=== PATIENT | male | born 1970 | race Caucasian/White ===

== ENCOUNTER 2017-02-21 11:55 | Observation (INO) | payer BC ==
[2017-02-21 13:28] LABS: INR 1.1 (<1.1); Prothrombin Time 10.6 sec (9.0-12.0)
[2017-02-21 13:31] LABS: ALT 48 U/L (21-72); AST 28 U/L (17-59); Alkaline Phosphatase 44 U/L (38-126); Anion Gap 8 mmol/L; Blood Urea Nitrogen 15 mg/dL (9-20); Calcium 9.2 mg/dL (8.4-10.2); Carbon Dioxide 27 mmol/L (22-30); Chloride 107 mmol/L (98-107); Glucose 87 mg/dL (74-99); Magnesium 2.1 mg/dL (1.6-2.3); Non-African American GFR(MDRD) >60 (>60 ml/min/1.73 sqM); Potassium 4.3 mmol/L (3.5-5.1); Sodium 142 mmol/L (137-145); Total Bilirubin 0.5 mg/dL (0.2-1.3); Total Protein 6.4 g/dL (6.3-8.2)
[2017-02-21 13:33] LABS: Basophils % (A) 1 %; CH 29.1; Eosinophils # (A) 0.2 k/uL (0-0.7); Eosinophils % (A) 3 %; HCT 45.3 % (39.0-53.0); HDW 3.02; HGB 15.6 gm/dL (13.0-17.5); Luc # (Auto) 0.16; Luc % (Auto) 2; Lymphocytes # (A) 1.6 k/uL (1.0-4.8); Lymphocytes % (A) 25 %; MCH 28.7 pg (25.0-35.0); MCHC 34.4 g/dL (31.0-37.0); MCV 83.5 fL (80.0-100.0); Mean Platelet Volume 6.9; Monocytes # (A) 0.4 k/uL (0-1.0); Monocytes % (A) 6 %; Neutrophils % (A) 63 %; RBC 5.42 m/uL (4.30-5.90); RDW 13.3 % (11.5-15.5); WBC 6.4 k/uL (3.8-10.6); WBC (Perox) 6.15
[2017-02-21 13:34] LABS: Creatine Kinase 78 U/L (55-170)
[2017-02-21 13:46] LABS: Creatine Kinase MB 0.7 ng/mL (0.0-2.4); Troponin I <0.012 ng/mL (0.000-0.034)
--- NOTE | 2017-02-21 14:08 | CT ---
EXAMINATION TYPE: CT brain wo con DATE OF EXAM: 02/21/2017 2:00 PM COMPARISON: NONE INDICATION: Dizziness, TINAJERO and blurred vision Lt eye DLP: 1090.4 mGycm, Automated exposure control for dose reduction was used. CONTRAST: None CT of the brain is performed utilizing 3 mm thick sections through the posterior fossa and 3 mm thick sections through the remaining calvarium. Study is performed within 24 hours of arrival to the hosp ital. No abnormal hyperdensity is present to suggest an acute intracranial hemorrhage. No mass lesion is evident. No acute infarcts are evident. Ventricles and sulci are appropriate for the patient age. Paranasal sinuses and mastoid air cells within the [id number] are clear. IMPRESSIONS: 1. Normal CT Brain
--- NOTE | 2017-02-21 14:23 | ED ---
Chest Pain HPI - General Chief Complaint: Chest Pain Stated Complaint: CHEST PAIN Time Seen by Provider: 02/21/17 12:06 Source: patient, family, RN/MD, RN notes reviewed Mode of arrival: wheelchair Limitations: no limitations - History of Present Illness Initial Comments: This is a 46-year-old male with a benign history who was seen at [facility] yesterday after not feeling well he is found have elevated blood pressure he went and also the headache no other workup apparently was done he was seen by his doctor today and sent here for evaluation due to left- sided chest pain also an intermittent left-sided frontal headache. He denies any fevers chills nausea vomiting or sweats. His blood pressure was 162/110 he did is some visual field defects also with blurry vision none today and nonspecific left-sided pain he's had intermittent episodes of sweats. Past 2 months he does use CPAP is unclear whether this is working properly he is been fatigued recently no overt weight loss awaking however. There is a family history diabetes and hypertension he has no personal history he does not drink alcohol except once in a while does not smoke or use street drugs. He denies any focal deficits at this time MD Complaint: chest pain, other - Related Data Home Medications Medication Instructions Recorded Confirmed Citalopram Hydrobromide [CeleXA] 10 mg PO HS 05/30/15 02/21/17 Omeprazole [PriLOSEC] 20 mg PO AC-BRKFST 05/30/15 02/21/17 Cholecalciferol [Vitamin D3] 1,000 unit PO DAILY 02/21/17 02/21/17 Cyanocobalamin (Vitamin B-12) 1,000 mcg PO DAILY 02/21/17 02/21/17 [Vitamin B-12] Multivitamins, Thera [Multivitamin 1 tab PO DAILY 02/21/17 02/21/17 (formulary)] Testosterone Cypionate 200 mg IM [id number] 02/21/17 02/21/17 [Depo-Testosterone] Vitamin E (Dl,Tocopheryl Acet) 400 unit PO DAILY 02/21/17 02/21/17 [Vitamin E] Allergies Allergy/AdvReac Type Severity Reaction Status Date / Time narcotics AdvReac Unknown Uncoded 02/21/17 13:53 Review of Systems ROS Statement: Those systems with pertinent positive or pertinent negative responses have been documented in the HPI. ROS Other: All systems not noted in ROS Statement are negative. EKG Findings - EKG Results: EKG: interpreted by RILEY, sinus rhythm (Sinus rhythm a rate of 76. Interval 148 QRS duration 86 daily since QTC of 374/420 st-t wave changes this appears be a normal ekg) Past Medical History Additional Past Medical History / Comment(s): kidney stones, History of Any Multi-Drug Resistant Organisms: None Reported Past Surgical History: Appendectomy, Back Surgery Additional Past Surgical History / Comment(s): hand surgery Past Psychological History: No Psychological Hx Reported Smoking Status: Never smoker Past Alcohol Use History: None Reported Past Drug Use History: None Reported, Prescription Drug Abuse General Exam - General Exam Comments Initial Comments: This is a well-developed well-nourished awake alert oriented times 3 male Limitations: no limitations General appearance: alert, in no apparent distress Head exam: Present: atraumatic, normocephalic, normal inspection Eye exam: Present: normal appearance, PERRL, EOMI. Absent: scleral icterus, conjunctival injection, periorbital swelling ENT exam: Present: normal exam, mucous membranes moist Neck exam: Present: normal inspection. Absent: tenderness, meningismus, lymphadenopathy Respiratory exam: Present: normal lung sounds bilaterally. Absent: respiratory distress, wheezes, rales, rhonchi, stridor Cardiovascular Exam: Present: regular rate, normal rhythm, normal heart sounds. Absent: systolic murmur, diastolic murmur, rubs, gallop, clicks GI/Abdominal exam: Present: soft, normal bowel sounds. Absent: distended, tenderness, guarding, rebound, rigid Extremities exam: Present: normal inspection, full ROM, normal capillary refill. Absent: tenderness, pedal edema, joint swelling, calf tenderness Back exam: Present: normal inspection Neurological exam: Present: alert, oriented X3, CN II-XII intact Psychiatric exam: Present: normal affect, normal mood Skin exam: Present: warm, dry, intact, normal color. Absent: rash Course Vital Signs 02/21/17 02/21/17 02/21/17 11:57 12:10 12:40 Temperature 98.4 F Pulse Rate 78 73 73 Respiratory 20 18 18 Rate Blood Pressure 136/80 140/87 142/80 O2 Sat by Pulse 99 95 95 Oximetry 02/21/17 13:10 Temperature Pulse Rate 68 Respiratory 18 Rate Blood Pressure 133/71 O2 Sat by Pulse 95 Oximetry Chest Pain MDM - MDM I did review the imaging and reports no acute findings. Patient will be admitted for evaluation by cardiology at did discuss case with Dr. Cabezas. Disposition Clinical Impression: Chest pain Disposition: ADMITTED IP TO THIS HOSP Condition: Stable
[2017-02-21] MEDS ORDERED: NITROGLYCERIN SL TABS 0.4 MG TAB SUBLINGUAL PRN (14:56)
[2017-02-21] MEDS ORDERED: SODIUM CHLORIDE 0.9% 1,000 ML IV SCH (15:00)
--- NOTE | 2017-02-21 15:25 | XR ---
EXAMINATION TYPE: XR chest 2V DATE OF EXAM: 02/21/2017 2:47 PM COMPARISON: None HISTORY: 46-year-old male with chest pain TECHNIQUE: PA and lateral views FINDINGS: The cardiomediastinal silhouette, aorta, and pulmonary vasculature are within normal limits. Strandy atelectasis in the mid and lower lungs. There is some peribronchial cuffing suggested. No consolidati on or pleural effusion. IMPRESSION: Chronic appearing changes, possible chronic bronchitis/asthma. Clinically correlate.
[2017-02-21 18:07] LABS: Creatine Kinase 82 U/L (55-170)
[2017-02-21 18:20] LABS: Creatine Kinase MB 0.7 ng/mL (0.0-2.4); Troponin I <0.012 ng/mL (0.000-0.034)
[2017-02-21] MEDS ORDERED: CITALOPRAM HYDROBROMIDE 10 MG TAB PO SCH (21:00)
[2017-02-22 01:59] LABS: Creatine Kinase 81 U/L (55-170)
[2017-02-22 02:12] LABS: Creatine Kinase MB 0.6 ng/mL (0.0-2.4); Troponin I <0.012 ng/mL (0.000-0.034)
[2017-02-22 07:18] LABS: Cholesterol 185 mg/dL (<200); HDL Cholesterol 42 mg/dL (40-60); Triglycerides 206 mg/dL (<150)
[2017-02-22] MEDS ORDERED: PANTOPRAZOLE 40 MG TABLET PO SCH (07:30)
[2017-02-22 07:52] VITALS: RESP 18
[2017-02-22] MEDS ORDERED: ASPIRIN 325 MG TAB PO SCH (09:00)
[2017-02-22] MEDS ORDERED: ACETAMINOPHEN TAB 500 MG TAB PO PRN (09:43)
[2017-02-22] MEDS ORDERED: LOSARTAN 50 MG TAB PO SCH (10:00)
--- NOTE | 2017-02-22 10:50 | CONS ---
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 He has mild depression and gastroesophageal reflux disease and usually takes Celexa and omeprazole. About 2 days ago while he was at work he developed some headache and blurred feeling in his left eye and also a throbbing pain in the eye on the left side and he went to the medical ( ). Blood pressure was 160/110, he was sent to [facility] and by the time he got there. The pressure was normal. He was sent home without any specific additional medications. He went to see Dr. Cabezas, his primary care physician yesterday, complained of the same headache, but not as much throbbing. Blood pressure apparently was elevated, but not as high as it was when he went to [facility]. However, he also complained of left lateral squeezing discomfort in the chest very atypical in quality. He was sent here to the hospital. Blood pressure was normal. Troponins are normal. EKG is unremarkable. Blood pressure seems to be under fairly decent control and he is resting comfortably without symptoms. He is quite anxious. He used to smoke until 2008 and he quit about 6 years ago. He denies any chest pain or shortness of breath at the time of my evaluation. He had a fasting lipid profile. LDL cholesterol is 102. His thyroids suggest both a low free T4 and TSH, probably this needs to be rechecked at a later time. He does have testosterone deficiency takes injections every 2 weeks. PAST MEDICAL HISTORY: 1. Mild depression. 2. Gastroesophageal reflux disease. 3. Low testosterone on supplemental injections. CORONARY RISK FACTORS: Smoking, which she quit in 2008, obesity, labile hypertension. He does not have any family history of premature coronary artery disease. On examination, blood pressure is 160/72, pulse rate is 80 per minute, regular. HEENT: Unremarkable. Fundus was not examined by me. Neck is supple. No JVD. I do not hear a carotid bruit. There is no thyromegaly. Heart exam reveals S1 and S2 heard normally without rub, murmur or gallop. Lungs are clear. Abdomen is soft, nontender. Lower extremities reveal normal pulses. No edema. Central nervous system is normal. EKG revealed sinus mechanism within normal limits. IMPRESSION: 1. Hypertensive cardiovascular disease, which is a new diagnosis for this patient. 2. Atypical chest pain. 3. Obesity. 4. Past history of smoking. RECOMMENDATIONS: I am recommending that we add losartan 50 mg daily, advised low salt diet, advised low calorie, low carb diet as well. We will perform an echocardiogram and a regular stress test and if these tests are normal, he can be discharged and follow up with his primary care physician. I discussed my thoughts in detail with the patient as well as Dr. Cabezas. Thank you very much for the consult.
--- NOTE | 2017-02-22 11:29 | EST ---
DATE OF SERVICE: 02/22/2017 AGE: 46Y SEX: M HT: 70 WT: 249 lbs. Protocol Matry: X Other: Stage: III Dur. of Exercise: 9 minutes *Heart Rate Blood Pressure *Rest: 87 Rest: 141/98 * *Max. Achieved: 153 Maximum BP: 190/90 85% PMHR: 148 100% PMHR: 174 *METS: 10.5 INDICATIONS: Chest pain, hypertension. MEDICATIONS: Patient was exercised for a total period of 9 minutes. Peak heart rate of 153 was achieved. Maximum blood pressure of 190/90 mmHg was noted. Resting EKG shows normal sinus rhythm with normal NH interval and QRS duration and normal ST-T waves. No ST segment depression suggestive of ischemia is noted. The patient did not complain of any chest pain during the test. FINAL IMPRESSION: 1. This exercise test is not suggestive of ischemia ( ) EKG. 2. Patient did not complain of any anginal pain during the test. 3. Occasional PVCs were noted. 4. Patient's exercise tolerance is normal.
--- NOTE | 2017-02-22 11:54 | ECHOF ---
Referral Reason:HTN, Chest pain MEASUREMENTS -------- HEIGHT: 152.4 cm WEIGHT: 112.9 kg BP: IVSd: 1.5 cm (0.6 - 1.1) LVIDd: 4.8 cm (3.9 - 5.3) LVPWd: 1.4 cm (0.6 - 1.1) IVSs: 1.8 cm LVIDs: 4.1 cm LVPWs: 1.2 cm LA Diam: 4.3 cm (2.7 - 3.8) LAESV Index (A-L): 25.17 ml/m Ao Diam: 3.4 cm (2.0 - 3.7) AV Cusp: 1.8 cm (1.5 - 2.6) LA Diam: 4.7 cm (2.7 - 3.8) MV EXCURSION: 22.213 mm (> 18.000) MV EF SLOPE: 117 mm/s (70 - 150) EPSS: 0.3 cm MV E Erwin: 0.53 m/s MV DecT: 278 ms MV A Erwin: 0.52 m/s MV E/A Ratio: 1.02 RAP: 5.00 mmHg RVSP: 24.21 mmHg FINDINGS -------- Sinus rhythm. This was a technically adequate study. There is moderate concentric left ventricular hypertrophy. Overall left ventricular systolic function is low-normal with, an EF between 50 - 55 %. The right ventricle is normal in size. Normal LA size by volume 22+/-6 ml/m2. The right atrial size is normal. There is mild aortic valve sclerosis. There is no evidence of aortic regurgitation. The mitral valve leaflets are mildly thickened. Mild mitral regurgitation is present. Mild tricuspid regurgitation present. There is no evidence of pulmonary hypertension. The right ventricular systolic pressure, as measured by Doppler, is 24.21mmHg. There is no pulmonic regurgitation present. The aortic root size is normal. There is no pericardial effusion. CONCLUSIONS -------- 1. There is moderate concentric left ventricular hypertrophy. 2. Overall left ventricular systolic function is low-normal with, an EF between 50 - 55 %. 3. Normal LA size by volume 22+/-6 ml/m2. 4. There is mild aortic valve sclerosis. 5. The mitral valve leaflets are mildly thickened. 6. Mild mitral regurgitation is present. 7. Mild tricuspid regurgitation present. 8. There is no evidence of pulmonary hypertension. HEELER: Mayra Burks RDCS
[2017-02-22] MEDS ORDERED: CHOLECALCIFEROL 1,000 UNIT TAB PO SCH (12:00)
[2017-02-22] MEDS ORDERED: MULTIVITAMINS, THERA 1 EACH TAB PO SCH (12:00)
[2017-02-22 12:08] VITALS: BP 136/79; PULSE 91; TEMP 97.8
--- NOTE | 2017-02-22 12:18 | P.HPIM ---
History of Present Illness 6-year-old male presented to the emergency room not feeling well still stated that he had a headache and some dizziness also some left-sided chest pain patient was found to be hypertensive. Patient had a computed tomography scan that was negative and chest x-ray that was negative. Patient was admitted to have cardiology consultation regarding chest pain Review of Systems Constitutional: Reports fatigue Cardiovascular: Reports chest pain Neurological: Reports headaches Past Medical History Past Medical History: GERD/Reflux, Sleep Apnea/CPAP/BIPAP Additional Past Medical History / Comment(s): kidney stones, DEVIATED SEPTUM( HAS SX), USES CPAP MACHINE, HIATAL HERNIA History of Any Multi-Drug Resistant Organisms: None Reported Past Surgical History: Appendectomy, Back Surgery, Tonsillectomy Additional Past Surgical History / Comment(s): 1998 RT HAND INDEX/MIDDLE FINGER TENDON REPAIR, 1992 BACK SX L4-L5, SEPTOPLASY 2011, RT KNEE ARTHROSCOPY, LT MIDDLE EAR SX AGE 10 "HAS 50% HEARING LOSS" Past Anesthesia/Blood Transfusion Reactions: No Reported Reaction Past Psychological History: No Psychological Hx Reported Additional Psychological History / Comment(s): PT IS INDEPENDANT, LIVES WITH IN SINGLE LEVEL HOME W/BASEMENT. 3 STEPS TO GET INTO HOME, BASEMENT HAS 12 STEPS. ONLY MED EQUIPMENT IS CPAP MACHINE. NO OUTSIDE SERVICES.. HAS 1 DOG, 2 CATS. NO SERVICE IN BACKGROUND. 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 DENIES HX OF DEPRESSION -HAS TAKEN CELEXA SINCE 2013 PAST DRUG ADDICTION TO VICODIN. Smoking Status: Former smoker Past Alcohol Use History: Rare Additional Past Alcohol Use History / Comment(s): STARTED SMOKING 1992, 1 PPD, QUIT 2007 Past Drug Use History: Prescription Drug Abuse Additional Drug Use History / Comment(s): 2013 "HAD ADDICTION TO VICODIN" - Past Family History Mother Family Medical History: Hypertension Father Family Medical History: Diabetes Mellitus, Hypertension Additional Family Medical History / Comment(s): KINDENY REMOVED(BENIGN TUMOR) Medications and Allergies Home Medications Medication Instructions Recorded Confirmed Type Citalopram Hydrobromide [CeleXA] 10 mg PO HS 05/30/15 02/21/17 History Omeprazole [PriLOSEC] 20 mg PO AC-BRKFST 05/30/15 02/21/17 History Cholecalciferol [Vitamin D3] 1,000 unit PO DAILY 02/21/17 02/21/17 History Cyanocobalamin (Vitamin B-12) 1,000 mcg PO DAILY 02/21/17 02/21/17 History [Vitamin B-12] Multivitamins, Thera [Multivitamin 1 tab PO DAILY 02/21/17 02/21/17 History (formulary)] Testosterone Cypionate 200 mg IM [id number] 02/21/17 02/21/17 History [Depo-Testosterone] Vitamin E (Dl,Tocopheryl Acet) 400 unit PO DAILY 02/21/17 02/21/17 History [Vitamin E] Allergies Allergy/AdvReac Type Severity Reaction Status Date / Time narcotics AdvReac Unknown Uncoded 02/21/17 13:53 Physical Exam Vitals: Vital Signs Temp Pulse Pulse Resp BP BP BP 02/22/17 12:00 97.8 F 91 18 136/79 02/22/17 07:51 97.6 F 75 18 160/72 02/22/17 04:00 84 16 02/22/17 03:55 97.6 F 80 16 131/88 02/21/17 23:54 98.0 F 72 16 138/64 02/21/17 23:08 73 16 02/21/17 20:00 97.6 F 75 16 158/74 02/21/17 17:30 97.9 F 82 16 155/93 02/21/17 17:12 98.3 F 72 18 142/86 02/21/17 16:20 73 18 144/89 02/21/17 15:27 70 18 141/87 Pulse Ox 02/22/17 12:00 96 02/22/17 07:51 94 L 02/22/17 04:00 02/22/17 03:55 93 L 02/21/17 23:54 94 L 02/21/17 23:08 02/21/17 20:00 96 02/21/17 17:30 94 L 02/21/17 17:12 95 02/21/17 16:20 95 02/21/17 15:27 93 L Intake and Output 02/21/17 02/22/17 02/22/17 22:59 06:59 14:59 Other: Voiding Method Toilet Toilet # Voids 2 Weight 113.3 kg - Constitutional General appearance: obese - EENT Eyes: PERRLA Ears: bilateral: normal - Respiratory Respiratory: bilateral: CTA - Cardiovascular Rhythm: regular - Gastrointestinal General gastrointestinal: soft - Integumentary Integumentary: normal - Neurologic Neurologic: CNII-XII intact - Musculoskeletal Musculoskeletal: gait normal - Psychiatric Psychiatric: A&O x's 3, appropriate affect, intact judgment & insight Results CBC & Chem 7: 02/21/17 12:36 02/21/17 12:36 Labs: Abnormal Lab Results - Last 24 Hours (Table) 02/22/17 02/22/17 Range/Units 06:52 06:52 Triglycerides 206 H (<150) mg/dL LDL Cholesterol, Calc 102 H (0-99) mg/dL Prolactin 25.0 H (3.7-17.9) ng/mL Chest x-ray: report reviewed CT Scan - head: report reviewed Thrombosis Risk Factor Assmnt - Choose All That Apply Any of the Below Risk Factors Present?: Yes Each Factor Represents 1 point: Age 41-60 years, Obesity (BMI >25) Other Risk Factors: No Other congenital or acquired thrombophilia - If yes, enter type in comment: No Thrombosis Risk Factor Assessment Total Risk Factor Score: 2 Thrombosis Risk Factor Assessment Level: Low Risk Assessment and Plan Plan: Assessment Chest pain Hypertension Hypothyroidism GERD Sleep apnea Low testosterone Headache Plan Patient had CT of the brain that was negative Patient will be worked up for hypothyroidism Probable endocrinology workup outpatient Cardiology consultation regarding chest pain
--- NOTE | 2017-02-22 12:23 | P.DS ---
Providers Date of admission: 02/21/17 14:56 Expected date of discharge: 02/22/17 Attending physician: Luis Armando Cabezas Primary care physician: Luis Armando Cabezas Hospital Course: 46-year-old male was admitted through the emergency room with complaints of dizziness headache and left-sided chest pain. Patient was found to be hypo- thyroid will be worked up outpatient. Was found to be hypertensive area patient had negative stress test. Patient will follow-up with family physician and behavioral sciences instructor Assessment Chest pain atypical troponin was negative 3 stress test negative EKG normal sinus rhythm Hypothyroidism GERD Hypertension Sleep apnea Headache Low testosterone Plan Outpatient workup for possible pituitary abnormality Follow-up with family physician and behavioral sciences instructor Losartan 50 started Patient Condition at Discharge: Stable Plan - Discharge Summary New Discharge Prescriptions: Losartan [Cozaar] 50 mg PO DAILY #90 tab Discharge Medication List Citalopram Hydrobromide [CeleXA] 10 mg PO HS 05/30/15 [History] Omeprazole [PriLOSEC] 20 mg PO AC-BRKFST 05/30/15 [History] Cyanocobalamin (Vitamin B-12) [Vitamin B-12] 1,000 mcg PO DAILY 02/21/17 [ History] Multivitamins, Thera [Multivitamin (formulary)] 1 tab PO DAILY 02/21/17 [History ] Testosterone Cypionate [Depo-Testosterone] 200 mg IM [id number] 02/21/17 [History] Vitamin E (Dl,Tocopheryl Acet) [Vitamin E] 400 unit PO DAILY 02/21/17 [History] Cholecalciferol [Vitamin D3] 1,000 unit PO DAILY@1200 tab 02/22/17 [Rx] Losartan [Cozaar] 50 mg PO DAILY #90 tab 02/22/17 [Rx] Follow up Appointment(s)/Referral(s): Luis Armando Cabezas MD [Primary Care Provider] - 1-2 days
[2017-02-23] MEDS ORDERED: ASPIRIN 81 MG CHEW PO SCH (09:00)
[2017-02-23] MEDS ORDERED: LOSARTAN 50 MG TAB PO SCH (09:00)
[2017-02-23 11:58] LABS: Testosterone, Total, LC/MS/MS 964 H
== END 2017-02-22 13:18 | disposition home or self-care (01) ==
LOC: EC 11:55 → 3OBS 14:56
PROVIDERS: ADMIT Family Medicine; ATTEND Family Medicine
DX: R07.89 Other chest pain (principal); K21.9 Gastro-esophageal reflux disease without esophagitis; E03.9 Hypothyroidism, unspecified; I11.9 Hypertensive heart disease without heart failure; G47.30 Sleep apnea, unspecified; E29.1 Testicular hypofunction; E66.9 Obesity, unspecified; F32.9 Major depressive disorder, single episode, unspecified; Z68.35 Body mass index [BMI] 35.0-35.9, adult; Z79.899 Other long term (current) drug therapy; Z88.5 Allergy status to narcotic agent; Z87.442 Personal history of urinary calculi; Z87.891 Personal history of nicotine dependence; Z99.89 Dependence on other enabling machines and devices; Z82.49 Family history of ischemic heart disease and other diseases of the circulatory system; Z83.3 Family history of diabetes mellitus; H91.92 Unspecified hearing loss, left ear
CPT/HCPCS: 99285; 36415; 93005; 93017; 93306; 85379; 84439; 80061; 80053; 84443; 82550 ×2; 82553 ×2; 83735; 84484 ×2; 85025; 85610; 85730; 84146; 84270; 82040; 84403; 71020; 70450; G0378 ×2

== ENCOUNTER → 2017-02-26 | Outpatient (CLI) | payer BC ==
--- NOTE | 2017-02-26 22:27 | MR ---
EXAMINATION TYPE: MR angio head wo con DATE OF EXAM: 02/26/2017 4:57 PM COMPARISON: NONE HISTORY: Headaches, Visual disturbances, dizzy TECHNIQUE: Utilizing 3-D [id number] intracranial MRA of the [place] was performed. FINDINGS: The vertebrobasilar and carotid systems are patent. There is no sizable aneurysm or vascular malform ation. IMPRESSION: 1. No evidence of vascular malformation or sizable aneurysm.
--- NOTE | 2017-02-26 22:27 | MR ---
MRI of the brain with and without contrast HISTORY: Headaches. TECHNIQUE: T1-weighted sagittal, T2, FLAIR, and diffusion axial, postcontrast T1 axial and coronal vi ews of the brain are submitted. CONTRAST: 20 mL MultiHance COMPARISON: CT brain 02/21/2017 FINDINGS: There is no evidence of acute ischemia. The ventricles, basal cisterns, and sulci overlying the co nvexities are consistent with the patient's age. There is no mass effect or enhancing mass. Craniocervical junction maintained. Sella turcica has a normal appearance. No evidence of cerebellopo ntine angle mass. Changes of chronic sinusitis and mastoiditis noted. Prominent cisterna magna noted. WHITE MATTER: No sizable area of abnormal signal seen within the white matter IMPRESSION: 1. No acute intracranial process. 2. Changes of chronic sinusitis and mastoiditis.
== END | disposition home or self-care (01) ==
LOC: RADMRIMAIN 15:41
PROVIDERS: ATTEND Family Medicine
DX: H53.9 Unspecified visual disturbance (principal); R51 Headache
CPT/HCPCS: 70544; 70553; A9577

== ENCOUNTER → 2017-02-28 | Outpatient (CLI) | payer BC | END | disposition home or self-care (01) | LOC: LABWHC1 14:17 | PROVIDERS: ATTEND Internal Medicine Endocrinology, Diabetes & Metabolism | DX: R53.83 Other fatigue (principal) | CPT/HCPCS: 36415; 82024; 82533 ==

== ENCOUNTER → 2017-03-13 | Outpatient (CLI) | payer BC ==
--- NOTE | 2017-03-13 18:50 | CT ---
EXAMINATION TYPE: CT sinus wo con DATE OF EXAM: 03/13/2017 6:45 PM COMPARISON: NONE HISTORY: Pre sinus surgery. Facial congestion CT DLP: 628.[address] of the paranasal sinuses was performed in the axial and coronal planes. Bone and soft tissue settings are submitted. The paranasal sinuses demonstrate normal aeration and development. The paranasal sinuses are free of mucosal thickening or air fluid level. The osteal meatal units are patent bilaterally. The nasal septum is mildly deviated from right to left. Incidental right-sided tristen bullosa. No bony destructive changes are seen within the field of view. IMPRESSION: No evidence for chronic or acute sinusitis. Small amount of fluid within the left-sided mastoid air c ells. Mild nasal septal deviation right to left.
== END | disposition home or self-care (01) ==
LOC: RADCTMAIN 18:28
PROVIDERS: ATTEND Otolaryngology
DX: J34.2 Deviated nasal septum (principal)
CPT/HCPCS: 70486

== ENCOUNTER → 2017-04-14 | Outpatient (CLI) | payer BC ==
[2017-04-14 11:04] LABS: Prolactin 13.4 ng/mL (3.7-17.9)
== END | disposition home or self-care (01) ==
LOC: LABMAIN 08:42
PROVIDERS: ATTEND Internal Medicine Endocrinology, Diabetes & Metabolism
DX: R53.83 Other fatigue (principal)
CPT/HCPCS: 36415; 82024; 82533; 82607; 84146; 84439; 84443; 84481

== ENCOUNTER → 2017-05-08 | Outpatient (CLI) | payer BC ==
--- NOTE | 2017-05-09 13:06 | NM ---
EXAMINATION TYPE: NM thyroid image w uptake DATE OF EXAM: 05/09/2017 COMPARISON: NONE HISTORY: Fatigue, abnormal thyroid function tests TECHNIQUE: After the intravenous administration of 10.93 mCi Tc 99m Sodium Pertechnetate, thyroid pati ging is performed 10 minutes post injection. Thyroid iodine uptake is calculated after the oral admin istration of 18.86 uCi I-131 capsule. FINDINGS: There is increased trapping of activity throughout the gland. The 4 hour iodine uptake is calculated at 7.9% (normal range 8-14%). The 24-hour iodine uptake is calculated at 22% (normal range 15-35%). IMPRESSION: Findings suggest thyroiditis. Follow-up as indicated..
== END | disposition home or self-care (01) ==
LOC: RADNMMAIN 11:16
PROVIDERS: ATTEND Internal Medicine Endocrinology, Diabetes & Metabolism
DX: R53.83 Other fatigue (principal); R94.6 Abnormal results of thyroid function studies
CPT/HCPCS: 78014; A9528; A9512

== ENCOUNTER → 2017-07-21 | Outpatient (CLI) | payer BC | END | disposition home or self-care (01) | LOC: LABWHC1 07:51 | PROVIDERS: ATTEND Internal Medicine Endocrinology, Diabetes & Metabolism | DX: E06.9 Thyroiditis, unspecified (principal) | CPT/HCPCS: 36415; 84439; 84443; 84480 ==

== ENCOUNTER → 2017-12-20 | Outpatient (CLI) | payer BC ==
--- NOTE | 2017-12-20 16:44 | PN ---
PROGRESS NOTE DATE OF SERVICE: 12/20/2017 This patient is a 47-year-old gentleman who has been followed in the sleep center for obstructive sleep apnea-hypopnea syndrome. Patient continues to use his CPAP equipment every night for the whole night. No snoring with the CPAP. No problems related to the nasal pillow mask. [place] Sleepiness Scale today is 9. I checked the patient's CPAP unit. Usage is 100% for more than 4 hours. No leak from the mask. Apnea-hypopnea index for the last month in the range of 1.5, for the last week 0.8, totally normal range. MEDICATIONS: Omeprazole, citalopram and medication for blood pressure; patient does not remember the name. PHYSICAL EXAMINATION: Patient in no distress. VITAL SIGNS: BP 120/76, HR 76, RR 14, height 5 feet 9-1/2 inches and weight 240.8, the same weight as about 1 year ago. BMI 34.9. Temperature 97.7, oxygen saturation at room air 97%. HEENT: PERRLA, EOMI. Evaluation of oropharynx showed tongue protrudes midline; extremely low position of soft palate. NECK: Supple. No JVD. Thyroid is not palpable. LUNGS: Clear to percussion and to auscultation. Good air exchange. No wheezing or rhonchi. HEART: S1, S2 regular. No murmurs, gallops or rubs. ABDOMEN: Obese. EXTREMITIES : No clubbing or cyanosis. EYELET MACHINE OPERATOR: Awake, alert, and oriented X3. Cranial nerves 2 to 7 intact. There is no fasciculation or atrophy. noted. No focal deficits observed. IMPRESSION: 1. Obstructive sleep apnea-hypopnea syndrome. Patient demonstrated 100% compliance with treatment, benefitting from treatment. Respiration under full control with CPAP at 10 cm of water. 2. Acid reflux. 3. Obesity; weight is the same. 4. History of back problem. 5. Depression. 6. Anxiety. PLAN: 1. Continue to use CPAP equipment every night for the whole night. 2. Prescription for all necessary CPAP supplies, including mask, tube, filters. 3. No driving if feeling any sleepiness. Thank you very much for allowing me to participate in the management of your patient. Sincerely, Dipak Marie MD, PhD, FAASM Diplomat of [employer] [facility] [place] MORGAN / NIDHI: [id number] /
== END | disposition home or self-care (01) ==
LOC: SLEEP 14:38
PROVIDERS: ATTEND Internal Medicine
DX: G47.33 Obstructive sleep apnea (adult) (pediatric) (principal); K21.9 Gastro-esophageal reflux disease without esophagitis; M54.9 Dorsalgia, unspecified; F32.9 Major depressive disorder, single episode, unspecified; F41.9 Anxiety disorder, unspecified; E66.9 Obesity, unspecified; Z68.34 Body mass index [BMI] 34.0-34.9, adult; Z79.899 Other long term (current) drug therapy; Z99.89 Dependence on other enabling machines and devices

== ENCOUNTER → 2018-08-29 | Outpatient (CLI) | payer BC ==
--- NOTE | 2018-08-29 15:08 | SFUN ---
SLEEP CENTER FOLLOW UP NOTE DATE OF SERVICE: 08/29/2018 A 48-year-old gentleman who has been followed in the Sleep Center for treatment of obstructive sleep apnea-hypopnea syndrome. Previous visit was done in December of 2017. At that time, he demonstrated 100% compliance with treatment and benefitting from treatment on treatment with CPAP. He continued to use CPAP every night, but 2 days ago his CPAP unit is stopped working and I checked his CPAP unit today, it does not start. [place] Sleepiness Scale today 16. MEDICATIONS: Omeprazole, Celexa. PHYSICAL EXAM: Patient in no distress. BP 127/86, HR 90, RR 16, height 5, 10, weight 256.8, body mass index 36.8, temperature 99.0, oxygen saturation at room air 96%. OROPHARYNX: Extremely low position of soft palate. ABDOMEN: Obese. Neck Supple, no JVD. Thyroid is not palpable. LUNGS Clear to percussion and to auscultation. Good air exchange. No wheezing or rhonchi. HEART S1, S2 regular. No murmurs, gallops, or rubs. EXTREMITIES No clubbing or cyanosis. ASSET PROTECTION DETECTIVE Awake, alert, and oriented X3. Cranial nerves 2 to 7 intact. There is no fasciculation or atrophy. noted. No focal deficits observed. IMPRESSION: 1. Severe obstructive sleep apnea-hypopnea syndrome; apnea-hypopnea index 49.2. Presently, patient's CPAP unit is broken for today's, previously he demonstrated great compliance with treatment and full benefitting from treatment. 2. Obesity. 3. History of acid reflux. 4. History of back problems. 5. History of depression. PLAN: 1. Prescription for CPAP unit. Will try to get for patient a new CPAP machine as soon as possible. 2. Prescription for all necessary CPAP supplies including mask, tube, filters. 3. Patient will continue to use CPAP equipment every night for the whole night. 4. Losing weight. 5. No driving if feeling any sleepiness. Thank you very much for allowing me to participate in the management of your patient. Sincerely, Dipak Marie MD, PhD, FAASM Diplomat of [employer] [place] [employer] [place] [employer] Film Library Clerk of [facility] [place] MMODL / IJN: [id number] /
== END ==
LOC: SLEEP 13:13
PROVIDERS: ATTEND Internal Medicine
DX: G47.33 Obstructive sleep apnea (adult) (pediatric) (principal); E66.9 Obesity, unspecified; Z87.19 Personal history of other diseases of the digestive system; F32.9 Major depressive disorder, single episode, unspecified; Z87.39 Personal history of other diseases of the musculoskeletal system and connective tissue; Z99.89 Dependence on other enabling machines and devices; Z79.899 Other long term (current) drug therapy

== ENCOUNTER → 2018-08-29 | Outpatient (CLI) | payer BC ==
--- NOTE | 2018-08-29 10:09 | XR ---
EXAMINATION TYPE: XR chest 2V DATE OF EXAM: 08/29/2018 COMPARISON: Prior chest x-ray 02/21/2017 HISTORY: Hemoptysis TECHNIQUE: Frontal and lateral views of the chest are obtained. FINDINGS: Patient is rotated. There is no focal air space opacity, pleural effusion, or pneumothorax seen. The cardiac silhouette size is within normal limits. The osseous structures are intact. IMPRESSION: No acute cardiopulmonary process.
--- NOTE | 2018-08-29 12:42 | CT ---
EXAMINATION TYPE: CT chest w con DATE OF EXAM: 08/29/2018 COMPARISON: None HISTORY: Coughing up blood CT DLP: 568.1 mGycm. Automated Exposure Control for Dose Reduction was Utilized. TECHNIQUE: CT scan of the thorax is performed following with IV Contrast, patient injected with 100 mL of Isovue 300. FINDINGS: LUNGS: Peribronchial cuffing and left basilar airspace disease is seen of the posterior basilar segme nt of the left lower lobe. The lungs are grossly clear, there is no concerning parenchymal mass or no dule identified. There is no pleural effusion or pneumothorax seen. The tracheobronchial tree is p atent. MEDIASTINUM: There are no greater than 1 cm hilar or mediastinal lymph nodes. No pericardial effusi on is seen. OTHER: Very small hiatal hernia is present. Mild multilevel degenerative changes of spine are noted. Low-attenuation of the pancreatic parenchyma is compatible with hepatic steatosis. Radiopaque density within the gastric folds of the fundus is likely from ingested substance. Small hypoattenuated hepat ic pancreatic lesions are seen. MRCP could be performed for further evaluation. IMPRESSION: 1. Left basilar peribronchial cuffing and groundglass small area of airspace disease. This could repr esent early pneumonitis/bronchitis or atelectasis. No pulmonary mass is seen. 2. Subcentimeter low-density pancreatic lesion are favored to be benign but could be further evaluate d with MRCP.
== END | disposition home or self-care (01) ==
LOC: RADCTMAIN 09:48
PROVIDERS: ATTEND Midwife
DX: R91.8 Other nonspecific abnormal finding of lung field (principal); J98.4 Other disorders of lung; R04.2 Hemoptysis
CPT/HCPCS: 71046; 71260; Q9967

== ENCOUNTER → 2018-08-30 | Outpatient (CLI) | payer BC ==
--- NOTE | 2018-08-30 10:29 | MR ---
EXAMINATION TYPE: MR MRCP DATE OF EXAM: 08/30/2018 COMPARISON: CT chest August 29, 2018 HISTORY: Abnormal ct scan Standard multiplanar, multisequence MRI departmental protocol Multiplanar, multisequence images of the abdomen were acquired. Thin and thick slice MRCP images are created on MRI scanner. FINDINGS: LIVER/GB/PANCREAS/BILIARY SYSTEM: Liver is normal in size. There is 7 mm simple appearing thin-walled cyst in the right hepatic lobe coronal image 19. No suspicious intrahepatic or extrahepatic biliary dilatation is present. Gallbladder is felt within normal limits. Pancreas is within normal limits in size. Pancreatic duct is visualized but not suspiciously dilated in the body. Pancreatic duct because of poor distention is less well seen in the head to confirm norm al anatomy. Area of subcentimeter low density on CT near the head body junction shows no worrisome le karina or cyst on current study, I favor interdigitating intra-abdominal fat causing CT abnormality. No suspicious solid or cystic lesion is present in pancreas. OTHER: Lung bases are clear. The spleen and both adrenal glands are normal in size. There is subcenti meter cyst upper pole level left kidney axial image 24 series 501. No hydronephrosis is evident in ei ther kidney. There is no suspicious small or large bowel dilatation. There is no concerning abdominal fluid collec tion. Osseous structures are intact. No suspicious abdominal adenopathy is seen. IMPRESSION: No suspicious pancreatic mass or cystic lesion. No suspicious ductal dilatation.
== END | disposition home or self-care (01) ==
LOC: RADMRIMAIN 07:42
PROVIDERS: ATTEND Midwife
DX: R93.89 Abnormal findings on diagnostic imaging of other specified body structures (principal)
CPT/HCPCS: 74181

== ENCOUNTER → 2018-12-19 | Outpatient (CLI) | payer BC ==
--- NOTE | 2018-12-19 17:29 | PN ---
PROGRESS NOTE DATE OF SERVICE: 12/19/2018 This patient is a 48-year-old gentleman who has been followed in Sleep Center for treatment of obstructive sleep apnea-hypopnea syndrome. Recently he received a new CPAP unit. He is able to use his CPAP equipment every night for the whole night without any significant problems related to mask fitting, pressure or humidification. [place] Sleepiness Scale today is 11. I checked his CPAP unit. CPAP pressure is 10 cm of water. Usage is every night, and 28/30 nights for more than 4 hours. Average usage is 7.6 hours. Leak is 13 L/minute, which is acceptable. Apnea-hypopnea index is 2.7, which is totally normal. Patient is using a Child LT nasal pillow mask. MEDICATIONS: 1. Omeprazole. 2. Celexa. PHYSICAL EXAMINATION: GENERAL: A pleasant patient in no distress. VITAL SIGNS: BP 126/100, HR 94, RR 17, weight 256.4, temperature 98.2. HEENT: PERRLA, EOMI. Evaluation of oropharynx showed tongue protrudes midline. Extremely low position of soft palate. Mallampati IV. NECK: Supple. No JVD. Thyroid is not palpable. LUNGS: Clear to percussion and to auscultation. Good air exchange. No wheezing or rhonchi. HEART: S1, S2 regular. No murmurs, gallops or rubs. ABDOMEN: Obese. EXTREMITIES: No clubbing or cyanosis. HEALTHCARE MARKETER: Awake, alert, and oriented X3. Cranial nerves 2 to 7 intact. There is no fasciculation or atrophy. noted. No focal deficits observed. IMPRESSION: 1. Severe obstructive sleep apnea-hypopnea syndrome; apnea-hypopnea index 49.2. The patient demonstrated 100% compliance with treatment. His respiration normalized on treatment with CPAP at the pressure 10 cm of water. He is benefitting from treatment. 2. Obesity. 3. History of acid reflux. 4. History of back problems. 5. History of depression. PLAN: 1. Patient will continue to use CPAP equipment every night for the whole night. 2. We will maintain all necessary CPAP prescriptions for the mask, tube, filters. 3. Losing weight. 4. Sleep hygiene with regular time in bed for at least 8 hours. 5. No driving if feeling any sleepiness. 6. Follow-up visit in one year, or earlier if patient has any problems. Thank you very much for allowing me to participate in the management of your patient. Sincerely, Dipak Marie MD, PhD, FAASM Diplomat of [place] [employer] [employer] Broke Handler of [facility] [place] MORGAN / NIDHI: [id number] /
== END ==
LOC: SLEEP 16:15
PROVIDERS: ATTEND Internal Medicine
DX: G47.33 Obstructive sleep apnea (adult) (pediatric) (principal); E66.9 Obesity, unspecified; Z87.19 Personal history of other diseases of the digestive system; Z87.39 Personal history of other diseases of the musculoskeletal system and connective tissue; Z86.59 Personal history of other mental and behavioral disorders; Z99.89 Dependence on other enabling machines and devices; Z79.899 Other long term (current) drug therapy

== ENCOUNTER 2019-01-16 18:37 | Observation (INO) | payer BC ==
[2019-01-16] MEDS ORDERED: SODIUM CHLORIDE 0.9% 500 ML 500 ML IV ONE (19:59)
[2019-01-16] MEDS ORDERED: ONDANSETRON 4 MG/2 ML VIAL IVP STA (19:59)
--- NOTE | 2019-01-16 20:00 | ED ---
General Adult HPI - General Chief complaint: Chest Pain Stated complaint: Shaky, dizzy Time Seen by Provider: 01/16/19 19:46 Source: patient, RN notes reviewed, old records reviewed Mode of arrival: ambulatory Limitations: no limitations - History of Present Illness Initial comments: 48-year-old male presents for evaluation of lightheadedness, nausea, chest pain. Patient's symptoms began at approximately 4 PM, this was 4 hours prior to arrival. Patient states he felt lightheaded, had some nausea and then developed some intermittent left-sided chest pain. This pain was 6 out of 10 at its worst. He states he felt cool and clammy. Denies dyspnea. Denies vomiting. Denies abdominal pain. Patient's symptoms have improved at the time my evaluation. He has no history of CAD, no history diabetes, nonsmoker. - Related Data Home Medications Medication Instructions Recorded Confirmed Omeprazole [PriLOSEC] 20 mg PO AC-BRKFST 05/30/15 01/16/19 amLODIPine [Norvasc] 5 mg PO DAILY 10/25/17 01/16/19 Allergies Allergy/AdvReac Type Severity Reaction Status Date / Time narcotics AdvReac Unknown Uncoded 01/16/19 19:31 Review of Systems ROS Statement: Those systems with pertinent positive or pertinent negative responses have been documented in the HPI. ROS Other: All systems not noted in ROS Statement are negative. Past Medical History Past Medical History: GERD/Reflux, Sleep Apnea/CPAP/BIPAP Additional Past Medical History / Comment(s): kidney stones, DEVIATED SEPTUM( HAS SX), USES CPAP MACHINE, HIATAL HERNIA History of Any Multi-Drug Resistant Organisms: None Reported Past Surgical History: Appendectomy, Back Surgery, Tonsillectomy Additional Past Surgical History / Comment(s): 1998 RT HAND INDEX/MIDDLE FINGER TENDON REPAIR, 1992 BACK SX L4-L5, SEPTOPLASY 2011, RT KNEE ARTHROSCOPY, LT MIDDLE EAR SX AGE 10 "HAS 50% HEARING LOSS" Past Anesthesia/Blood Transfusion Reactions: No Reported Reaction Past Psychological History: No Psychological Hx Reported Smoking Status: Current every day smoker Past Alcohol Use History: Rare Past Drug Use History: Prescription Drug Abuse - Past Family History Mother Family Medical History: Hypertension Father Family Medical History: Diabetes Mellitus, Hypertension Additional Family Medical History / Comment(s): KINDENY REMOVED(BENIGN TUMOR) General Exam Limitations: no limitations General appearance: alert, in no apparent distress Head exam: Present: atraumatic, normocephalic Eye exam: Present: normal appearance, PERRL ENT exam: Present: normal exam Neck exam: Present: normal inspection. Absent: tenderness, meningismus Respiratory exam: Present: normal lung sounds bilaterally. Absent: respiratory distress, wheezes Cardiovascular Exam: Present: regular rate, normal rhythm GI/Abdominal exam: Present: soft. Absent: distended, tenderness Extremities exam: Present: normal inspection, normal capillary refill. Absent: pedal edema Back exam: Present: normal inspection Neurological exam: Present: alert, oriented X3, CN II-XII intact. Absent: motor sensory deficit Psychiatric exam: Present: normal affect, normal mood Skin exam: Present: warm, dry, intact. Absent: cyanosis, diaphoretic Course Vital Signs 01/16/19 01/16/19 01/16/19 19:27 20:40 20:50 Temperature 98.5 F Pulse Rate 86 108 H 80 Respiratory 18 16 17 Rate Blood Pressure 158/98 142/85 142/85 O2 Sat by Pulse 99 98 94 L Oximetry 01/16/19 01/16/19 21:00 21:10 Temperature Pulse Rate 77 Respiratory Rate Blood Pressure 142/85 142/88 O2 Sat by Pulse Oximetry - Reevaluation(s) Reevaluation #1: 01/16/19 21:27 Patient reevaluated, he symptomatically, no pain EKG Findings - EKG Comments: EKG Findings:: EKG: Normal sinus rhythm, Q wave and T wave inversion in lead 3, no ST segment elevation or depression, rate of 79, ME interval 1:30, QRS duration 90, QTC 440, similar compared to previous EKG in February 2017 Medical Decision Making - Medical Decision Making 48-year-old male presenting with an episode of nausea, chest pain, and lightheadedness. Patient's symptoms began several hours prior to arrival. Chest x-ray reviewed, no acute cardiopulmonary disease, normal CBC, normal CMP, d-dimer is negative, troponin is negative. Patient will be kept in observation for serial cardiac enzymes, telemetry, and cardiology consultation. Case is discussed with admitting physician. - Lab Data Result diagrams: 01/16/19 19:54 01/16/19 19:54 Lab Results 01/16/19 01/16/1919 Range/Units 19:54 19:54 19:54 WBC 7.3 (3.8-10.6) k/uL RBC 5.64 (4.30-5.90) m/uL Hgb 16.5 (13.0-17.5) gm/dL Hct 48.0 (39.0-53.0) % MCV 85.1 (80.0-100.0) fL MCH 29.3 (25.0-35.0) pg MCHC 34.4 (31.0-37.0) g/dL RDW 14.1 (11.5-15.5) % Plt Count 195 (150-450) k/uL Neutrophils % 73 % Lymphocytes % 17 % Monocytes % 6 % Eosinophils % 2 % Basophils % 0 % Neutrophils # 5.3 (1.3-7.7) k/uL Lymphocytes # 1.2 (1.0-4.8) k/uL Monocytes # 0.5 (0-1.0) k/uL Eosinophils # 0.1 (0-0.7) k/uL Basophils # 0.0 (0-0.2) k/uL PT 9.5 (9.0-12.0) sec INR 0.9 (<1.2) APTT 23.4 (22.0-30.0) sec D-Dimer 0.33 (<0.60) mg/L FEU Sodium 145 (137-145) mmol/L Potassium 4.2 (3.5-5.1) mmol/L Chloride 108 H (98-107) mmol/L Carbon Dioxide 30 (22-30) mmol/L Anion Gap 7 mmol/L BUN 10 (9-20) mg/dL Creatinine 0.85 (0.66-1.25) mg/dL Est GFR (CKD-EPI)AfAm >90 (>60 ml/min/1.73 sqM) Est GFR (CKD-EPI)NonAf >90 (>60 ml/min/1.73 sqM) Glucose 118 H (74-99) mg/dL Calcium 9.5 (8.4-10.2) mg/dL Magnesium 2.1 (1.6-2.3) mg/dL Total Bilirubin 0.6 (0.2-1.3) mg/dL AST 32 (17-59) U/L ALT 62 (21-72) U/L Alkaline Phosphatase 70 (38-126) U/L Troponin I (0.000-0.034) ng/mL Total Protein 7.1 (6.3-8.2) g/dL Albumin 4.5 (3.5-5.0) g/dL Lipase 118 (23-300) U/L 01/16/19 Range/Units 19:54 WBC (3.8-10.6) k/uL RBC (4.30-5.90) m/uL Hgb (13.0-17.5) gm/dL Hct (39.0-53.0) % MCV (80.0-100.0) fL MCH (25.0-35.0) pg MCHC (31.0-37.0) g/dL RDW (11.5-15.5) % Plt Count (150-450) k/uL Neutrophils % % Lymphocytes % % Monocytes % % Eosinophils % % Basophils % % Neutrophils # (1.3-7.7) k/uL Lymphocytes # (1.0-4.8) k/uL Monocytes # (0-1.0) k/uL Eosinophils # (0-0.7) k/uL Basophils # (0-0.2) k/uL PT (9.0-12.0) sec INR (<1.2) APTT (22.0-30.0) sec D-Dimer (<0.60) mg/L FEU Sodium (137-145) mmol/L Potassium (3.5-5.1) mmol/L Chloride (98-107) mmol/L Carbon Dioxide (22-30) mmol/L Anion Gap mmol/L BUN (9-20) mg/dL Creatinine (0.66-1.25) mg/dL Est GFR (CKD-EPI)AfAm (>60 ml/min/1.73 sqM) Est GFR (CKD-EPI)NonAf (>60 ml/min/1.73 sqM) Glucose (74-99) mg/dL Calcium (8.4-10.2) mg/dL Magnesium (1.6-2.3) mg/dL Total Bilirubin (0.2-1.3) mg/dL AST (17-59) U/L ALT (21-72) U/L Alkaline Phosphatase (38-126) U/L Troponin I <0.012 (0.000-0.034) ng/mL Total Protein (6.3-8.2) g/dL Albumin (3.5-5.0) g/dL Lipase (23-300) U/L Disposition Clinical Impression: Chest pain Disposition: ADMITTED IP TO THIS [facility] Condition: Stable Is patient prescribed a controlled substance at d/c from ED?: No Referrals: Luis Armando Cabezas MD [Primary Care Provider] - 1-2 days Decision to Admit Reason: Admit from EC Decision Date: 01/16/19 Decision Time: 21:29
--- NOTE | 2019-01-16 20:10 | XR ---
EXAMINATION TYPE: XR chest 2V DATE OF EXAM: 01/16/2019 COMPARISON: 08/29/2018 HISTORY: Chest pain TECHNIQUE: Frontal and lateral views of the chest are obtained. FINDINGS: Heart and mediastinum are normal. Lungs are clear. Diaphragm is normal. There are chest le ads. Bony thorax appears normal. IMPRESSION: Normal chest. No change.
[2019-01-16 20:18] LABS: Basophils % (A) 0 %; Eosinophils # (A) 0.1 k/uL (0-0.7); Eosinophils % (A) 2 %; HGB 16.5 gm/dL (13.0-17.5); Lymphocytes # (A) 1.2 k/uL (1.0-4.8); Lymphocytes % (A) 17 %; MCH 29.3 pg (25.0-35.0); MCHC 34.4 g/dL (31.0-37.0); MCV 85.1 fL (80.0-100.0); Mean Platelet Volume 7.1; Monocytes # (A) 0.5 k/uL (0-1.0); Monocytes % (A) 6 %; Neutrophils # (A) 5.3 k/uL (1.3-7.7); Neutrophils % (A) 73 %; Platelet Count 195 k/uL (150-450); RBC 5.64 m/uL (4.30-5.90); RDW 14.1 % (11.5-15.5); WBC 7.3 k/uL (3.8-10.6)
[2019-01-16 20:26] LABS: ALT 62 U/L (21-72); AST 32 U/L (17-59); Albumin 4.5 g/dL (3.5-5.0); Alkaline Phosphatase 70 U/L (38-126); Anion Gap 7 mmol/L; Blood Urea Nitrogen 10 mg/dL (9-20); Calcium 9.5 mg/dL (8.4-10.2); Carbon Dioxide 30 mmol/L (22-30); Chloride 108 mmol/L (98-107); Glucose 118 mg/dL (74-99); Lipase 118 U/L (23-300); Magnesium 2.1 mg/dL (1.6-2.3); Potassium 4.2 mmol/L (3.5-5.1); Sodium 145 mmol/L (137-145); Total Bilirubin 0.6 mg/dL (0.2-1.3); Total Protein 7.1 g/dL (6.3-8.2)
[2019-01-16 20:32] LABS: D-Dimer 0.33 mg/L FEU (<0.60); INR 0.9 (<1.2); Partial Thromboplastin Time 23.4 sec (22.0-30.0); Prothrombin Time 9.5 sec (9.0-12.0)
[2019-01-16] MEDS ORDERED: ASPIRIN 325 MG TAB PO STA (20:59)
[2019-01-16] MEDS ORDERED: ONDANSETRON 4 MG/2 ML VIAL IVP PRN (21:25)
[2019-01-16] MEDS ORDERED: MORPHINE SULFATE 4 MG/ML SYRINGE IV PRN (21:25)
[2019-01-16] MEDS ORDERED: NALOXONE 0.4 MG/ML 1 ML VIAL IV PRN (21:25)
[2019-01-16] MEDS ORDERED: ACETAMINOPHEN TAB 325 MG TAB PO PRN (21:25)
[2019-01-16] MEDS ORDERED: NITROGLYCERIN SL TABS 0.4 MG TAB SUBLINGUAL PRN (21:26)
[2019-01-16 22:36] VITALS: BMI 37.0
[2019-01-17] MEDS ORDERED: PANTOPRAZOLE 40 MG TABLET PO SCH (07:30)
[2019-01-17] MEDS ORDERED: amLODIPine 5 MG TAB PO SCH (09:00)
[2019-01-17] MEDS ORDERED: ASPIRIN 325 MG TAB PO SCH (09:00)
--- NOTE | 2019-01-17 09:51 | P.CRDCN ---
History of Present Illness Consult date: 01/17/19 Requesting physician: Nikhil Thomas Consult reason: chest pain Chief complaint: Chest pain History of present illness: Is is a 48-year-old gentleman with history of hypertension, sleep apnea, nicotine dependence, obesity, who presented to the hospital with symptoms of nausea with associated cold sweats and clammy feeling. Initially the patient presented to the hospital with symptoms of lightheadedness and clamminess, while in the emergency room he states he developed some chest pressure in the left side of his chest. EKG on arrival here showed a normal sinus rhythm with inferior Q waves, no acute changes noted. Chest x-ray did not reveal any acute changes. Blood pressure on arrival here 158/98, heart rate in the 80s, 99% on room air. White blood cell count 7.3, hemoglobin 16.5, platelet count 195. D-dimer 0.33. Sodium 145, potassium 4.2, BUN 10 and creatinine 0.8. Magnesium is 2.1. Troponins are negative 3. At the time of my examination this morning he is currently symptom-free. Past Medical History Past Medical History: GERD/Reflux, Hypertension, Sleep Apnea/CPAP/BIPAP Additional Past Medical History / Comment(s): kidney stones, DEVIATED SEPTUM( HAS SX), USES CPAP MACHINE, HIATAL HERNIA History of Any Multi-Drug Resistant Organisms: None Reported Past Surgical History: Appendectomy, Back Surgery, Tonsillectomy Additional Past Surgical History / Comment(s): 1998 RT HAND INDEX/MIDDLE FINGER TENDON REPAIR, 1992 BACK SX L4-L5, SEPTOPLASY 2011, RT KNEE ARTHROSCOPY, LT MIDDLE EAR SX AGE 10 "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 Past Anesthesia/Blood Transfusion Reactions: No Reported Reaction Past Psychological History: No Psychological Hx Reported Additional Psychological History / Comment(s): PT IS INDEPENDANT, LIVES WITH FRIEND. GOING THROUGH [employer], PAST ADDICTION TO VICODIN. Smoking Status: Current every day smoker Past Alcohol Use History: Occasional Additional Past Alcohol Use History / Comment(s): 1 PPD Past Drug Use History: Prescription Drug Abuse Additional Drug Use History / Comment(s): 2013 "HAD ADDICTION TO VICODIN" - Past Family History Mother Family Medical History: No Reported History Father Family Medical History: Diabetes Mellitus, Hypertension Additional Family Medical History / Comment(s): KINDNEY REMOVED(BENIGN TUMOR) Medications and Allergies Home Medications Medication Instructions Recorded Confirmed Type Omeprazole [PriLOSEC] 20 mg PO AC-BRKFST 05/30/15 01/16/19 History amLODIPine [Norvasc] 5 mg PO DAILY 10/25/17 01/16/19 History Allergies Allergy/AdvReac Type Severity Reaction Status Date / Time narcotics AdvReac Unknown Uncoded 01/16/19 19:31 Physical Exam Vitals: Vital Signs Temp Pulse Pulse Resp BP BP Pulse Ox 01/17/19 08:38 97 01/17/19 03:44 98.2 F 95 15 131/82 98 01/16/19 23:00 144/85 01/16/19 22:23 77 16 153/81 97 01/16/19 21:10 142/88 01/16/19 21:00 77 142/85 01/16/19 20:50 80 17 142/85 94 L 01/16/19 20:40 108 H 16 142/85 98 01/16/19 19:27 98.5 F 86 18 158/98 99 Intake and Output 01/16/19 01/17/19 01/17/19 22:59 06:59 14:59 Other: Voiding Method Toilet Toilet # Voids 1 1 Weight 117.027 kg 116.3 kg PHYSICAL EXAMINATION: GENERAL: 48-year-old gentleman in no acute distress at the time of my examination HEENT: Head is atraumatic, normocephalic. Pupils equal, round. Sclera anicteric. Conjunctiva are clear. Mucous membranes of the mouth are moist. Neck is supple. There is no elevated jugular venous pressure. No carotid bruit is heard. HEART EXAMINATION: Heart S1, S2 normal. No murmur or gallop heard. CHEST EXAMINATION: Lungs are clear to auscultation and precussion. No chest wall tenderness is noted on palpation or with deep breathing. ABDOMEN: Soft, obese, nontender. Bowel sounds are heard. No organomegaly noted. EXTREMITIES: 2+ peripheral pulses with no evidence of peripheral edema and no calf tenderness noted. NEUROLOGIC patient is awake, alert and oriented 3 . . Results 01/16/19 19:54 01/16/19 19:54 Cardiac Enzymes 01/16/19 01/16/19 01/16/19 Range/Units 19:54 19:54 19:54 AST 32 (17-59) U/L CK-MB (CK-2) 2.6 H (0.0-2.4) ng/mL Troponin I <0.012 (0.000-0.034) ng/mL 01/17/19 01/17/19 01/17/19 Range/Units 01:43 01:43 07:24 AST (17-59) U/L CK-MB (CK-2) 1.8 (0.0-2.4) ng/mL Troponin I <0.012 <0.012 (0.000-0.034) ng/mL 01/17/19 Range/Units 07:24 AST (17-59) U/L CK-MB (CK-2) 1.8 (0.0-2.4) ng/mL Troponin I (0.000-0.034) ng/mL Coagulation 01/16/19 Range/Units 19:54 PT 9.5 (9.0-12.0) sec APTT 23.4 (22.0-30.0) sec CBC 01/16/19 Range/Units 19:54 WBC 7.3 (3.8-10.6) k/uL RBC 5.64 (4.30-5.90) m/uL Hgb 16.5 (13.0-17.5) gm/dL Hct 48.0 (39.0-53.0) % Plt Count 195 (150-450) k/uL Comprehensive Metabolic Panel 01/16/19 Range/Units 19:54 Sodium 145 (137-145) mmol/L Potassium 4.2 (3.5-5.1) mmol/L Chloride 108 H (98-107) mmol/L Carbon Dioxide 30 (22-30) mmol/L BUN 10 (9-20) mg/dL Creatinine 0.85 (0.66-1.25) mg/dL Glucose 118 H (74-99) mg/dL Calcium 9.5 (8.4-10.2) mg/dL AST 32 (17-59) U/L ALT 62 (21-72) U/L Alkaline Phosphatase 70 (38-126) U/L Total Protein 7.1 (6.3-8.2) g/dL Albumin 4.5 (3.5-5.0) g/dL Current Medications Generic Name Dose Route Start Last Admin Trade Name Freq PRN Reason Stop Dose Admin Acetaminophen 650 mg 01/16/19 21:25 Tylenol Tab PO Q6HR PRN Mild Pain or Fever > 100.5 Amlodipine Besylate 5 mg 01/17/19 09:00 Norvasc PO DAILY [facility] Aspirin 325 mg 01/17/19 09:00 Aspirin PO DAILY [facility] Morphine Sulfate 4 mg 01/16/19 21:25 Morphine Sulfate (Inj) IV Q4HR PRN Severe Pain Naloxone HCl 0.2 mg 01/16/19 21:25 Narcan IV Q2M PRN Opioid Reversal Nitroglycerin 0.4 mg 01/16/19 21:26 Nitrostat SUBLINGUAL Q5M PRN Chest Pain Ondansetron HCl 4 mg 01/16/19 21:25 Zofran IVP Q8HR PRN Nausea And Vomiting Pantoprazole Sodium 40 mg 01/17/19 07:30 01/17/19 06:41 Protonix PO Not Given AC-BRKFST PAUL Intake and Output 01/16/19 01/17/19 01/17/19 22:59 06:59 14:59 Other: Voiding Method Toilet Toilet # Voids 1 1 Weight 117.027 kg 116.3 kg 01/16/19 19:54 01/16/19 19:54 EKG Interpretations (text) EKG shows normal sinus rhythm with no acute changes. Inferior Q waves noted. Assessment and Plan Plan: Assessment and plan #1 symptoms of clamminess with associated lightheadedness and atypical chest pain. Troponins are negative 3 #2 hypertension #3 nicotine dependence #4 sleep apnea #5 GERD Plan We will request an echocardiogram with Doppler study be performed. We'll also check a fasting lipid profile. Patient did have a regular stress test performed in 2017 which was negative. We would recommend on this occasion again on the patient undergo stress testing. Further recommendations to follow. DNP note has been reviewed, I agree with a documented findings and plan of care. Patient was seen and examined.
[2019-01-17 10:31] VITALS: RESP 16
[2019-01-17 11:14] LABS: Cholesterol 159 mg/dL (<200); HDL Cholesterol 42 mg/dL (40-60); LDL Cholesterol,Calculated 104 mg/dL (0-99); Triglycerides 67 mg/dL (<150)
--- NOTE | 2019-01-17 11:31 | P.HPIM ---
History of Present Illness A pleasant 48-year-old gentleman came in with complaints of chest pain and feeling clammy chest pain lasted the for about an hour on the left side of the chest pressure like sensation nonradiating no associated shortness of breath bit lightheaded no radiation [id number] severity 6 last and severe found to have some inferior Q waves without any troponin elevation. Patient chest pain is nonpleuritic chest x-ray did not show any pneumonia d-dimer is negative. Chest pain not associated with food. Patient was evaluated by cardiology troponins are negative the recommending stress test if that's negative patient will be discharged today patient appears to have atypical chest pain mostly musculoskeletal in nature Review of Systems REVIEW OF SYSTEMS: CONSTITUTIONAL: No fever, no malaise, no fatigue. HEENT: No recent visual problems or hearing problems. Denied any sore throat. CARDIOVASCULAR: No orthopnea, PND, no palpitations, no syncope. PULMONARY: No shortness of breath, no cough, no hemoptysis. GASTROINTESTINAL: No diarrhea, no nausea, no vomiting, no abdominal pain. NEUROLOGICAL: No headaches, no weakness, no numbness. HEMATOLOGICAL: Denies any bleeding or petechiae. GENITOURINARY: Denies any burning micturition, frequency, or urgency. MUSCULOSKELETAL/RHEUMATOLOGICAL: Denies any joint pain, swelling, or any muscle pain. ENDOCRINE: Denies any polyuria or polydipsia. The rest of the 14-point review of systems is negative. Past Medical History Past Medical History: GERD/Reflux, Hypertension, Sleep Apnea/CPAP/BIPAP Additional Past Medical History / Comment(s): kidney stones, DEVIATED SEPTUM( HAS SX), USES CPAP MACHINE, HIATAL HERNIA History of Any Multi-Drug Resistant Organisms: None Reported Past Surgical History: Appendectomy, Back Surgery, Tonsillectomy Additional Past Surgical History / Comment(s): 1998 RT HAND INDEX/MIDDLE FINGER TENDON REPAIR, 1992 BACK SX L4-L5, SEPTOPLASY 2011, RT KNEE ARTHROSCOPY, LT MIDDLE EAR SX AGE 10 "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 Past Anesthesia/Blood Transfusion Reactions: No Reported Reaction Past Psychological History: No Psychological Hx Reported Additional Psychological History / Comment(s): PT IS INDEPENDANT, LIVES WITH FRIEND. GOING THROUGH DIVORCE, PAST ADDICTION TO VICODIN. Smoking Status: Current every day smoker Past Alcohol Use History: Occasional Additional Past Alcohol Use History / Comment(s): 1 PPD Past Drug Use History: Prescription Drug Abuse Additional Drug Use History / Comment(s): 2013 "HAD ADDICTION TO VICODIN" - Past Family History Mother Family Medical History: No Reported History Father Family Medical History: Diabetes Mellitus, Hypertension Additional Family Medical History / Comment(s): KINDNEY REMOVED(BENIGN TUMOR) Medications and Allergies Home Medications Medication Instructions Recorded Confirmed Type Omeprazole [PriLOSEC] 20 mg PO AC-BRKFST 05/30/15 01/16/19 History amLODIPine [Norvasc] 5 mg PO DAILY 10/25/17 01/16/19 History Allergies Allergy/AdvReac Type Severity Reaction Status Date / Time narcotics AdvReac Unknown Uncoded 01/16/19 19:31 Physical Exam Vitals: Vital Signs Temp Pulse Pulse Resp BP BP Pulse Ox 01/17/19 08:45 98 F 69 16 129/77 92 L 01/17/19 08:38 97 01/17/19 03:44 98.2 F 95 15 131/82 98 01/16/19 23:00 144/85 01/16/19 22:23 77 16 153/81 97 01/16/19 21:10 142/88 01/16/19 21:00 77 142/85 01/16/19 20:50 80 17 142/85 94 L 01/16/19 20:40 108 H 16 142/85 98 01/16/19 19:27 98.5 F 86 18 158/98 99 Intake and Output 01/16/19 01/17/19 01/17/19 22:59 06:59 14:59 Other: Voiding Method Toilet Toilet # Voids 1 1 Weight 117.027 kg 116.3 kg PHYSICAL EXAMINATION: GENERAL: The patient is alert and oriented x3, not in any acute distress. Well developed, well nourished. HEENT: Pupils are round and equally reacting to light. EOMI. No scleral icterus. No conjunctival pallor. Normocephalic, atraumatic. No pharyngeal erythema. No thyromegaly. CARDIOVASCULAR: S1 and S2 present. No murmurs, rubs, or gallops. PULMONARY: Chest is clear to auscultation, no wheezing or crackles. ABDOMEN: Soft, nontender, nondistended, normoactive bowel sounds. No palpable organomegaly. MUSCULOSKELETAL: No joint swelling or deformity. EXTREMITIES: No cyanosis, clubbing, or pedal edema. NEUROLOGICAL: Gross neurological examination did not reveal any focal deficits. SKIN: No rashes. Results CBC & Chem 7: 01/16/19 19:54 01/16/19 19:54 Labs: Abnormal Lab Results - Last 24 Hours (Table) 01/16/19 01/16/19 01/17/19 Range/Units 19:54 19:54 07:24 Chloride 108 H (98-107) mmol/L Glucose 118 H (74-99) mg/dL CK-MB (CK-2) 2.6 H (0.0-2.4) ng/mL LDL Cholesterol, Calc 104 H (0-99) mg/dL Thrombosis Risk Factor Assmnt - Choose All That Apply Each Factor Represents 1 point: Age 41-60 years, Obesity (BMI >25) Other Risk Factors: No Other congenital or acquired thrombophilia - If yes, enter type in comment: No Thrombosis Risk Factor Assessment Total Risk Factor Score: 2 Thrombosis Risk Factor Assessment Level: Low Risk Assessment and Plan Plan: Atypical chest pain: We'll rule out unstable angina patient will undergo stress test that's negative patient will be discharged -Hypertension -Nicotine dependence counseling was provided -Sleep apnea -Gastroesophageal reflux disease His stresses is negative patient will be discharged to follow with Dr. Cabezas as an outpatient patient mostly has musculoskeletal chest pain
--- NOTE | 2019-01-17 11:32 | P.DS ---
Providers Date of admission: 01/16/19 21:25 Attending physician: Nikhil Thomas Consults: 01/16/19 21:25 Consult Physician Routine Consulting Provider: Rachel Renee Consult Reason/Comments: CP Do you want consulting provider notified?: Yes Primary care physician: Luis Armando Cabezas Hospital Course: As mentioned in HPI Patient Condition at Discharge: Stable Plan - Discharge Summary Discharge Rx Participant: No New Discharge Prescriptions: No Action Omeprazole [PriLOSEC] 20 mg PO AC-BRKFST amLODIPine [Norvasc] 5 mg PO DAILY Discharge Medication List Omeprazole [PriLOSEC] 20 mg PO AC-BRKFST 05/30/15 [History] amLODIPine [Norvasc] 5 mg PO DAILY 10/25/17 [History] Follow up Appointment(s)/Referral(s): Luis Armando Cabezas MD [Primary Care Provider] - 3 Days
[2019-01-17 16:20] VITALS: BP 122/81; PULSE 104; TEMP 97.8
--- NOTE | 2019-01-17 18:38 | ECHOF ---
Referral Reason:chest pain MEASUREMENTS -------- HEIGHT: 180.3 cm WEIGHT: 116.1 kg BP: RVIDd: 4.2 cm (< 3.3) IVSd: 1.5 cm (0.6 - 1.1) LVIDd: 4.7 cm (3.9 - 5.3) LVPWd: 1.3 cm (0.6 - 1.1) IVSs: 2.2 cm LVIDs: 2.0 cm LVPWs: 2.1 cm LAESV Index (A-L): 22.10 ml/m Ao Diam: 3.4 cm (2.0 - 3.7) AV Cusp: 2.0 cm (1.5 - 2.6) LA Diam: 4.0 cm (2.7 - 3.8) MV EXCURSION: 17.310 mm (> 18.000) MV EF SLOPE: 92 mm/s (70 - 150) EPSS: 0.6 cm MV E Erwin: 0.66 m/s MV DecT: 208 ms MV A Erwin: 0.50 m/s MV E/A Ratio: 1.31 RAP: 5.00 mmHg RVSP: 19.26 mmHg FINDINGS -------- Sinus rhythm. This was a technically good study. The left ventricular size is normal. There is mild concentric left ventricular hypertrophy. Overa ll left ventricular systolic function is normal with, an EF between 55 - 60 %. The right ventricle is moderately enlarged. The left atrial size is normal. The right atrium is normal in size. The aortic valve is trileaflet, and appears structurally normal. No aortic stenosis or regurgitation. There is trace mitral regurgitation. Trace tricuspid regurgitation present. The right ventricular systolic pressure, as measured by Dopp ler, is 19.26mmHg. Pulmonic valve appears structurally normal. The aortic root size is normal. Normal inferior vena cava with normal inspiratory collapse consistent with estimated right atrial pre ssure of 5 mmHg. The pericardium is normal. CONCLUSIONS -------- 1. Sinus rhythm. 2. This was a technically good study. 3. The left ventricular size is normal. 4. There is mild concentric left ventricular hypertrophy. 5. Overall left ventricular systolic function is normal with, an EF between 55 - 60 %. 6. The right ventricle is moderately enlarged. 7. The left atrial size is normal. 8. The right atrium is normal in size. 9. The aortic valve is trileaflet, and appears structurally normal. No aortic stenosis or regurgitati on. 10. There is trace mitral regurgitation. 11. Trace tricuspid regurgitation present. 12. The right ventricular systolic pressure, as measured by Doppler, is 19.26mmHg. 13. Pulmonic valve appears structurally normal. 14. The aortic root size is normal. 15. Normal inferior vena cava with normal inspiratory collapse consistent with estimated right atrial pressure of 5 mmHg. 16. The pericardium is normal. [employer] TRA[employer]ER: Kim Goode RDCS
--- NOTE | 2019-01-17 20:32 | ECHOS ---
STRESS ECHOCARDIOGRAM DATE OF SERVICE: 01/17/2019 INDICATION: Chest pain. MEDICATIONS: BASELINE HEART RATE: 94 BASELINE BLOOD PRESSURE: 129/84 MAXIMUM HEART RATE: 153 MAXIMUM BLOOD PRESSURE: 158/64 85% MPHR: 146 100% MPHR: 172 METS: 10.7 MAXIMUM STAGE REACHED: 4 TOTAL EXERCISE TIME: 10:05 CLINICAL INFORMATION: STRESS DATA: Pretesting physical examination showed a heart rate of 94, pressure 129/84 mmHg. Baseline EKG showed sinus mechanism. The patient exercised on the treadmill according to Marty protocol for a total of 10 minutes and 5 seconds and achieved 10.7 METS. Max heart rate was 153, which is about 89% of maximum predicted heart rate. Maximum blood pressure was 158/64 mmHg. Clinically the patient did not have any symptoms of chest pain or discomfort, and the EKG did not show any significant ST or T-wave abnormalities concerning for ischemia. ECHOCARDIOGRAM IMAGES: Echocardiogram images from parasternal long axis view, parasternal short axis view, apical 4-chamber and apical 2-chamber views were obtained as the baseline images at the peak of the heart rate as well as on recovery. The echocardiogram images showed overall good augmentation in the left ventricular systolic function without any evidence of wall motion abnormalities concerning for ischemia. CONCLUSION: 1. Excellent exercise tolerance. 2. Normal EKG in response to exercise. 3. Normal echocardiogram in response to exercise. 4. Essentially normal stress echocardiogram for the patient. MMODL / IJN: [id number] /
--- NOTE | 2019-01-18 09:52 | P.PN ---
Progress Note - Text Patient stresses was reviewed and is negative for any inducible ischemia patient had a stress echocardiogram
== END 2019-01-17 18:41 | disposition home or self-care (01) ==
LOC: EC 18:37 → 3SCARD 21:25
PROVIDERS: ADMIT Hospitalist; ATTEND Hospitalist
DX: R07.89 Other chest pain (principal); F17.210 Nicotine dependence, cigarettes, uncomplicated; R42 Dizziness and giddiness; G47.30 Sleep apnea, unspecified; Z99.89 Dependence on other enabling machines and devices; K44.9 Diaphragmatic hernia without obstruction or gangrene; E66.9 Obesity, unspecified; Z68.36 Body mass index [BMI] 36.0-36.9, adult; H91.90 Unspecified hearing loss, unspecified ear; Z90.49 Acquired absence of other specified parts of digestive tract; Z71.6 Tobacco abuse counseling; K21.9 Gastro-esophageal reflux disease without esophagitis; I10 Essential (primary) hypertension; Z79.899 Other long term (current) drug therapy; Z87.442 Personal history of urinary calculi; Z90.5 Acquired absence of kidney; Z82.49 Family history of ischemic heart disease and other diseases of the circulatory system; Z83.3 Family history of diabetes mellitus; Z88.5 Allergy status to narcotic agent
CPT/HCPCS: 96374; 99285; 36415; 94760; 93005; 93306; 93351; 85379; 80061; 80053; 82550 ×2; 82553 ×2; 83690; 83735; 84484 ×2; 85025; 85610; 85730; 71046; G0378 ×2; J2405

== ENCOUNTER → 2019-02-18 | Outpatient (CLI) | payer BC ==
--- NOTE | 2019-02-18 16:06 | CT ---
EXAMINATION TYPE: CT abdomen pelvis wo con DATE OF EXAM: 02/18/2019 COMPARISON: 08/27/2014 HISTORY: Left flank pain. CT DLP: 1170.9 mGycm Automated exposure control for dose reduction was used. TECHNIQUE: Helical acquisition of images was performed from the lung bases through the pelvis. FINDINGS: LUNG BASES: Year scar or atelectasis at the lung bases. LIVER/GB: No significant abnormality is appreciated. PANCREAS: No significant abnormality is seen. SPLEEN: No significant abnormality is seen. ADRENALS: Nonspecific thickening of the left adrenal gland stable. KIDNEYS: No significant abnormality is seen. Nonspecific bilateral perinephric stranding. ADENOPATHY: None visualized. OSSEOUS STRUCTURES: Hypertrophic changes vertebral column. Disc bulging lower lumbar spine with face t arthropathy. BOWEL: Nonspecific abdomen with no obstruction. Appendix not visualized. No inflammatory changes in the right lower quadrant. OTHER: Aorta of normal caliber. Small hiatal hernia incidentally noted. Hyperdensity in the region of the gastrohepatic ligament may represent previous surgery or a calcification. Calcification the pelv is. Related to vascular phleboliths. Calcifications of the prostate. IMPRESSION: 1. No evidence of renal stone or hydronephrosis. There is nonspecific perinephric stranding which can occasionally be seen with infectious etiology correlate with urinalysis. 2. Prostate calcifications. 3. Degenerative and hypertrophic change of the vertebral column with disc bulging particularly at L3- 4 and L4-L5 may be result in canal stenosis. Correlate clinically.
== END | disposition home or self-care (01) ==
LOC: RADCTMAIN 15:11
PROVIDERS: ATTEND Physician Assistant
DX: N28.89 Other specified disorders of kidney and ureter (principal); N42.89 Other specified disorders of prostate
CPT/HCPCS: 74176

== ENCOUNTER 2020-02-29 23:05 | Emergency (ER) | payer BC ==
[2020-02-29 23:12] VITALS: TEMP 98.5
[2020-02-29 23:18] VITALS: RESP 18
[2020-02-29] MEDS ORDERED: LIDOCAINE 5% PATCH TOPICAL STA (23:27)
--- NOTE | 2020-02-29 23:50 | XR ---
EXAMINATION TYPE: XR ribs RT w pa chest xray DATE OF EXAM: 02/29/2020 COMPARISON: Chest x-ray 01/08/2019 HISTORY: Right rib pain TECHNIQUE: 5 views FINDINGS: There is some minimal atelectasis left lung base. Right lung is clear. There is relative po or inspiration. Heart and mediastinum appear normal. The right ribs appear intact. IMPRESSION: No rib fracture seen. There is minimal subsegmental atelectasis at the left lung base rhona t appears new compared to old exam. Normal heart.
--- NOTE | 2020-03-01 00:25 | ED ---
General Adult HPI - General Chief complaint: Recheck/Abnormal Lab/Rx Stated complaint: Rt flank pain Time Seen by Provider: 02/29/20 23:13 Source: patient, RN notes reviewed, old records reviewed Mode of arrival: ambulatory Limitations: no limitations - History of Present Illness Initial comments: 49-year-old male patient presents for chief complaint of right lower rib pain. Patient reports that he was smoking earlier today states he took a long drag of A cigarette and then coughed after and felt a pop in his right lower rib region. Patient reports that he has pin to range of motion. He denies any other complaints. He denies having a persistent cough or fever chest pain or shortness of breath. Systemic: Pt denies fatigue, fever/chills, rash. Pt denies weakness, night sweats, weight loss. Neuro: Pt denies headache, visual disturbances, syncope or pre-syncope. HEENT: Pt denies ocular discharge or irritation, otalgia, rhinorrhea, pharyngitis or notable lymphadenopathy. Cardiopulmonary: Pt denies chest pain, SOB, heart palpitations, dyspnea on exertion. Abdominal/GI: Pt denies abdominal pain, n/v/d. : Pt denies dysuria, burning w/ urination, frequency/urgency. Denies new onset urinary or bowel incontinence. MSK: Pt denies myalgia, loss of strength or function in extremities. Neuro: Pt denies new onset weakness, paresthesias. - Related Data Home Medications Medication Instructions Recorded Confirmed Omeprazole [PriLOSEC] 20 mg PO AC-BRKFST 05/30/15 01/16/19 amLODIPine [Norvasc] 5 mg PO DAILY 10/25/17 01/16/19 Allergies Allergy/AdvReac Type Severity Reaction Status Date / Time narcotics AdvReac Unknown Uncoded 02/29/20 23:12 Review of Systems ROS Statement: Those systems with pertinent positive or pertinent negative responses have been documented in the HPI. ROS Other: All systems not noted in ROS Statement are negative. Past Medical History Past Medical History: GERD/Reflux, Hypertension, Sleep Apnea/CPAP/BIPAP Additional Past Medical History / Comment(s): kidney stones, DEVIATED SEPTUM(HAS SX), USES CPAP MACHINE, HIATAL HERNIA History of Any Multi-Drug Resistant Organisms: None Reported Past Surgical History: Appendectomy, Back Surgery, Tonsillectomy Additional Past Surgical History / Comment(s): 1998 RT HAND INDEX/MIDDLE FINGER TENDON REPAIR, 1992 BACK SX L4-L5, SEPTOPLASY 2012, RT KNEE ARTHROSCOPY, LT MIDDLE EAR SX AGE 10 "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 Past Anesthesia/Blood Transfusion Reactions: No Reported Reaction Past Psychological History: No Psychological Hx Reported Smoking Status: Current every day smoker Past Alcohol Use History: Occasional Past Drug Use History: Prescription Drug Abuse - Past Family History Mother Family Medical History: No Reported History Father Family Medical History: Diabetes Mellitus, Hypertension Additional Family Medical History / Comment(s): MICHELLE REMOVED(BENIGN TUMOR) General Exam - General Exam Comments Initial Comments: Constitutional: NAD, AOX3, Pt has pleasant affect. HEENT: NC/AT, trachea midline, neck supple, no lymphadenopathy. Posterior pharynx non erythematous, without exudates. External ears appear normal, without discharge. Mucous membranes moist. Eyes PERRLA, EOM intact. There is no scleral icterus. No pallor noted. Cardiopulmonary: RRR, no murmurs, rubs or gallops, no JVD noted. Lungs CTAB in anterior and posterior berumen. No peripheral edema. Abdominal exam: Abdomen soft and non-distended. Abdomen non-tender to palpation in all 4 quadrants. Bowel sounds active in LLQ. No hepatosplenomegaly. No ecchymosis Neuro: CN II-XII grossly intact. No nuchal rigidity. No raccon eyes, no melendez sign, no hemotympanum. No cervical spinal tenderness. MSK: Right lower rib region nontender to palpation external skin changes discomfort reproducible range of motion. No posterior calf tenderness bilaterally, homans sign negative bilaterally. Posterior tibialis and radial pulse +2 bilaterally. Sensation intact in upper and lower extremities. Full active ROM in upper and lower extremities, 5/5 stregnth. Limitations: no limitations Course Vital Signs 02/29/20 02/29/20 23:10 23:17 Temperature 98.5 F Pulse Rate 100 Respiratory 20 18 Rate Blood Pressure 167/106 O2 Sat by Pulse 98 Oximetry Medical Decision Making - Medical Decision Making 49-year-old male patient presents for chief complaint of right lower rib pain. Patient reports that he was smoking earlier today states he took a long drag of A cigarette and then coughed after and felt a pop in his right lower rib region. Patient reports that he has pin to range of motion. He denies any other complaints. He denies having a persistent cough or fever chest pain or shortness of breath. Patient also has a stable, afebrile. Physical exam displayed: Right lower rib region nontender to palpation external skin changes discomfort reproducible range of motion. Plain films displayed no rib fracture seen, minimal subsegmental atelectasis left lung base. Physical exam consistent with muscle strain. Patient administered a lidoderm patch. Will be discharged and will follow up with PCP tomorrow. Case discussed with Dr. Gooden. Disposition Clinical Impression: Muscle strain Disposition: HOME SELF-CARE Condition: Stable Instructions (If sedation given, give patient instructions): Muscle Strain (ED) Additional Instructions: Remove Lidoderm patch after 12 hours. May use Tylenol or Motrin as needed for discomfort. Follow-up with primary care provider tomorrow. Return to ER if condition worsens in any way. Is patient prescribed a controlled substance at d/c from ED?: No Referrals: Luis Armando Cabezas MD [Primary Care Provider] - 1-2 days
[2020-03-01] MEDS ORDERED: KETOROLAC 30 MG/ML 1 ML VIAL IM STA (00:34)
[2020-03-01 00:41] VITALS: BP 150/96; PULSE 89
== END 2020-03-01 00:44 | disposition home or self-care (01) ==
LOC: EC 23:05
DX: S29.011A Strain of muscle and tendon of front wall of thorax, initial encounter (principal); I10 Essential (primary) hypertension; K21.9 Gastro-esophageal reflux disease without esophagitis; G47.30 Sleep apnea, unspecified; F17.210 Nicotine dependence, cigarettes, uncomplicated; Z79.899 Other long term (current) drug therapy; Z88.5 Allergy status to narcotic agent; Z99.89 Dependence on other enabling machines and devices; X58.XXXA Exposure to other specified factors, initial encounter
CPT/HCPCS: 71101; 99284; 96372; J1885

== ENCOUNTER → 2020-07-05 | Outpatient (CLI) | payer BC ==
--- NOTE | 2020-07-05 12:14 | CT ---
EXAMINATION TYPE: CT abdomen wo/w con DATE OF EXAM: 07/05/2020 COMPARISON: February 18, 2019 HISTORY: Unspecified abdominal pain and diarrhea CT DLP: 2209 mGycm CONTRAST: CT scan of the abdomen is performed with Oral Contrast and without and with IV Contrast, patient inje cted with 100 ml mL of Isovue 300. FINDINGS: LUNG BASES-: No visible nodule. No infiltrate. LIVER/GB: No calcified gallstones. No space occupying hepatic lesion. Biliary tree is of normal ca liber. PANCREAS: No inflammation. No distinct mass. SPLEEN: No splenic enlargement. No lesion seen. ADRENALS: No nodule. No thickening. KIDNEYS/BLADDER: No hydronephrosis. Nonobstructing 3 mm calculus mid pole right kidney. No distinct renal mass. Urinary bladder grossly unremarkable. BOWEL: Normal appendix. Normal bowel caliber. No inflammation. LYMPH NODES: No greater than 1cm abdominal or pelvic lymph nodes are appreciated. AORTA: No significant abnormality. OSSEOUS STRUCTURES: No significant abnormality is seen. OTHER: No significant additional abnormality is seen. IMPRESSION: 1. No significant abnormality to account for the patient's symptoms.
== END | disposition home or self-care (01) ==
LOC: RADCTMAIN 10:41
PROVIDERS: ATTEND Family Medicine
DX: R10.9 Unspecified abdominal pain (principal)
CPT/HCPCS: 74170; Q9967

== ENCOUNTER 2021-01-24 11:00 | Emergency (ER) | payer BC ==
[2021-01-24 11:14] VITALS: RESP 18; TEMP 98
[2021-01-24] MEDS ORDERED: ONDANSETRON 4 MG/2 ML VIAL IVP STA (11:21)
[2021-01-24] MEDS ORDERED: KETOROLAC 15 MG/ML 1 ML VIAL IVP STA ×2 (11:21→12:28)
[2021-01-24] MEDS ORDERED: SODIUM CHLORIDE 0.9% 1,000 ML IV STA (11:21)
--- NOTE | 2021-01-24 11:30 | ED ---
General Adult HPI - General Chief complaint: Back Pain/Injury Stated complaint: Kidney pain Time Seen by Provider: 01/24/21 11:17 Source: patient Mode of arrival: ambulatory Limitations: no limitations - History of Present Illness Initial comments: Patient is a 50-year-old male presenting to the emergency Department with complaints of right flank pain that started last night. Patient states his pain was minimal to moderate last night, he took an ibuprofen and went to bed. Patient states early this morning he woke with worsening pain, throughout his work today this morning the pain is intensified to a 9-10 out of 10, he is nauseous because the pain is so high. Patient states he has had kidney stones in the past, most recent was about 4 years ago. He states this pain feels similar. He denies any injuries to his back no falls. He does have chronic back pain but states this is much different. He does have history of appendectomy, no other abdominal surgeries. He denies any abdominal pain, no vomiting or diarrhea, no hematuria. He has no further complaints. Upon arrival to the ER his vitals are stable. - Related Data Home Medications Medication Instructions Recorded Confirmed amLODIPine [Norvasc] 10 mg PO DAILY 01/24/21 01/24/21 Previous Rx's Medication Instructions Recorded Ketorolac [Toradol] 10 mg PO Q8HR #10 tab 01/24/21 Tamsulosin [Flomax] 0.4 mg PO DAILY #7 cap 01/24/21 Allergies Allergy/AdvReac Type Severity Reaction Status Date / Time No Known Allergies Allergy Verified 01/24/21 11:40 Review of Systems ROS Statement: Those systems with pertinent positive or pertinent negative responses have been documented in the HPI. ROS Other: All systems not noted in ROS Statement are negative. Past Medical History Past Medical History: GERD/Reflux, Hypertension, Sleep Apnea/CPAP/BIPAP Additional Past Medical History / Comment(s): kidney stones, DEVIATED SEPTUM(HAS SX), USES CPAP MACHINE, HIATAL HERNIA History of Any Multi-Drug Resistant Organisms: None Reported Past Surgical History: Appendectomy, Back Surgery, Tonsillectomy Additional Past Surgical History / Comment(s): 1998 RT HAND INDEX/MIDDLE FINGER TENDON REPAIR, 1992 BACK SX L4-L5, SEPTOPLASY 2011, RT KNEE ARTHROSCOPY, LT MIDDLE EAR SX AGE 10 "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 Past Anesthesia/Blood Transfusion Reactions: No Reported Reaction Past Psychological History: No Psychological Hx Reported Smoking Status: Former smoker Past Alcohol Use History: Occasional Past Drug Use History: Prescription Drug Abuse - Past Family History Mother Family Medical History: No Reported History Father Family Medical History: Diabetes Mellitus, Hypertension Additional Family Medical History / Comment(s): MICHELLE REMOVED(BENIGN TUMOR) General Exam - General Exam Comments Initial Comments: GENERAL: Patient is well-developed and well-nourished. Patient is nontoxic and in moderate distress. HEAD: Atraumatic, normocephalic. EYES: Pupils equal round and reactive to light, extraocular movements intact, sclera anicteric, conjunctiva are normal. Eyelids were unremarkable. ENT: TMs normal, nares patent, oropharynx clear without exudates. Moist mucous membranes. NECK: Normal range of motion, supple without lymphadenopathy or JVD. LUNGS: Unlabored respirations. Breath sounds clear to auscultation bilaterally and equal. No wheezes rales or rhonchi. HEART: Regular rate and rhythm without murmurs, rubs or gallops. ABDOMEN: Soft, nontender, normoactive bowel sounds. No guarding, no rebound. No masses appreciated. Right flank pain tenderness. : Deferred MUSCULOSKELETAL: Normal extremities with adequate strength and normal range of motion, no pitting or edema. No clubbing or cyanosis. NEUROLOGICAL: Patient is alert and oriented x 3. Motor and sensory are also intact. Cranial nerves II through XII grossly intact. Symmetrical smile. Normal speech, normal gait. PSYCH: Normal mood, normal affect. SKIN: Warm, Dry, normal turgor, no rashes or lesions noted. Limitations: no limitations Course Vital Signs 01/24/21 11:11 Temperature 98.0 F Pulse Rate 106 H Respiratory 18 Rate Blood Pressure 157/103 O2 Sat by Pulse 97 Oximetry Medical Decision Making - Medical Decision Making Patient is a 50-year-old male here for right flank pain started last night. He does have history of stones and feels like this is similar. No chest pain or shortness of breath. Vitals are stable. Labs show normal white count, normal kidney function, urine does show moderate amount of blood, no bacteria. CT shows a 4 mm extracting calculus in the distal right ureter causing mild right-sided hydronephrosis. Patient was given fluids, pain control, reports improvement in his symptoms. I discussed these findings with the patient. He'll be sent home with Flomax, pain control, I will give him urology follow-up. Patient is stable for discharge. Patient is in agreement with this plan of care. Return parameters were discussed with the patient and they verbalized understanding. Case discussed with Dr. Rojo. - Lab Data Result diagrams: 01/24/21 11:45 01/24/21 11:45 Lab Results 01/24/21 01/24/21 01/24/21 Range/Units 11:45 11:45 11:45 WBC 8.2 (3.8-10.6) k/uL RBC 5.12 (4.30-5.90) m/uL Hgb 15.1 (13.0-17.5) gm/dL Hct 42.2 (39.0-53.0) % MCV 82.4 (80.0-100.0) fL MCH 29.6 (25.0-35.0) pg MCHC 35.8 (31.0-37.0) g/dL RDW 12.9 (11.5-15.5) % Plt Count 171 (150-450) k/uL MPV 6.4 Neutrophils % 68 % Lymphocytes % 18 % Monocytes % 9 % Eosinophils % 3 % Basophils % 1 % Neutrophils # 5.5 (1.3-7.7) k/uL Lymphocytes # 1.5 (1.0-4.8) k/uL Monocytes # 0.8 (0-1.0) k/uL Eosinophils # 0.2 (0-0.7) k/uL Basophils # 0.0 (0-0.2) k/uL Hyperchromasia Slight Sodium 136 L (137-145) mmol/L Potassium 3.8 (3.5-5.1) mmol/L Chloride 105 (98-107) mmol/L Carbon Dioxide 24 (22-30) mmol/L Anion Gap 7 mmol/L BUN 17 (9-20) mg/dL Creatinine 1.16 (0.66-1.25) mg/dL Est GFR (CKD-EPI)AfAm 85 (>60 ml/min/1.73 sqM) Est GFR (CKD-EPI)NonAf 74 (>60 ml/min/1.73 sqM) Glucose 108 H (74-99) mg/dL Calcium 9.0 (8.4-10.2) mg/dL Total Bilirubin 0.8 (0.2-1.3) mg/dL AST 79 H (17-59) U/L ALT 63 H (4-49) U/L Alkaline Phosphatase 65 (38-126) U/L Total Protein 6.8 (6.3-8.2) g/dL Albumin 4.3 (3.5-5.0) g/dL Urine Color Yellow Urine Appearance Clear (Clear) Urine pH 5.5 (5.0-8.0) Ur Specific [place] 1.012 (1.001-1.035) Urine Protein Negative (Negative) Urine Glucose (UA) Negative (Negative) Urine Ketones Negative (Negative) Urine Blood Moderate H (Negative) Urine Nitrite Negative (Negative) Urine Bilirubin Negative (Negative) Urine Urobilinogen <2.0 (<2.0) mg/dL Ur Leukocyte Esterase Trace H (Negative) Urine RBC 41 H (0-5) /hpf Urine WBC 4 (0-5) /hpf Ur Squamous Epith Cells <1 (0-4) /hpf Urine Mucus Rare H (None) /hpf Disposition Clinical Impression: Right flank pain, Right distal ureteral calculus Disposition: HOME SELF-CARE Condition: Stable Instructions (If sedation given, give patient instructions): Kidney Stones (ED) Additional Instructions: Please return to the Emergency Department if symptoms worsen or any other concerns. May take Tylenol threes for more severe pain as well as the Toradol. Do not take Toradol and ibuprofen together. Follow-up with urology as discussed. Prescriptions: Tamsulosin [Flomax] 0.4 mg PO DAILY #7 cap Ketorolac [Toradol] 10 mg PO Q8HR #10 tab Is patient prescribed a controlled substance at d/c from ED?: No Referrals: Luis Armando Cabezas MD [Primary Care Provider] - 1-2 days Mango Mercer MD [STAFF PHYSICIAN] - 1-2 days Time of Disposition: 13:34
[2021-01-24 12:02] LABS: Basophils % (A) 1 %; Eosinophils # (A) 0.2 k/uL (0-0.7); Eosinophils % (A) 3 %; HCT 42.2 % (39.0-53.0); HGB 15.1 gm/dL (13.0-17.5); Hyperchromasia Slight; Lymphocytes # (A) 1.5 k/uL (1.0-4.8); Lymphocytes % (A) 18 %; MCH 29.6 pg (25.0-35.0); MCHC 35.8 g/dL (31.0-37.0); MCV 82.4 fL (80.0-100.0); Mean Platelet Volume 6.4; Monocytes # (A) 0.8 k/uL (0-1.0); Monocytes % (A) 9 %; Neutrophils # (A) 5.5 k/uL (1.3-7.7); Neutrophils % (A) 68 %; Platelet Count 171 k/uL (150-450); RBC 5.12 m/uL (4.30-5.90); RDW 12.9 % (11.5-15.5); WBC 8.2 k/uL (3.8-10.6)
[2021-01-24 12:05] LABS: Appearance,Urine Clear (Clear); Bilirubin,Urine Negative (Negative); Blood,Urine Moderate (Negative); Color,Urine Yellow; Glucose,Urine (UA) Negative (Negative); Ketones,Urine Negative (Negative); Leukocyte Esterase,Urine Trace (Negative); Mucus,Urine Rare /hpf; Nitrite,Urine Negative (Negative); PH, Urine 5.5 (5.0-8.0); Protein,Urine Negative (Negative); RBC,Urine 41 /hpf (0-5); Specific Gravity,Urine 1.012 (1.001-1.035); Squamous Epithelial Cell,Urine <1 /hpf (0-4); Urobilinogen,Urine <2.0 mg/dL (<2.0); WBC,Urine 4 /hpf (0-5)
[2021-01-24 12:15] LABS: Albumin 4.3 g/dL (3.5-5.0); Potassium 3.8 mmol/L (3.5-5.1); Total Bilirubin 0.8 mg/dL (0.2-1.3); Total Protein 6.8 g/dL (6.3-8.2)
--- NOTE | 2021-01-24 12:24 | CT ---
EXAMINATION TYPE: CT abdomen pelvis wo con DATE OF EXAM: 01/24/2021 HISTORY: right flank pain CT DLP: 1308.4 mGycm. Automated Exposure Control for Dose Reduction was Utilized. TECHNIQUE: CT scan of the abdomen and pelvis is performed without oral or IV contrast. COMPARISON: CT July 05, 2020 FINDINGS: Within the limitations of a non-contrast study, the following observations are made. LUNG BASES: Mild left basilar linear scarring and/or atelectasis. LIVER/GB: Visualized liver heterogeneously hypodense consistent with diffuse fatty infiltration. PANCREAS: No significant abnormality is seen. SPLEEN: No significant abnormality is seen. ADRENALS: No significant abnormality is seen. KIDNEYS: Identified 2-3 punctate tiny calculi scattered throughout the left kidney for reference 2 mm posterior stone midpole level axial image 56. No left-sided hydronephrosis. There is single 2 mm pun ctate calcification lower pole right kidney axial image 68. There is obstructing 4 mm distal right ur eter calculus axial image 123 causing asymmetric mild right-sided hydronephrosis on current study and mild to moderate right-sided perinephric fluid/fat stranding. A few scattered small pelvic phlebolit hs noted bilaterally. BOWEL: No significant abnormality is seen. GENITAL ORGANS: Some central calcifications seen in normal size prostate. LYMPH NODES: No greater than 1cm abdominal or pelvic lymph nodes are appreciated. OSSEOUS STRUCTURES: Disc calcification and mild disc space narrowing L4-L5 level redemonstrated. Face t arthropathy lower lumbar levels. OTHER: No significant additional abnormality is seen. IMPRESSION: There is 4 mm obstructing calculus in distal right ureter causing mild right-sided hydron ephrosis on current study.
[2021-01-24] MEDS ORDERED: MORPHINE SULFATE 4 MG/ML SYRINGE IVP STA (12:48)
[2021-01-24] MEDS ORDERED: ACET/COD 300 MG/30 MG STARTER PACK 6 TAB BTL PO STA (13:34)
[2021-01-24 13:36] VITALS: PULSE 89
[2021-01-24 13:42] VITALS: BP 143/100
== END 2021-01-24 13:42 | disposition home or self-care (01) ==
LOC: EC 11:00
DX: N20.1 Calculus of ureter (principal); I10 Essential (primary) hypertension; K21.9 Gastro-esophageal reflux disease without esophagitis; Z79.1 Long term (current) use of non-steroidal anti-inflammatories (NSAID); Z79.899 Other long term (current) drug therapy; Z87.891 Personal history of nicotine dependence
CPT/HCPCS: 36415; 80053; 85025; 81001; 74176; 99284; 96374; 96375; 96376; 96361; J2270; J2405; J1885

== ENCOUNTER → 2021-05-04 | Outpatient (CLI) | payer BC ==
--- NOTE | 2021-05-04 22:31 | SFUN ---
SLEEP CENTER FOLLOW UP NOTE DATE OF SERVICE: 05/04/2021 50-year-old gentleman has been followed in [facility] for treatment of obstructive sleep apnea-hypopnea syndrome. Previous visit was 1-1/2 years ago. Patient continued to use his CPAP equipment every night for the whole night, sleeps well, but continued to feel sleepiness during the day. According to patient, even when he sleeps longer hours, he still feels sleepy. 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 I checked his CPAP unit. Pressure is 10 cm of water. Usage is 30/30 nights for more than 4 hours with average usage 8.5 hours per night. Leak is only 4 L/minute. Apnea- hypopnea index is only 0.9, which is totally perfect. MEDICATIONS: Amlodipine 10 mg once a day. Flexeril 5 mg 2 tablets a day. Melatonin occasionally. PHYSICAL EXAMINATION: GENERAL: A 50-year-old gentleman without distress. BP 134/89, HR around 100, RR of 18, height 5 feet 10-1/4 inches, weight 265.8 pounds, body mass index 38.0, temperature 96.4. Oxygen saturation at room air 95%. HEENT: Oropharynx extremely low position of soft palate. Mallampati 4. NECK: Supple, no JVD. Thyroid is not palpable. LUNGS: Clear to percussion and to auscultation. Good air exchange. No wheezing or rhonchi. HEART: S1, S2 regular. No murmurs, gallops, or rubs. ABDOMEN: Soft and nontender. Bowel sounds are present. No organomegaly appreciated. EXTREMITIES: No clubbing or cyanosis. NURSE FIRST AID: Awake, alert, and oriented X3. Cranial nerves 2 to 7 intact. There is no fasciculation or atrophy. noted. No focal deficits observed. IMPRESSION: 1. Severe obstructive sleep apnea-hypopnea syndrome. Apnea-hypopnea index 49.2. The patient demonstrated 100% compliance with treatment, normal respiration on CPAP, benefitting from treatment. 2. Obesity. The patient increased his weight on 10 pounds since the previous visit. Body mass index 38.0. 3. The patient continues to have significant excessive daytime sleepiness while demonstrated 100% compliance on treatment with CPAP. [place] Sleepiness Scale is in very high range of 21. Differential diagnosis include narcolepsy. 4. Acid reflux. 5. History of back problems. 6. History of depression. PLAN: 1. CPAP at night if necessary with adjustments of pressure higher with following multiple sleep latency test for objective evaluation patient symptoms significant excessive daytime sleepiness. 2. Patient should continue to use CPAP equipment every night for the whole night. 3. Losing weight. 4. Sleep hygiene with regular time in bed for 7-1/2 to 8 hours at least. 5. Precautions related to driving. No driving if feeling sleepiness. 6. Following plan after reviewing results of MSLT. Thank you very much for allowing me to participate in management of your patient. Sincerely, Dipak Marie MD, PhD, FAASM Diplomat of [employer] [employer] [place] [employer] [facility] [place] MORGAN / NIDHI: [id number] /
== END ==
LOC: SLEEP 16:08
PROVIDERS: ATTEND Internal Medicine
DX: G47.33 Obstructive sleep apnea (adult) (pediatric) (principal); E66.9 Obesity, unspecified; F17.200 Nicotine dependence, unspecified, uncomplicated; K21.9 Gastro-esophageal reflux disease without esophagitis; F32.9 Major depressive disorder, single episode, unspecified; Z87.39 Personal history of other diseases of the musculoskeletal system and connective tissue; Z68.38 Body mass index [BMI] 38.0-38.9, adult; Z99.89 Dependence on other enabling machines and devices

== ENCOUNTER → 2022-03-30 | Outpatient (CLI) | payer BC ==
--- NOTE | 2022-03-30 22:15 | CT ---
EXAMINATION TYPE: CT abdomen pelvis wo con CT DLP: 1310.4 mGycm, Automated exposure control for dose reduction was used. DATE OF EXAM: 03/30/2022 5:47 PM COMPARISON: CT abdomen pelvis most recent from 01/24/2021. CLINICAL INDICATION:Male, 51 years old with history of R31.9 HEMATURIA, UNSPECIFIED; right flank pain and hematuria TECHNIQUE: Standard CT of the abdomen and pelvis without IV or oral contrast. Lack of IV or oral co ntrast limits evaluation of solid and hollow organ viscera. Coronal and sagittal reformats were perfo rmed. FINDINGS: LOWER CHEST: Unremarkable ABDOMEN LIVER: Diffusely hypoattenuating parenchyma. GALLBLADDER AND BILE DUCTS: The gallbladder is nondistended with no gross abnormality. No biliary dana macarena dilatation. PANCREAS: Unremarkable. SPLEEN: Unremarkable. ADRENAL GLANDS: Unremarkable. KIDNEYS AND URETERS: No evidence of hydronephrosis. The ureters are unremarkable. Multiple tiny calcu ethan are seen bilaterally measuring up to 2 mm. There is no evidence for hydronephrosis. The right kid ken[place] is without radiodense calculus. Prior ureteral calculus on the right is no longer visualized. PELVIS BLADDER: Unremarkable REPRODUCTIVE: Coarse calcifications of the prostate gland are identified. ABDOMEN & PELVIS STOMACH AND BOWEL: No evidence of bowel obstruction. PERITONEUM: No evidence of pneumoperitoneum or free fluid. VASCULATURE: No evidence of aortic aneurysm. MUSCULOSKELETAL: No acute osseous abnormalities. Multilevel disc degeneration changes worse at L4-L5 and L5-S1. Multilevel facet joint arthropathy are present. LYMPH NODES: No gross evidence for lymphadenopathy. SOFT TISSUE/ABDOMINAL WALL: Unremarkable IMPRESSION: 1. Bilateral nonobstructing renal calculi. No evidence of hydronephrosis. No acute intra-abdominal pr ocess to explain the patient's pain 2. Hepatic steatosis.
== END | disposition home or self-care (01) ==
LOC: RADCTMAIN 17:23
PROVIDERS: ATTEND Family Medicine
DX: N20.0 Calculus of kidney (principal); K76.0 Fatty (change of) liver, not elsewhere classified
CPT/HCPCS: 74176

== ENCOUNTER → 2022-05-03 | Outpatient (CLI) | payer BC ==
[2022-05-03 22:54] LABS: African American GFR (CKD) 114.2 (60.0-200.0); Albumin 4.2 g/dL (3.8-4.9); Anion Gap 8.9 mmol/L (10.00-18.00); BUN/Creat Ratio 13.89 Ratio (12.00-20.00); Blood Urea Nitrogen 12.5 mg/dL (9.0-27.0); Calcium 9.1 mg/dL (8.7-10.3); Carbon Dioxide 27.1 mmol/L (20.0-27.5); Globulin 2.1 g/dL (1.6-3.3); Non-African American GFR(CKD) 98.5 (60.0-200.0); Potassium 4.1 mmol/L (3.5-5.5); Total Bilirubin 0.4 mg/dL (0.30-1.20); Total Protein 6.3 g/dL (6.2-8.2)
[2022-05-03 23:19] LABS: Basophils # (A) 0.03 X 10*3/uL (0.00-0.10); Basophils % (A) 0.5 %; Eosinophils # (A) 0.14 X 10*3/uL (0.04-0.35); Eosinophils % (A) 2.1 %; HCT 44.3 % (39.6-50.0); HGB 14.8 g/dL (13.0-17.0); Immature Grans, Automated 0.5 %; Lymphocytes # (A) 1.32 X 10*3/uL (0.90-5.00); Lymphocytes % (A) 20.2 %; MCH 27.6 pg (27.0-32.0); MCHC 33.4 g/dL (32.0-37.0); MCV 82.5 fL (80.0-97.0); Mean Platelet Volume 9.6 fL (9.5-12.2); Monocytes # (A) 0.48 X 10*3/uL (0.20-1.00); Monocytes % (A) 7.4 %; NRBC Per 100 WBC 0 /100 WBCS (0.0-0.0); Neutrophils # (A) 4.53 X 10*3/uL (1.80-7.70); Neutrophils % (A) 69.3 %; Platelet Count 203 X 10*3/uL (140-440); RBC 5.37 X 10*6/uL (4.40-5.60); RDW 13.3 % (11.5-14.5); WBC 6.53 X 10*3/uL (4.50-10.00)
[2022-05-03 23:24] LABS: INR 0.96 (0.90-1.11); Prothrombin Time 10.9 sec (9.9-11.9)
== END | disposition home or self-care (01) ==
LOC: LABWHC1 16:15
PROVIDERS: ATTEND Family Medicine
DX: I10 Essential (primary) hypertension (principal)
CPT/HCPCS: 36415; 80053; 85025; 85610; 93005

== ENCOUNTER → 2022-05-08 | Outpatient (CLI) | payer BC | END | disposition home or self-care (01) | LOC: LABPAT 16:13 | PROVIDERS: ATTEND Orthopaedic Surgery | DX: Z01.812 Encounter for preprocedural laboratory examination (principal); Z22.322 Carrier or suspected carrier of Methicillin resistant Staphylococcus aureus; M48.061 Spinal stenosis, lumbar region without neurogenic claudication | CPT/HCPCS: 86850; 86900; 86901; 87070 ==

== ENCOUNTER 2022-05-16 09:24 | Inpatient (IN) | payer BC ==
[2022-05-15 09:02] VITALS: BMI 35.9
--- NOTE | 2022-05-16 07:03 | P.HPOR ---
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 Tubbs HISTORY: Xrays No new xrays taken in office Trauma or injury No Work-Related No Pain description burning. Location diffuse Activity Modification yes Hand Dominance right TREATMENTS COMPLETED: 6 weeks of PT completed? Month and Year of last PT date? 2020 Yes How many sessions? 12 Did it help? No Physician directed home exercise completed? yes , for greater than 3 months with no relief of his symptoms. Medications yes List: oral steroids-has previously trialed without relief but not currently taking. Mild relief of his pain with [place]. No relief with Flexeril Alternative interventions Chiropractic: No Massage therapy: No R.I.C.E: yes , daily without relief Brace: No Injections Yes (lumbar SHALINI, Transforaminal) How many? Several over the last couple years Did they help? No RFA: No SUBJECTIVE: Patient returns to the office for a recheck of his lumbar spine and to review the planned L3-L5 decompression and laminectomy. Since the time of the last appointment the patient reports that he has seen no changes to his symptoms. Patient continues to complain of severe pain about the low back radiating into the bilateral lower extremities. With the pain the patient does also report diffuse, significant numbness and tingling about the lower extremities that is significantly impacting his ADL's. As for treatments the patient reports that he has seen no improvements with all conservative modalities trialed thus far. Of note, the patient does report having previously had post-operation urinary retention tendencies and we will plan accordingly. Otherwise he continues to deny any f/c/sob/cp, no bladder or bowel retention/incontinence, no perineal numbness/tingling, and ambulates independently. HPI: Mr. Espinosa last presented to the office on 03/31/2022 for an evaluation of his lumbar spine. Patient reports pain ongoing for several years with no known injury or trauma to indicate an exact onset of his symptoms. WIth this the patient does also report that he does have a hx of a lumbar laminectomy done in the with which he found relief for several years but has seen a return in his symptoms. Over the last couple years his symptoms have progressively worsened to the point where he can no longer complete many of his daily activities due to the severity of his symptoms. Regarding his symptoms the patient reports diffuse pain radiating across the low back that radiates into the bilateral lower extremities. With the pain the patient does also report numbness and tingling about the L3-L4 dermatomal distribution along with numbness in both of the feet. His symptoms are exacerbated with prolonged standing and ambulation which is increasingly making completion of his daily tasks difficult. Regarding treatment, since his laminectomy in the he has been following with Dr. Manuel for pain management where he has completed PT, home exercise, oral medications, RICE, and both SHALINI and Transforaminal injections all of which without relief. Overall he denies any lasting improvements with all conservative modalities and would like to discuss operative intervention. Otherwise he denies any bladder or bowel retention/incontinence, no perineal numbness/tingling, and ambulates independently. The patients' past social, medical, family, surgical history, as well as review of systems, have been reviewed. Please refer to the Neurosurgery History and Physical form that has been scanned in to our electronic medical record system. 16 points review of systems completed and as stated in HPI, all other systems reviewed are negative. Social History: Reviewed, see appropriate section of the chart for details. P3 Social History: Smoking: current smoker P3 Smoking Amount: 1 PPD Alcohol: rare alcohol P3 Family History: Reviewed, see appropriate section of the chart for details. P2 Past Medical History: Reviewed, see appropriate section of the chart for details. [id number] Medications: Rx: AdderalL 10 mg tablet Ref: 0 Rx: amLODIPine 10 mg tablet Ref: 0 Rx: cyclobenzaprine 10 mg tablet Ref: 0 Rx: HYDROcodone 7.5 mg-acetaminophen 325 mg tablet Ref: 0 PHYSICAL EXAMINATION: General: Awake, alert, appropriate for age, in no acute distress. HEENT: No unusual neck masses around region of lateral neck triangle, thyroid, supraclavicular groove Heart: Regular rate and rhythm, normal S1, S2 and no murmur/gallop. Lungs: Clear to auscultation bilaterally with no use of accessory muscles. Extremities: Skin warm and dry without acute lesions, coloration, temperature, skin intact, no tenderness or erythema Integument: Hairy patches: ABSENT Dorsal skin dimples: ABSENT Cafe au lait spots: ABSENT Surgical incisions: Well healed midline lumbar incision Palpation: Please see Pain drawing on Intake sheet for further detail. Midline spinal tenderness: Yes, lumbar E6 Cervical Tenderness: No E6 Paralumbar tenderness: Yes E6 Parathoracic tenderness: No E6 Buttocks tenderness: No E6 Sacroiliac Tenderness: No POSTURAL and MUSCULO-SKELETAL EVALUATION: Coronal Balance: NEUTRAL Recumbent testing: Patient is able to lay flat on back Sagittal Balance: NEUTRAL Shoulder Profile: LEVEL Pelvic Girdle: LEVEL Neck ROM: UNRESTRICTED Lumbar ROM: RESTRICTED Shoulder ROM: Symmetrical Hip ROM: Symmetrical Knee ROM: Symmetrical Hands: Normal appearance, symmetrical Feet: Normal appearance, Symmetrical VASCULAR STATUS : LEFT RIGHT Wrist Pulses INTACT INTACT Pedal Pulses (Dors. pedis & post.tibialis) INTACT INTACT Color NORMAL NORMAL Edema Absent Absent NEUROLOGIC EXAMINATION: Mental Status:Awake and alert, fully oriented, with normal attention, concentration and memory, and fluent, appropriate speech. Cranial Nerves: I: Olfactory not tested. II: Visual acuity normal, no visual field deficit noted with confrontation. III,IV: Normal pupillary reflexes & intact extraocular movements without nystagmus. V,: Intact symmetrical facial sensation. VII: Intact symmetrical facial motor movement VIII: Hearing intact. IX,X: Intact gag, swallow, & normal voice. XI: Sternocleidomastoid, trapezius function intact. XII: Tongue midline with normal movements. L'hermitte's Sign: Negative / absent Spurling'Sign: Absent bilaterally. Cubital percussion test: Absent bilaterally. Montiel-Tinel sign - Carpal region: Absent bilaterally. Straight Leg Raising: Absent bilaterally. Crossed straight leg raise: negative O8 MOTOR EXAM (0-5/5, N/T) STRENGTH RIGHT LEFT Shoulder Abd (not part of the DELVIS score) 5 5 Elbow Flexors 5 5 Elbow Extensor 5 5 Wrist Dorsiflexors 5 5 Finger Abductor 5 5 Director Public 5 5 Hip Flexor (Not part of DELVIS Motor score) 4 5 Knee Flexor 4 5 Knee Extensor 4 5 Ankle dorsiflexor 4 5 Ankle plantarflexion 4 5 Extensor hallucis 4 5 REFLEXES(0-4/2, NT) RIGHT LEFT Upper Extremities 2 2 Lower Extremities 2 2 Pathological Reflexes RIGHT LEFT Montiel's Absent Absent Clonus Absent Absent Babinski Absent Absent # Indicates mechanical impairment Muscle appearance: Symmetrical, without signs of atrophy or dystrophy. Sensory system (0-4, N/T) Test type RU TONJA RL LL Joint-Position 2 2 2 2 Vibration 2 2 2 2 Pain & LT sense 2 2 2 2 Dermatomal Deficit: None None None None Gait and Functional Evaluation: Ambulatory aids: Independent Romberg's test: Intact bilaterally Toe heel walk / heel-toe walk intact while maintaining satisfactory balance? No Squatting/straightening w/o assistance to a min of 60 degree knee flexion? No Single leg stance: not intact on the right side Trendelenburg sign negative bilaterally Hand and finger dexterity intact bilaterally? yes Disdiadochokinesis examination negative bilaterally? yes RADIOGRAPHIC STUDIES: XRay taken on 03/31/22 of Lumbar Spine and Pelvis: Images reviewed in office with the patient. These demonstrate spondylotic changes from L3-S1 with the worst at L4-5 with disc height loss and facet arthropathy. No fracture noted. No dislocation noted. stable through F/E. PI: 70 LL:52 CT scan from of Lumbar Spine: IMages reviewed in office with the patient. This demonstrates again spondylotic changes from L3-S1 with the worst at L4-5 with mild retrolisthesis at this level, disc height loss and facet arthrosis from L3-S1 that is mild to severe. 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 No fractures noted. No other instability. Parameters as mentioned above. Post surgical changes noted at L4-5 on the LHS secondary to previous discectomies. Bony re-formation noted. MRI scan from12/03/2021 of Lumbar Spine: Images reviewd with the patient in the office today. This demonstrates L1-2 normal disc height and VB height. L2-3 disc dehydration noted. Height maintained. Mild facet arthrosis no fracture no lesions, mild stenosis. L3-4 Disc height loss, dehydration, facet arthropathy and hypertrophy, Ligamental hypertrophy causing moderate to severe central and foraminal stenosis as well as broad based disc bulge. No fracture no lesions L4-5 Disc height loss, dehydration, more severe facet arthropathy and hypertrophy. Post surgical changes noted with L sided laminotomy defect that has mostly filled back in. Severe stenosis L4-5 centrally and foraminally as well as scar tissue formation due to previous surgeries in this area. No fracture, no lesions. Mild retrolisthesis with broad willian disc bulge. L5-S1 Maintained disc height and hydration. No fracture. No lesion. Moderate central stenosis related to facet hypertrophy and ligamental hypertrophy. Some scarring noted as well due to previous surgery. IMPRESSION: It was my pleasure to have seen and examined Trae. I reviewed the patient's clinical syndrome, physical findings, and imaging studies during the appointment today. It is my impression that the patient has a diagnosis of. 1. L3-L5 stenosis 2.Right lower extremity radiculopathy 3. Right lower extremity weakness. .DX:Diagnosis: Lumbar radiculopathy : ICD10 = M54.16 / ICD9 = 724.4 / SNOMED = 863912252 .DX:Diagnosis: Lumbar spinal stenosis : ICD10 = M48.061 / ICD9 = 724.02 / SNOMED = 43798757 .DX:Diagnosis: Weakness of right leg : ICD10 = G83.11 / SNOMED = 51090283969418842 I outlined the natural course history without intervention and various interventional options. PLAN: Based on my findings I suggest the following course of action: - Given a script for an LSO brace for post-op recovery. Discussed that he can pick this up before the planned operation. - I discussed treatment options with the patient, including operative and non-operative options, and they have elected to proceed with the following surgical procedure: L3-L5 decompression and laminectomy with L4-L5 fusion (02612, [id number]) The indications, risks, benefits, and alternatives to surgery were discussed with the patient and family at length. Specifically (but not limited to) the risks of infection, stiffness, recurrence of symptoms, need for revision surgery, local numbness, neurovascular injury, and blood clots were discussed. The patient's questions were answered. The decision to proceed was made. Consent will be obtained for the procedure. Spine Surgery Risk Review Mr. Espinosa is presenting for evaluation of low back pain and bilateral lower extremity radiculopathy. It was my pleasure to have seen and examined Mr. Espinosa. In our visit today we have had a chance to go over subjective complaints, physical examination findings and treatments including the natural course history without intervention and various interventional options. The patients imaging demonstrates: XRay taken on 03/31/22 of Lumbar Spine and Pelvis: Images reviewed in office with the patient. These demonstrate spondylotic changes from L3-S1 with the worst at L4-5 with disc height loss and facet arthropathy. No fracture noted. No dislocation noted. stable through F/E. PI: 70 LL:52 CT scan from of Lumbar Spine: IMages reviewed in office with the patient. This demonstrates again spondylotic changes from L3-S1 with the worst at L4-5 with mild retrolisthesis at this level, disc height loss and facet arthrosis from L3-S1 that is mild to severe. 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 No fractures noted. No other instability. Parameters as mentioned above. Post surgical changes noted at L4-5 on the LHS secondary to previous discectomies. Bony re-formation noted. MRI scan from12/03/2021 of Lumbar Spine: Images reviewd with the patient in the office today. This demonstrates L1-2 normal disc height and VB height. L2-3 disc dehydration noted. Height maintained. Mild facet arthrosis no fracture no lesions, mild stenosis. L3-4 Disc height loss, dehydration, facet arthropathy and hypertrophy, Ligamenta l hypertrophy causing moderate to severe central and foraminal stenosis as well as broad based disc bulge. No fracture no lesions L4-5 Disc height loss, dehydration, more severe facet arthropathy and hypertrophy. Post surgical changes noted with L sided laminotomy defect that has mostly filled back in. Severe stenosis L4-5 centrally and foraminally as well as scar tissue formation due to previous surgeries in this area. No fracture, no lesions. Mild retrolisthesis with broad willian disc bulge. L5-S1 Maintained disc height and hydration. No fracture. No lesion. Moderate central stenosis related to facet hypertrophy and ligamental hypertrophy. Some scarring noted as well due to previous surgery. On physical exam, Mr. Espinosa demonstrates severely restricted lumbar ROM with significant TTP both midline and para through the lumbar region. Additionally he does demonstrate bilateral lower extremity radiculopathy with right lower extremity weakness. I have explained to the patient that as their condition progresses it will cause further neurological deficits and eventual paralysis. Based on the patients imaging, physical exam, and the rapid progression and disabling nature of their symptoms, at this time I recommend surgery in the form or a: L3-L5 decompression and laminectomy with L4-L5 fusion ([id number], [id number]). I discussed the risk and benefits of this procedure at length with Mr. Espinosa. The patient agreed to considered pursuing the procedure abovementioned. Prior to surgery, she should follow up with her PCP (Cardio, ID, IM etc) for clearance. Questions were invited and answered, and the patient wishes to proceed as outlined below. Currently, I am recommendin.L3-L5 decompression and laminectomy with possible L4-L5 fusion 2.Follow up with PCP for surgical clearance 3.Review of surgical risks and benefits as well as an educational packet on the proposed surgical procedure. Risks: All surgical procedures come with inherent risks, including those related to positioning, anesthesia, intraoperative findings, and postoperative complications. It is important to understand that surgery does not come with any guarantee of a successful outcome as complications and adverse events are always possible. The patient was given a handout in office today discussing the surgical procedure and risks associated with the intervention, both of which were discussed with the patient. These risks include but are not limited to the following: * Experiencing same, different or even worse symptoms in back, neck, arms, or legs compared to before surgery. Requiring further surgery or other forms of treatment presently or at some time in the future at same or other levels of the intended spine surgery. On an extreme but fortunately relatively rare basis severe complication such as blindness, stroke, heart attack, temporary and/or permanent nerve injury, paralysis, coma, or may occur, sometimes without known explanation. Surgical complications may include but are not limited to risk of infection, fluid accumulation in the surgical dissection site, including a seroma or hematoma, that requires additional surgery, wound drainage, bleeding, new numbness or weakness, vision changes/loss, spinal fluid leakage, non-healing and/or infected incision, headaches, difficulty or inability to swallow, hoarseness, hemopneumothorax, pneumothorax, impotence, retrograde ejaculation, vaginal dryness; injury to nerves, spinal cord, blood vessels, lymphatics or other vital organs (i.e., bowel injury, injury to the great vessels); heterotopic bone formation; complications related to the hardware such as screws, rods, cages including misplaced hardware, device failure, instrumentation at the wrong spine level, hardware fracture/breakage, or hardware loosening; vertebral failure of the spinal column above or below the newly placed hardware; retained surgical instrumentations or devices and the need for further surgery. * Medical risks of the planned spine surgery include but are not limited to generalized Infections to the whole body or local areas outside of the surgical site (sepsis), heart attack, bleeding, anaphylaxis, meningitis, seizure, epilepsy, hearing loss, burn ceja, laceration of the head or other areas of the body, bruising, hypersensitivity of the skin, bladder over distension; allergic reaction; shoulder injury related to positioning; fat, blood and air clots to other areas of the body like heart, lungs, brain; failure of internal organs such as lungs, kidneys, liver and excessive bleeding. If blood transfusions are necessary, note that transfusions may cause intolerance reactions such as anaphylaxis or other complex reactions. Despite best efforts, the results of spine surgery might not heal in terms of bone, soft tissues such as skin, fascia, ligaments, and joints. Additionally, in order to achieve best possible results, spine surgery may be carried out beyond the initially planned levels and involve decompression, fusion including insertion of hardware at levels other than the original intended area of surgical interest change some portions of the procedure in order to ensure the best possible outcomes. With spine surgery and spinal fusion, there are different off label uses of instrumentation (devices, implants and hardware) as well as biological substances (bone morphogenic proteins, demineralized bone matrix) as well as using extra bone from allograft sources (i.e. cadaver bone) or autograft (iliac crest bone, ribs, or the spine itself). The patient has been given information about these practices and their inherent risks and benefits. [facility] is an educational center that serves as a training facility for neurosurgical and orthopedic [employer]ELD [employer] S[employer]IOR SERGEANT and Nursing students. Physician assistants are medically trained surgical providers who function in the outpatient, inpatient, and operating room setting under the direct supervision of the attending surgeon. [facility] has multiple operating rooms with single and overlapping rooms running daily. They currently function under the required guidelines as produced by the [facility] Finance Committee with regards to the overlapping rooms and will continue to comply with changes to this policy as they occur. The requirements include and are complied with as follows: (1) the critical portions of the overlapping rooms will not occur at the same time, (2) the attending physician will be physically present during the critical portions of the procedure and immediately available during the entire case, and (3) a back-up attending is designated should the primary attending not be immediately available. The patient has had a chance to review all the listed information, has been given print outs detailing this information, and has had all his/her questions answered to their satisfaction. It was my pleasure to have seen and examined Mr. Espinosa. In our visit today we have had a chance to go over my understanding of our patient's current condition, the natural course history without intervention and various interventional options. Questions were invited and answered, and the patient wishes to proceed as outlined above. I have seen and examined the patient for 25 minutes and we have spent more than 50% of the time in repeat and detailed counseling about the patient's condition, its natural course history with out and as much as can be predicted with surgery and re-review of various surgical treatment options. In conclusion, Mr. Espinosa requested we proceed with the above suggested surgery and are willing to accept risks and limitations of the suggested surgery as nature of the disease process and our best attempts at treatment for the condition. Thank you again for allowing us to be part of your patient's care. Please don't hesitate to contact me if you have any further questions. Signed and authenticated by: Aron Lobo [facility] [address] [address] Past Medical History Past Medical History: Hypertension, Osteoarthritis (OA), Sleep Apnea/CPAP/BIPAP Additional Past Medical History / Comment(s): hx kidney stones, hx DEVIATED SEPTUM, USES CPAP MACHINE, spinal stenosis, herniated disks, History of Any Multi-Drug Resistant Organisms: None Reported Past Surgical History: Appendectomy, Back Surgery, Ear Surgery, Tonsillectomy Additional Past Surgical History / Comment(s): RT HAND INDEX/MIDDLE FINGER TENDON REPAIR, BACK SX L4-L5, SEPTOPLASY/deviated septum, RT KNEE ARTHROSCOPY, LT MIDDLE EAR SX AGE 10 "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 Past Anesthesia/Blood Transfusion Reactions: No Reported Reaction Smoking Status: Current every day smoker - Past Family History Mother Family Medical History: No Reported History Father Family Medical History: Hypertension Additional Family Medical History / Comment(s): KINDNEY REMOVED(BENIGN TUMOR) Medications and Allergies Home Medications Medication Instructions Recorded Confirmed Type amLODIPine [Norvasc] 10 mg PO DAILY 01/24/21 05/15/22 History Dextroamphetamine/Amphetamine 10 mg PO BID 05/15/22 05/15/22 History [Adderall] HYDROcodone/APAP 7.5-325MG [[place] 1 tab PO TID 05/15/22 05/15/22 History 7.5-325] Allergies Allergy/AdvReac Type Severity Reaction Status Date / Time No Known Allergies Allergy Verified 05/15/22 08:51 Physical Examination Osteopathic Statement: *. No significant issues noted on an osteopathic structural exam other than those noted in the History and Physical/Consult.
[~2022-05-16 09:24] MED LIST: ACETAMINOPHEN TAB 500 MG TAB PO PRN; GABAPENTIN 300 MG CAP PO PRN; LIDOCAINE 1% (10MG/ML) FOR IV START INTRADERMA PRN; MIDAZOLAM 2 MG/2 ML VIAL IV PRN; ONDANSETRON 4 MG/2 ML VIAL IVP PRN; TRANEXAMIC ACID IN NACL,ISO-OS 1,000 MG in SALINE 1 100ML.BAG IVPB PRN
[2022-05-16] MEDS: LACTATED RINGERS 1,000 ML IV SCH ×2 (10:17→10:32)
[2022-05-16] MEDS: DEXAMETHASONE SOD PHOSPHATE 4 MG/ML 1 ML VIAL IV ONE ×2 (10:44→20:25)
[2022-05-16] MEDS: ONDANSETRON 4 MG/2 ML VIAL IVP ONE ×2 (10:44→20:25)
--- NOTE | 2022-05-16 11:49 | P.PN ---
Progress Note - Text Progress Note Date: 05/16/22 History and Physical UPDATE I have seen and examined the patient and reviewed the history and physical. There appear to be no significant changes in the patient's current medical status as outlined in the current History and Physical. Discussed the procedure again and due to the significant stenosis at L4-L5 we discussed fusion due to the amount of bone that we will need to be removed in order to decompress this area as it is a revision area as well and he was comfortable with this. We will avoid fusion at L3-L4 if possible. And just decompress L3-L4. He is comfortable at this psoas his this was added to the consent. We discussed this in depth along with risks and benefits. He again was comfortable and ready to proceed.
[2022-05-16] MEDS ORDERED: HYDROmorphone (PF) 1 MG/ML ONE (12:29)
[2022-05-16] MEDS ORDERED: fentaNYL (PF) 50 MCG/ML 2 ML AMP ONE (12:29)
[2022-05-16] MEDS ORDERED: PHENYLEPHRINE-0.9% NACL SYG 1,000 MCG/10 ML SYRINGE ONE (12:29)
[2022-05-16] MEDS ORDERED: MIDAZOLAM 2 MG/2 ML VIAL ONE (12:29)
[2022-05-16] MEDS ORDERED: NEOSTIGMINE 1 MG/ML 10 ML VIAL ONE (12:29)
[2022-05-16] MEDS ORDERED: ROCURONIUM 10 MG/ML (5 ML VIAL) IV ONE (12:29)
[2022-05-16] MEDS ORDERED: GLYCOPYRROLATE 0.2 MG/ML 2 ML VIAL ONE (12:29)
[2022-05-16] MEDS ORDERED: SUCCINYLCHOLINE CHLORIDE VIAL 200 MG/10 ML VIAL IV ONE (12:29)
[2022-05-16] MEDS ORDERED: TRANEXAMIC ACID IN NACL,ISO-OS 1,000 MG/100 ML BAG ONE (12:29)
[2022-05-16] MEDS ORDERED: PROPOFOL 10 MG/ML 20 ML VIAL IV ONE (12:29)
[2022-05-16] MEDS ORDERED: THROMBIN (BOVINE) 5,000 UNIT VIAL MISCELLANE ONE ×3 (13:23)
[2022-05-16] MEDS ORDERED: GELATIN SPONGE,ABSORB (LARGE) 1 EACH SPONGE MISCELLANE ONE ×2 (13:23)
[2022-05-16] MEDS ORDERED: LACTATED RINGERS 1,000 ML IV ONE ×2 (14:45→16:59)
[2022-05-16] MEDS ORDERED: MAGNESIUM HYDROXIDE 2,400 MG/10 ML CUP PO PRN (15:30)
[2022-05-16] MEDS ORDERED: HYDROcodone/APAP 10-325MG 1 EACH TAB PO PRN (15:30)
[2022-05-16] MEDS ORDERED: ONDANSETRON 4 MG/2 ML VIAL IVP PRN (15:30)
[2022-05-16] MEDS ORDERED: HYDROmorphone 1 MG/ML 1 ML SYRINGE IVP PRN (15:30)
[2022-05-16 16:31] LABS: HCT 37.7 % (39.0-53.0); HGB 12.6 gm/dL (13.0-17.5); MCH 28.4 pg (25.0-35.0); MCHC 33.6 g/dL (31.0-37.0); MCV 84.7 fL (80.0-100.0); Mean Platelet Volume 7.3; Platelet Count 205 k/uL (150-450); RBC 4.45 m/uL (4.30-5.90); RDW 13.8 % (11.5-15.5); WBC 9.2 k/uL (3.8-10.6)
[2022-05-16] MEDS ORDERED: VANCOMYCIN 1,000 MG VIAL MISCELLANE ONE (16:49)
--- NOTE | 2022-05-16 18:17 | P.PN ---
Progress Note - Text Progress Note Date: 05/16/22 Brief Post Op: Surgeon: Winston Pre op dx;L3 to 5 stenosis severe spondylosis L4-L5 Post op dx: same Procedure: L3 to 5 decompression laminectomy with L4 5 fusion Anesthesia: GETA EBL: 700 Fluid 3500 UO: 500 Dispo: Stable to PACU Post op Plan: Post operative noncontrasted CT scan Encourage ambulation IS 10x/hr Teds/SCDs Pain control patient has LSO No brace needed for early ambulation Record Drain output patient is seen and evaluated in the postoperative care unit he is waking up doing well. He is moving all 4 extremities appropriately. His vital signs are currently stable. He will be transferred to the floor once he is awake and stable per the postoperative care staff and anesthesia.
[2022-05-16] MEDS: HYDROmorphone 0.5 MG/0.5 ML SYRINGE IVP PRN ×3 (18:30→23:11)
--- NOTE | 2022-05-16 19:55 | XR ---
EXAMINATION TYPE: XR lumbar spine 2 or 3V DATE OF EXAM: 05/16/2022 COMPARISON: NONE HISTORY: Laminectomy TECHNIQUE: Fluoroscopic views FINDINGS: 1 minutes and 23 seconds of fluoroscopy time was recorded for the laminectomy surgery. A se jhonaa of fluoroscopic images were obtained that show placement of rods and screws fusing posteriorly t he L4 and L5 vertebral bodies. There is also a disc prosthesis at L4-5. IMPRESSION: No complicating process seen.
[2022-05-16] MEDS: ACETAMINOPHEN TAB 500 MG TAB PO SCH ×2 (20:26→23:08)
[2022-05-16] MEDS: GABAPENTIN 300 MG CAP PO SCH ×2 (20:26→23:08)
[2022-05-17] MEDS: HYDROmorphone 0.5 MG/0.5 ML SYRINGE IVP PRN ×2 (05:54→18:29)
[2022-05-17] MEDS: ACETAMINOPHEN TAB 500 MG TAB PO SCH (05:55)
--- NOTE | 2022-05-17 08:04 | FL ---
EXAMINATION TYPE: FL guidance operating room DATE OF EXAM: 05/16/2022 HISTORY: Fluoroscopy time 1 minute and 23 seconds of fluoroscopy provided. IMPRESSION: 1. Fluoroscopy time.
[2022-05-17] MEDS: oxyCODONE-APAP 5-325MG 1 EACH TAB PO PRN ×4 (08:18→21:41)
[2022-05-17] MEDS: GABAPENTIN 300 MG CAP PO SCH ×3 (08:18→21:41)
[2022-05-17 09:09] LABS: Basophils # (A) 0.01 X 10*3/uL (0.00-0.10); Basophils % (A) 0.1 %; Eosinophils # (A) 0.04 X 10*3/uL (0.04-0.35); Eosinophils % (A) 0.4 %; HCT 36.3 % (39.6-50.0); Immature Grans, Automated 0.3 %; Lymphocytes # (A) 1.47 X 10*3/uL (0.90-5.00); Lymphocytes % (A) 13.8 %; MCH 27.4 pg (27.0-32.0); MCHC 33.1 g/dL (32.0-37.0); MCV 82.9 fL (80.0-97.0); Mean Platelet Volume 9.7 fL (9.5-12.2); Monocytes # (A) 0.82 X 10*3/uL (0.20-1.00); Monocytes % (A) 7.7 %; NRBC Per 100 WBC 0 /100 WBCS (0.0-0.0); Neutrophils # (A) 8.32 X 10*3/uL (1.80-7.70); Neutrophils % (A) 77.7 %; Platelet Count 184 X 10*3/uL (140-440); RBC 4.38 X 10*6/uL (4.40-5.60); RDW 13.4 % (11.5-14.5); WBC 10.69 X 10*3/uL (4.50-10.00)
[2022-05-17 09:15] LABS: African American GFR (CKD) 119.9 (60.0-200.0); Anion Gap 10.4 mmol/L (10.00-18.00); BUN/Creat Ratio 15.25 Ratio (12.00-20.00); Blood Urea Nitrogen 12.2 mg/dL (9.0-27.0); Calcium 8.3 mg/dL (8.7-10.3); Carbon Dioxide 26.6 mmol/L (20.0-27.5); Non-African American GFR(CKD) 103.4 (60.0-200.0); Potassium 4.2 mmol/L (3.5-5.5)
--- NOTE | 2022-05-17 11:09 | P.PN ---
Subjective Progress Note Date: 05/17/22 Principal diagnosis: L3-5 stenosis L4-5 spondylosis Pt s/e. He is having pain this AM but is doing OK. He states no issues overnight. Has not been up much yet. Still with drain in place which is putting out a lot of fluid. No f/c/sob/cp at this time. He states his legs fe el better and he just has a lot of back pain and that the meds are not helping enough. Denies any other issues. Objective - Vital Signs Vital signs: Vital Signs Temp 98.6 F 05/17/22 05:22 Pulse 107 H 05/17/22 05:22 Resp 16 05/17/22 05:22 BP 124/71 05/17/22 05:22 Pulse Ox 99 05/17/22 05:22 FiO2 Intake & Output 05/16/22 05/17/22 05/17/22 18:59 06:59 18:59 Intake Total 2200 Output Total 7975 767 2220 Balance 1200 -375 -1070 Weight 113.9 kg Intake: IV 2200 Output: Drainage 150 70 Back 150 70 Urine 934 853 5315 Estimated Blood Loss 700 Other: Voiding Method Indwelling Catheter - Exam Patient is alert and oriented 3 appears well-nourished well-hydrated is in no acute distress. They do not appear septic. On exam the patient has no tenderness to palpation of her thoracic or lumbar spine. There is no edema or ballottement sign. Lower extremities with 5/5 strength in all major muscle groups Upper extremities show [5]/5 strength in all major muscle groups. Normal deconditioning postoperatively [2]/4DTR all UE and LE b/l Patient shows a negative Homans, Montiel's, negative Babinski's negative clonus bilaterally. negative straight leg raise bilaterally. No tensioning signs. Cranial nerves II through XII are grossly intact. There is FROM that is painless of the b/l UE and LE in all major joints [w/o pain]. They are intact to light touch sensation in L2 to S1 nerve distribution. C5 to T1 as well Patient has palpable dorsalis pedis was posterior tibial pulses. Compartments are soft and compressible. Dressings are clean and dry drain is in place with 150 mL out - Labs CBC & Chem 7: 05/17/22 05:40 05/17/22 05:40 Labs: Abnormal Lab Results - Last 24 Hours (Table) 05/16/22 05/17/22 05/17/22 Range/Units 16:16 05:40 05:40 WBC 10.69 H (4.50-10.00) X 10*3/uL RBC 4.38 L (4.40-5.60) X 10*6/uL Hgb 12.6 L 12.0 L (13.0-17.5) gm/dL Hct 37.7 L 36.3 L (39.0-53.0) % Neutrophils # 8.32 H (1.80-7.70) X 10*3/uL Glucose 113 H (70-110) mg/dL Calcium 8.3 L (8.7-10.3) mg/dL Assessment and Plan Assessment: 51-year-old male status post L3 5 decompression with L4 5 fusion Plan: -Appreciate senior science consultant and team management. -Activity: Ambulate QID, OOB all meals, up and about, limit lifting bending twisting to less than 5 lbs. Use walker or cane if needed for stability. -Daily PT/OT, increase ambulation strength and balance. -[Brace when up and about, not needed in bed or chair] -Pain control: Adjust pain medications for better pain control -Meds: [reviewed] -GI ppx: senna, Miralax -DC stein when up and about, bedside commode if needed -DVT PPX: [OK to restart Heparin tonight] -Hygiene: Shower today. Maintain dressing clean and dry. Meticulous cleaning after BMs away from incision site -Drains: [Maintain for now. Record output] -Encourage IS 10x/hr -Dispo: Pending expected stay 1-2 days due to drain output pain control a mbulatory status need for physical therapy and occupational therapy
--- NOTE | 2022-05-17 11:22 | P.OP ---
Date of Procedure: 05/16/22 Preoperative Diagnosis: 1. L3-5 severe stenosis 2. b/l LE radiculopathy and paresthesias 3. b/l LE weakness 4. Mechanical low back pain Postoperative Diagnosis: 1. L3-5 severe stenosis 2. b/l LE radiculopathy and paresthesias 3. b/l LE weakness 4. Mechanical low back pain Procedure(s) Performed: 1. Revision posterior midline approach to lumbar spine 2. L4-5 posteriolateral and interbody fusion (80620) 3. L3-4 bilateral laminectomy, partial medial facetectomy and foraminotomy (61386) 4. L4-5 bilateral laminectomy, complete facetectomy, foraminotomy more than that is required for interbody placement, fusion purposes or normal decompressive p urposes secondary to exuberant scar tissue from revision surgery, epidural mass effect of scar tissue (81744) 5. Insertion of biomechanical device (72722) 6. Posterior instrumentation L4-5 (88789) 7. Use of intraoperative microscope for decompressive visualization (40332) 8. Use of intraoperative neuromonitoring 9. Interpretation of intraoperative fluoroscopic imaging <1 hr (32735) This case took 75% longer than expected due to revision nature of the surgery, exuberant scar tissue formation, pts BMI and comorbid conditions (mod22) Implants: -Globus creo screw and alanya system -Life spine proLift cage x1 8-13 mm 12 deg lordotic -Local autograft -Mikala allograft -DBM allograft Anesthesia: GETA Surgeon: Aron Montero Music Internship #1: Randall Clark (Was present and assisted from positioning to the begining of decompression efforts) Music Internship #2: Bryce Mckeon (Weas present and assisted from decompression to cage placement to remaineder of hardware, closure and dressing placement) Estimated Blood Loss (ml): 700 IV fluids (ml): 3,500 Urine output (ml): 500 Pathology: none sent Condition: stable Disposition: PACU Indications for Procedure: Mr. Espinosa is presenting for evaluation of low back pain and bilateral lower extremity radiculopathy. It was my pleasure to have seen and examined Mr. Espinosa. In our visit today we have had a chance to go over subjective complaints, physical examination findings and treatments including the natural course history without intervention and various interventional options. The patients imaging demonstrates: XRay taken on 03/31/22 of Lumbar Spine and Pelvis: Images reviewed in office with the patient. These demonstrate spondylotic changes from L3-S1 with the worst at L4-5 with disc height loss and facet arthropathy. No fracture noted. No dislocation noted. stable through F/E. PI: 70 LL:52 CT scan from of Lumbar Spine: IMages reviewed in office with the patient. This demonstrates again spondylotic changes from L3-S1 with the worst at L4-5 with mild retrolisthesis at this level, disc height loss and facet arthrosis from L3-S1 that is mild to severe. 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 No fractures noted. No other instability. Parameters as mentioned above. Post surgical changes noted at L4-5 on the LHS secondary to previous discectomies. Bony re-formation noted. MRI scan from12/03/2021 of Lumbar Spine: Images reviewd with the patient in the office today. This demonstrates L1-2 normal disc height and VB height. L2-3 disc dehydration noted. Height maintained. Mild facet arthrosis no fracture no lesions, mild stenosis. L3-4 Disc height loss, dehydration, facet arthropathy and hypertrophy, Ligamental hypertrophy causing moderate to severe central and foraminal stenosis as well as broad based disc bulge. No fracture no lesions L4-5 Disc height loss, dehydration, more severe facet arthropathy and hypertrophy. Post surgical changes noted with L sided laminotomy defect that has mostly filled back in. Severe stenosis L4-5 centrally and foraminally as well as scar tissue formation due to previous surgeries in this area. No fracture, no lesions. Mild retrolisthesis with broad willian disc bulge. L5-S1 Maintained disc height and hydration. No fracture. No lesion. Moderate central stenosis related to facet hypertrophy and ligamental hypertrophy. Some scarring noted as well due to previous surgery. On physical exam, Mr. Espinosa demonstrates severely restricted lumbar ROM with significant TTP both midline and para through the lumbar region. Additionally he does demonstrate bilateral lower extremity radiculopathy with right lower extremity weakness. I have explained to the patient that as their condition progresses it will cause further neurological deficits and eventual paralysis. Based on the patients imaging, physical exam, and the rapid progression and disabling nature of their symptoms, at this time I recommend surgery in the form or a: L3-L5 decompression and laminectomy with L4-L5 fusion (94939, 11721). I discussed the risk and benefits of this procedure at length with Mr. Espinosa. The patient agreed to considered pursuing the procedure abovementioned. Prior to surgery, she should follow up with her PCP (Cardio, ID, IM etc) for clearance. Questions were invited and answered, and the patient wishes to proceed as outlined below. Currently, I am recommendin.L3-L5 decompression and laminectomy with possible L4-L5 fusion Description of Procedure: The patient was seen and examined in the preoperative area. All preoperative protocols were followed. Informed consent was obtained risks and benefits of the procedure were discussed at length. Risks including bleeding infection damage to the surrounding tissue and risk of reoperation were discussed with the patient. Risk of anesthesia up to and including was a discussed with the patient. These are outlined in the risk review. They were willing to accept these risks and all of the risks of surgery. The patient was given a weight- based dose of antibiotics in the form of 2 g Ancef. The patient was seen and evaluated by the anesthesia team who deemed them fit for surgery. The site was marked, the patient was willing to proceed with the procedure. The patient was transferred to the operative suite by the Department of anesthesia. They were then drifted off to sleep by the department anesthesia and GETA was performed. The patient tolerated this well. Kinney catheter was placed by nursing staff, atraumatically. Once confirmation of lines and ventilation the patient was transferred to a prone Rahul table very carefully. All bony prominences including wrists, elbows, axilla, chest, hips, and thighs, and feet were padded very well. Special attention was paid to the genitalia and these were padded accordingly. SCDs were placed on bilateral lower extremities and were connected. Arms were well padded and placed on arm boards up and out in the 90/90 position. Once in position, again we confirmed good ventilation capabilities and that lines were running appropriately. The patient's lumbar spine was then exposed. 1010s were placed outlining the incision site. Standard alcohol was used to clean the incision site and allowed to dry. C-arm was used to biomark the patient and confirm level for incision which was marked with a skin marker. Operative briefing was performed with all teams and everyone in agreement to proceed. The patient was then prepped and draped in a normal sterile fashion. Timeout was then performed and all parties were in agreement with the procedure to be performed. Posterior midline skin incision was made over the previously by a marked area in line with the previous incision. Dissection taken down with electrocautery until the lumbar fascia was identified which was then cleaned with a Oro. Midline fasciotomy was then made and subperiosteal dissection taken out over the lamina of L2 through L5. This allowed for excursion of visualization in this area. Dissection was taken out of the facet joints of L3 4 L4 5 for visualization purposes and over the transverse processes of L4 and L5 for fusion purposes. There is exuberant scar tissue noted at the L4 5 interspace and region where there appears to been a laminotomy defect on the left-hand side is extremely scarred however and so meticulous cleaning had to be done of this area. We then proceeded with hardware placement at L4-L5 using a freehand technique and lateral fluoroscopic imaging high-speed bur was used to make a high-level starting point and the mamillary process of L4 bilaterally followed by a pedicle finder and then a ball-tipped feeler to ensure with the 4 quinonez of the pedicle the beginning screw tract was tapped and then a screw was sized and placed into this area under lateral fluoroscopic guidance. We then repeated this at L5 bilaterally AP imaging was then taken and confirmed good placement of screws. Screws were then tested and all tested above 17 mA. Once the Screws were in position we brought inthe microscope for visualization and proceeded with our decompression bilateral laminectomy partial medial facetectomy and foraminotomy was performed at L3-L4 to allow for decompression at this level it was extremely stenotic at this level and the thecal sac had hour glassed in this area due to the ligamental hypertrophy in this area as well as the facet hypertrophy this was removed and once removed thecal sac was able to rebound to its normal anatomy. We performed bilateral foraminotomies using Kerrison rongeur and remove the hypertrophic ligamentum as well. We then proceeded down to L4-L5 where we performed bilateral laminectomy complete facetectomy and foraminotomy removing the inferior articular process of L4 completely and the superior articular process of L5 this allowed for complete pedicle to pedicle decompression in this area. Due to the exuberant amount of scar tissue in this area from previous surgeries it was extremely difficult to clear the lamina from this area as the dura lamina and scar tissue had grown together quite extensively. We took special care using [place] 4 as well as sharp dissection to remove the laminar pieces from the dura. There were no dural injuries with this. Once we are able to perform this we were able to release the nerve roots exiting at L4 bilaterally as well as the traversing roots at L5 bilaterally is in Kerrison rongeur meticulous dissection. There was extremely hypertrophic ligamentum which was nearly granular in nature and so this was sent to pathology because it had a almost gouty appearance to it it was somewhat tophaceous as well which is causing some of the severe stenosis posteriorly we used a high-speed bur then to unroofed the cranial portion of L5 to get an effective decompression in this area as there was again hourglassing between the L4-L5 lamina due to the scar tissue. This in effect got us to more [place] tissue and allowed for a better decompression. Once this was accomplished we then identified the disc space at L4-L5 and carefully mobilized the thecal sac as well as the nerve roots which was extremely difficult due to the scar tissue this is done with a [place] 4 and bipolar once we are able to mobilize the tissues enough we are able to access the disc space all protecting neural elements and osteotome was placed within the disc space under lateral fluoroscopic guidance this was followed by sequential shaving once we reached shaving height that was adequate we placed a blunt shaver and taken AP image which confirmed us to be midline and the vertebral body. We then cleaned the disc space and perform complete discectomy in this area and assuring good bleeding endplates as well as removal of disc material. With the blunt probes then we sized for a cage. An 1813 mm 12 lordotic spine prolific cage was selected. Anterior to the cage within the disc space we packed autograft allograft and Mikala which was then impacted with a blunt trial. We then protecting the neural elements inserted the cage and under lateral fluoroscopic guidance once the cages anteriorly was then expanded and good height and lordosis yazidism was achieved. Once the cage was expanded to the desired height it was back filled with DBM. The inserter promotional item was then removed the cage was tested and was stable. Meticulous hemostasis again performed and the area then copiously irrigated the area as well with normal sterile saline. We checked our decompression and used Kerrison rongeur to clean it up. We then decorticated posterior laterally with a high-speed bur the transverse processes of L4 and L5. We then sized and selected rods which were then placed and set screws were placed and final tightened. We then sized and selected a cross-link which was then final tightened into position. Final fluoroscopic images confirmed good placement of hardware and reduction of lordosis and height yazidism. We then copiously irrigated the wound with 9 L of irrigant 3 L of antibiotic saline solution followed by 6 L of normal sterile saline. We then placed Surgicel and the dura or protection. We then placed graft mixture of autograft allograft and Mikala in the posterior lateral gutters and packed it into place bilaterally. We then placed vancomycin deep within the wound. A deep drain was placed. We then proceeded with layered closure first and the fascia with #1 PDS in a [id number] fashion followed by 0 PDS in simple fashion deep subcu tissues closed with 0 PDS superficial subcu tissue closed with 2-0 PDS and the skin was closed with skin cheryl. The wound edges approximated very well. The wound was then cleaned and dressed sterilely with an operative foam dressing 4 x 4 and Tegaderm. The drain was secured into position with a stitch. The patient was transferred back to their hospital bed atraumatically. Drain continued to hold suction and were in good position. Patient was then awakened and extubated by the department of anesthesia having tolerated the procedure very well with no complications. They were transferred to the postoperative care unit in stable condition.
[2022-05-17] MEDS: ACETAMINOPHEN TAB 325 MG TAB PO SCH ×2 (13:28→17:39)
[2022-05-17] MEDS: Dextroamphetamine/Amphetamine [Adderall] PO SCH ×2 (14:46→21:44)
[2022-05-17] MEDS: amLODIPine 10 MG TAB PO SCH (14:47)
--- NOTE | 2022-05-17 19:00 | CT ---
EXAMINATION TYPE: CT lumbar spine wo con DATE OF EXAM: 05/17/2022 4:07 PM COMPARISON: CT dated 03/30/2022 HISTORY: post op lumbar sx CT DLP: 931 mGycm Automated exposure control for dose reduction was used. Technique: Unenhanced CT of the lumbar spine was performed. Bone and soft tissue window settings are submitted as well as coronal and sagittal reconstructions. FINDINGS: Interval transpedicular fixation of L4 and L5 using 2 rods and 4 screws. No evidence of prosthesis br eak or displacement. L4-5 disc prosthesis is also noted. Associated posterior decompression of the sp inal canal from L3 down to L5. Acute postoperative changes are seen with operative bed soft tissue swelling, edema, fluid and overly ing skin cheryl. Surgical drain is also seen in the operative bed. Bridging osteophytosis seen at th e lower thoracic and upper lumbar spine. L1-L2: No significant disc disease, central spinal canal stenosis or neuroforaminal stenosis. L2-L3: Mild diffuse posterior disc bulge with focal central protrusion, causing no significant centra l spinal canal stenosis or neuroforaminal stenosis. L3-L4: Questionable small central posterior disc protrusion. Suspected left neural foraminal stenosis at that level. Posterior decompression of the spinal canal at that level. L4-L5: Artifacts due to adjacent prosthesis with suboptimal assessment for spinal canal stenosis or n euroforaminal stenosis. L5-S1: Artifacts due to metallic prosthesis with moderate central spinal canal stenosis, moderate lef t and severe right neuroforaminal stenosis. Gas is seen within the urinary bladder, correlate with recent catheterization. IMPRESSION: Postoperative changes and other findings as described above.
--- NOTE | 2022-05-17 20:34 | CONS ---
CONSULTATION REASON FOR CONSULTATION: Advice regarding hypertension and other medical issues, requested by Orthopedic Surgery. HISTORY OF PRESENT ILLNESS: This 51-year-old gentleman with a past medical history of hypertension and history of DJD, being followed Dr. Cabezas in the outpatient setting, underwent revision and laminectomy of L3-4 and L4-5. The patient is being closely monitored. There is no history of any fever, rigors or chills. No history of headache, loss of consciousness, seizures at this time. PAST MEDICAL HISTORY: Reviewed. It includes hypertension. MEDICATIONS: Home medications are reviewed and include Norvasc 10 mg. Doses and the rest of the medications are reviewed. ALLERGIES: NONE. FAMILY HISTORY: History of kidney removal for benign tumor. SOCIAL HISTORY: History of smoking. REVIEW OF SYSTEMS: Fourteen-point review of systems negative except as mentioned earlier. PHYSICAL EXAMINATION: Pulse is 107, blood pressure is 124/70, respirations 16. HEENT: Conjunctivae normal. NECK: No jugular venous distention. CARDIOVASCULAR: S1, S2 muffled. RESPIRATION: Breath sounds diminished at the bases. No rhonchi. No crackles. ABDOMEN: Soft, nontender. LEGS: No edema. No swelling. NERVOUS SYSTEM: No focal deficit. BACK: Status post surgery. SKIN: No ulcer, rash, bleeding. JOINTS: No active deforming arthropathy. LABS: Reviewed. WBC 10.2. ASSESSMENT: 1. Status post lumbar surgery. 2. Hypertension. 3. Degenerative joint disease. 4. History of sleep apnea. RECOMMENDATIONS AND DISCUSSION: In this 51-year-old gentleman who presented after surgery with multiple medical issues, at this time I recommend to continue current medications, continue with the monitoring, symptomatic treatment. Resume the home medications. I would also recommend DVT prophylaxis and incentive spirometry. Will follow the patient closely with you. Patient may be asked to follow with primary physician closely after discharge. Thank you for letting us participate in the care of this patient. MMODL / IJN: [id number] /
[2022-05-17 22:02] LABS: Appearance,Urine Clear (Clear); Bilirubin,Urine Negative (Negative); Blood,Urine Negative (Negative); Color,Urine Light Yellow; Glucose,Urine (UA) Negative (Negative); Ketones,Urine Negative (Negative); Leukocyte Esterase,Urine Trace (Negative); Mucus,Urine Rare /hpf; Nitrite,Urine Negative (Negative); Protein,Urine Negative (Negative); RBC,Urine 2 /hpf (0-5); Specific Gravity,Urine 1.009 (1.001-1.035); Urobilinogen,Urine <2.0 mg/dL (<2.0); WBC,Urine 7 /hpf (0-5)
[2022-05-18] MEDS: ACETAMINOPHEN TAB 325 MG TAB PO SCH ×5 (01:38→23:50)
[2022-05-18] MEDS: CYCLOBENZAPRINE 10 MG TAB PO PRN ×3 (03:27→21:38)
[2022-05-18] MEDS: oxyCODONE-APAP 5-325MG 1 EACH TAB PO PRN ×5 (03:27→23:46)
[2022-05-18] MEDS: LACTATED RINGERS 1,000 ML IV SCH (05:16)
[2022-05-18] MEDS: Dextroamphetamine/Amphetamine [Adderall] PO SCH ×2 (09:34→19:41)
[2022-05-18] MEDS: amLODIPine 10 MG TAB PO SCH (09:36)
[2022-05-18] MEDS: GABAPENTIN 300 MG CAP PO SCH ×3 (09:36→21:38)
[2022-05-18] MEDS: SENNOSIDES-DOCUSATE SODIUM 1 EACH TAB PO PRN (10:19)
[2022-05-18 10:34] LABS: Basophils # (A) 0.02 X 10*3/uL (0.00-0.10); Basophils % (A) 0.2 %; Eosinophils # (A) 0.06 X 10*3/uL (0.04-0.35); Eosinophils % (A) 0.7 %; HCT 36.9 % (39.6-50.0); Immature Grans, Automated 0.4 %; Lymphocytes # (A) 1.34 X 10*3/uL (0.90-5.00); MCH 27.5 pg (27.0-32.0); MCHC 32.5 g/dL (32.0-37.0); MCV 84.6 fL (80.0-97.0); Mean Platelet Volume 9.7 fL (9.5-12.2); Monocytes # (A) 0.88 X 10*3/uL (0.20-1.00); Monocytes % (A) 9.9 %; NRBC Per 100 WBC 0 /100 WBCS (0.0-0.0); Neutrophils # (A) 6.57 X 10*3/uL (1.80-7.70); Neutrophils % (A) 73.8 %; Platelet Count 158 X 10*3/uL (140-440); RBC 4.36 X 10*6/uL (4.40-5.60); RDW 13.3 % (11.5-14.5); WBC 8.91 X 10*3/uL (4.50-10.00)
[2022-05-18 10:52] LABS: African American GFR (CKD) 119.9 (60.0-200.0); Anion Gap 7.9 mmol/L (10.00-18.00); BUN/Creat Ratio 10.38 Ratio (12.00-20.00); Blood Urea Nitrogen 8.3 mg/dL (9.0-27.0); Calcium 8.3 mg/dL (8.7-10.3); Carbon Dioxide 26.1 mmol/L (20.0-27.5); Non-African American GFR(CKD) 103.4 (60.0-200.0); Potassium 3.7 mmol/L (3.5-5.5)
--- NOTE | 2022-05-18 13:24 | P.PN ---
Subjective Progress Note Date: 05/18/22 Principal diagnosis: Status post L3-L5 decompression, L4-L5 fusion Patient was evaluated today at bedside, he is resting in his hospital chair. He was actually up ambulating with the nurse coming back from the bathroom. He is urinating without difficulty. He has not had a bowel movement at this time, he is passing gas. Patient states that the oral pain medication is working a little bit better, he still has discomfort. Denies headaches, lightheadedness, chest pain or shortness of breath Objective - Vital Signs Vital signs: Vital Signs Temp 98.6 F 05/18/22 11:41 Pulse 102 H 05/18/22 11:41 Resp 19 05/18/22 11:41 BP 126/79 05/18/22 11:41 Pulse Ox 93 L 05/18/22 11:41 FiO2 Intake & Output 05/17/22 05/18/22 05/18/22 18:59 06:59 18:59 Output Total 2310 300 Balance -2310 -300 Output: Drainage 210 300 Back 210 300 Urine 2100 Other: Voiding Method Indwelling Catheter Urinal Urinal # Voids 2 - Exam Gen: AOx3, NAD VSS stable at this time Integument: Postoperative dressings in good position and condition. There is moderate serosanguineous drainage noted in drain Palpation: Mild tenderness with palpation to the paraspinal region the lower lumbar spine ROM: Full range of motion in all major muscle groups in the bilateral upper and lower extremities, no focal deficits appreciated Sensory Exam: [place] exam to light touch is intact C5-T1 Senosry exam to light touch is intact L2-S1 Motor: 55 strength appreciated in the bilateral upper extremities with shoulder elevation, shoulder abduction, elbow extension, flexion, wrist extension, wrist flexion 4/5 strength appreciated in the bilateral lower extremities with hip flexion, knee extension, knee flexion 4+/5 strength appreciated in the bilateral lower extremities with plantar flexion, dorsiflexion, EHL, FHL Reflexes: 2/4 in all UE and LE Negative Arnie's bilaterally Negative Babinski bilaterally Negative clonus bilaterally - Labs CBC & Chem 7: 05/18/22 06:05 05/18/22 06:05 Labs: Abnormal Lab Results - Last 24 Hours (Table) 05/17/22 05/18/22 05/18/22 Range/Units 21:40 06:05 06:05 RBC 4.36 L (4.40-5.60) X 10*6/uL Hgb 12.0 L (13.0-17.0) g/dL Hct 36.9 L (39.6-50.0) % Anion Gap 7.90 L (10.00-18.00) mmol/L BUN 8.3 L (9.0-27.0) mg/dL BUN/Creatinine Ratio 10.38 L (12.00-20.00) Ratio Glucose 127 H (70-110) mg/dL Calcium 8.3 L (8.7-10.3) mg/dL Ur Leukocyte Esterase Trace H (Negative) Urine WBC 7 H (0-5) /hpf Urine Mucus Rare H (None) /hpf Assessment and Plan Assessment: Postoperative day #2 status post L3-L5 decompression, L4-L5 fusion Plan: Pain control, will continue with the Percocet 5 mg/325 mg. Also continue with Flexeril and gabapentin DVT prophylaxis, SCDs and MCKINLEY hose, also continue utilize heparin during inpatient stay Wound care, we'll leave the drain in place at this time. Hopefully remove on 05/19/2022. Dressing change will be done at that time also PT/OT, continue use of the LSO brace and walker with ambulation Activity level instructions, no lifting, bending or twisting Continue medications for constipation Medical recommendations Discharge planning: Possible discharge home on 05/19/2022, if not 05/20/2022 Time with Patient: Less than 30
[2022-05-19] MEDS: SENNOSIDES-DOCUSATE SODIUM 1 EACH TAB PO PRN (04:17)
[2022-05-19] MEDS: oxyCODONE-APAP 5-325MG 1 EACH TAB PO PRN ×4 (04:18→22:32)
[2022-05-19] MEDS: LACTATED RINGERS 1,000 ML IV SCH (05:23)
[2022-05-19] MEDS: ACETAMINOPHEN TAB 325 MG TAB PO SCH ×4 (05:24→23:43)
[2022-05-19] MEDS: CYCLOBENZAPRINE 10 MG TAB PO PRN (08:13)
[2022-05-19] MEDS: GABAPENTIN 300 MG CAP PO SCH ×3 (08:13→20:50)
[2022-05-19] MEDS: Dextroamphetamine/Amphetamine [Adderall] PO SCH ×2 (08:14→20:57)
[2022-05-19] MEDS: amLODIPine 10 MG TAB PO SCH (08:14)
--- NOTE | 2022-05-19 09:27 | P.PN ---
Subjective Progress Note Date: 05/18/22 This is a 51 year old male who was admitted under orthopedic services and underwent revision and laminectomy of L3 to 4 and L4-5 and being closely monitored. Patient currently sitting up in the chair and brace is noted and patient reports continued pain although pain is manageable. Patient reports to voiding with no difficulties and tolerating diet with no reports of nausea or vomiting noted. Blood pressure medications have been resumed and recommend repeat labs in the a.m. Patient is currently afebrile and denies any chest pain or shortness of breath. Patient reports possible discharge in 24 hours. Will have physical therapy evaluate the patient. Review of systems: Constitutional: No reports of fatigue, fever, or chills Cardiovascular: No reports of chest pain or palpitations Respiratory: No reports of shortness of breath or cough GI: No reports of nausea, no reports of of vomiting, no reports of diarrhea and patient is passing gas : No reports of dysuria or retention Neurovascular: reports of generalized weakness and some low back pain All medications have been reviewed Active Medications Acetaminophen (Acetaminophen Tab 325 Mg Tab) 650 mg PO Q6HR [facility] Last Admin: 05/19/22 05:24 Dose: Not Given Amlodipine Besylate (Amlodipine 10 Mg Tab) 10 mg PO DAILY [facility] Last Admin: 05/18/22 09:36 Dose: 10 mg Cyclobenzaprine HCl (Cyclobenzaprine 10 Mg Tab) 10 mg PO TID PRN PRN Reason: Muscle Spasm Last Admin: 05/18/22 21:38 Dose: 10 mg Gabapentin (Gabapentin 300 Mg Cap) 300 mg PO TID [facility] Last Admin: 05/18/22 21:38 Dose: 300 mg Hydromorphone HCl (Hydromorphone 0.5 Mg/0.5 Ml Syringe) 0.5 mg IVP Q3HR PRN PRN Reason: Pain Scale 4 - 6 Last Admin: 05/17/22 18:29 Dose: 0.5 mg Hydromorphone HCl (Hydromorphone 1 Mg/Ml 1 Ml Syringe) 1 mg IVP Q3HR PRN PRN Reason: Pain Scale of 7 - 10 Lactated Ringer's (Lactated Ringers) 1,000 mls @ 20 mls/hr IV .Q24H [facility] Last Admin: 05/19/22 05:23 Dose: Not Given Cefazolin Sodium 2 gm/ Sodium (Chloride) 50 mls @ 100 mls/hr IVPB Q8H [facility]; Protocol Last Admin: 05/19/22 04:17 Dose: 100 mls/hr Lidocaine HCl (Lidocaine 1% (10mg/Ml) For Iv Start) 0.1 ml INTRADERMA PER PROTOCOL PRN PRN Reason: IV Start Magnesium Hydroxide (Magnesium Hydroxide 2,400 Mg/10 Ml Cup) 2,400 mg PO DAILY PRN PRN Reason: Constipation Last Admin: 05/18/22 10:19 Dose: 2,400 mg Dextroamphetamine/Amphetamine [ Adderall] 10 mg PO BID [facility] Last Admin: 05/18/22 19:41 Dose: Not Given Ondansetron HCl (Ondansetron 4 Mg/2 Ml Vial) 4 mg IVP Q8HR PRN PRN Reason: Nausea And Vomiting Last Admin: 05/19/22 04:46 Dose: 4 mg Oxycodone/Acetaminophen (Oxycodone-Apap 5-325mg 1 Each Tab) 1 - 2 each PO Q4HR PRN PRN Reason: Pain Last Admin: 05/19/22 04:18 Dose: 2 each Senna/Docusate Sodium (Sennosides-Docusate Sodium 1 Each Tab) 2 each PO DAILY PRN PRN Reason: Constipation Last Admin: 05/19/22 04:17 Dose: 2 each PHYSICAL EXAMINATION: GENERAL: The patient is alert and oriented x4, Well developed, well nourished. Obese. HEENT: Pupils are round and equally reacting to light. EOMI. no scleral icterus. No conjunctival pallor. Normocephalic, atraumatic. No pharyngeal erythema. No thyromegaly. CARDIOVASCULAR: S1 and S2 muffled PULMONARY: diminished breath sounds bilaterally with no wheezing or rhonchi noted. ABDOMEN: soft. Obese, nontender. non-distended, positive bowel sounds. No palpable organomegaly. MUSCULOSKELETAL: No joint swelling or deformity. EXTREMITIES: No cyanosis, clubbing, or pedal edema. NEUROLOGICAL: Gross neurological examination did not reveal any focal deficits. SKIN: No rashes. Assessment: Status post lumbar surgery Hypertension Degenerative joint disease History of sleep apnea GI prophylaxis DVT prophylaxis Full code Plan: Recommend to continue with current medications and management per orthopedic services. Patient has a brace and is currently sitting up in the chair and working with physical therapy. Home medications have been resumed and patient reports to tolerating diet with no reports of nausea or vomiting noted. Patient plans on discharging home within the next 24-48 hours. Patient with incentive spirometer at the bedside and encourage the patient to continue using at least 10 times every hour while awake. Recommend close outpatient follow-up with primary care provider along with orthopedics as discussed. Will continue to follow along with orthopedic services during hospitalization. Thank you for this consultation. Further recommendations to follow based on the clinical course of the patient. Possible discharge in 24 hours. The impression and plan of care has been dictated by Peggy Salgado, nurse practitioner as directed. MD Jovon I have performed a history and examination and MDM of this patient, discussed the same with the dictator, and agree with the dictator's assessment and plan as written ,documented as a scribe. Based on total visit time, I have performed more than 50% of the visit. Any additional findings or plans will be noted. Objective - Vital Signs Vital signs: Vital Signs Temp 98.8 F 05/18/22 05:00 Pulse 105 H 05/18/22 05:00 Resp 16 05/18/22 05:00 BP 130/69 05/18/22 05:00 Pulse Ox 92 L 05/18/22 05:00 FiO2 Intake & Output 05/17/22 05/18/22 05/18/22 18:59 06:59 18:59 Output Total 2310 300 Balance -2310 -300 Output: Drainage 210 300 Back 210 300 Urine 2100 Other: Voiding Method Indwelling Catheter Urinal Urinal # Voids 2 - Labs CBC & Chem 7: 05/18/22 06:05 05/18/22 06:05 Labs: Abnormal Lab Results - Last 24 Hours (Table) 05/17/22 Range/Units 21:40 Ur Leukocyte Esterase Trace H (Negative) Urine WBC 7 H (0-5) /hpf Urine Mucus Rare H (None) /hpf
--- NOTE | 2022-05-19 13:08 | P.PN ---
Subjective Progress Note Date: 05/19/22 Principal diagnosis: 1. L3-5 severe stenosis 2. b/l LE radiculopathy and paresthesias 3. b/l LE weaknes Patient was seen at bedside this morning resting, please sitting up in chair with LSO brace on. Patient says he has been up walking around the room this morning using walker. Patient says his pain is under much better control. Patient says he is looking forward to going home. Patient denies chest pain, fever, shortness of breath, nausea, vomiting, change in vision, loss of bowel/bladder control. Objective - Vital Signs Vital signs: Vital Signs Temp 98.3 F 05/19/22 11:08 Pulse 101 H 05/19/22 11:08 Resp 18 05/19/22 11:08 BP 118/76 05/19/22 11:08 Pulse Ox 94 L 05/19/22 11:08 FiO2 Intake & Output 05/18/22 05/19/22 05/19/22 18:59 06:59 18:59 Intake Total 100 900 Output Total 300 90 Balance -200 810 Intake: Intake, IV Titration 100 100 Amount ceFAZolin 2 gm In Sodium 100 100 Chloride 0.9% 50 ml @ 100 mls/hr IVPB Q8H [facility] Rx#: [id number] Oral 800 Output: Drainage 300 90 Back 300 90 Other: Voiding Method Urinal Urinal Toilet # Voids 2 - Exam Surgical dressing was removed. Negative for any fluctuance/periods. Incision appears clean, dry, intact at this time. [place] are in place and well aligned. Drain was removed. 4 x 4 and Tegaderm were placed over drain incision. New optifoam dressing was placed over surgical incision. Sensation is equal, symmetric, by intact throughout the upper and lower extremity's. Patient does have some tenderness to palpation along the lumbar spine over incision. Patient has full range of motion bilateral upper and lower extremities. 4/5 in all major motor groups in the right lower extremity. 5/5 in all other major motor groups. Neurovascular status is intact bilaterally. Radial pulses intact, 2+ bilaterally. Cap refill under 3 seconds in digits upper extremities. Negative Homans bilaterally - Labs CBC & Chem 7: 05/18/22 06:05 05/18/22 06:05 Assessment and Plan Assessment: 1. L3-5 severe stenosis 2. b/l LE radiculopathy and paresthesias 3. b/l LE weaknes Postoperative day #3 status post L3-L5 decompression and L4-L5 fusion Plan: 1. L3-5 severe stenosis; b/l LE radiculopathy and paresthesias; b/l LE weakness - surgery performed 05/16/2022 - L3-L5 decompression and L4-L5 fusion. Patient stable at bedside this morning sitting up in chair with LSO brace on. Surgical dressing was removed. Negative for any fluctuance/periods. Incision appears clean, dry, intact at this time. [place] are in place and well aligned. Drain was removed. 4 x 4 and Tegaderm were placed over drain incision. New optifoam dressing was placed over surgical incision. Plan for discharge home with health services tomorrow, 05/20/22 2. Appreciate medical management 3. Pain management - Percocet 5 mg/325 mg; Flexeril; gabapentin 4. DVT prophylaxis - mechanical 5. GI prophylaxis - senna 6. PT/OT - weightbearing as tolerated with walker and brace on while up and about 7. Discharge planning - discharge home tomorrow with health services Time with Patient: Less than 30
[2022-05-19] MEDS: HYDROmorphone 0.5 MG/0.5 ML SYRINGE IVP PRN (20:50)
[2022-05-19 21:32] VITALS: RESP 16
[2022-05-20] MEDS: oxyCODONE-APAP 5-325MG 1 EACH TAB PO PRN ×2 (03:46→09:44)
[2022-05-20 05:44] VITALS: TEMP 98.1
--- NOTE | 2022-05-20 06:15 | P.PN ---
Subjective Progress Note Date: 05/19/22 This is a 51 year old male who was admitted under orthopedic services and underwent revision and laminectomy of L3 to 4 and L4-5 and being closely monitored. Patient currently sitting up in the chair and brace is noted and patient reports continued pain although pain is manageable. Patient reports to voiding with no difficulties and tolerating diet with no reports of nausea or vomiting noted. Blood pressure medications have been resumed and recommend repeat labs in the a.m. Patient is currently afebrile and denies any chest pain or shortness of breath. Patient reports possible discharge in 24 hours. Will have physical therapy evaluate the patient. 05/19/2022 Patient is seen today and sitting up in the chair with lso brace applied. Ortho following and plans for surgical dressing change today. Arrangements being made for home care outpatient. Pain management and dvt prophylaxis per orthopedics. Patient is afebrile and labs reviewed. Patient denies and shortness of breath or chest pain. Encouraged increased activity as tolerated. Encourage incentive spirometer use at least 10 times per hour while awake. Review of systems: Constitutional: No reports of fatigue, fever, or chills Cardiovascular: No reports of chest pain or palpitations Respiratory: No reports of shortness of breath or cough GI: No reports of nausea, no reports of of vomiting, no reports of diarrhea and patient is passing gas : No reports of dysuria or retention Neurovascular: reports of generalized weakness and some low back pain All medications have been reviewed PHYSICAL EXAMINATION: GENERAL: The patient is alert and oriented x4, Well developed, well nourished. Obese. HEENT: Pupils are round and equally reacting to light. EOMI. no scleral icterus. No conjunctival pallor. Normocephalic, atraumatic. No pharyngeal erythema. No thyromegaly. CARDIOVASCULAR: S1 and S2 muffled PULMONARY: diminished breath sounds bilaterally with no wheezing or rhonchi noted. ABDOMEN: soft. Obese, nontender. non-distended, positive bowel sounds. No palpable organomegaly. MUSCULOSKELETAL: No joint swelling or deformity. EXTREMITIES: No cyanosis, clubbing, or pedal edema. NEUROLOGICAL: Gross neurological examination did not reveal any focal deficits. SKIN: No rashes. Assessment: Status post lumbar surgery Hypertension Degenerative joint disease History of sleep apnea GI prophylaxis DVT prophylaxis Full code Plan: Recommend to continue with current medications and management per orthopedic services. Patient has a brace and is currently sitting up in the chair and working with physical therapy. Home medications have been resumed and patient reports to tolerating diet with no reports of nausea or vomiting noted. Patient plans on discharging home within the next 24-48 hours. Patient with incentive spirometer at the bedside and encourage the patient to continue using at least 10 times every hour while awake. Recommend close outpatient follow-up with primary care provider along with orthopedics as discussed. Home care being arranged. Will continue to follow along with orthopedic services during hospitalization. Thank you for this consultation. Further recommendations to follow based on the clinical course of the patient. Possible discharge in 24 hours. The impression and plan of care has been dictated by Peggy Salgado, nurse practitioner as directed. MD Jovon I have performed a history and examination and MDM of this patient, discussed the same with the dictator, and agree with the dictator's assessment and plan as written ,documented as a scribe. Based on total visit time, I have performed more than 50% of the visit. Any additional findings or plans will be noted. Objective - Vital Signs Vital signs: Vital Signs Temp 99.2 F 05/19/22 04:20 Pulse 111 H 05/19/22 04:20 Resp 18 05/19/22 04:20 BP 139/89 05/19/22 04:20 Pulse Ox 94 L 05/19/22 04:20 FiO2 Intake & Output 05/18/22 05/19/22 05/19/22 18:59 06:59 18:59 Intake Total 100 900 Output Total 300 90 Balance -200 810 Intake: Intake, IV Titration 100 100 Amount ceFAZolin 2 gm In Sodium 100 100 Chloride 0.9% 50 ml @ 100 mls/hr IVPB Q8H [facility] Rx#: [id number] Oral 800 Output: Drainage 300 90 Back 300 90 Other: Voiding Method Urinal Urinal Toilet # Voids 2 - Labs CBC & Chem 7: 05/18/22 06:05 05/18/22 06:05 Labs: Abnormal Lab Results - Last 24 Hours (Table) 05/18/22 05/18/22 Range/Units 06:05 06:05 RBC 4.36 L (4.40-5.60) X 10*6/uL Hgb 12.0 L (13.0-17.0) g/dL Hct 36.9 L (39.6-50.0) % Anion Gap 7.90 L (10.00-18.00) mmol/L BUN 8.3 L (9.0-27.0) mg/dL BUN/Creatinine Ratio 10.38 L (12.00-20.00) Ratio Glucose 127 H (70-110) mg/dL Calcium 8.3 L (8.7-10.3) mg/dL
--- NOTE | 2022-05-20 08:24 | P.PN ---
Subjective Progress Note Date: 05/20/22 Principal diagnosis: 1. L3-5 severe stenosis 2. b/l LE radiculopathy and paresthesias 3. b/l LE weaknes Patient was seen at bedside this morning resting, please sitting up in chair with LSO brace on. Patient says he has been up walking around the room this morning using walker. Patient says his pain is under much better control. Patient says he is looking forward to going home. Patient denies chest pain, fever, shortness of breath, nausea, vomiting, change in vision, loss of bowel/bladder control. Objective - Vital Signs Vital signs: Vital Signs Temp 98.1 F 05/20/22 05:00 Pulse 105 H 05/20/22 05:00 Resp 16 05/20/22 05:00 BP 122/82 05/20/22 05:00 Pulse Ox 93 L 05/20/22 05:00 FiO2 Intake & Output 05/19/22 05/20/22 05/20/22 18:59 06:59 18:59 Intake Total 50 100 Balance 50 100 Intake: Intake, IV Titration 50 100 Amount ceFAZolin 2 gm In Sodium 50 100 Chloride 0.9% 50 ml @ 100 mls/hr IVPB Q8H [facility] Rx#: [id number] Other: Voiding Method Toilet Toilet # Voids 0 - Exam Optifoam dressing is in place over surgical incision. Sensation is equal, symmetric, by intact throughout the upper and lower extremity's. Patient does have some tenderness to palpation along the lumbar spine over incision. Patient has full range of motion bilateral upper and lower extremities. 4/5 in all major motor groups in the right lower extremity. 5/5 in all other major motor groups. Neurovascular status is intact bilaterally. Radial pulses intact, 2+ bilaterally. Cap refill under 3 seconds in digits upper extremities. Negative Homans bilaterally - Labs CBC & Chem 7: 05/18/22 06:05 05/18/22 06:05 Assessment and Plan Assessment: 1. L3-5 severe stenosis 2. b/l LE radiculopathy and paresthesias 3. b/l LE weaknes Postoperative day #4 status post L3-L5 decompression and L4-L5 fusion Plan: 1. L3-5 severe stenosis; b/l LE radiculopathy and paresthesias; b/l LE weakness - surgery performed 05/16/2022 - L3-L5 decompression and L4-L5 fusion. Patient stable at bedside this morning sitting up in chair with LSO brace on. Optifoam dressing present over surgical incision. Discharge home with health services today, 05/20/22 2. Appreciate medical management 3. Pain management - Percocet 5 mg/325 mg; Flexeril; gabapentin 4. DVT prophylaxis - mechanical 5. GI prophylaxis - senna 6. PT/OT - weightbearing as tolerated with walker and brace on while up and about 7. Discharge planning - discharge home today with health services Time with Patient: Less than 30
[2022-05-20] MEDS: ACETAMINOPHEN TAB 325 MG TAB PO SCH (08:28)
--- NOTE | 2022-05-20 08:30 | P.DS ---
Providers Date of admission: 05/16/22 09:24 Expected date of discharge: 05/20/22 Attending physician: Aron Montero DO Consults: 05/16/22 15:33 Consult Physician Routine Consulting Provider: Nikhil Thomas Consult Reason/Comments: medical management Do you want consulting provider notified?: Yes Primary care physician: Luis Armando Cabezas Hospital Course: Date of admission: 05/16/2022 Date of discharge: 05/20/2022 Admission diagnosis: 1. L3-5 severe stenosis 2. b/l LE radiculopathy and paresthesias 3. b/l LE weakness Discharge diagnosis: L3-L5 decompression and L4-L5 fusion Attending physician: Dr. Montero Surgical procedures: L3-L5 decompression and L4-L5 fusion Brief history: Patient is a 51-year-old male with a history of L3-L5 severe stenosis; bilateral lower extremity radiculopathy and paresthesias; bilateral lower extremity weakness. At this point patient has failed conservative treatment measures and has opted to proceed with a elective L3-L5 decompression L4-L5 fusion. Hospital course: Details of patient's surgery can be found in operative report. Patient tolerated the procedure well and was subsequently transported to orthopedic floor. Patient's orthopeidc and medical care was provided daily. Patient had daily laboratory tests performed for evaluation of overall blood counts. Patient had daily physical therapy to include strengthening range of motion as well as education with walker ambulation. Patient was noted to have a relatively uneventful postoperative course. Patient reported satisfactory pain control with oral pain medications by postoperative day 4. Patient showed satisfactory progress with physical therapy. Patient moved steadily through the program and had no difficulty meeting the goals by postoperative day 4. Given patient's otherwise satisfactory course and having met physical therapy goals, plan is to discharge patient home with health services on postoperative 4. Discharge condition/disposition: Patient will be discharged home with health services in stable condition. Discharge medications: Instructions are given on resumption of patient's normal daily medications per primary care recommendation, in addition patient will be prescribed Percocet 5 mg/325 mg; gabapentin 300 mg; Flexeril; Duricef; senna. Spine Discharge and Recovery Instructions Date of Surgery: 05/16/2022 Diagnosis: 1. L3-5 severe stenosis 2. b/l LE radiculopathy and paresthesias 3. b/l LE weakness Procedure: L3-L5 decompression and L4-L5 fusion Medications: See medication list All medication refills should be obtained through your primary care doctor or your clinic spine surgeon. Please discuss prescription refills at your follow up appointment. Do not call the hospital for medication refills. Dressing: Leave your dressing in place for a total of 5 days post operatively. Then you may remove your dressing and leave open to air. Keep the area clean and if not able to keep area clean, then cover with sterile gauze and tape. Showering: You may shower 3 days after your procedure allowing soap and water to run over incision. Do not scrub. Do not soak. Blot dry. Follow up: Please confirm a follow up appointment with your surgeon 3 weeks post operatively. Please make an appointment to follow up with your PCP in 1-2 weeks after surgery for evaluation 3 phase, 3-week plan POST OP WEEKS 1-3 1. Lifting/carrying/pushing/pulling limited to less than 5 pounds. 2. Do not sit for longer than 15 minutes at one time. Get up and walk around. Prolonged sitting is NOT advised. If you lay down, see if you can tolerate laying down on you front (belly side) 3. Walk for periods of 15 minutes = 1 mile but no longer; do it multiple times times each day. 4. Ice your low back after activity. POST OP WEEKS 3-6 1. Lifting limited to less than 20 pounds. 2. Do not sit for longer than 30 minutes at a time. Frequently change positions. Use a sit-to stand workstation or take frequent breaks from sitting if you have returned to work. 3. Walk for 30 minutes each day. If possible, do these three or more times a day POST OP WEEKS 6+ At your 6-week appointment we will give you a physical therapy referral to focus on a core stabilization and strengthening program. You should also work on leg & buttock strengthening, hamstring & quadriceps stretching, and continue a low impact aerobic activity program such as swimming, walking, or riding a stationary bicycle. During the initial 6 weeks after your surgery, you are at the highest risk of re-injuring your spine. You should generally avoid BLTs (bending, lifting and twisting combination motions) and follow the above guidelines to reduce the chance of reinjury. You can anticipate post op appointments in our office at approximately 3 weeks and 6 weeks after your surgery. INCISION CARE: If your incision is not draining you do NOT need to cover it with a dressing. Keep your incision clean, dry and intact. In most cases, we apply skin glue, cheryl or sutures to the incision at the time of surgery. This will be like a crust or have the appearance of a scab and will fall off in time on its own. The stitches or cheryl need to be removed at 3 weeks post op appointment. You may begin to shower 3 days after surgery (this allows the glue to rosales well). However, please avoid scrubbing the incision site or peeling off any of the skin glue. This will ensure optimal healing of your incision. Also, during this time avoid soaking the incision area in water - this includes swimming pools, hot tubs or baths. No ointments, lotions or oils on the incision until your surgeon allows. Leave cheryl, sutures or glue in place. Neurological dysfunction that comes on suddenly can also be a sign of a stroke. Below some common symptoms of a stroke are listed: B - balance difficulty such as sudden onset walking or leaning to one side - NEW E - eye problem such as sudden double vision or trouble seeing on one side - NEW F - Facial weakness or numbness on one side - NEW A - Arm or leg weakness or numbness on one side - NEW S - Slurred speech or difficulty with word finding - NEW T - Time is BRAIN! Call 911 as soon as you recognize these symptoms Diet: Consume a regular diet rich in vegetables and lean protein such as chicken or fish. You should consume in a ratio of approximately 20% fats|40% carbohydrates|40%protein. Vegetables, sweet potatoes, brown rice or quinoa are examples of good carbohydrates. Chips, white bread, cookies and sweets/sugar are examples of bad carbohydrates. Limit your bad carbs, go wild with good carbs. "Life's Simple 7" Guidelines as per [employer] These will help you reclaim your life after surgery and still operator helper in your recovery, keeping in mind your restrictions. (1) Get Active. Physical activity can help people lose weight, control high blood pressure and cholesterol, feel emotionally better, and sleep better. (2) Control Cholesterol. Avoid a diet high in saturated fat, trans fat, & cholesterol. Limit whole milk & cream, ice cream, butter, egg yolks, processed meats (like sausage and hot dogs), and fatty meats. Choose healthy foods that are low in saturated fat, trans fat and cholesterol which include: Fruits and vegetables, fiber rich grain products (like whole grain pasta and brown rice), lean meat such as chicken, fish, nuts, seeds, and legumes. (3) Eat Better. Eat small portions. Shop at the grocery with a list and do not stray from it. Tips for a healthy diet include: Limit sodium intake to less than 1500mg daily, avoid prepackaged, processed, and fast foods, choose a diet rich in fruits, vegetables, and whole grain, high fiber foods, and limit saturated & cholesterol in your diet. (4) Manage Blood Pressure. If you have high blood pressure, you should have a cuff at home so that you can check your blood pressure regularly. Be sure you have a good cuff. An arm one is generally better than a wrist one. Bring the cuff to a doctor's appointment to validate that the measurements that your cuff are taking are accurate. Take your blood pressure twice daily when you are sitting down and relaxing. Record the numbers in a log and bring this log with you to your doctors' appointments. (5) Lose Weight if your BMI is above 25. A healthy BMI is between 19-25. To c alculate Your BMI, you may use a Standard BMI Calculator on the NIH BMI website: <www.nhlbi.nih.gov/guidelines/obesity/BMI/bmicalc.htm>. Weigh oneself daily. If you are overweight, set a goal to lose weight. A pound a week loss if needed is a good target. (6) Reduce Blood Sugar. Limit foods and liquids with "added sugars." (Added sugars include sucrose, fructose, glucose, maltose, dextrose, high fructose corn syrup, corn syrup, concentrated fruit juice and honey). (7) Stop Smoking. If you smoke, quitting smoking is one of the best things that you can do for your health. Smoking increases your risk of heart attack, stroke, and peripheral vascular disease, which is a build-up of plaque in your arteries. Please discard all the cigarettes and lighters in your house. Have a plan for what you will do when you have the urge to smoke. Direct and second- hand smoke shortens your life as well as the lives of your family, friends and others around you. For your health and the health of those around you, please consider quitting! Proper Bending Body Mechanics: Maintain a wide stance with one foot slightly in front of the other. Keep your back straight. Bend utilizing the strength in your hips and knees. Do not bend at the waist. Maintain the lifted object at your waist-level close to your body. Avoid lifting weight that causes immediately pain or pain anywhere in the body afterwards. Smoking/Nicotine If there was ever one thing that you could do to increase your overall health, decrease your risk of cardiovascular problems by about 39% the second you make the choice, it is to STOP SMOKING. Your body's most instant gratification is the second you stop smoking. We have all heard the studies, read the articles but it is true, smoking is extremely bad for your overall health, and moreover it is detrimental to your bone health. Nicotine, IN ANY FORM, kills bone cells, prevents your body from healing fractures, and significantly prolongs healing after surgery. In spine surgery specifically, it increases your risk of not healing your bones to create a fusion and increases your risk of having a revision surgery due to this up to 60%. I know it is hard. I know it feels impossible. But there are ways. Take control of your life. We are here to help you through it. And when you are ready, ask us and we can direct you to help if you desire. Use the START Plan to Quit Smoking (please visit the Help[employer].org website listed below for more information): S = Set a quit date. Choose a date within the next 2 weeks, so you have enough time to prepare without losing your motivation to quit. If you mainly smoke at work, quit on the weekend, so you have a few days to adjust to the change. T = Tell family, friends, and co-workers that you plan to quit. Let your friends and family in on your plan to quit smoking and tell them you need their support and encouragement to stop. Look for a quit nelsy who wants to stop smoking as well. You can help each other get through the rough times. A = Anticipate and plan for the challenges you'll face while quitting. Most people who begin smoking again do so within the first 3 months. You can help yourself make it through by preparing ahead for common challenges, such as nicotine withdrawal and cigarette cravings. R = Remove cigarettes and other tobacco products from your home, car, and work. Throw away all your cigarettes (no emergency pack!), lighters, ashtrays, and matches. Wash your clothes and freshen up anything that smells like smoke. Shampoo your car, clean your drapes and carpet, and steam your furniture. T = Talk to your doctor about getting help to quit. Your doctor can prescribe medication to help with withdrawal and suggest other alternatives. If you can't see a doctor, you can get many products over the counter at your local pharmacy or grocery store, including the nicotine patch, nicotine lozenges, and nicotine gum. Resources for Quitting Smoking: <https://www.[place].gov/documents/[facility]/Quit_Tobacco_Resources_for_patients_313 480_7.pdf> Supplementation: Take recommended dosages of Vitamin D and Calcium to help fortify your bones and help them to heal. See your health maintenance packet for dosages and recommended levels. DVT/VTE prophylaxis: You will be given compression stockings from the hospital. Wear these daily for the first two weeks after surgery. You may take them off at night. You may be prescribed a medication to help thin your blood. Take this as directed. If you are not prescribed this medication, early and frequent ambulation has been shown to be the best prophylaxis to deep vein thrombosis and sequelae related to this event. Assessment: 1. L3-5 severe stenosis 2. b/l LE radiculopathy and paresthesias 3. b/l LE weaknes Procedures: L3-L5 decompression and L4-L5 fusion Patient Condition at Discharge: Good Plan - Discharge Summary Discharge Rx Participant: Yes New Discharge Prescriptions: New Gabapentin 300 mg PO TID 3 Days #30 cap Cyclobenzaprine [Flexeril] 10 mg PO TID #28 tab oxyCODONE HCL/ACETAMINOPHEN [Percocet 5-325 mg] 1 tab PO Q6HR PRN #30 tab PRN Reason: Pain cefaDROXiL [Duricef] 500 mg PO Q12HR 5 Days #10 cap Sennosides/Docusate Sodium [Senna Plus 8.6-50 mg Tablet] 1 each PO DAILY #20 tab No Action amLODIPine [Norvasc] 10 mg PO DAILY HYDROcodone/APAP 7.5-325MG [Bath 7.5-325] 1 tab PO TID Dextroamphetamine/Amphetamine [Adderall] 10 mg PO BID Discharge Medication List amLODIPine [Norvasc] 10 mg PO DAILY 01/24/21 [History] Dextroamphetamine/Amphetamine [Adderall] 10 mg PO BID 05/15/22 [History] HYDROcodone/APAP 7.5-325MG [Bath 7.5-325] 1 tab PO TID 05/15/22 [History] Cyclobenzaprine [Flexeril] 10 mg PO TID #28 tab 05/19/22 [Rx] Gabapentin 300 mg PO TID 3 Days #30 cap 05/19/22 [Rx] Sennosides/Docusate Sodium [Senna Plus 8.6-50 mg Tablet] 1 each PO DAILY #20 tab 05/19/22 [Rx] cefaDROXiL [Duricef] 500 mg PO Q12HR 5 Days #10 cap 05/19/22 [Rx] oxyCODONE HCL/ACETAMINOPHEN [Percocet 5-325 mg] 1 tab PO Q6HR PRN #30 tab 05/19/22 [Rx] Follow up Appointment(s)/Referral(s): Aron Montero DO [Doctor of Osteopathic Medicine] - 2 Weeks [facility] Visiting Nurse, [NON-STAFF] - As Needed Patient Instructions/Handouts: Lumbar Spinal Fusion (DC), Lumbar Spinal Fusion (GEN) Activity/Diet/Wound Care/Special Instructions: Spine Discharge and Recovery Instructions Date of Surgery: 05/08/2022 Diagnosis: L3 to 5 severe stenosis with spondylosis Procedure: L3 to 5 decompressive laminectomy with L4 5 fusion Medications: see list All medication refills should be obtained through your primary care doctor or your clinic spine surgeon. Please discuss prescription refills at your follow up appointment. Do not call the hospital for medication refills. Activity: encourage ambulation daily OOB 6-8x daily no lifting bending twisting nothing greater than 5 pounds Up in chair with all meals, OOB all meals Shower daily Brace: Wear back brace when up and about at all times. Do not wear while sleeping or showering. May take breaks from brace while sitting or laying and resting. Dressing: Leave your dressing in place for a total of 3 days post operatively. Then you may remove your dressing and leave open to air. Keep the area clean and if not able to keep area clean, then cover with sterile gauze and tape. Showering: You may shower 3 days after your procedure allowing soap and water to run over incision. Do not scrub. Do not soak. Blot dry. Follow up: Please confirm a follow up appointment with your surgeon 2 weeks post operatively. Please make an appointment to follow up with your PCP in 1-2 weeks after surgery for evaluation 3 phase, 3-week plan POST OP WEEKS 1-3 1. Lifting/carrying/pushing/pulling limited to less than 5 pounds. 2. Do not sit for longer than 15 minutes at one time. Get up and walk around. Prolonged sitting is NOT advised. If you lay down, see if you can tolerate laying down on you front (belly side) 3. Walk for periods of 15 minutes = 1 mile but no longer; do it multiple times times each day. 4.Ice your low back after activity. POST OP WEEKS 3-6 1. Lifting limited to less than 20 pounds. 2. Do not sit for longer than 30 minutes at a time. Frequently change positions. Use a sit-to stand workstation or take frequent breaks from sitting if you have returned to work. 3. Walk for 30 minutes each day. If possible, do these three or more times a day POST OP WEEKS 6+ At your 6-week appointment we will give you a physical therapy referral to focus on a core stabilization and strengthening program. You should also work on leg & buttock strengthening, hamstring & quadriceps stretching, and continue a low impact aerobic activity program such as swimming, walking, or riding a stationary bicycle. During the initial 6 weeks after your surgery, you are at the highest risk of re-injuring your spine. You should generally avoid BLTs (bending, lifting and twisting combination motions) and follow the above guidelines to reduce the chance of reinjury. You can anticipate post op appointments in our office at approximately 3 weeks and 6 weeks after your surgery. INCISION CARE: If your incision is not draining you do NOT need to cover it with a dressing. Keep your incision clean, dry and intact. In most cases, we apply skin glue, cheryl or sutures to the incision at the time of surgery. This will be like a crust or have the appearance of a scab and will fall off in time on its own. The stitches or cheryl need to be removed at 3 weeks post op appointment. You may begin to shower 3 days after surgery (this allows the glue to rosales well). However, please avoid scrubbing the incision site or peeling off any of the skin glue. This will ensure optimal healing of your incision. Also, during this time avoid soaking the incision area in water - this includes swimming pools, hot tubs or baths. No ointments, lotions or oils on the incision until your surgeon allows. Leave cheryl, sutures or glue in place. Neurological dysfunction that comes on suddenly can also be a sign of a stroke. Below some common symptoms of a stroke are listed: B - balance difficulty such as sudden onset walking or leaning to one side - NEW E - eye problem such as sudden double vision or trouble seeing on one side - NEW F - Facial weakness or numbness on one side - NEW A - Arm or leg weakness or numbness on one side - NEW S - Slurred speech or difficulty with word finding - NEW T - Time is BRAIN! Call 911 as soon as you recognize these symptoms Diet: Consume a regular diet rich in vegetables and lean protein such as chicken or fish. You should consume in a ratio of approximately 20% fats|40% carbohydrates|40%protein. Vegetables, sweet potatoes, brown rice or quinoa are examples of good carbohydrates. Chips, white bread, cookies and sweets/sugar are examples of bad carbohydrates. Limit your bad carbs, go wild with good carbs. "Life's Simple 7" Guidelines as per [employer] These will help you reclaim your life after surgery and still operator helper in your recovery, keeping in mind your restrictions. (1) Get Active. Physical activity can help people lose weight, control high blood pressure and cholesterol, feel emotionally better, and sleep better. (2) Control Cholesterol. Avoid a diet high in saturated fat, trans fat, & cholesterol. Limit whole milk & cream, ice cream, butter, egg yolks, processed meats (like sausage and hot dogs), and fatty meats. Choose healthy foods that are low in saturated fat, trans fat and cholesterol which include: Fruits and vegetables, fiber rich grain products (like whole grain pasta and brown rice), lean meat such as chicken, fish, nuts, seeds, and legumes. (3) Eat Better. Eat small portions. Shop at the grocery with a list and do not stray from it. Tips for a healthy diet include: Limit sodium intake to less than 1500mg daily, avoid prepackaged, processed, and fast foods, choose a diet rich in fruits, vegetables, and whole grain, high fiber foods, and limit saturated & cholesterol in your diet. (4) Manage Blood Pressure. If you have high blood pressure, you should have a cuff at home so that you can check your blood pressure regularly. Be sure you have a good cuff. An arm one is generally better than a wrist one. Bring the cuff to a doctor's appointment to validate that the measurements that your cuff are taking are accurate. Take your blood pressure twice daily when you are sitting down and relaxing. Record the numbers in a log and bring this log with you to your doctors' appointments. (5) Lose Weight if your BMI is above 25. A healthy BMI is between 19-25. To calculate Your BMI, you may use a Standard BMI Calculator on the NIH BMI website: <www.nhlbi.nih.gov/guidelines/obesity/BMI/bmicalc.htm>. Weigh oneself daily. If you are overweight, set a goal to lose weight. A pound a week loss if needed is a good target. (6) Reduce Blood Sugar. Limit foods and liquids with "added sugars." (Added sugars include sucrose, fructose, glucose, maltose, dextrose, high fructose corn syrup, corn syrup, concentrated fruit juice and honey). (7) Stop Smoking. If you smoke, quitting smoking is one of the best things that you can do for your health. Smoking increases your risk of heart attack, stroke, and peripheral vascular disease, which is a build-up of plaque in your arteries. Please discard all the cigarettes and lighters in your house. Have a plan for what you will do when you have the urge to smoke. Direct and second- hand smoke shortens your life as well as the lives of your family, friends and others around you. For your health and the health of those around you, please consider quitting! Proper Bending Body Mechanics: Maintain a wide stance with one foot slightly in front of the other. Keep your back straight. Bend utilizing the strength in your hips and knees. Do not bend at the waist. Maintain the lifted object at your waist-level close to your body. Avoid lifting weight that causes immediately pain or pain anywhere in the body afterwards. Smoking/Nicotine If there was ever one thing that you could do to increase your overall health, decrease your risk of cardiovascular problems by about 39% the second you make the choice, it is to STOP SMOKING. Your body's most instant gratification is the second you stop smoking. We have all heard the studies, read the articles but it is true, smoking is extremely bad for your overall health, and moreover it is detrimental to your bone health. Nicotine, IN ANY FORM, kills bone cells, prevents your body from healing fractures, and significantly prolongs healing after surgery. In spine surgery specifically, it increases your risk of not healing your bones to create a fusion and increases your risk of having a revision surgery due to this up to 60%. I know it is hard. I know it feels impossible. But there are ways. Take control of your life. We are here to help you through it. And when you are ready, ask us and we can direct you to help if you desire. Use the START Plan to Quit Smoking (please visit the [employer]org website listed below for more information): S = Set a quit date. Choose a date within the next 2 weeks, so you have enough time to prepare without losing your motivation to quit. If you mainly smoke at work, quit on the weekend, so you have a few days to adjust to the change. T = Tell family, friends, and co-workers that you plan to quit. Let your friends and family in on your plan to quit smoking and tell them you need their support and encouragement to stop. Look for a quit nelsy who wants to stop smoking as well. You can help each other get through the rough times. A = Anticipate and plan for the challenges you'll face while quitting. Most people who begin smoking again do so within the first 3 months. You can help yourself make it through by preparing ahead for common challenges, such as nicotine withdrawal and cigarette cravings. R = Remove cigarettes and other tobacco products from your home, car, and work. Throw away all your cigarettes (no emergency pack!), lighters, ashtrays, and matches. Wash your clothes and freshen up anything that smells like smoke. Shampoo your car, clean your drapes and carpet, and steam your furniture. T = Talk to your doctor about getting help to quit. Your doctor can prescribe medication to help with withdrawal and suggest other alternatives. If you can't see a doctor, you can get many products over the counter at your local pharmacy or grocery store, including the nicotine patch, nicotine lozenges, and nicotine gum. Resources for Quitting Smoking: <https://www.[place].gov/documents/[facility]/Quit_Tobacco_Resources_for_patients_313 480_7.pdf> Supplementation: Take recommended dosages of Vitamin D and Calcium to help fortify your bones and help them to heal. See your health maintenance packet for dosages and recommended levels. DVT/VTE prophylaxis: You will be given compression stockings from the hospital. Wear these daily for the first two weeks after surgery. You may take them off at night. You may be prescribed a medication to help thin your blood. Take this as directed. If you are not prescribed this medication, early and frequent ambulation has been shown to be the best prophylaxis to deep vein thrombosis and sequelae related to this event. Discharge Disposition: HOME WITH HOME HEALTH SERVICES
[2022-05-20] MEDS: LACTATED RINGERS 1,000 ML IV SCH (09:22)
[2022-05-20] MEDS: Dextroamphetamine/Amphetamine [Adderall] PO SCH (09:47)
[2022-05-20] MEDS: amLODIPine 10 MG TAB PO SCH (09:47)
[2022-05-20] MEDS: GABAPENTIN 300 MG CAP PO SCH (09:47)
[2022-05-20 10:15] VITALS: BP 131/69; PULSE 92
--- NOTE | 2022-05-21 10:55 | P.PN ---
Subjective Progress Note Date: 05/20/22 This is a 51 year old male who was admitted under orthopedic services and underwent revision and laminectomy of L3 to 4 and L4-5 and being closely monitored. Patient currently sitting up in the chair and brace is noted and patient reports continued pain although pain is manageable. Patient reports to voiding with no difficulties and tolerating diet with no reports of nausea or vomiting noted. Blood pressure medications have been resumed and recommend repeat labs in the a.m. Patient is currently afebrile and denies any chest pain or shortness of breath. Patient reports possible discharge in 24 hours. Will have physical therapy evaluate the patient. 05/19/2022 Patient is seen today and sitting up in the chair with lso brace applied. Ortho following and plans for surgical dressing change today. Arrangements being made for home care outpatient. Pain management and dvt prophylaxis per orthopedics. Patient is afebrile and labs reviewed. Patient denies and shortness of breath or chest pain. Encouraged increased activity as tolerated. Encourage incentive spirometer use at least 10 times per hour while awake. 05/20/2022 Patient is seen today in follow-up and reports the pain management improved and will be going home with for support and has a walker at the bedside. Patient has been discharged and cleared by orthopedics recommend a one to two- week out patient follow-up. Encourage the patient to follow-up with primary care provider as well and continue to use incentive spirometer at least 10 times every hour while awake. Encouraged increased activity and to follow along with LSO brace and restrictions per orthopedics. Patient is afebrile denies any chest pain or shortness of breath. Review of systems: Constitutional: No reports of fatigue, fever, or chills Cardiovascular: No reports of chest pain or palpitations Respiratory: No reports of shortness of breath or cough GI: No reports of nausea, no reports of of vomiting, no reports of diarrhea and patient is passing gas : No reports of dysuria or retention Neurovascular: No reports of generalized weakness reports some low back pain All medications have been reviewed PHYSICAL EXAMINATION: GENERAL: The patient is alert and oriented x4, Well developed, well nourished. Obese. HEENT: Pupils are round and equally reacting to light. EOMI. no scleral icterus. No conjunctival pallor. Normocephalic, atraumatic. No pharyngeal erythema. No thyromegaly. CARDIOVASCULAR: S1 and S2 muffled PULMONARY: diminished breath sounds bilaterally with no wheezing or rhonchi noted. ABDOMEN: soft. Obese, nontender. non-distended, positive bowel sounds. No palpable organomegaly. MUSCULOSKELETAL: No joint swelling or deformity. EXTREMITIES: No cyanosis, clubbing, or pedal edema. NEUROLOGICAL: Gross neurological examination did not reveal any focal deficits. SKIN: No rashes. Assessment: Status post lumbar surgery Hypertension Degenerative joint disease History of sleep apnea GI prophylaxis DVT prophylaxis Full code Plan: Recommend to continue with current medications and management per orthopedic services. Patient has a brace and is currently sitting up in the chair and working with physical therapy. Home medications have been resumed and patient reports to tolerating diet with no reports of nausea or vomiting noted. Patient is scheduled to be discharged today and will be having support with at the home and has received a walker and also LSO brace and will follow-up with orthopedics in the outpatient setting. Encouraged incentive spirometer use and following up with primary care provider on discharge. Will continue to follow along with orthopedic services during hospitalization. Thank you for this consultation. Patient to be discharged this afternoon. The impression and plan of care has been dictated by Peggy Salgado, nurse practitioner as directed. MD Jovon I have performed a history and examination and MDM of this patient, discussed the same with the dictator, and agree with the dictator's assessment and plan as written ,documented as a scribe. Based on total visit time, I have performed more than 50% of the visit. Any additional findings or plans will be noted. Objective - Vital Signs Vital signs: Vital Signs Temp 98.1 F 05/20/22 05:00 Pulse 92 05/20/22 10:15 Resp 16 05/20/22 08:40 BP 131/69 05/20/22 10:15 Pulse Ox 93 L 05/20/22 05:00 FiO2 Intake & Output 05/20/22 05/21/22 05/21/22 18:59 06:59 18:59 Other: Voiding Method Toilet - Labs CBC & Chem 7: 05/18/22 06:05 05/18/22 06:05
== END 2022-05-20 14:29 | disposition home or self-care (01) | DRG 455 ==
LOC: 2ORMAIN 09:24 → 5NMEDONC 19:02
PROVIDERS: ADMIT Orthopaedic Surgery; ATTEND Orthopaedic Surgery
PROC: 0SG00AJ Fusion of Lumbar Vertebral Joint with Interbody Fusion Device, Posterior Approach, Anterior Column, Open Approach (ICD-10-PCS; principal; 2022-05-16 11:15)
PROC: 00NY0ZZ Release Lumbar Spinal Cord, Open Approach (ICD-10-PCS; principal; 2022-05-16 11:15)
PROC: 01NB0ZZ Release Lumbar Nerve, Open Approach (ICD-10-PCS; principal; 2022-05-16 11:15)
PROC: 0SG0071 Fusion of Lumbar Vertebral Joint with Autologous Tissue Substitute, Posterior Approach, Posterior Column, Open Approach (ICD-10-PCS; principal; 2022-05-16 11:15)
PROC: 4A11X4G Monitoring of Peripheral Nervous Electrical Activity, Intraoperative, External Approach (ICD-10-PCS; principal; 2022-05-16 11:15)
DX: M48.061 Spinal stenosis, lumbar region without neurogenic claudication (principal); E66.9 Obesity, unspecified; Z68.37 Body mass index [BMI] 37.0-37.9, adult; M47.26 Other spondylosis with radiculopathy, lumbar region; M47.27 Other spondylosis with radiculopathy, lumbosacral region; I10 Essential (primary) hypertension; G47.30 Sleep apnea, unspecified; H91.90 Unspecified hearing loss, unspecified ear; F17.210 Nicotine dependence, cigarettes, uncomplicated; Z71.6 Tobacco abuse counseling; Z79.891 Long term (current) use of opiate analgesic; Z79.899 Other long term (current) drug therapy; Z87.39 Personal history of other diseases of the musculoskeletal system and connective tissue
CPT/HCPCS: 72100; 72131; 80048; 81001; 85025; 85027; 86850; 86900; 86901; 87070

== ENCOUNTER → 2022-06-23 | Outpatient (CLI) | payer BC ==
[2022-06-23 14:03] LABS: Basophils # (A) 0.06 X 10*3/uL (0.00-0.10); Basophils % (A) 0.7 %; Eosinophils # (A) 0.26 X 10*3/uL (0.04-0.35); HCT 35.1 % (39.6-50.0); Immature Grans, Automated 0.7 %; Lymphocytes # (A) 1.33 X 10*3/uL (0.90-5.00); Lymphocytes % (A) 15.3 %; MCH 25.5 pg (27.0-32.0); MCHC 31.3 g/dL (32.0-37.0); MCV 81.3 fL (80.0-97.0); Mean Platelet Volume 8.8 fL (9.5-12.2); Monocytes # (A) 0.76 X 10*3/uL (0.20-1.00); Monocytes % (A) 8.8 %; NRBC Per 100 WBC 0 /100 WBCS (0.0-0.0); Neutrophils # (A) 6.21 X 10*3/uL (1.80-7.70); Neutrophils % (A) 71.5 %; Platelet Count 370 X 10*3/uL (140-440); RBC 4.32 X 10*6/uL (4.40-5.60); RDW 13.4 % (11.5-14.5); WBC 8.68 X 10*3/uL (4.50-10.00)
[2022-06-23 16:25] LABS: Erythrocyte Sedimentation Rate 27 mm/Hr (0-20)
== END | disposition home or self-care (01) ==
LOC: LABPAT 08:26
PROVIDERS: ATTEND Orthopaedic Surgery
DX: Z01.812 Encounter for preprocedural laboratory examination (principal); T81.49XA Infection following a procedure, other surgical site, initial encounter; Y82.9 Unspecified medical devices associated with adverse incidents
CPT/HCPCS: 85025; 85652; 86140

== ENCOUNTER 2022-06-29 08:13 | Inpatient (IN) | payer BC ==
[2022-06-26 14:56] VITALS: BMI 33.7
[~2022-06-29 08:13] MED LIST changes: -ACETAMINOPHEN TAB 500 MG TAB PO PRN; +DEXAMETHASONE SOD PHOSPHATE 4 MG/ML 1 ML VIAL IV ONE; -GABAPENTIN 300 MG CAP PO PRN; -MIDAZOLAM 2 MG/2 ML VIAL IV PRN; +Pre Op ABX Message 1 EACH MISC MISCELLANE ONE; -TRANEXAMIC ACID IN NACL,ISO-OS 1,000 MG in SALINE 1 100ML.BAG IVPB PRN
[2022-06-29] MEDS: LACTATED RINGERS 1,000 ML IV SCH (08:48)
--- NOTE | 2022-06-29 10:01 | P.HPOR ---
History of Present Illness H&P Date: 06/29/22 Chief Complaint: Wound drainage 51 yo male who underwent an L3-5 laminectomy with L4-5 fusion on 05/16/22 presented to the office with continued drainage from the superior part of his wound. He hs been on cefadroxil for two weeks and a short course of bactrim DS but the superior portion continues to drain a serous fluid and the skin is getting irritated around the incision. The caudal portion of the incision is well healed. He denies any fevers or chills during these events, but is c/o more back pain recently. He has been wearing his LSO on and off. He does not cover his incision however from where it is draining through the day or at night and so his clothes have been saturated with this serous fluid. He denies any purulent drainage at this time. He states no other issues other than back pain. Denies any bowel or bladder issues. Denies any perineal numbness/tingling. States no weakness. Review of Systems 14 points review of systems completed and as stated in HPI, all other systems reviewed are negative. Constitutional: Reports as per HPI Past Medical History Past Medical History: GERD/Reflux, Hypertension, Sleep Apnea/CPAP/BIPAP Additional Past Medical History / Comment(s): kidney stones, DEVIATED SEPTUM, USES CPAP MACHINE, HIATAL HERNIA History of Any Multi-Drug Resistant Organisms: None Reported Past Surgical History: Appendectomy, Back Surgery, Tonsillectomy Additional Past Surgical History / Comment(s): 1998 RT HAND INDEX/MIDDLE FINGER TENDON REPAIR, 1992 BACK SX L4-L5, SEPTOPLASY 2011, RT KNEE ARTHROSCOPY, LT MIDDLE EAR SX AGE 10 "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 05-16-22 BACK SX. Past Anesthesia/Blood Transfusion Reactions: No Reported Reaction Past Psychological History: No Psychological Hx Reported Smoking Status: Former smoker Past Alcohol Use History: Occasional Past Drug Use History: Prescription Drug Abuse Additional Drug Use History / Comment(s): 2013 "HAD ADDICTION TO VICODIN" - Past Family History Mother Family Medical History: No Reported History Father Family Medical History: Hypertension Additional Family Medical History / Comment(s): KINDNEY REMOVED(BENIGN TUMOR) Medications and Allergies Home Medications Medication Instructions Recorded Confirmed Type amLODIPine [Norvasc] 10 mg PO DAILY 01/24/21 06/26/22 History Gabapentin 300 mg PO TID 3 Days #30 cap 05/19/22 06/26/22 Rx oxyCODONE HCL/ACETAMINOPHEN 1 tab PO Q6HR PRN #30 tab 05/19/22 06/26/22 Rx [Percocet 5-325 mg] methocarbamoL [Methocarbamol] 750 mg PO DAILY 06/26/22 06/26/22 History Allergies Allergy/AdvReac Type Severity Reaction Status Date / Time No Known Allergies Allergy Verified 06/26/22 14:47 Physical Examination Osteopathic Statement: *. No significant issues noted on an osteopathic structural exam other than those noted in the History and Physical/Consult. -Patient is alert and oriented 3 appears well-nourished well-hydrated is in no acute distress. They do not appear septic. -On exam the patient has no tenderness to palpation of their thoracic or lumbar spine. There is no edema or ballottement sign. -Upper extremities show 5/5 strength in all major muscle groups. -Lower extremities with 4 out of 5 strength in all major muscle groups -There is FROM that is painless of the b/l UE and LE in all major joints. -They are intact to light touch sensation in L2 to S1 nerve distribution as well as the C5-T1 distribution. -DTRs 2/4 all upper and lower -Patient has palpable distal pulses in all four extremeties -Compartments are soft and compressible. -Neg Montiel's -No Clonus -Neg Babinski -Neg Terrell's -No tensioning signs. -Cranial nerves II through XII are grossly intact. -Overall alignment is well-maintained in the sagittal coronal planes. . Surgical incision: There is irritation and erythema around the superior portion of the incision with a pinhole drainage of serous fluid from this area. There is no flucctuence noted but when pressed on this expresses more serous fluid. The caudal portion of the incision is well healed at this time with minor irritation. Results Outside MRI of the lumbar spine with and without contrast shows a large fluid collection about the surgical bed with draining sinus tract. No indication that this is spinal fluid, likely large seroma but possible abscess cannot be excluded. Assessment and Plan Assessment: 1. 51 yo male 6 week s/p L3-5 decompression with L4-5 fusion 2. Post operative fluid collection with draining wound, likely seroma possible abscess. Plan: Spine Surgery Risk Review Trae Espinosa is a 51 yo male presenting for evaluation of draining wound s/p L3-5 decompression with L4-5 fusion. It was my pleasure to have seen and examined Trae Espinosa. In our visit today we have had a chance to go over subjective complaints, physical examination findings and treatments including the natural course history without intervention and various interventional options. The patients im aging demonstrates Large fluid collecion in surgical bed likely seroma. On physical exam, Trae Espinosa demonstrates draining wound with serous fluid, continued irritation and pain. I have explained to the patient that as their condition progresses it will cause further neurological deficits and eventual paralysis. Based on the patients imaging, physical exam, and the rapid progression and disabling nature of their symptoms, at this time I recommend surgery in the form or a: Incision and drainage with irrigation and debridement of lumbar wound. I discussed the risk and benefits of this procedure at length with Trae Espinosa. The patient and his agreed to considered pursuing the procedure abovementioned. Prior to surgery, she should follow up with her PCP (Cardio, ID, IM etc) for clearance. Questions were invited and answered, and the patient wishes to proceed as outlined below. Currently, I am recommendin. Incision and drainage with irrigation and debridement lumbar wound 2. Follow up with PCP for surgical clearance 3. Review of surgical risks and benefits as well as an educational packet on the proposed surgical procedure. Risks: All surgical procedures come with inherent risks, including those related to positioning, anesthesia, intraoperative findings, and postoperative complications. It is important to understand that surgery does not come with any guarantee of a successful outcome as complications and adverse events are always possible. The patient was given a handout in office today discussing the surgical procedure and risks associated with the intervention, both of which were discussed with the patient. These risks include but are not limited to the following: * Experiencing same, different or even worse symptoms in back, neck, arms, or legs compared to before surgery. * Requiring further surgery or other forms of treatment presently or at some time in the future at same or other levels of the intended spine surgery. * On an extreme but fortunately relatively rare basis severe complication such as blindness, stroke, heart attack, temporary and/or permanent nerve injury, paralysis, coma, or may occur, sometimes without known explanation. * Surgical complications may include but are not limited to risk of infection, fluid accumulation in the surgical dissection site, including a seroma or hematoma, that requires additional surgery, wound drainage, bleeding, new numbness or weakness, vision changes/loss, spinal fluid leakage, non-healing and/or infected incision, headaches, difficulty or inability to swallow, hoarseness, hemopneumothorax, pneumothorax, impotence, retrograde ejaculation, vaginal dryness; injury to nerves, spinal cord, blood vessels, lymphatics or other vital organs (i.e., bowel injury, injury to the great vessels); heterotopic bone formation; complications related to the hardware such as screws, rods, cages including misplaced hardware, device failure, instrumentation at the wrong spine level, hardware fracture/breakage, or hardware loosening; vertebral failure of the spinal column above or below the newly placed hardware; retained surgical instrumentations or devices and the need for further surgery. * Medical risks of the planned spine surgery include but are not limited to generalized Infections to the whole body or local areas outside of the surgical site (sepsis), heart attack, bleeding, anaphylaxis, meningitis, seizure, epilepsy, hearing loss, burn ceja, laceration of the head or other areas of the body, bruising, hypersensitivity of the skin, bladder over distension; allergic reaction; shoulder injury related to positioning; fat, blood and air clots to other areas of the body like heart, lungs, brain; failure of internal organs such as lungs, kidneys, liver and excessive bleeding. If blood transfusions are necessary, note that transfusions may cause intolerance reactions such as anaphylaxis or other complex reactions. * Despite best efforts, the results of spine surgery might not heal in terms of bone, soft tissues such as skin, fascia, ligaments, and joints. Additionally, in order to achieve best possible results, spine surgery may be carried out beyond the initially planned levels and involve decompression, fusion including insertion of hardware at levels other than the original intended area of surgical interest change some portions of the procedure in order to ensure the best possible outcomes. * With spine surgery and spinal fusion, there are different off label uses of instrumentation (devices, implants and hardware) as well as biological substances (bone morphogenic proteins, demineralized bone matrix) as well as using extra bone from allograft sources (i.e. cadaver bone) or autograft (iliac crest bone, ribs, or the spine itself). The patient has been given information about these practices and their inherent risks and benefits. The patient has had a chance to review all the listed information, has been given print outs detailing this information, and has had all his/her questions answered to their satisfaction. It was my pleasure to have seen and examined Trae Espinosa. In our visit today we have had a chance to go over my understanding of our patient's current condition, the natural course history without intervention and various interventional options. Questions were invited and answered, and the patient wishes to proceed as outlined above. I have seen and examined the patient for 25 minutes and we have spent more than 50% of the time in repeat and detailed counseling about the patient's condition, its natural course history with out and as much as can be predicted with surgery and re-review of various surgical treatment options. In conclusion, Trae Espinosa and and his requested we proceed with the above suggested surgery and are willing to accept risks and limitations of the suggested surgery as nature of the disease process and our best attempts at t reatment for the condition. Thank you again for allowing us to be part of your patient's care. Please don't hesitate to contact me if you have any further questions. Signed and authenticated by: Aron Walls [facility] [address] [place] [address]
[2022-06-29] MEDS ORDERED: ROCURONIUM 10 MG/ML (5 ML VIAL) IV ONE (10:20)
[2022-06-29] MEDS ORDERED: KETAMINE 10 MG/ML 20 ML VIAL ONE (10:20)
[2022-06-29] MEDS ORDERED: LIDOCAINE 2% INJ 20 MG/ML (2 ML VIAL) ONE (10:20)
[2022-06-29] MEDS ORDERED: PROPOFOL 10 MG/ML 20 ML VIAL IV ONE (10:20)
[2022-06-29] MEDS ORDERED: fentaNYL (PF) 50 MCG/ML 2 ML AMP ONE (10:20)
[2022-06-29] MEDS ORDERED: MIDAZOLAM 2 MG/2 ML VIAL ONE (10:20)
[2022-06-29] MEDS ORDERED: SUCCINYLCHOLINE CHLORIDE 200 MG/10 ML VIAL IV ONE (10:20)
[2022-06-29] MEDS ORDERED: HYDROmorphone (PF) 1 MG/ML ONE (10:20)
[2022-06-29] MEDS ORDERED: GLYCOPYRROLATE 0.2 MG/ML 2 ML VIAL ONE (10:20)
[2022-06-29] MEDS ORDERED: PHENYLEPHRINE-0.9% NACL SYG 1,000 MCG/10 ML SYRINGE ONE (10:20)
[2022-06-29] MEDS ORDERED: NEOSTIGMINE 1 MG/ML 10 ML VIAL ONE (10:20)
[2022-06-29] MEDS ORDERED: SODIUM CHLORIDE 0.9% 100 ML with ceFAZolin 2,000 MG IV ONE ×2 (10:45)
[2022-06-29] MEDS ORDERED: TOBRAMYCIN SULFATE 1.2 GM VIAL MISCELLANE ONE (11:21)
[2022-06-29] MEDS ORDERED: VANCOMYCIN 1,000 MG VIAL MISCELLANE ONE (11:21)
[2022-06-29] MEDS ORDERED: ceFAZolin 3,000 MG in SODIUM CHLORIDE 0.9% IRRIGATIO 3,000 ML IRRIGATION ONE (11:22)
[2022-06-29] MEDS ORDERED: LACTATED RINGERS 1,000 ML IV ONE (12:18)
[2022-06-29] MEDS ORDERED: NA PHOS,M-B/NA PHOS,DI-BA 133 ML ENEMA RECTAL PRN (12:57)
[2022-06-29] MEDS ORDERED: bisacodyL 10 MG SUPP RECTAL PRN (12:57)
[2022-06-29] MEDS ORDERED: MAGNESIUM HYDROXIDE 2,400 MG/10 ML CUP PO PRN (12:57)
[2022-06-29] MEDS ORDERED: VANCOMYCIN IV PER PHARMACY 1 EACH MISC MISCELLANE SCH (13:15)
--- NOTE | 2022-06-29 13:25 | P.OP ---
Date of Procedure: 06/29/22 Preoperative Diagnosis: 1. Wound dehiscence, seroma with possible abscess 2. s/p L3-5 decompression with L4-5 fusion 3. Borderline DM 4. hx of HTN Postoperative Diagnosis: 1. Wound dehiscence, seroma with abscess 2. s/p L3-5 decompression with L4-5 fusion 3. Borderline DM 4. hx of HTN Procedure(s) Performed: 1. Incision and drainage of lumbar wound 2. Irrigation and excisional debridment of skin, soft tissue, muscle and bone of lumbar spine and wound abscess 38 x 23 x 10 cm using the following: -Skin knife used to removed necrotic skin and soft tissue -Curette used to scrape muscle, bone and soft tissue -Rongure used to remove necrotic bone and muscle and soft tissue 3. Placement of antibiotic beads 4. Complex 3 layered closure lumbar spine 38 x 23 x 10 cm Implants: Stimulan abx beads Anesthesia: KHARI Surgeon: Aron Montero Insurance Agent #1: Randall Clark (Was present and assisted in all aspects of the case from positioning to debridment and closure and dressing placement. ) Estimated Blood Loss (ml): 100 IV fluids (ml): 1,500 Urine output (ml): 0 Pathology: other (x2 cultures superficial and deep, x2 tissue samples) Condition: stable Disposition: PACU Indications for Procedure: 51 yo male s/p L3-5 decompression with L4-5 fusion presented with continued wound drainage and pain. He denies any trauma, f/c/sob/cp. He initially did well post op and sutures were removed. He then represented two weeks later with drainage from the superior portion of the wound. He was trialed on oral abx Duricef and Bactrim DS, but his drainage continued and he continued to have more pain in his back. MRI was done and showed a fluid collection in the surgical bed. We discussed options but due to his continued drainage and refractory to conservative measures we discussed washout, abx placement and likely IVABX prolonged. He understood and agreed. Description of Procedure: The patient was seen and examined in the preoperative area. All preoperative protocols were followed. Informed consent was obtained risks and benefits of the procedure were discussed at length. Risks including bleeding infection damage to the surrounding tissue and risk of reoperation were discussed with the patient. Risk of anesthesia up to and including was a discussed with the patient. These are outlined in the risk review. They were willing to accept these risks and all of the risks of surgery. The patient was given a weight- based dose of antibiotics in the form of Ancef 2 g after culture. The patient was seen and evaluated by the anesthesia team who deemed them fit for surgery. The site was marked, the patient was willing to proceed with the procedure. The patient was transferred to the operative suite by the Department of anesthesia. They were then drifted off to sleep by the department anesthesia and GETA was performed. The patient tolerated this well. Once confirmation of lines and ventilation the patient was transferred to a prone Rahul table very carefully. All bony prominences including wrists, elbows, axilla, chest, hips, and thighs, and feet were padded very well. Special attention was paid to the genitalia and these were padded accordingly. SCDs were placed on bilateral lower extremities and were connected. Arms were well padded and placed on arm boards up and out in the 90/90 position. Once in position, again we confirmed good ventilation capabilities and that lines were running appropriately. The patient's Lumbar spine was then exposed. 1010s were placed outlining the incision site. Standard alcohol was used to clean the incision site and allowed to dry. C-arm was used to biomark the patient and confirm level for incision which was marked with a skin marker. Operative briefing was performed with all teams and everyone in agreement to proceed. The patient was then prepped and draped in a normal sterile fashion. Timeout was then performed and all parties were in agreement with the procedure to be performed. Skin incision was made to ellipse the previous dehiscence cranially on the incision and remove sharply the necrotic skin from this area. Knife was then used to sharply dissect out the draining sinus tract from this area until bone was reached. Incision was then extended the length of the previous. EC dissection was then used to continue down until the hardware was encountered as well as cranially the SP of L2. Subperiosteal dissection taken over L2 lamina and what reamained of L3 lamina once again. Superficial cultures were taken and sent. Purulence was then encountered deep in a pocket around L3 decompression and tracked distally. This area was then completely opened up using EC and blunt dissection until hardware was exposed as well as decompressed area. L3-5 decompression identified and purulent and necrotic material was debrided from skin, soft tissue, muscle and bone using curettes to scrape off the quinonez followed by rongure to remove any large necrotic material. Curette was then used to identify the edges of the laminectomy bed and define the dura. Dura was then debrided of necrotic and scar material and investigated and it was stable w/o injury. The PL gutters were then cleared of any phlegmon material and previous graft material. Initial wash was then done with an abx solution of 3 L NSS. Once this was complete further debridment was done with rongure, kerrison and curettes. Second wash was then done with a 3L solution of NSS and betadine and allowed to soak. This was then washed free with NSS. Further debridment ensued with curettes scraping bone and side quinonez as well as muscle. Necrotic tissue removed with rongure. Next wash was with Irricept which was left to soak for alloted time. This was then irrigated free with NSS. Further debridment was then done with curette. 6 more L of NSS was then run through the wound while debriding the area of any further tissue, phlegmon, necrotic tissue or such. Once this was completed. Meticulous hemostasis was achieved. 10 CC of small stimulan beads with tobra/vanco were then placed in the PL gutters and deep in the wound. A drain was placed deep in the wound out its own separate path and sewed into position. 2 g vanco powder was then split and 1 g placed deep. Edges of the wound were again freshened. Flaps were made to identify the facial material vs subq material and facia was then closed over the drain with #1 PDS in a figure of 8 fashion. Vanco powder was then placed in the superfical space. Once this was closed, 0 PDS used to reinforce and was also placed in the deep subq tissue. A running 0 stratafix suture was then placed in the more superficial subq tissue and approximated the edges well. 2-0 nylon was then used in the skin in a simple and horizontal mattress fashion. The wound edges approximated very well. The wound was then cleaned and dressed with steril Opitfoam dressing, drain sponge and tegaderm. Drain was connected and had good suction and output. The patient was transferred back to their hospital bed atraumatically. Drain continued to hold suction and were in good position. Patient was then awakened and extubated by the department of anesthesia having tolerated the procedure very well with no complications. They were transferred to the postoperative care unit in stable condition.
--- NOTE | 2022-06-29 13:26 | P.PN ---
Progress Note - Text Progress Note Date: 06/29/22 Postop: Pt s/e in PACU no issues. Stable at this time. Will be TF to floor when stable per anesthesia and PACU staff.
[2022-06-29] MEDS: HYDROmorphone 0.5 MG/0.5 ML SYRINGE IVP PRN ×3 (14:13→18:10)
[2022-06-29 15:51] LABS: African American GFR (CKD) >90 (>60 ml/min/1.73 sqM); Non-African American GFR(CKD) 90 (>60 ml/min/1.73 sqM)
[2022-06-29] MEDS: GABAPENTIN 300 MG CAP PO SCH ×2 (15:57→21:01)
[2022-06-29 17:07] LABS: Glucose,Whole Blood 216 mg/dL (70-110)
[2022-06-29] MEDS: ACETAMINOPHEN TAB 500 MG TAB PO SCH (18:04)
[2022-06-29] MEDS: METOPROLOL TARTRATE 12.5 MG TAB PO SCH ×2 (18:04→19:54)
[2022-06-29] MEDS: methocarbamoL 750 MG TAB PO SCH (19:53)
[2022-06-29] MEDS: VANCOMYCIN 1,750 MG in SODIUM CHLORIDE 0.9% 500 ML 500 ML IVPB SCH (19:54)
--- NOTE | 2022-06-29 23:04 | P.CONS ---
History of Present Illness - Reason for Consult Consult date: 06/29/22 Medical management - Chief Complaint Status post I&D of the lumbar wound and debridement - History of Present Illness Patient is a 51-year-old male with a known history of hypertension, GERD, obstr uctive sleep apnea on CPAP and recent history of L4-L5 fusion surgery on May 16, 2022 was admitted to the hospital due to wound dehiscencePatient had laminectomy and fusion on 05/16/2022. Patient was found to have continued discharge from the wound on follow-up visit to the office. Patient was given antibiotic course with cefadroxil and Bactrim DS but continues to have serous drainage and the skin is getting irritated around the incision. Patient has been afebrile. Patient was admitted to the hospital for I&D. Patient is status post I&D of lumbar wound, admits Excisional debridement of skin and placement of antibiotic beads. Patient tolerated procedure very well. Patient has been tachycardic with heart rate in 120s. Initial EKG showed sinus tachycardia with PACs. Blood sugar was 216.. Review of Systems Constitutional: Patient denies any fever or chills . Generalized weakness. Abdomen: Patient denied any nausea or vomiting or abd. pain Cardiovascular: Patient denies any chest pain or short of breath no palpitations. Respiratory: patient denied any cough is from production. No shortness of breath Neurologic: Patient denied any numbness or tingling headache. Musculoskeletal: Patient denies any complaints of joint swelling or deformity. Skin: Negative Psychiatric: Negative Endocrine: No heat or cold intolerance. No recent weight gain. Genitourinary: No dysuria or hematuria. All other 14 point ROS negative except the above Past Medical History Past Medical History: GERD/Reflux, Hypertension, Sleep Apnea/CPAP/BIPAP Additional Past Medical History / Comment(s): kidney stones, DEVIATED SEPTUM, USES CPAP MACHINE, HIATAL HERNIA History of Any Multi-Drug Resistant Organisms: None Reported Past Surgical History: Appendectomy, Back Surgery, Tonsillectomy Additional Past Surgical History / Comment(s): 1998 RT HAND INDEX/MIDDLE FINGER TENDON REPAIR, 1992 BACK SX L4-L5, SEPTOPLASY 2011, RT KNEE ARTHROSCOPY, LT MIDDLE EAR SX AGE 10 "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 05-16-22 BACK SX. 06/26/22 I&D of lumbar wound, L3-L5 decompression. Past Anesthesia/Blood Transfusion Reactions: No Reported Reaction Past Psychological History: No Psychological Hx Reported Additional Psychological History / Comment(s): Pt lives with his . Past add icition to vicodin Smoking Status: Former smoker Past Alcohol Use History: None Reported, Occasional Past Drug Use History: Prescription Drug Abuse Additional Drug Use History / Comment(s): 2013 "HAD ADDICTION TO VICODIN" - Past Family History Mother Family Medical History: No Reported History Father Family Medical History: Hypertension Additional Family Medical History / Comment(s): STELLANEY REMOVED(BENIGN TUMOR) Medications and Allergies Home Medications Medication Instructions Recorded Confirmed Type amLODIPine [Norvasc] 10 mg PO DAILY 01/24/21 06/29/22 History Gabapentin 300 mg PO TID 3 Days #30 cap 05/19/22 06/29/22 Rx oxyCODONE HCL/ACETAMINOPHEN 1 tab PO Q6HR PRN #30 tab 05/19/22 06/29/22 Rx [Percocet 5-325 mg] methocarbamoL [Methocarbamol] 750 mg PO DAILY 06/26/22 06/29/22 History Allergies Allergy/AdvReac Type Severity Reaction Status Date / Time No Known Allergies Allergy Verified 06/29/22 08:42 Physical Exam Vitals: Vital Signs Temp Pulse Pulse Resp BP BP Pulse Ox 06/29/22 18:31 97.8 F 121 H 17 125/86 95 06/29/22 18:30 97.8 F 120 H 17 113/75 94 L 06/29/22 18:29 97.8 F 124 H 17 124/67 95 06/29/22 18:28 97 F L 110 H 17 107/73 94 L 06/29/22 18:27 97.7 F 118 H 17 120/79 94 L 06/29/22 18:26 97.9 F 103 H 18 108/69 93 L 06/29/22 14:38 102 H 18 115/74 96 06/29/22 14:23 124 H 16 128/74 96 06/29/22 14:08 124 H 16 124/83 93 L 06/29/22 13:53 103 H 16 123/90 96 06/29/22 13:38 97 16 140/90 98 06/29/22 13:23 105 H 16 143/84 100 06/29/22 13:08 112 H 16 137/87 98 06/29/22 12:53 97.3 F L 104 H 12 135/92 98 06/29/22 08:52 98.1 F 107 H 18 146/97 97 Intake and Output 06/29/22 06/29/22 06/29/22 06:59 14:59 22:59 Intake Total 1651 Output Total 100 60 Balance 1551 -60 Intake: IV 1651 Output: Drainage 60 Back 60 Estimated Blood Loss 100 Other: Weight 109 kg 109 kg PHYSICAL EXAMINATION: Patient is lying in the bed comfortably, no acute distress, awake alert and oriented.. HEENT: Normocephalic. Neck is supple. Pupils reactive. Nostrils clear. Oral cavity is moist. Neck reveals no JVD, carotid bruits, or thyromegaly. CHEST EXAMINATION: Trachea is central. Symmetrical expansion. Lung berumen clear to auscultation and percussion. CARDIAC: Normal S1, S2 with no gallops. No murmurs ABDOMEN: Soft. Bowel sounds present. Nontender. No organomegaly. No abdominal bruits. Extremities: reveal no edema. No clubbing or cyanosis Neurologically awake, alert, oriented x3 with well-coordinated movements. No focal deficits noted Skin: No rash or skin lesions. Psychiatric: Coperative. Nonsuicidal, anxious. Musculoskeletal: No joint swelling or deformity.Lumbar surgical wound is bandaged. Results CBC & Chem 7: 06/29/22 15:32 Labs: Abnormal Lab Results - Last 24 Hours (Table) 06/29/22 Range/Units 17:05 POC Glucose (mg/dL) 216 H (70-110) mg/dL Microbiology - Last 24 Hours (Table) 06/29/22 10:58 Wound Culture - Preliminary Back 06/29/22 10:57 Anaerobic Culture - Preliminary Back 06/29/22 10:58 Anaerobic Culture - Preliminary Back 06/29/22 10:57 Wound Culture - Preliminary Back Assessment and Plan Assessment: Status post I&D of lumbar wound, debridement and antibiotic bead placement. Pos toperative day 0. Sinus tachycardia with PACs. History of L3 L5 laminectomy with L4-L5 fusion on 05/16/2022. Obstructive sleep apnea on CPAP at home Hypertension GERD Previous history of smoking DVT prophylaxis SCDs. Plan: Patient will be continued on pain management with Dilaudid, oxycodone and Mateo axin and also on gabapentin. Continue bowel regimen and incentive spirometry. Patient was started on metoprolol 12.5 mg due to sinus tachycardia and continued telemetry monitoring. EKG was ordered. Will check TSH level. Follow-up culture report. Currently on antibiotics in the form of vancomycin and infectious service was consulted. Will continue to follow and further recommendations based on the clinical course. Thank you for your consult. Time with Patient: Greater than 30
--- NOTE | 2022-06-29 23:15 | P.CONS ---
History of Present Illness - Reason for Consult Consult date: 06/29/22 - History of Present Illness Patient is a 51-year-old male with a past medical he significant for chronic back pain in this patient who is status post L3-5 laminectomy and L4-5 fusion on 05/16/2022 the patient seem to have a problem with the nonhealing of the superior part of his wound and the patient has been complaining predominantly of drainage from the area which has been mostly serous moderate in amount and no foul-smelling drainage the patient has been treated with 2-week course of cefadroxil followed by Bactrim DS however the patient did not have any improvement in the drainage patient also complaining of pain to the lumbar spine area describing to be more of a sharp in nature almost 10 out of 10 in severity with no radiation, patient was taken to the OR and this patient was status post irrigation and excisional debridement of the skin soft tissue muscle and bone of the lumbar spine and wound abscess 30 8X 23 Centimeter placement of antibiotic beads and complex closure of the wound culture has been obtained patient was started on vancomycin infectious disease was consulted for further management of antibiotic therapy Past Medical History Past Medical History: GERD/Reflux, Hypertension, Sleep Apnea/CPAP/BIPAP Additional Past Medical History / Comment(s): kidney stones, DEVIATED SEPTUM, USES CPAP MACHINE, HIATAL HERNIA History of Any Multi-Drug Resistant Organisms: None Reported Past Surgical History: Appendectomy, Back Surgery, Tonsillectomy Additional Past Surgical History / Comment(s): 1998 RT HAND INDEX/MIDDLE FINGER TENDON REPAIR, 1992 BACK SX L4-L5, SEPTOPLASY 2011, RT KNEE ARTHROSCOPY, LT MIDDLE EAR SX AGE 10 "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 05-16-22 BACK SX. Past Anesthesia/Blood Transfusion Reactions: No Reported Reaction Past Psychological History: No Psychological Hx Reported Smoking Status: Former smoker Past Alcohol Use History: Occasional Past Drug Use History: Prescription Drug Abuse Additional Drug Use History / Comment(s): 2013 "HAD ADDICTION TO VICODIN" - Past Family History Mother Family Medical History: No Reported History Father Family Medical History: Hypertension Additional Family Medical History / Comment(s): KINDNEY REMOVED(BENIGN TUMOR) Medications and Allergies Home Medications Medication Instructions Recorded Confirmed Type amLODIPine [Norvasc] 10 mg PO DAILY 01/24/21 06/29/22 History Gabapentin 300 mg PO TID 3 Days #30 cap 05/19/22 06/29/22 Rx oxyCODONE HCL/ACETAMINOPHEN 1 tab PO Q6HR PRN #30 tab 05/19/22 06/29/22 Rx [Percocet 5-325 mg] methocarbamoL [Methocarbamol] 750 mg PO DAILY 06/26/22 06/29/22 History Allergies Allergy/AdvReac Type Severity Reaction Status Date / Time No Known Allergies Allergy Verified 06/29/22 08:42 Physical Exam Vitals: Vital Signs Temp Pulse Pulse Resp BP BP Pulse Ox 06/29/22 14:38 102 H 18 115/74 96 06/29/22 14:23 124 H 16 128/74 96 06/29/22 14:08 124 H 16 124/83 93 L 06/29/22 13:53 103 H 16 123/90 96 06/29/22 13:38 97 16 140/90 98 06/29/22 13:23 105 H 16 143/84 100 06/29/22 13:08 112 H 16 137/87 98 06/29/22 12:53 97.3 F L 104 H 12 135/92 98 06/29/22 08:52 98.1 F 107 H 18 146/97 97 Intake and Output 06/29/22 06/29/22 06/29/22 06:59 14:59 22:59 Intake Total 1651 Output Total 100 Balance 1551 Intake: IV 1651 Output: Estimated Blood Loss 100 Other: Weight 109 kg Results CBC & Chem 7: 06/29/22 15:32 Assessment and Plan Plan: 1patient presented hospital with lumbar surgical site infection in this patient with recent laminectomy and posterior spinal fusion patient is status post I&D and deep cultures which are currently pending patient is failing outpatient oral cefadroxil and Bactrim DS, will need to cover for both gram-positive skin aryan as well as gram-negative pathogen. 2vancomycin pharmacy to dose target trough of 15 while watching kidney function and vancomycin trough closely. 3we will add cefepime 2 g every 8 hours. 4check inflammatory markers. We will follow on clinical condition and cultures to further adjust medication if needed Thank you for this consultation will follow this patient along with you Time with Patient: Greater than 30
[2022-06-30] MEDS: ACETAMINOPHEN TAB 500 MG TAB PO SCH ×4 (00:30→17:26)
[2022-06-30] MEDS: CEFEPIME 2 GM in SODIUM CHLORIDE 0.9% 100 ML IVPB SCH ×3 (00:30→16:08)
[2022-06-30] MEDS: LACTATED RINGERS 1,000 ML IV SCH (04:52)
[2022-06-30] MEDS: METOPROLOL TARTRATE 12.5 MG TAB PO SCH ×2 (08:01→20:53)
[2022-06-30] MEDS: methocarbamoL 750 MG TAB PO SCH ×2 (08:02→20:53)
[2022-06-30] MEDS: SENNOSIDES-DOCUSATE SODIUM 1 EACH TAB PO SCH (08:02)
[2022-06-30] MEDS: GABAPENTIN 300 MG CAP PO SCH ×3 (08:02→20:53)
[2022-06-30] MEDS: VANCOMYCIN 1,750 MG in SODIUM CHLORIDE 0.9% 500 ML 500 ML IVPB SCH ×2 (08:24→20:54)
[2022-06-30 09:14] LABS: African American GFR (CKD) 100.6 (60.0-200.0); Anion Gap 10.8 mmol/L (10.00-18.00); BUN/Creat Ratio 18.9 Ratio (12.00-20.00); Blood Urea Nitrogen 18.9 mg/dL (9.0-27.0); Calcium 9.1 mg/dL (8.7-10.3); Carbon Dioxide 27.2 mmol/L (20.0-27.5); Non-African American GFR(CKD) 86.8 (60.0-200.0); Potassium 4.8 mmol/L (3.5-5.5)
[2022-06-30] MEDS: PANTOPRAZOLE 40 MG/10 ML VIAL IVP SCH ×2 (09:56→20:54)
--- NOTE | 2022-06-30 10:47 | P.PN ---
Subjective Progress Note Date: 06/30/22 Principal diagnosis: POD 1 I&D Lumbar wound Pt s/e. Doing well today sitting up in bed about to get up and walk around halls. States he feels much better and that his pain is much better after the w/o. He states no issues with his legs he denies any f/c/sob/cp overnight. States no bowel bladder issues he has already voided and is passing gas. Denies any perineal numnbess/tingling at this time. He denies any other sx. Objective - Vital Signs Vital signs: Vital Signs Temp 98.0 F 06/30/22 07:38 Pulse 104 H 06/30/22 07:38 Resp 17 06/30/22 07:38 BP 112/63 06/30/22 07:38 Pulse Ox 97 06/30/22 08:42 FiO2 Intake & Output 06/29/22 06/30/22 06/30/22 18:59 06:59 18:59 Intake Total 1651 Output Total 160 1290 Balance 1491 -1290 Weight 109 kg Intake: IV 1651 Output: Drainage 60 140 Back 60 140 Urine 1150 Estimated Blood Loss 100 Other: Voiding Method Toilet # Voids 1 - Exam Patient is alert and oriented 3 appears well-nourished well-hydrated is in no a cute distress. They do not appear septic. There is TTP around incision which is covered and dressing in place minor spotting Drain shows about 50 cc in currently about 150 overnight Lower extremities with 5 out of 5 strength in all major muscle groups Upper extremities show 5/5 strength in all major muscle groups. There is FROM that is painless of the b/l UE and LE in all major joints. They are intact to light touch sensation in L2 to S1 nerve distribution. DTR 2/4 all upper and lower extremities Patient has palpable dorsalis pedis was posterior tibial pulses. Palpable Rad Ulnar pulses b/l Compartments are soft and compressible. Patient shows a negative Homans Neg Babinski Neg Clonus Neg hoffmans Cranial nerves II through XII are grossly intact. - Labs CBC & Chem 7: 06/30/22 06:25 Labs: Abnormal Lab Results - Last 24 Hours (Table) 06/29/22 06/30/22 06/30/22 Range/Units 17:05 06:25 06:25 Glucose 128 H (70-110) mg/dL POC Glucose (mg/dL) 216 H (70-110) mg/dL Hemoglobin A1c 6.2 H (0.0-6.0) % TSH 0.212 L (0.350-5.500) uIU/mL Free (T4) Reflex I 0.740 L (0.800-1.800) ng/dL Microbiology - Last 24 Hours (Table) 06/29/22 10:59 Gram Stain - Preliminary Back Tissue Culture - Preliminary 06/29/22 10:58 Gram Stain - Preliminary Back Wound Culture - Preliminary 06/29/22 11:00 Gram Stain - Preliminary Back Tissue Culture - Preliminary 06/29/22 10:57 Gram Stain - Preliminary Back Wound Culture - Preliminary 06/29/22 11:00 Anaerobic Culture - Preliminary Back 06/29/22 10:59 Anaerobic Culture - Preliminary Back 06/29/22 10:57 Anaerobic Culture - Preliminary Back 06/29/22 10:58 Anaerobic Culture - Preliminary Back Assessment and Plan Assessment: 51 yo male POD1 Lumbar wound I&D s/p L3-5 decompression with L4-5 fusion Plan: -Appreciate netsuite consultant and team management. -ID for ivabx -Cx and blood cx pending -Activity: Ambulate QID, OOB all meals, up and about, limit lifting bending twisting to less than 5 lbs. Use walker or cane if needed for stability. -Daily PT/OT, increase ambulation strength and balance. -Brace when up and about, not needed in bed or chair -Pain control: Adequate at this time -Meds: reviewed -GI ppx: senna, Miralax -DVT PPX: OK to restart Heparin tonight -Hygiene: Shower today. Maintain dressing clean and dry. Meticulous cleaning after BMs away from incision site -Drains: Maintain for now. Record output -Encourage IS 10x/hr -Dispo: Pending
[2022-06-30] MEDS: HYDROmorphone 0.5 MG/0.5 ML SYRINGE IVP PRN ×2 (14:13→18:34)
--- NOTE | 2022-07-01 00:05 | P.PN ---
Subjective Progress Note Date: 06/30/22 Patient is a 51-year-old male with a known history of hypertension, GERD, obstructive sleep apnea on CPAP and recent history of L4-L5 fusion surgery on May 16, 2022 was admitted to the hospital due to wound dehiscencePatient had laminectomy and fusion on 05/16/2022. Patient was found to have continued di scharge from the wound on follow-up visit to the office. Patient was given antibiotic course with cefadroxil and Bactrim DS but continues to have serous drainage and the skin is getting irritated around the incision. Patient has been afebrile. Patient was admitted to the hospital for I&D. Patient is status post I&D of lumbar wound, admits Excisional debridement of skin and placement of antibiotic beads. Patient tolerated procedure very well. Patient has been tachycardic with heart rate in 120s. Initial EKG showed sinus tachycardia with PACs. Blood sugar was 216.. 06/30/2022 Patient is postoperative day 1. Resting in bed comfortably. Awake alert and oriented x3. Pain is fairly contr olled. Denies any complaints of nausea or vomiting. Heart rate did improve. No nausea vomiting or abdominal pain or diarrhea. No headache or dizziness lightheadedness. Laboratory data showed sodium 138 potassium 4.8 chloride 100 bicarb is 27.2 BUN 18.9 and creatinine 1.0 A1c level is 6.2 TSH 0.212 and free T4 0.740, likely due to sick euthyroid. Recommend follow-up in 6 weeks. Current medications reviewed. Objective - Vital Signs Vital signs: Vital Signs Temp 98.7 F 06/30/22 14:00 Pulse 97 06/30/22 14:00 Resp 17 06/30/22 14:00 BP 129/73 06/30/22 14:00 Pulse Ox 95 06/30/22 14:00 FiO2 Intake & Output 06/29/22 06/30/22 06/30/22 18:59 06:59 18:59 Intake Total 1651 Output Total 160 1290 Balance 1491 -1290 Weight 109 kg Intake: IV 1651 Output: Drainage 60 140 Back 60 140 Urine 1150 Estimated Blood Loss 100 Other: Voiding Method Toilet # Voids 1 - Exam PHYSICAL EXAMINATION: Patient is lying in the bed comfortably, no acute distress, awake alert and oriented.. HEENT: Normocephalic. Neck is supple. Pupils reactive. Nostrils clear. Oral cavity is moist. Neck reveals no JVD, carotid bruits, or thyromegaly. CHEST EXAMINATION: Trachea is central. Symmetrical expansion. Lung berumen clear to auscultation and percussion. CARDIAC: Normal S1, S2 with no gallops. No murmurs ABDOMEN: Soft. Bowel sounds present. Nontender. No organomegaly. No abdominal bruits. Extremities: reveal no edema. No clubbing or cyanosis Neurologically awake, alert, oriented x3 with well-coordinated movements. No focal deficits noted Skin: No rash or skin lesions. Psychiatric: Coperative. Nonsuicidal, anxious. Musculoskeletal: No joint swelling or deformity.Lumbar surgical wound is ba ndaged. - Labs CBC & Chem 7: 06/30/22 06:25 Labs: Abnormal Lab Results - Last 24 Hours (Table) 06/29/22 06/30/22 06/30/22 Range/Units 17:05 06:25 06:25 Glucose 128 H (70-110) mg/dL POC Glucose (mg/dL) 216 H (70-110) mg/dL Hemoglobin A1c 6.2 H (0.0-6.0) % TSH 0.212 L (0.350-5.500) uIU/mL Free (T4) Reflex I 0.740 L (0.800-1.800) ng/dL Microbiology - Last 24 Hours (Table) 06/29/22 09:25 Blood Culture - Preliminary Blood No Growth after 24 hours 06/29/22 09:10 Blood Culture - Preliminary Blood No Growth after 24 hours 06/29/22 10:59 Gram Stain - Preliminary Back Tissue Culture - Preliminary 06/29/22 10:58 Gram Stain - Preliminary Back Wound Culture - Preliminary 06/29/22 11:00 Gram Stain - Preliminary Back Tissue Culture - Preliminary 06/29/22 10:57 Gram Stain - Preliminary Back Wound Culture - Preliminary 06/29/22 11:00 Anaerobic Culture - Preliminary Back 06/29/22 10:59 Anaerobic Culture - Preliminary Back 06/29/22 10:57 Anaerobic Culture - Preliminary Back 06/29/22 10:58 Anaerobic Culture - Preliminary Back Assessment and Plan Assessment: Status post I&D of lumbar wound, debridement and antibiotic bead placement. Postoperative day 1. Sinus tachycardia with PACs. improving History of L3 L5 laminectomy with L4-L5 fusion on 05/16/2022. Obstructive sleep apnea on CPAP at home Hypertension GERD Previous history of smoking DVT prophylaxis SCDs. Plan: Patient will be continued on pain management with Dilaudid, oxycodone and Robaxin and also on gabapentin. Continue bowel regimen and incentive spirometry. Patient was started on metoprolol 12.5 mg due to sinus tachycardia and continued telemetry monitoring. Tachycardia is improving. Follow-up culture report. Currently on antibiotics in the form of vancomycin and Cefepime as per infectious disease recommendations.. Will continue to follow and further recommendations based on the clinical course. Time with Patient: Greater than 30
[2022-07-01] MEDS: CEFEPIME 2 GM in SODIUM CHLORIDE 0.9% 100 ML IVPB SCH ×3 (00:18→15:19)
[2022-07-01] MEDS: ACETAMINOPHEN TAB 500 MG TAB PO SCH ×4 (00:35→17:50)
[2022-07-01] MEDS: LACTATED RINGERS 1,000 ML IV SCH (04:38)
--- NOTE | 2022-07-01 07:37 | P.PN ---
Subjective Progress Note Date: 06/30/22 Principal diagnosis: Lumbar surgical site infection Patient is a 51-year-old male who is recently status post lumbar laminectomy and decompression presenting to the hospital with persistent drainage in this patient who is status post extensive debridement and deep cultu res. on today's evaluation that is 06/30/2022, the patient denies having any fever or any chills, patient still complaining of burning pain to the lower back but mentioned improvement, the patient denies having any chest pain or shortness of breath or cough no abdominal pain or diarrhea Objective - Vital Signs Vital signs: Vital Signs Temp 98.0 F 06/30/22 07:38 Pulse 104 H 06/30/22 07:38 Resp 17 06/30/22 07:38 BP 112/63 06/30/22 07:38 Pulse Ox 97 06/30/22 08:42 FiO2 Intake & Output 06/29/22 06/30/22 06/30/22 18:59 06:59 18:59 Intake Total 1651 Output Total 160 1290 Balance 1491 -1290 Weight 109 kg Intake: IV 1651 Output: Drainage 60 140 Back 60 140 Urine 1150 Estimated Blood Loss 100 Other: Voiding Method Toilet # Voids 1 - Exam GENERAL DESCRIPTION: Middle-aged male lying in bed in no distress RESPIRATORY SYSTEM: Unlabored breathing , decreased breath sounds at bases HEART: S1 S2 regular rate and rhythm , ABDOMEN: Soft , no tenderness EXTREMITIES: No edema feet - Labs CBC & Chem 7: 06/30/22 06:25 Labs: Abnormal Lab Results - Last 24 Hours (Table) 06/29/22 06/30/22 06/30/22 Range/Units 17:05 06:25 06:25 Glucose 128 H (70-110) mg/dL POC Glucose (mg/dL) 216 H (70-110) mg/dL Hemoglobin A1c 6.2 H (0.0-6.0) % TSH 0.212 L (0.350-5.500) uIU/mL Free (T4) Reflex I 0.740 L (0.800-1.800) ng/dL Microbiology - Last 24 Hours (Table) 06/29/22 09:25 Blood Culture - Preliminary Blood No Growth after 24 hours 06/29/22 09:10 Blood Culture - Preliminary Blood No Growth after 24 hours 06/29/22 10:59 Gram Stain - Preliminary Back Tissue Culture - Preliminary 06/29/22 10:58 Gram Stain - Preliminary Back Wound Culture - Preliminary 06/29/22 11:00 Gram Stain - Preliminary Back Tissue Culture - Preliminary 06/29/22 10:57 Gram Stain - Preliminary Back Wound Culture - Preliminary 06/29/22 11:00 Anaerobic Culture - Preliminary Back 06/29/22 10:59 Anaerobic Culture - Preliminary Back 06/29/22 10:57 Anaerobic Culture - Preliminary Back 06/29/22 10:58 Anaerobic Culture - Preliminary Back Assessment and Plan (1) Surgical site infection Current Visit: Yes Status: Acute Code(s): T81.49XA - INFECTION FOLLOWING A PROCEDURE, OTHER SURGICAL SITE, INIT SNOMED Code(s): 47594590 Plan: 1patient presented hospital with lumbar surgical site infection in this patient with recent laminectomy and posterior spinal fusion patient is status post I&D and deep cultures which are currently pending patient is failing outpatient oral cefadroxil and Bactrim DS, will need to cover for both gram-positive skin aryan as well as gram-negative pathogen. 2patient to continue with vancomycin pharmacy to dose and cefepime 2 g every 8 hours while waiting for the cultures to finalize. Time with Patient: Less than 30
--- NOTE | 2022-07-01 07:54 | P.PN ---
Subjective Progress Note Date: 07/01/22 Principal diagnosis: Incision and drainage of incisional surgical wound s/p L3-5 decompression with L4-5 fusion Patient seen and examined at bedside. Patient states that he has had overall improvement since procedure. Pain is currently managed at this time. Hemovac to lumbar region was inadvertently pulled out last night. Moderate amount of serosanguineous drainage from incision site. Surgical dressing changed this morning. Instructed day shift RN to keep incision clean and dry, to change dressing as needed. He denies any nausea/vomiting, fevers/chills, or chest pain. Patient denies any numbness tingling to bilateral lower extremities. Patient is ambulatory in room, tolerating activity well. Objective - Vital Signs Vital signs: Vital Signs Temp 98.3 F 07/01/22 00:43 Pulse 102 H 07/01/22 00:43 Resp 16 07/01/22 00:43 BP 130/69 07/01/22 00:43 Pulse Ox 96 07/01/22 00:43 FiO2 Intake & Output 06/30/22 07/01/22 07/01/22 18:59 06:59 18:59 Output Total 0 Balance 0 Output: Drainage 0 Back 0 Other: Voiding Method Toilet # Voids 4 2 # Bowel Movements 1 - Exam Physical Examination General: The patient is awake and alert, in no acute distress Skin: Skin is warm and dry with no obvious rashes or lesions. Hairy patches absent, no dorsal skin dimples, no cafe au lait spots. Surgical Incision to Lumbar region, dressing changed today. Eye: Pupils are equal, round and reactive to light, extra-ocular movements are intact; there is normal conjunctiva bilaterally. Neck: The neck is supple, there is no tenderness and ROM intact. Cardiovascular: There is a regular rate and rhythm. No murmur, rub or gallop is appreciated. Respiratory: Lungs are clear to auscultation, respirations are non-labored, breath sounds are equal. Gastrointestinal: Soft, non-distended, non-tender abdomen . Back: There is no tenderness to palpation in the midline, paralumbar, parathoracic or buttocks region. There is no obvious deformity . Musculoskeletal: ROM limited secondary to pain and stiffness from surgical procedure. Shoulder abduction 5/5, elbow flexors 5/5, wrist dorsiflexors 5/5. finger abductor 5/5, audit control clerk 5/5, hip flexor 4/5, knee flexor 4/5, ankle dorsiflexor 4/5, ankle plantarflexion 4/5 and extensor hallucis 4/5. Neurological: CN 2-12 intact. There are no obvious motor or sensory deficits. Movement and coordination equal and intact. Sensory exam to light touch intact C5-T1 and intact from L2-S1. Reflexes 2/4 in bilateral upper and lower extremities. Negative Hoffmans, babinski, and clonus signs. Psychiatric: Cooperative, appropriate mood & affect, normal judgment. - Labs CBC & Chem 7: 06/30/22 06:25 Labs: Abnormal Lab Results - Last 24 Hours (Table) 06/30/22 06/30/22 Range/Units 06:25 06:25 Glucose 128 H (70-110) mg/dL Hemoglobin A1c 6.2 H (0.0-6.0) % TSH 0.212 L (0.350-5.500) uIU/mL Free (T4) Reflex I 0.740 L (0.800-1.800) ng/dL Microbiology - Last 24 Hours (Table) 06/29/22 11:00 Gram Stain - Preliminary Back Tissue Culture - Preliminary Gram Neg Bacilli 06/29/22 10:59 Gram Stain - Preliminary Back Tissue Culture - Preliminary Gram Neg Bacilli 06/29/22 10:57 Gram Stain - Preliminary Back Wound Culture - Preliminary Gram Neg Bacilli 06/29/22 10:58 Gram Stain - Preliminary Back Wound Culture - Preliminary Gram Neg Bacilli 06/29/22 09:25 Blood Culture - Preliminary Blood No Growth after 24 hours 06/29/22 09:10 Blood Culture - Preliminary Blood No Growth after 24 hours Assessment and Plan Assessment: 51 yo male POD2 Lumbar wound I&D s/p L3-5 decompression with L4-5 fusion Plan: Plan: -Appreciate sap ppm consultant and team management. -Activity: Ambulate QID, OOB all meals, up and about, limit lifting bending twisting to less than 5 lbs. Use walker or cane if needed for stability. -Daily PT/OT, increase ambulation strength and balance. -Brace when up and about, not needed in bed or chair -Pain control: Adequate at this time -Meds: reviewed -GI ppx: senna, Miralax -DVT PPX: Heparin -Hygiene: Shower today. Maintain dressing clean and dry. Meticulous cleaning after BMs away from the incision site -Drains: Inadvertently pulled out through the night -Encourage IS 10x/hr -Dispo: Anticipate discharge home within 24-48hrs *I reviewed and discussed this case with my attending Dr. Montero, whom has reviewed this chart and films and is in agreement with assessment and plan of care as outlined above. I have personally seen and examined the patient, performed the documentation and the assessment and plan as written. Number of minutes spent on the visit: 20m.
[2022-07-01] MEDS: METOPROLOL TARTRATE 12.5 MG TAB PO SCH (08:02)
[2022-07-01] MEDS: SENNOSIDES-DOCUSATE SODIUM 1 EACH TAB PO SCH (08:02)
[2022-07-01] MEDS: methocarbamoL 750 MG TAB PO SCH ×2 (08:02→20:09)
[2022-07-01] MEDS: GABAPENTIN 300 MG CAP PO SCH ×3 (08:03→21:55)
[2022-07-01] MEDS: PANTOPRAZOLE 40 MG/10 ML VIAL IVP SCH ×2 (09:03→20:09)
--- NOTE | 2022-07-01 09:59 | P.PN ---
Progress Note - Text Progress Note Date: 07/01/22 Patient seen and examined, I reviewed the note, discussed the case with the NEONATAL SPECIALIST first hand and agree with the assessment and plan of Jere Berry NP. Please see my notes below for any additional recommendations. He is doing OK today. Lost his drain last night so feels slightly more pressure in back but otherwise doing OK. No bowel bladder issues. No numbness/tingling in groin. Been up and walking about. Incision is draining but otherwise clean. Cx showing Gram (-) bacili await finals and sensitivity. Pt is covered for Gram + and Neg at this time. Appreciate ID recs. Cont with PT/OT, walks, no BLT >5 lbs. Discussed possibility of needing second washout if labs do not trend, he understands. Cont with pain control and medical treatments.
[2022-07-01] MEDS: HYDROmorphone 0.5 MG/0.5 ML SYRINGE IVP PRN (15:33)
[2022-07-02] MEDS: ACETAMINOPHEN TAB 500 MG TAB PO SCH ×5 (00:05→23:51)
[2022-07-02] MEDS: CEFEPIME 2 GM in SODIUM CHLORIDE 0.9% 100 ML IVPB SCH ×4 (00:05→23:52)
--- NOTE | 2022-07-02 07:54 | P.PN ---
Subjective Progress Note Date: 07/02/22 Principal diagnosis: Incision and drainage of incisional surgical wound s/p L3-5 decompression with L4-5 fusion Patient seen and examined at bedside. Pain is currently managed at this time. Patient states dressing to lower back has been changed multiple times through the afternoon yesterday and last night. Patient reports feeling some pressure at the surgical site. Mr. Espinosa states that he understands that he may have to go back into the OR to get incision cleaned out again due to drain being pulled out inadvertently and having fluid building up. He denies any nausea/vomiting, fevers/chills, or chest pain. Patient denies any numbness tingling to bilateral lower extremities. Patient is ambulatory in room, tolerating activity well. Objective - Vital Signs Vital signs: Vital Signs Temp 98.4 F 07/02/22 03:05 Pulse 107 H 07/02/22 03:05 Resp 18 07/02/22 03:05 BP 112/64 07/02/22 03:05 Pulse Ox 97 07/02/22 03:05 FiO2 Intake & Output 07/01/22 07/02/22 07/02/22 18:59 06:59 18:59 Intake Total 1490 Balance 1490 Intake: IV 340 Cefepime 2 gm In Sodium 100 Chloride 0.9% 100 ml @ 25 mls/hr IVPB Q8HR [facility] Rx# :[id number] LR 240 Oral 1150 Other: Voiding Method Toilet # Voids 6 - Exam Physical Examination General: The patient is awake and alert, in no acute distress Skin: Skin is warm and dry with no obvious rashes or lesions. Hairy patches absent, no dorsal skin dimples, no cafe au lait spots. Surgical Incision to Lumbar region, dressing is CDI. Eye: Pupils are equal, round and reactive to light, extra-ocular movements are intact; there is normal conjunctiva bilaterally. Neck: The neck is supple, there is no tenderness and ROM intact. Cardiovascular: There is a regular rate and rhythm. No murmur, rub or gallop is appreciated. Respiratory: Lungs are clear to auscultation, respirations are non-labored, breath sounds are equal. Gastrointestinal: Soft, non-distended, non-tender abdomen . Back: There is no tenderness to palpation in the midline, paralumbar, parathoracic or buttocks region. There is no obvious deformity . Musculoskeletal: ROM limited secondary to pain and stiffness from surgical procedure. Shoulder abduction 5/5, elbow flexors 5/5, wrist dorsiflexors 5/5. finger abductor 5/5, legislative director 5/5, hip flexor 4/5, knee flexor 4/5, ankle dorsiflexor 4/5, ankle plantarflexion 4/5 and extensor hallucis 4/5. Neurological: CN 2-12 intact. There are no obvious motor or sensory deficits. Movement and coordination equal and intact. Sensory exam to light touch intact C5-T1 and intact from L2-S1. Reflexes 2/4 in bilateral upper and lower extremities. Negative Hoffmans, babinski, and clonus signs. Psychiatric: Cooperative, appropriate mood & affect, normal judgment. - Labs CBC & Chem 7: 06/30/22 06:25 Labs: Microbiology - Last 24 Hours (Table) 06/29/22 11:00 Anaerobic Culture - Preliminary Back 06/29/22 10:59 Anaerobic Culture - Preliminary Back 06/29/22 10:58 Anaerobic Culture - Preliminary Back 06/29/22 10:57 Anaerobic Culture - Preliminary Back 06/29/22 11:00 Gram Stain - Final Back Tissue Culture - Final Klebsiella pneumoniae 06/29/22 10:59 Gram Stain - Final Back Tissue Culture - Final Klebsiella pneumoniae 06/29/22 10:57 Gram Stain - Final Back Wound Culture - Final Klebsiella pneumoniae 06/29/22 10:58 Gram Stain - Final Back Wound Culture - Final Klebsiella pneumoniae 06/29/22 09:25 Blood Culture - Preliminary Blood No Growth after 48 hours 06/29/22 09:10 Blood Culture - Preliminary Blood No Growth after 48 hours Assessment and Plan Assessment: 51 yo male POD3 Lumbar wound I&D s/p L3-5 decompression with L4-5 fusion Plan: Plan: -Appreciate data integrity consultant and team management. -Activity: Ambulate QID, OOB all meals, up and about, limit lifting bending twisting to less than 5 lbs. Use walker or cane if needed for stability. -Daily PT/OT, increase ambulation strength and balance. -Brace when up and about, not needed in bed or chair -Pain control: Adequate at this time -Meds: reviewed -GI ppx: senna, Miralax -DVT PPX: Heparin -Hygiene: Shower today. Maintain dressing clean and dry. Meticulous cleaning after BMs away from the incision site -Encourage IS 10x/hr -Dispo: Surgical intervention possible for Sunday07/04/22. *I reviewed and discussed this case with my attending Dr. Montero, whom has reviewed this chart and films and is in agreement with assessment and plan of care as outlined above. I have personally seen and examined the patient, performed the documentation and the assessment and plan as written. Number of minutes spent on the visit: 20m.
[2022-07-02 08:04] LABS: African American GFR (CKD) >90 (>60 ml/min/1.73 sqM); Non-African American GFR(CKD) >90 (>60 ml/min/1.73 sqM)
[2022-07-02] MEDS: LACTATED RINGERS 1,000 ML IV SCH (08:33)
[2022-07-02] MEDS: SENNOSIDES-DOCUSATE SODIUM 1 EACH TAB PO SCH (09:17)
[2022-07-02] MEDS: GABAPENTIN 300 MG CAP PO SCH ×3 (09:17→20:36)
[2022-07-02] MEDS: methocarbamoL 750 MG TAB PO SCH ×2 (09:17→19:50)
[2022-07-02] MEDS: PANTOPRAZOLE 40 MG/10 ML VIAL IVP SCH ×2 (09:17→20:35)
[2022-07-02] MEDS: HYDROmorphone 1 MG/ML 1 ML SYRINGE IVP PRN ×3 (09:38→21:13)
--- NOTE | 2022-07-02 10:26 | P.PN ---
Subjective Progress Note Date: 07/01/22 Principal diagnosis: Lumbar surgical site infection Patient is a 51-year-old male who is recently status post lumbar laminectomy and decompression presenting to the hospital with persistent drainage in this patient who is status post extensive debridement and deep cultu res. on today's evaluation that is 07/01/2022, the patient remains to be afebrile, the patient burning pain to the lower back has decreased in intensity , the patient denies having any chest pain or shortness of breath or cough no abdominal pain or diarrhea Objective - Vital Signs Vital signs: Vital Signs Temp 98.0 F 07/01/22 14:00 Pulse 53 L 07/01/22 14:00 Resp 17 07/01/22 14:00 BP 154/64 07/01/22 14:00 Pulse Ox 96 07/01/22 14:00 FiO2 Intake & Output 06/30/22 07/01/22 07/01/22 18:59 06:59 18:59 Output Total 0 Balance 0 Output: Drainage 0 Back 0 Other: Voiding Method Toilet # Voids 4 2 # Bowel Movements 1 - Exam GENERAL DESCRIPTION: Middle-aged male lying in bed in no distress RESPIRATORY SYSTEM: Unlabored breathing , decreased breath sounds at bases HEART: S1 S2 regular rate and rhythm , ABDOMEN: Soft , no tenderness EXTREMITIES: No edema feet - Labs CBC & Chem 7: 07/02/22 07:24 Labs: Microbiology - Last 24 Hours (Table) 06/29/22 09:25 Blood Culture - Preliminary Blood No Growth after 48 hours 06/29/22 09:10 Blood Culture - Preliminary Blood No Growth after 48 hours 06/29/22 11:00 Gram Stain - Preliminary Back Tissue Culture - Preliminary Gram Neg Bacilli 06/29/22 10:59 Gram Stain - Preliminary Back Tissue Culture - Preliminary Gram Neg Bacilli 06/29/22 10:57 Gram Stain - Preliminary Back Wound Culture - Preliminary Gram Neg Bacilli 06/29/22 10:58 Gram Stain - Preliminary Back Wound Culture - Preliminary Gram Neg Bacilli Assessment and Plan (1) Surgical site infection Current Visit: Yes Status: Acute Code(s): T81.49XA - INFECTION FOLLOWING A PROCEDURE, OTHER SURGICAL SITE, INIT SNOMED Code(s): 34694099 Plan: 1patient presented hospital with lumbar surgical site infection in this patient with recent laminectomy and posterior spinal fusion patient is status post I&D and deep cultures which are currently pending patient is failing outpatient oral cefadroxil and Bactrim DS, will need to cover for both gram-positive skin aryan as well as gram-negative pathogen. 2patient blood culture have been negative so far local cultures are currently growing gram-negative with ID sensitivities pending 3we will continue with the cefepime however discontinue the vancomycin Time with Patient: Less than 30
[2022-07-03] MEDS: HYDROmorphone 1 MG/ML 1 ML SYRINGE IVP PRN ×4 (00:20→14:31)
[2022-07-03] MEDS: ACETAMINOPHEN TAB 500 MG TAB PO SCH ×4 (05:34→23:44)
--- NOTE | 2022-07-03 07:27 | P.PN ---
Subjective Progress Note Date: 07/02/22 Principal diagnosis: Lumbar surgical site infection Patient is a 51-year-old male who is recently status post lumbar laminectomy and decompression presenting to the hospital with persistent drainage in this patient who is status post extensive debridement and deep cultu res. on today's evaluation that is 07/02/2022, the patient denies any fever or any chills, the patient pain to the lower back has decreased in intensity , the patient denies having any chest pain or shortness of breath or cough no abdominal pain or diarrhea, patient drainage catheter to the lumbar incision has fell off yesterday Objective - Vital Signs Vital signs: Vital Signs Temp 98.4 F 07/02/22 07:53 Pulse 59 L 07/02/22 07:53 Resp 18 07/02/22 08:00 BP 122/71 07/02/22 07:53 Pulse Ox 97 07/02/22 07:53 FiO2 Intake & Output 07/01/22 07/02/22 07/02/22 18:59 06:59 18:59 Intake Total 1490 Balance 1490 Intake: IV 340 Cefepime 2 gm In Sodium 100 Chloride 0.9% 100 ml @ 25 mls/hr IVPB Q8HR [facility] Rx# :[id number] LR 240 Oral 1150 Other: Voiding Method Toilet Toilet # Voids 6 - Exam GENERAL DESCRIPTION: Middle-aged male lying in bed in no distress RESPIRATORY SYSTEM: Unlabored breathing , decreased breath sounds at bases HEART: S1 S2 regular rate and rhythm , ABDOMEN: Soft , no tenderness EXTREMITIES: No edema feet - Labs CBC & Chem 7: 07/02/22 07:24 Labs: Microbiology - Last 24 Hours (Table) 06/29/22 11:00 Anaerobic Culture - Preliminary Back 06/29/22 10:59 Anaerobic Culture - Preliminary Back 06/29/22 10:58 Anaerobic Culture - Preliminary Back 06/29/22 10:57 Anaerobic Culture - Preliminary Back 06/29/22 11:00 Gram Stain - Final Back Tissue Culture - Final Klebsiella pneumoniae 06/29/22 10:59 Gram Stain - Final Back Tissue Culture - Final Klebsiella pneumoniae 06/29/22 10:57 Gram Stain - Final Back Wound Culture - Final Klebsiella pneumoniae 06/29/22 10:58 Gram Stain - Final Back Wound Culture - Final Klebsiella pneumoniae 06/29/22 09:25 Blood Culture - Preliminary Blood No Growth after 48 hours 06/29/22 09:10 Blood Culture - Preliminary Blood No Growth after 48 hours Assessment and Plan (1) Surgical site infection Current Visit: Yes Status: Acute Code(s): T81.49XA - INFECTION FOLLOWING A PROCEDURE, OTHER SURGICAL SITE, INIT SNOMED Code(s): 90356250 Plan: 1patient presented hospital with lumbar surgical site infection in this patient with recent laminectomy and posterior spinal fusion patient is status post I&D and deep cultures which are currently pending patient is failing outpatient oral cefadroxil and Bactrim DS, will need to cover for both gram-positive skin aryan as well as gram-negative pathogen. 2patient blood culture have been negative so far local cultures Klebsiella 3patient to continue with the cefepime and monitor clinical course closely Time with Patient: Less than 30
--- NOTE | 2022-07-03 08:18 | P.PN ---
Subjective Progress Note Date: 07/03/22 Principal diagnosis: Incision and drainage of incisional surgical wound s/p L3-5 decompression with L4-5 fusion Patient seen and examined at bedside. Pain is currently managed at this time. Drainage from incision site had decreased. Dressing is CDI. Patient reports feeling some pressure at the surgical site. Explained that we are awaiting cultures. He denies any nausea/vomiting, fevers/chills, or chest pain. Patient denies any numbness tingling to bilateral lower extremities. Patient is ambulatory in room, tolerating activity well. Objective - Vital Signs Vital signs: Vital Signs Temp 98.2 F 07/03/22 08:00 Pulse 98 07/03/22 08:00 Resp 17 07/03/22 08:00 BP 128/72 07/03/22 08:00 Pulse Ox 96 07/03/22 08:00 FiO2 Intake & Output 07/02/22 07/03/22 07/03/22 18:59 06:59 18:59 Intake Total 1140 880 Balance 1140 880 Intake: IV 340 340 Cefepime 2 gm In Sodium 100 100 Chloride 0.9% 100 ml @ 25 mls/hr IVPB Q8HR [facility] Rx# :[id number] LR 240 240 Oral 800 540 Other: Voiding Method Toilet Toilet # Voids 2 - Exam Physical Examination General: The patient is awake and alert, in no acute distress Skin: Skin is warm and dry with no obvious rashes or lesions. Hairy patches absent, no dorsal skin dimples, no cafe au lait spots. Surgical Incision to Lumbar region, dressing is CDI. Eye: Pupils are equal, round and reactive to light, extra-ocular movements are intact; there is normal conjunctiva bilaterally. Neck: The neck is supple, there is no tenderness and ROM intact. Cardiovascular: There is a regular rate and rhythm. No murmur, rub or gallop is appreciated. Respiratory: Lungs are clear to auscultation, respirations are non-labored, breath sounds are equal. Gastrointestinal: Soft, non-distended, non-tender abdomen . Back: There is no tenderness to palpation in the midline, paralumbar, parathor acic or buttocks region. There is no obvious deformity . Musculoskeletal: ROM limited secondary to pain and stiffness from surgical procedure. Shoulder abduction 5/5, elbow flexors 5/5, wrist dorsiflexors 5/5. finger abductor 5/5, inking machine tender 5/5, hip flexor 4/5, knee flexor 4/5, ankle dorsiflexor 4/5, ankle plantarflexion 4/5 and extensor hallucis 4/5. Neurological: CN 2-12 intact. There are no obvious motor or sensory deficits. Movement and coordination equal and intact. Sensory exam to light touch intact C5-T1 and intact from L2-S1. Reflexes 2/4 in bilateral upper and lower extremities. Negative Hoffmans, babinski, and clonus signs. Psychiatric: Cooperative, appropriate mood & affect, normal judgment. - Labs CBC & Chem 7: 07/02/22 07:24 Labs: Microbiology - Last 24 Hours (Table) 06/29/22 09:10 Blood Culture - Preliminary Blood No Growth after 72 hours 06/29/22 09:25 Blood Culture - Preliminary Blood No Growth after 72 hours Assessment and Plan Assessment: 51 yo male POD4 Lumbar wound I&D s/p L3-5 decompression with L4-5 fusion Plan: Plan: -Appreciate applications sales consultant and team management. -Activity: Ambulate QID, OOB all meals, up and about, limit lifting bending twisting to less than 5 lbs. Use walker or cane if needed for stability. -Daily PT/OT, increase ambulation strength and balance. -Brace when up and about, not needed in bed or chair -Pain control: Adequate at this time -Meds: reviewed -GI ppx: senna, Miralax -DVT PPX: Heparin -Hygiene: Shower today. Maintain dressing clean and dry. Meticulous cleaning after BMs away from the incision site -Encourage IS 10x/hr -Dispo: Surgical intervention possible for Sunday07/04/22, awaiting cultures. *I reviewed and discussed this case with my attending Dr. Montero, whom has reviewed this chart and films and is in agreement with assessment and plan of care as outlined above. I have personally seen and examined the patient, performed the documentation and the assessment and plan as written. Number of minutes spent on the visit: 20m.
[2022-07-03] MEDS: methocarbamoL 750 MG TAB PO SCH ×2 (08:34→20:29)
[2022-07-03] MEDS: CEFEPIME 2 GM in SODIUM CHLORIDE 0.9% 100 ML IVPB SCH ×3 (08:36→23:44)
[2022-07-03] MEDS: SENNOSIDES-DOCUSATE SODIUM 1 EACH TAB PO SCH (08:36)
[2022-07-03] MEDS: GABAPENTIN 300 MG CAP PO SCH ×3 (08:36→20:29)
[2022-07-03] MEDS: LACTATED RINGERS 1,000 ML IV SCH (10:41)
[2022-07-03] MEDS: PANTOPRAZOLE 40 MG/10 ML VIAL IVP SCH ×2 (11:57→20:29)
--- NOTE | 2022-07-03 14:38 | P.PN ---
Subjective Progress Note Date: 07/03/22 Patient is a 51-year-old male with a known history of hypertension, GERD, obstructive sleep apnea on CPAP and recent history of L4-L5 fusion surgery on May 16, 2022 was admitted to the hospital due to wound dehiscencePatient had laminectomy and fusion on 05/16/2022. Patient was found to have continued discharge from the wound on follow-up visit to the office. Patient was given antibiotic course with cefadroxil and Bactrim DS but continues to have serous drainage and the skin is getting irritated around the incision. Patient has been afebrile. Patient was admitted to the hospital for I&D. Patient is status post I&D of lumbar wound, admits Excisional debridement of skin and placement of antibiotic beads. Patient tolerated procedure very well. Patient has been tachycardic with heart rate in 120s. Initial EKG showed sinus tachycardia with PACs. Blood sugar was 216.. 06/30/2022 Patient is postoperative day 1. Resting in bed comfortably. Awake alert and oriented x3. Pain is fairly con trolled. Denies any complaints of nausea or vomiting. Heart rate did improve. No nausea vomiting or abdominal pain or diarrhea. No headache or dizziness lightheadedness. Laboratory data showed sodium 138 potassium 4.8 chloride 100 bicarb is 27.2 BUN 18.9 and creatinine 1.0 A1c level is 6.2 TSH 0.212 and free T4 0.740, likely due to sick euthyroid. Recommend follow-up in 6 weeks. Patient is seen and evaluated in follow-up this morning being closely monitored with orthopedics following. Patient is continued on IV antibiotics in the form of cefepime with infectious disease following as well and patient is status post debridement of the recent L3-5 decompression fusion surgery site. Patient reports the drain had fallen out and patient is having increasing pain and swelling noted at the site and plan is for possible repeat I&D with orthopedics in the morning. Patient is also to receive a PICC line although current provider unavailable at this time doing to being out sick and will obtain a PICC line once available. Case management/social work following arranging for o utpatient IV antibiotics. Patient denies chest pain or shortness of breath. Patient is afebrile and denies palpitations. Patient is tolerating diet with no reports of nausea or vomiting noted. Culture showing Klebsiella pneumonia. Recommend repeat cultures if patient is undergoing another debridement. Encouraged increase activity as tolerated with restrictions per orthopedics and will also add incentive spirometer and encourage the patient to use at least 10 times every hour while awake. Commend repeat labs in a.m. Review of systems: Constitutional: No reports of fatigue, fever, or chills Cardiovascular: No reports of chest pain or palpitations Respiratory: No reports of shortness of breath or cough GI: No reports of nausea, vomiting, or diarrhea : No reports of dysuria or retention Neurovascular: reports of generalized weakness increased pain and swelling at the surgical site All medications have been reviewed Active Medications Acetaminophen (Acetaminophen Tab 500 Mg Tab) 1,000 mg PO Q6HR [facility] Stop: 07/29/22 18:01 Last Admin: 07/03/22 12:37 Dose: 1,000 mg Bisacodyl (Bisacodyl 10 Mg Supp) 10 mg RECTAL DAILY PRN PRN Reason: Constipation Stop: 07/29/22 12:58 Gabapentin (Gabapentin 300 Mg Cap) 300 mg PO TID [facility] Stop: 07/29/22 16:01 Last Admin: 07/03/22 08:36 Dose: 300 mg Hydromorphone HCl (Hydromorphone 0.5 Mg/0.5 Ml Syringe) 0.5 mg IVP Q3HR PRN PRN Reason: Pain Scale 4 - 6 Stop: 07/29/22 12:58 Last Admin: 07/01/22 15:33 Dose: 0.5 mg Hydromorphone HCl (Hydromorphone 1 Mg/Ml 1 Ml Syringe) 1 mg IVP Q3HR PRN PRN Reason: Pain Scale of 7 - 10 Stop: 07/29/22 12:58 Last Admin: 07/03/22 14:31 Dose: 1 mg Lactated Ringer's (Lactated Ringers) 1,000 mls @ 20 mls/hr IV .Q24H [facility] Stop: 07/29/22 06:46 Last Admin: 07/03/22 10:41 Dose: 20 mls/hr Cefepime HCl 2 gm/ Sodium (Chloride) 100 mls @ 25 mls/hr IVPB Q8HR [facility]; Protocol Last Admin: 07/03/22 08:36 Dose: 25 mls/hr Lidocaine HCl (Lidocaine 1% (10mg/Ml) For Iv Start) 0.1 ml INTRADERMA PER PROTOCOL PRN PRN Reason: IV Start Stop: 07/29/22 06:46 Magnesium Hydroxide (Magnesium Hydroxide 2,400 Mg/10 Ml Cup) 2,400 mg PO DAILY PRN PRN Reason: Constipation Stop: 07/29/22 12:58 Last Admin: 07/01/22 15:34 Dose: 2,400 mg Methocarbamol (Methocarbamol 750 Mg Tab) 750 mg PO BID [facility] Stop: 07/29/22 21:01 Last Admin: 07/03/22 08:34 Dose: 750 mg Oxycodone HCl (Oxycodone Hcl 5 Mg Tab) 5 mg PO Q4HR [facility] Stop: 07/29/22 16:01 Last Admin: 07/03/22 12:38 Dose: 5 mg Oxycodone HCl (Oxycodone Hcl 5 Mg Tab) 10 mg PO Q4HR [facility] Stop: 07/29/22 16:01 Last Admin: 07/03/22 12:38 Dose: 10 mg Pantoprazole Sodium (Pantoprazole 40 Mg/10 Ml Vial) 40 mg IVP BID [facility] Last Admin: 07/03/22 11:57 Dose: Not Given Senna/Docusate Sodium (Sennosides-Docusate Sodium 1 Each Tab) 2 each PO DAILY [facility] Stop: 07/30/22 09:01 Last Admin: 07/03/22 08:36 Dose: 2 each Sodium Biphosphate/Sodium Phosphate (Na Phos,M-B/Na Phos,Di-Ba 133 Ml Enema) 133 ml RECTAL DAILY PRN PRN Reason: Constipation Stop: 07/29/22 12:58 PHYSICAL EXAMINATION: Patient is lying in the bed comfortably, no acute distress, awake alert and oriented.. HEENT: Normocephalic. Neck is supple. Pupils reactive. Nostrils clear. Oral cavity is moist. Neck reveals no JVD, carotid bruits, or thyromegaly. CHEST EXAMINATION: Trachea is central. Symmetrical expansion. Lung berumen clear to auscultation and percussion. CARDIAC: Normal S1, S2 with no gallops. No murmurs ABDOMEN: Soft. Bowel sounds present. Nontender. No organomegaly. No abdominal bruits. Extremities: reveal no edema. No clubbing or cyanosis Neurologically awake, alert, oriented x3 with well-coordinated movements. No focal deficits noted Skin: No rash or skin lesions. Psychiatric: Cooperative. Non-suicidal, anxious. Musculoskeletal: No joint swelling or deformity. Lumbar surgical wound is bandaged. Assessment: Status post I&D of lumbar wound, debridement and antibiotic bead placement. Sinus tachycardia with PACs. improving History of L3 L5 laminectomy with L4-L5 fusion on 05/16/2022. Obstructive sleep apnea on CPAP at home Hypertension GERD Previous history of smoking DVT prophylaxis SCDs. Full code Plan: Patient will be continued on pain management with Dilaudid, oxycodone and Robaxin and also on gabapentin. Continue bowel regimen and incentive spirometry. Encouraged increased incentive spirometer use at least 10 times every hour while awake Patient was started on metoprolol 12.5 mg due to sinus tachycardia and continued telemetry monitoring. Tachycardia is improving. Metoprolol has been discontinued and recommend telemetry monitoring Patient is continued on IV cefepime with infectious disease following an culture showing Klebsiella pneumonia and patient is scheduled to receive a PICC line when staff is available to place the line. Patient reports he is having increase pain and drainage noted at the site and plan is for possible another incision and drainage with orthopedics tomorrow. Recommend deep tissue cultures to be obtained during surgery Recommend repeat labs in a.m. We will continue to follow with orthopedics during this hospitalization. Thank you for this consultation. The impression and plan of care has been dictated by Nurse Venkata Cloud as directed. Dr. Maxine MD I have performed a history and examination and MDM of this patient, discussed the same with the dictator, and agree with the dictator's assessment and plan a s written ,documented as a scribe. Based on total visit time, I have performed more than 50% of the visit. Objective - Vital Signs Vital signs: Vital Signs Temp 98.2 F 07/03/22 08:00 Pulse 98 07/03/22 08:00 Resp 17 07/03/22 08:00 BP 128/72 07/03/22 08:00 Pulse Ox 96 07/03/22 08:00 FiO2 Intake & Output 07/02/22 07/03/22 07/03/22 18:59 06:59 18:59 Intake Total 1140 880 120 Balance 1140 880 120 Intake: IV 340 340 Cefepime 2 gm In Sodium 100 100 Chloride 0.9% 100 ml @ 25 mls/hr IVPB Q8HR [facility] Rx# :[id number] LR 240 240 Oral 800 540 120 Other: Voiding Method Toilet Toilet # Voids 2 - Labs CBC & Chem 7: 07/02/22 07:24 Labs: Microbiology - Last 24 Hours (Table) 06/29/22 09:10 Blood Culture - Preliminary Blood No Growth after 72 hours 06/29/22 09:25 Blood Culture - Preliminary Blood No Growth after 72 hours
[2022-07-03 18:43] LABS: Basophils # (A) 0.02 X 10*3/uL (0.00-0.10); Basophils % (A) 0.4 %; Eosinophils % (A) 6.4 %; HCT 27.7 % (39.6-50.0); Immature Grans, Automated 0.4 %; Lymphocytes # (A) 1.21 X 10*3/uL (0.90-5.00); Lymphocytes % (A) 25.7 %; MCH 26.3 pg (27.0-32.0); MCHC 32.5 g/dL (32.0-37.0); Monocytes # (A) 0.36 X 10*3/uL (0.20-1.00); Monocytes % (A) 7.6 %; NRBC Per 100 WBC 0 /100 WBCS (0.0-0.0); Neutrophils % (A) 59.5 %; Platelet Count 279 X 10*3/uL (140-440); RBC 3.42 X 10*6/uL (4.40-5.60); RDW 14.2 % (11.5-14.5); WBC 4.71 X 10*3/uL (4.50-10.00)
[2022-07-03] MEDS: HYDROmorphone 0.5 MG/0.5 ML SYRINGE IVP PRN (21:40)
[2022-07-04] MEDS: HYDROmorphone 1 MG/ML 1 ML SYRINGE IVP PRN ×4 (02:10→20:53)
[2022-07-04] MEDS: ACETAMINOPHEN TAB 500 MG TAB PO SCH ×3 (05:55→17:23)
[2022-07-04] MEDS: LACTATED RINGERS 1,000 ML IV SCH (05:56)
[2022-07-04 07:33] LABS: Basophils % (A) 1 %; Eosinophils # (A) 0.2 k/uL (0-0.7); Eosinophils % (A) 5 %; HCT 27.2 % (39.0-53.0); Hypochromasia Slight; Lymphocytes % (A) 22 %; MCH 26.7 pg (25.0-35.0); MCV 80.8 fL (80.0-100.0); Mean Platelet Volume 6.8; Monocytes # (A) 0.2 k/uL (0-1.0); Monocytes % (A) 5 %; Neutrophils # (A) 2.9 k/uL (1.3-7.7); Neutrophils % (A) 64 %; Platelet Count 289 k/uL (150-450); Poikilocytosis Moderate; RBC 3.36 m/uL (4.30-5.90); RDW 15.3 % (11.5-15.5); WBC 4.5 k/uL (3.8-10.6)
[2022-07-04] MEDS: PANTOPRAZOLE 40 MG/10 ML VIAL IVP SCH ×2 (08:03→21:11)
[2022-07-04] MEDS: SENNOSIDES-DOCUSATE SODIUM 1 EACH TAB PO SCH (08:04)
[2022-07-04] MEDS: methocarbamoL 750 MG TAB PO SCH ×2 (08:04→20:07)
[2022-07-04] MEDS: GABAPENTIN 300 MG CAP PO SCH ×3 (08:05→22:28)
[2022-07-04] MEDS: CEFEPIME 2 GM in SODIUM CHLORIDE 0.9% 100 ML IVPB SCH (08:05)
--- NOTE | 2022-07-04 08:06 | P.PN ---
Subjective Progress Note Date: 07/03/22 Principal diagnosis: Lumbar surgical site infection Patient is a 51-year-old male who is recently status post lumbar laminectomy and decompression presenting to the hospital with persistent drainage in this patient who is status post extensive debridement and deep cultu res. on today's evaluation that is 07/03/2022, the patient remains to be afebrile, the patient pain to the lower back is currently controlled however has been complaining of some pressure-like feeling as the patient drainage to get fell off , the patient denies having any chest pain or shortness of breath or cough no abdominal pain or diarrhea, Objective - Vital Signs Vital signs: Vital Signs Temp 98.2 F 07/03/22 08:00 Pulse 98 07/03/22 08:00 Resp 17 07/03/22 08:00 BP 128/72 07/03/22 08:00 Pulse Ox 96 07/03/22 08:00 FiO2 Intake & Output 07/02/22 07/03/22 07/03/22 18:59 06:59 18:59 Intake Total 1140 880 120 Balance 1140 880 120 Intake: IV 340 340 Cefepime 2 gm In Sodium 100 100 Chloride 0.9% 100 ml @ 25 mls/hr IVPB Q8HR [facility] Rx# :[id number] LR 240 240 Oral 800 540 120 Other: Voiding Method Toilet Toilet # Voids 2 - Exam GENERAL DESCRIPTION: Middle-aged male lying in bed in no distress RESPIRATORY SYSTEM: Unlabored breathing , decreased breath sounds at bases HEART: S1 S2 regular rate and rhythm , ABDOMEN: Soft , no tenderness EXTREMITIES: No edema feet - Labs CBC & Chem 7: 07/04/22 07:00 07/02/22 07:24 Labs: Microbiology - Last 24 Hours (Table) 06/29/22 09:25 Blood Culture - Preliminary Blood No Growth after 96 hours 06/29/22 09:10 Blood Culture - Preliminary Blood No Growth after 96 hours Assessment and Plan (1) Surgical site infection Current Visit: Yes Status: Acute Code(s): T81.49XA - INFECTION FOLLOWING A PROCEDURE, OTHER SURGICAL SITE, INIT SNOMED Code(s): 92689621 Plan: 1patient presented hospital with lumbar surgical site infection in this patient with recent laminectomy and posterior spinal fusion patient is status post I&D and deep cultures which are currently growing Klebsiella 2patient blood culture have been negative 3patient to continue with the cefepime plan is for PICC line and outpatient IV Rocephin on discharge Time with Patient: Less than 30
[2022-07-04 08:29] LABS: African American GFR (CKD) >90 (>60 ml/min/1.73 sqM); Anion Gap 8 mmol/L; Blood Urea Nitrogen 10 mg/dL (9-20); Calcium 8.3 mg/dL (8.4-10.2); Carbon Dioxide 26 mmol/L (22-30); Chloride 104 mmol/L (98-107); Glucose 127 mg/dL (74-99); Non-African American GFR(CKD) >90 (>60 ml/min/1.73 sqM); Potassium 4.2 mmol/L (3.5-5.1); Sodium 138 mmol/L (137-145)
--- NOTE | 2022-07-04 12:47 | P.PN ---
Subjective Progress Note Date: 07/04/22 Principal diagnosis: Incision and drainage of incisional surgical wound s/p L3-5 decompression with L4-5 fusion Patient seen and examined at bedside. Pain is currently managed at this time. Drainage from incision site had decreased. Dressing is CDI. Informed patient that he his on the list to obtain PICC line today, he can be discharged after this is performed and treatment is setup for home with homecare. Pt verbalizes understanding. He denies any nausea/vomiting, fevers/chills, or chest pain. Patient denies any numbness tingling to bilateral lower extremities. Patient is ambulatory in room, tolerating activity well. Objective - Vital Signs Vital signs: Vital Signs Temp 98.6 F 07/04/22 07:55 Pulse 89 07/04/22 07:55 Resp 17 07/04/22 07:55 BP 148/82 07/04/22 07:55 Pulse Ox 97 07/04/22 07:55 FiO2 Intake & Output 07/03/22 07/04/22 07/04/22 18:59 06:59 18:59 Intake Total 600 120 Balance 600 120 Intake: Oral 600 120 Other: # Voids 5 2 - Exam Physical Examination General: The patient is awake and alert, in no acute distress Skin: Skin is warm and dry with no obvious rashes or lesions. Hairy patches absent, no dorsal skin dimples, no cafe au lait spots. Surgical Incision to Lumbar region, dressing is CDI. Eye: Pupils are equal, round and reactive to light, extra-ocular movements are intact; there is normal conjunctiva bilaterally. Neck: The neck is supple, there is no tenderness and ROM intact. Cardiovascular: There is a regular rate and rhythm. No murmur, rub or gallop is appreciated. Respiratory: Lungs are clear to auscultation, respirations are non-labored, breath sounds are equal. Gastrointestinal: Soft, non-distended, non-tender abdomen . Back: There is no tenderness to palpation in the midline, paralumbar, parathoracic or buttocks region. There is no obvious deformity . Musculoskeletal: ROM limited secondary to pain and stiffness from surgical procedure. Shoulder abduction 5/5, elbow flexors 5/5, wrist dorsiflexors 5/5. finger abductor 5/5, sex offender treatment professional 5/5, hip flexor 4/5, knee flexor 4/5, ankle dorsiflexor 4/5, ankle plantarflexion 4/5 and extensor hallucis 4/5. Neurological: CN 2-12 intact. There are no obvious motor or sensory deficits. Movement and coordination equal and intact. Sensory exam to light touch intact C5-T1 and intact from L2-S1. Reflexes 2/4 in bilateral upper and lower extremities. Negative Hoffmans, babinski, and clonus signs. Psychiatric: Cooperative, appropriate mood & affect, normal judgment. - Labs CBC & Chem 7: 07/04/22 07:00 07/04/22 07:00 Labs: Abnormal Lab Results - Last 24 Hours (Table) 07/03/22 07/04/22 07/04/22 Range/Units 14:26 07:00 07:00 RBC 3.42 L 3.36 L (4.40-5.60) X 10*6/uL Hgb 9.0 L 9.0 L D (13.0-17.0) g/dL Hct 27.7 L 27.2 L (39.6-50.0) % MCH 26.3 L (27.0-32.0) pg MPV 9.0 L (9.5-12.2) fL Glucose 127 H (74-99) mg/dL Calcium 8.3 L (8.4-10.2) mg/dL Microbiology - Last 24 Hours (Table) 06/29/22 09:25 Blood Culture - Preliminary Blood No Growth after 120 hours 06/29/22 09:10 Blood Culture - Preliminary Blood No Growth after 120 hours 06/29/22 10:58 Anaerobic Culture - Final Back 06/29/22 11:00 Anaerobic Culture - Final Back 06/29/22 10:57 Anaerobic Culture - Final Back 06/29/22 10:59 Anaerobic Culture - Final Back Assessment and Plan Assessment: 51 yo male POD5 Lumbar wound I&D s/p L3-5 decompression with L4-5 fusion Plan: Plan: -Appreciate business info consultant and team management. -Activity: Ambulate QID, OOB all meals, up and about, limit lifting bending twisting to less than 5 lbs. Use walker or cane if needed for stability. -Daily PT/OT, increase ambulation strength and balance. -Brace when up and about, not needed in bed or chair -Pain control: Adequate at this time -Meds: reviewed -GI ppx: senna, Miralax -DVT PPX: Heparin -Hygiene: Shower today. Maintain dressing clean and dry. Meticulous cleaning after BMs away from the incision site -Encourage IS 10x/hr -Dispo: Patient to be discharged once he obtains PICC line and IV abx scheduled for home with homecare. *I reviewed and discussed this case with my attending Dr. Montero, whom has reviewed this chart and films and is in agreement with assessment and plan of care as outlined above. I have personally seen and examined the patient, performed the documentation and the assessment and plan as written. Number of minutes spent on the visit: 20m.
[2022-07-04] MEDS ORDERED: LIDOCAINE 1% INJ 10MG/ML (5 ML VIAL-PF) SQ ONE (14:21)
--- NOTE | 2022-07-04 15:58 | IR ---
PICC LINE PLACEMENT: HISTORY: Infection requiring long-term antibiotic therapy PROCEDURE: Ultrasound and fluoroscopic guidance of PICC line placement. COMPLICATIONS: None ANESTHESIA: 1. 1% Lidocaine locally. FINDINGS/TECHNIQUE: The procedure was explained to the patient. The risks, complications, benefits and alternatives were discussed and any questions were answered. Informed consent was obtained. The patient was placed supine on the fluoroscopic table and prepped and draped in the usual sterile fash ion. Utilizing a 21 gauge needle and sonographic and fluoroscopic guidance, access in the right bas ilic vein was achieved and there is placement of a 0.018 guidewire. The vein is patent. A 4-F sheat h was placed over the guidewire. The guidewire and dilator were removed and a 4-F. PICC line was arcenio edwige through the sheath with the tip at the level of the SVC. The sheath was removed, the catheter wa s flushed and sutured into position. The patient was stable throughout the procedure and remained st able upon discharge from the Department of Radiology. The vein puncture was patent under ultrasound. A palomo scale image was obtained to document patency of the vein punctured. All elements of the maximal barrier technique were utilized. FLUOROSCOPY TIME: 0.1 minutes and 1 images submitted IMPRESSION: Successful PICC line placement under ultrasound and fluoroscopic guidance.
--- NOTE | 2022-07-04 18:45 | P.PN ---
Subjective Progress Note Date: 07/04/22 Patient is a 51-year-old male with a known history of hypertension, GERD, obstructive sleep apnea on CPAP and recent history of L4-L5 fusion surgery on May 16, 2022 was admitted to the hospital due to wound dehiscencePatient had laminectomy and fusion on 05/16/2022. Patient was found to have continued discharge from the wound on follow-up visit to the office. Patient was given antibiotic course with cefadroxil and Bactrim DS but continues to have serous drainage and the skin is getting irritated around the incision. Patient has been afebrile. Patient was admitted to the hospital for I&D. Patient is status post I&D of lumbar wound, admits Excisional debridement of skin and placement of antibiotic beads. Patient tolerated procedure very well. Patient has been tachycardic with heart rate in 120s. Initial EKG showed sinus tachycardia with PACs. Blood sugar was 216.. 06/30/2022 Patient is postoperative day 1. Resting in bed comfortably. Awake alert and oriented x3. Pain is fairly con trolled. Denies any complaints of nausea or vomiting. Heart rate did improve. No nausea vomiting or abdominal pain or diarrhea. No headache or dizziness lightheadedness. Laboratory data showed sodium 138 potassium 4.8 chloride 100 bicarb is 27.2 BUN 18.9 and creatinine 1.0 A1c level is 6.2 TSH 0.212 and free T4 0.740, likely due to sick euthyroid. Recommend follow-up in 6 weeks. Patient is seen and evaluated in follow-up this morning being closely monitored with orthopedics following. Patient is continued on IV antibiotics in the form of cefepime with infectious disease following as well and patient is status post debridement of the recent L3-5 decompression fusion surgery site. Patient reports the drain had fallen out and patient is having increasing pain and swelling noted at the site and plan is for possible repeat I&D with orthopedics in the morning. Patient is also to receive a PICC line although current provider unavailable at this time doing to being out sick and will obtain a PICC line once available. Case management/social work following arranging for o utpatient IV antibiotics. Patient denies chest pain or shortness of breath. Patient is afebrile and denies palpitations. Patient is tolerating diet with no reports of nausea or vomiting noted. Culture showing Klebsiella pneumonia. Recommend repeat cultures if patient is undergoing another debridement. Encouraged increase activity as tolerated with restrictions per orthopedics and will also add incentive spirometer and encourage the patient to use at least 10 times every hour while awake. reCommend repeat labs in a.m. 07/04/2022 Patient is seen today and no further plans for surgical intervention per orthopedics and patient is to receive a PICC line and will have IV abx in the outpatient setting. Patient is continued on IV abx in the form of Ceftriaxone and will continue this in the outpatient setting with home care being arranged. Patient is afebrile and denies chest pain or palpitations. Patient denies nausea or vomiting and is tolerating diet. Review of systems: Constitutional: No reports of fatigue, fever, or chills Cardiovascular: No reports of chest pain or palpitations Respiratory: No reports of shortness of breath or cough GI: No reports of nausea, vomiting, or diarrhea : No reports of dysuria or retention Neurovascular: reports of generalized weakness, continued pain and swelling at the surgical site All medications have been reviewed Active Medications Acetaminophen (Acetaminophen Tab 500 Mg Tab) 1,000 mg PO Q6HR [facility] Stop: 07/29/22 18:01 Last Admin: 07/04/22 17:23 Dose: 1,000 mg Bisacodyl (Bisacodyl 10 Mg Supp) 10 mg RECTAL DAILY PRN PRN Reason: Constipation Stop: 07/29/22 12:58 Gabapentin (Gabapentin 300 Mg Cap) 300 mg PO TID [facility] Stop: 07/29/22 16:01 Last Admin: 07/04/22 17:21 Dose: 300 mg Hydromorphone HCl (Hydromorphone 0.5 Mg/0.5 Ml Syringe) 0.5 mg IVP Q3HR PRN PRN Reason: Pain Scale 4 - 6 Stop: 07/29/22 12:58 Last Admin: 07/03/22 21:40 Dose: 0.5 mg Hydromorphone HCl (Hydromorphone 1 Mg/Ml 1 Ml Syringe) 1 mg IVP Q3HR PRN PRN Reason: Pain Scale of 7 - 10 Stop: 07/29/22 12:58 Last Admin: 07/04/22 16:48 Dose: 1 mg Lactated Ringer's (Lactated Ringers) 1,000 mls @ 20 mls/hr IV .Q24H [facility] Stop: 07/29/22 06:46 Last Admin: 07/04/22 05:56 Dose: 20 mls/hr Ceftriaxone Sodium 2 gm/ (Sodium Chloride) 50 mls @ 100 mls/hr IVPB Q24HR [facility]; Protocol Last Admin: 07/04/22 15:19 Dose: 100 mls/hr Lidocaine HCl (Lidocaine 1% (10mg/Ml) For Iv Start) 0.1 ml INTRADERMA PER PROTOCOL PRN PRN Reason: IV Start Stop: 07/29/22 06:46 Magnesium Hydroxide (Magnesium Hydroxide 2,400 Mg/10 Ml Cup) 2,400 mg PO DAILY PRN PRN Reason: Constipation Stop: 07/29/22 12:58 Last Admin: 07/01/22 15:34 Dose: 2,400 mg Methocarbamol (Methocarbamol 750 Mg Tab) 750 mg PO BID [facility] Stop: 07/29/22 21:01 Last Admin: 07/04/22 08:04 Dose: 750 mg Oxycodone HCl (Oxycodone Hcl 5 Mg Tab) 5 mg PO Q4HR [facility] Stop: 07/29/22 16:01 Last Admin: 07/04/22 17:21 Dose: 5 mg Oxycodone HCl (Oxycodone Hcl 5 Mg Tab) 10 mg PO Q4HR [facility] Stop: 07/29/22 16:01 Last Admin: 07/04/22 17:23 Dose: 10 mg Pantoprazole Sodium (Pantoprazole 40 Mg/10 Ml Vial) 40 mg IVP BID [facility] Last Admin: 07/04/22 08:03 Dose: 40 mg Senna/Docusate Sodium (Sennosides-Docusate Sodium 1 Each Tab) 2 each PO DAILY [facility] Stop: 07/30/22 09:01 Last Admin: 07/04/22 08:04 Dose: 2 each Sodium Biphosphate/Sodium Phosphate (Na Phos,M-B/Na Phos,Di-Ba 133 Ml Enema) 133 ml RECTAL DAILY PRN PRN Reason: Constipation Stop: 07/29/22 12:58 PHYSICAL EXAMINATION: Patient is lying in the bed comfortably, no acute distress, awake alert and oriented.. HEENT: Normocephalic. Neck is supple. Pupils reactive. Nostrils clear. Oral cavi ty is moist. Neck reveals no JVD, carotid bruits, or thyromegaly. CHEST EXAMINATION: Trachea is central. Symmetrical expansion. Lung berumen clear to auscultation and percussion. CARDIAC: Normal S1, S2 with no gallops. No murmurs ABDOMEN: Soft. Bowel sounds present. Nontender. No organomegaly. No abdominal bruits. Extremities: reveal no edema. No clubbing or cyanosis Neurologically awake, alert, oriented x3 with well-coordinated movements. No focal deficits noted Skin: No rash or skin lesions. Psychiatric: Cooperative. Non-suicidal, anxious. Musculoskeletal: No joint swelling or deformity. Lumbar surgical wound is bandagedn with minimal drainage and swelling noted. Assessment: Status post I&D of lumbar wound, debridement and antibiotic bead placement. Sinus tachycardia with PACs. improved History of L3 L5 laminectomy with L4-L5 fusion on 05/16/2022. Obstructive sleep apnea on CPAP at home Hypertension GERD Previous history of smoking DVT prophylaxis SCDs. Full code Plan: Patient will be continued on pain management per orthopedic services. Continue bowel regimen and incentive spirometry. Encouraged increased incentive spirometer use at least 10 times every hour while awake Patient is continued on IV cefepime with infectious disease following and culture showing Klebsiella pneumonia and patient is scheduled to receive a PICC line sometime today. IV abx will be transitioned to ceftriaxone and social work following and arranging for IV abx and home care in the outpatient setting Per orthopedics, no plans for I&D again at this time. Patient is medically stable and is to be discharged per ortho once PICC is placed and IV abx are arranged. Probable discharge in 24 hours. We will continue to follow with orthopedics during this hospitalization. Thank you for this consultation. The impression and plan of care has been dictated by Peggy Salgado, Nurse Practitioner as directed. Dr. Maxine MD I have performed a history and examination and MDM of this patient, discussed the same with the dictator, and agree with the dictator's assessment and plan as written ,documented as a scribe. Based on total visit time, I have performed more than 50% of the visit. Objective - Vital Signs Vital signs: Vital Signs Temp 98.6 F 07/04/22 07:55 Pulse 89 07/04/22 07:55 Resp 17 07/04/22 07:55 BP 148/82 07/04/22 07:55 Pulse Ox 97 08/16/22 07:55 FiO2 Intake & Output 07/03/22 07/04/22 07/04/22 18:59 06:59 18:59 Intake Total 600 120 Balance 600 120 Intake: Oral 600 120 Other: # Voids 5 2 - Labs CBC & Chem 7: 07/04/22 07:00 07/04/22 07:00 Labs: Abnormal Lab Results - Last 24 Hours (Table) 07/03/22 07/04/22 07/04/22 Range/Units 14:26 07:00 07:00 RBC 3.42 L 3.36 L (4.40-5.60) X 10*6/uL Hgb 9.0 L 9.0 L D (13.0-17.0) g/dL Hct 27.7 L 27.2 L (39.6-50.0) % MCH 26.3 L (27.0-32.0) pg MPV 9.0 L (9.5-12.2) fL Glucose 127 H (74-99) mg/dL Calcium 8.3 L (8.4-10.2) mg/dL Microbiology - Last 24 Hours (Table) 06/29/22 10:58 Anaerobic Culture - Final Back 06/29/22 11:00 Anaerobic Culture - Final Back 06/29/22 10:57 Anaerobic Culture - Final Back 06/29/22 10:59 Anaerobic Culture - Final Back 06/29/22 09:25 Blood Culture - Preliminary Blood No Growth after 96 hours 06/29/22 09:10 Blood Culture - Preliminary Blood No Growth after 96 hours
--- NOTE | 2022-07-04 22:56 | P.PN ---
Subjective Progress Note Date: 07/04/22 Principal diagnosis: Lumbar surgical site infection Patient is a 51-year-old male who is recently status post lumbar laminectomy and decompression presenting to the hospital with persistent drainage in this patient who is status post extensive debridement and deep cultu res. on today's evaluation that is 07/04/2022, the patient denies any fever or chills, the patient lower back pain is currently controlled, the patient denies having any chest pain or shortness of breath or cough no abdominal pain or diarrhea Objective - Vital Signs Vital signs: Vital Signs Temp 98.6 F 07/04/22 07:55 Pulse 89 07/04/22 07:55 Resp 17 07/04/22 07:55 BP 148/82 07/04/22 07:55 Pulse Ox 97 07/04/22 07:55 FiO2 Intake & Output 07/03/22 07/04/22 07/04/22 18:59 06:59 18:59 Intake Total 600 120 Balance 600 120 Intake: Oral 600 120 Other: # Voids 5 2 - Exam GENERAL DESCRIPTION: Middle-aged male lying in bed in no distress RESPIRATORY SYSTEM: Unlabored breathing , decreased breath sounds at bases HEART: S1 S2 regular rate and rhythm , ABDOMEN: Soft , no tenderness EXTREMITIES: No edema feet - Labs CBC & Chem 7: 07/04/22 07:00 07/04/22 07:00 Labs: Abnormal Lab Results - Last 24 Hours (Table) 07/03/22 07/04/22 07/04/22 Range/Units 14:26 07:00 07:00 RBC 3.42 L 3.36 L (4.40-5.60) X 10*6/uL Hgb 9.0 L 9.0 L D (13.0-17.0) g/dL Hct 27.7 L 27.2 L (39.6-50.0) % MCH 26.3 L (27.0-32.0) pg MPV 9.0 L (9.5-12.2) fL Glucose 127 H (74-99) mg/dL Calcium 8.3 L (8.4-10.2) mg/dL Microbiology - Last 24 Hours (Table) 06/29/22 09:25 Blood Culture - Preliminary Blood No Growth after 120 hours 06/29/22 09:10 Blood Culture - Preliminary Blood No Growth after 120 hours 06/29/22 10:58 Anaerobic Culture - Final Back 06/29/22 11:00 Anaerobic Culture - Final Back 06/29/22 10:57 Anaerobic Culture - Final Back 06/29/22 10:59 Anaerobic Culture - Final Back Assessment and Plan (1) Surgical site infection Current Visit: Yes Status: Acute Code(s): T81.49XA - INFECTION FOLLOWING A PROCEDURE, OTHER SURGICAL SITE, INIT SNOMED Code(s): 72055681 Plan: 1patient presented hospital with lumbar surgical site infection in this patient with recent laminectomy and posterior spinal fusion patient is status post I&D and deep cultures which are currently growing Klebsiella 2patient blood culture have been negative 3patient currently waiting for PICC line placement antibiotic switched over to Rocephin 2 g daily and plan is for 6 weeks of antibiotic and weekly monitoring of blood work Time with Patient: Less than 30
[2022-07-05] MEDS: ACETAMINOPHEN TAB 500 MG TAB PO SCH ×3 (00:10→11:31)
[2022-07-05] MEDS: HYDROmorphone 1 MG/ML 1 ML SYRINGE IVP PRN (01:03)
[2022-07-05 07:39] VITALS: BP 130/77; PULSE 91; RESP 16; TEMP 98.5
[2022-07-05] MEDS: GABAPENTIN 300 MG CAP PO SCH (07:58)
[2022-07-05] MEDS: PANTOPRAZOLE 40 MG/10 ML VIAL IVP SCH (07:58)
[2022-07-05] MEDS: methocarbamoL 750 MG TAB PO SCH (07:58)
[2022-07-05] MEDS: SENNOSIDES-DOCUSATE SODIUM 1 EACH TAB PO SCH (07:58)
--- NOTE | 2022-07-05 08:34 | P.PN ---
Subjective Progress Note Date: 07/05/22 Principal diagnosis: Incision and drainage of incisional surgical wound s/p L3-5 decompression with L4-5 fusion Patient seen and examined at bedside. Pain is currently managed at this time. Surgical Dressing is CDI. Order for Optifoam surgical dressings to apply prior to discharge and to change at home. PICC line has been placed for home IV antibiotic therapy. Patient will be discharged today with homecare. He denies any nausea/vomiting, fevers/chills, or chest pain. Patient denies any numbness tingling to bilateral lower extremities. Patient is ambulatory in room, tolera ting activity well. Objective - Vital Signs Vital signs: Vital Signs Temp 98.5 F 07/05/22 07:38 Pulse 91 07/05/22 07:38 Resp 16 07/05/22 07:38 BP 130/77 07/05/22 07:38 Pulse Ox 97 07/05/22 07:38 FiO2 Intake & Output 07/04/22 07/05/22 07/05/22 18:59 06:59 18:59 Intake Total 360 296 Output Total 0 Balance 360 296 Intake: Oral 360 296 Output: Drainage 0 Back 0 Other: # Voids 4 6 - Exam Physical Examination General: The patient is awake and alert, in no acute distress Skin: Skin is warm and dry with no obvious rashes or lesions. Hairy patches absent, no dorsal skin dimples, no cafe au lait spots. Surgical Incision to Lumbar region, dressing is CDI. Eye: Pupils are equal, round and reactive to light, extra-ocular movements are intact; there is normal conjunctiva bilaterally. Neck: The neck is supple, there is no tenderness and ROM intact. Cardiovascular: There is a regular rate and rhythm. No murmur, rub or gallop is appreciated. Respiratory: Lungs are clear to auscultation, respirations are non-labored, breath sounds are equal. Gastrointestinal: Soft, non-distended, non-tender abdomen . Back: There is no tenderness to palpation in the midline, paralumbar, parathoracic or buttocks region. There is no obvious deformity . Musculoskeletal: ROM limited secondary to pain and stiffness from surgical procedure. Shoulder abduction 5/5, elbow flexors 5/5, wrist dorsiflexors 5/5. finger abductor 5/5, cutter finisher 5/5, hip flexor 4/5, knee flexor 4/5, ankle dorsiflexor 4/5, ankle plantarflexion 4/5 and extensor hallucis 4/5. Neurological: CN 2-12 intact. There are no obvious motor or sensory deficits. Movement and coordination equal and intact. Sensory exam to light touch intact C5-T1 and intact from L2-S1. Reflexes 2/4 in bilateral upper and lower extremities. Negative Hoffmans, babinski, and clonus signs. Psychiatric: Cooperative, appropriate mood & affect, normal judgment. - Labs CBC & Chem 7: 07/04/22 07:00 07/04/22 07:00 Labs: Microbiology - Last 24 Hours (Table) 06/29/22 09:25 Blood Culture - Preliminary Blood No Growth after 120 hours 06/29/22 09:10 Blood Culture - Preliminary Blood No Growth after 120 hours Assessment and Plan Assessment: 51 yo male POD6 Lumbar wound I&D s/p L3-5 decompression with L4-5 fusion Plan: Plan: -Appreciate investigations consultant and team management. -Activity: Ambulate QID, OOB all meals, up and about, limit lifting bending twisting to less than 5 lbs. Use walker or cane if needed for stability. -Daily PT/OT, increase ambulation strength and balance. -Brace when up and about, not needed in bed or chair -Pain control: Adequate at this time -Meds: reviewed -GI ppx: senna, Miralax -DVT PPX: Heparin -Hygiene: Shower today. Maintain dressing clean and dry. Meticulous cleaning after BMs away from the incision site -Encourage IS 10x/hr -Dispo: Patient to be discharged today home with homecare. *I reviewed and discussed this case with my attending Dr. Montero, whom has reviewed this chart and films and is in agreement with assessment and plan of care as outlined above. I have personally seen and examined the patient, performed the documentation and the assessment and plan as written. Number of minutes spent on the visit: 20m.
--- NOTE | 2022-07-05 08:41 | P.DS ---
Providers Date of admission: 07/03/22 08:43 Expected date of discharge: 07/05/22 Attending physician: Aron Montero DO Consults: 06/29/22 12:57 Consult Physician Routine Consulting Provider: Stefan Cantu Consult Reason/Comments: Lumbar infection, antibiotic decision Do you want consulting provider notified?: Yes 06/29/22 13:03 Consult Physician Routine Consulting Provider: Luis Armando Cabezas Consult Reason/Comments: Medical Management Do you want consulting provider notified?: Yes Primary care physician: Luis Armando Cabezas Hospital Course: Hospital Course: The patient was evaluated preoperatively and found to have the diagnosis of lumbar surgical incision abscess. They underwent appropriate preoperative care and were willing to undergo the intended procedure. They underwent a successful incision and drainage with irrigation and debridement of lumbar incisional wound, were recovered appropriately and sent to the floor. While on the floor they worked with physical therapy, occupational therapy and nursing to enhance their recovery experience. Their pain was well controlled through their stay and they were started on appropriate medications, DVT ppx modalities, activity and dietary needs. Daily labs were monitored closely, and transfusions were only used when necessary. Medicine as well as other consulting services have made their input and have helped with our team approach and multidisciplinary care. PT milestones have been met and passed and they have made the recommendation of home with home care for this patient and treating providers agree with this care path. The patient will be discharged home with appropriate medications, instructions and follow-up information and in stable condition. Patient Condition at Discharge: Good Plan - Discharge Summary Discharge Rx Participant: No New Discharge Prescriptions: New cefTRIAXone [Rocephin] 2,000 mg IVP Q24HR #42 each Gabapentin [Neurontin] 300 mg PO TID #90 cap oxyCODONE-APAP 5-325MG [Percocet 5-325 mg] 1 tab PO Q6HR PRN #56 tab PRN Reason: Pain No Action amLODIPine [Norvasc] 10 mg PO DAILY Gabapentin 300 mg PO TID 3 Days #30 cap oxyCODONE HCL/ACETAMINOPHEN [Percocet 5-325 mg] 1 tab PO Q6HR PRN #30 tab PRN Reason: Pain methocarbamoL [Methocarbamol] 750 mg PO DAILY Discharge Medication List amLODIPine [Norvasc] 10 mg PO DAILY 01/24/21 [History] Gabapentin 300 mg PO TID 3 Days #30 cap 05/19/22 [Rx] oxyCODONE HCL/ACETAMINOPHEN [Percocet 5-325 mg] 1 tab PO Q6HR PRN #30 tab 05/19/22 [Rx] methocarbamoL [Methocarbamol] 750 mg PO DAILY 06/26/22 [History] cefTRIAXone [Rocephin] 2,000 mg IVP Q24HR #42 each 07/04/22 [Rx] Gabapentin [Neurontin] 300 mg PO TID #90 cap 07/05/22 [Rx] oxyCODONE-APAP 5-325MG [Percocet 5-325 mg] 1 tab PO Q6HR PRN #56 tab 07/05/22 [Rx] Follow up Appointment(s)/Referral(s): [facility] [NON-STAFF] - As Needed ([facility] (P: [phone]) - 100% covered home and in-office, not covered teach&train) Aron Montero DO [Doctor of Osteopathic Medicine] - 2 Weeks Stefan Cantu MD [STAFF PHYSICIAN] - 1 Week [facility] Visiting Nurse, [NON-STAFF] - 1 Week Ambulatory/Diagnostic Orders: Basic Metabolic Panel [LAB.AMB] Location: None Selected C Reactive Protein [LAB.AMB] Location: None Selected Complete Blood Count w/diff [LAB.AMB] Location: None Selected Erythrocyte Sedimentation Rate [LAB.AMB] Location: None Selected Activity/Diet/Wound Care/Special Instructions: Spine Discharge and Recovery Instructions Date of Surgery: 06/29/22 Diagnosis: Incisional wound abscess Procedure: Incision and drainage with irrigation and debridement of lumbar incisional wound Medications: See medication list All medication refills should be obtained through your primary care doctor or your clinic spine surgeon. Please discuss prescription refills at your follow up appointment. Do not call the hospital for medication refills. Dressing: Leave your dressing in place for a total of 5 days post operatively. Then you may remove your dressing and leave open to air. Keep the area clean and if not able to keep area clean, then cover with sterile gauze and tape. Showering: You may shower 3 days after your procedure allowing soap and water to run over incision. Do not scrub. Do not soak. Blot dry. Follow up: Please confirm a follow up appointment with your surgeon 3 weeks post operatively. Please make an appointment to follow up with your PCP in 1-2 weeks after surgery for evaluation 3 phase, 3-week plan POST OP WEEKS 1-3 1. Lifting/carrying/pushing/pulling limited to less than 5 pounds. 2. Do not sit for longer than 15 minutes at one time. Get up and walk around. Prolonged sitting is NOT advised. If you lay down, see if you can tolerate laying down on you front (belly side) 3. Walk for periods of 15 minutes = 1 mile but no longer; do it multiple times times each day. 4. Ice your low back after activity. POST OP WEEKS 3-6 1. Lifting limited to less than 20 pounds. 2. Do not sit for longer than 30 minutes at a time. Frequently change positions. Use a sit-to stand workstation or take frequent breaks from sitting if you have returned to work. 3. Walk for 30 minutes each day. If possible, do these three or more times a day POST OP WEEKS 6+ At your 6-week appointment we will give you a physical therapy referral to focus on a core stabilization and strengthening program. You should also work on leg & buttock strengthening, hamstring & quadriceps stretching, and continue a low impact aerobic activity program such as swimming, walking, or riding a stationary bicycle. During the initial 6 weeks after your surgery, you are at the highest risk of re-injuring your spine. You should generally avoid BLTs (bending, lifting and twisting combination motions) and follow the above guidelines to reduce the chance of reinjury. You can anticipate post op appointments in our office at approximately 3 weeks and 6 weeks after your surgery. INCISION CARE: If your incision is not draining you do NOT need to cover it with a dressing. Keep your incision clean, dry and intact. In most cases, we apply skin glue, cheryl or sutures to the incision at the time of surgery. This will be like a crust or have the appearance of a scab and will fall off in time on its own. The stitches or cheryl need to be removed at 3 weeks post op appointment. You may begin to shower 3 days after surgery (this allows the glue to rosales well). However, please avoid scrubbing the incision site or peeling off any of the skin glue. This will ensure optimal healing of your incision. Also, during this time avoid soaking the incision area in water - this includes swimming pools, hot tubs or baths. No ointments, lotions or oils on the incision until your surgeon allows. Leave cheryl, sutures or glue in place. Neurological dysfunction that comes on suddenly can also be a sign of a stroke. Below some common symptoms of a stroke are listed: B - balance difficulty such as sudden onset walking or leaning to one side - NEW E - eye problem such as sudden double vision or trouble seeing on one side - NEW F - Facial weakness or numbness on one side - NEW A - Arm or leg weakness or numbness on one side - NEW S - Slurred speech or difficulty with word finding - NEW T - Time is BRAIN! Call 911 as soon as you recognize these symptoms Diet: Consume a regular diet rich in vegetables and lean protein such as chicken or fish. You should consume in a ratio of approximately 20% fats|40% carbohydrates|40%protein. Vegetables, sweet potatoes, brown rice or quinoa are examples of good carbohydrates. Chips, white bread, cookies and sweets/sugar are examples of bad carbohydrates. Limit your bad carbs, go wild with good carbs. "Life's Simple 7" Guidelines as per [place] [employer] These will help you reclaim your life after surgery and bander and cellophaner helper machine in your recovery, keeping in mind your restrictions. (1) Get Active. Physical activity can help people lose weight, control high b lood pressure and cholesterol, feel emotionally better, and sleep better. (2) Control Cholesterol. Avoid a diet high in saturated fat, trans fat, & cholesterol. Limit whole milk & cream, ice cream, butter, egg yolks, processed meats (like sausage and hot dogs), and fatty meats. Choose healthy foods that are low in saturated fat, trans fat and cholesterol which include: Fruits and vegetables, fiber rich grain products (like whole grain pasta and brown rice), lean meat such as chicken, fish, nuts, seeds, and legumes. (3) Eat Better. Eat small portions. Shop at the grocery with a list and do not stray from it. Tips for a healthy diet include: Limit sodium intake to less than 1500mg daily, avoid prepackaged, processed, and fast foods, choose a diet rich in fruits, vegetables, and whole grain, high fiber foods, and limit saturated & cholesterol in your diet. (4) Manage Blood Pressure. If you have high blood pressure, you should have a cuff at home so that you can check your blood pressure regularly. Be sure you have a good cuff. An arm one is generally better than a wrist one. Bring the cuff to a doctor's appointment to validate that the measurements that your cuff are taking are accurate. Take your blood pressure twice daily when you are sitting down and relaxing. Record the numbers in a log and bring this log with you to your doctors' appointments. (5) Lose Weight if your BMI is above 25. A healthy BMI is between 19-25. To calculate Your BMI, you may use a Standard BMI Calculator on the NIH BMI website: <www.nhlbi.nih.gov/guidelines/obesity/BMI/bmicalc.htm>. Weigh oneself daily. If you are overweight, set a goal to lose weight. A pound a week loss if needed is a good target. (6) Reduce Blood Sugar. Limit foods and liquids with "added sugars." (Added sugars include sucrose, fructose, glucose, maltose, dextrose, high fructose corn syrup, corn syrup, concentrated fruit juice and honey). (7) Stop Smoking. If you smoke, quitting smoking is one of the best things that you can do for your health. Smoking increases your risk of heart attack, stroke, and peripheral vascular disease, which is a build-up of plaque in your arteries. Please discard all the cigarettes and lighters in your house. Have a plan for what you will do when you have the urge to smoke. Direct and second- hand smoke shortens your life as well as the lives of your family, friends and others around you. For your health and the health of those around you, please consider quitting! Proper Bending Body Mechanics: Maintain a wide stance with one foot slightly in front of the other. Keep your back straight. Bend utilizing the strength in your hips and knees. Do not bend at the waist. Maintain the lifted object at your waist-level close to your body. Avoid lifting weight that causes immediately pain or pain anywhere in the body afterwards. Smoking/Nicotine If there was ever one thing that you could do to increase your overall health, decrease your risk of cardiovascular problems by about 39% the second you make the choice, it is to STOP SMOKING. Your body's most instant gratification is the second you stop smoking. We have all heard the studies, read the articles but it is true, smoking is extremely bad for your overall health, and moreover it is detrimental to your bone health. Nicotine, IN ANY FORM, kills bone cells, prevents your body from healing fractures, and significantly prolongs healing after surgery. In spine surgery specifically, it increases your risk of not healing your bones to create a fusion and increases your risk of having a revision surgery due to this up to 60%. I know it is hard. I know it feels impossible. But there are ways. Take control of your life. We are here to help you through it. And when you are ready, ask us and we can direct you to help if you desire. Use the START Plan to Quit Smoking (please visit the [employer] website listed below for more information): S = Set a quit date. Choose a date within the next 2 weeks, so you have enough time to prepare without losing your motivation to quit. If you mainly smoke at work, quit on the weekend, so you have a few days to adjust to the change. T = Tell family, friends, and co-workers that you plan to quit. Let your friends and family in on your plan to quit smoking and tell them you need their support and encouragement to stop. Look for a quit nelsy who wants to stop smoking as well. You can help each other get through the rough times. A = Anticipate and plan for the challenges you'll face while quitting. Most people who begin smoking again do so within the first 3 months. You can help yourself make it through by preparing ahead for common challenges, such as nicotine withdrawal and cigarette cravings. R = Remove cigarettes and other tobacco products from your home, car, and work. Throw away all your cigarettes (no emergency pack!), lighters, ashtrays, and matches. Wash your clothes and freshen up anything that smells like smoke. Shampoo your car, clean your drapes and carpet, and steam your furniture. T = Talk to your doctor about getting help to quit. Your doctor can prescribe medication to help with withdrawal and suggest other alternatives. If you can't see a doctor, you can get many products over the counter at your local pharmacy or grocery store, including the nicotine patch, nicotine lozenges, and nicotine gum. Resources for Quitting Smoking: <https://www.[place].gov/documents/[facility]/Quit_Tobacco_Resources_for_patients_313 480_7.pdf> Supplementation: Take recommended dosages of Vitamin D and Calcium to help fortify your bones and help them to heal. See your health maintenance packet for dosages and recommended levels. DVT/VTE prophylaxis: You will be given compression stockings from the hospital. Wear these daily for the first two weeks after surgery. You may take them off at night. You may be prescribed a medication to help thin your blood. Take this as directed. If you are not prescribed this medication, early and frequent ambulation has been shown to be the best prophylaxis to deep vein thrombosis and sequelae related to this event. Discharge Disposition: HOME WITH HOME HEALTH SERVICES
[2022-07-05] MEDS: LACTATED RINGERS 1,000 ML IV SCH (10:00)
--- NOTE | 2022-07-06 00:57 | P.PN ---
Subjective Progress Note Date: 07/05/22 Patient is a 51-year-old male with a known history of hypertension, GERD, obstructive sleep apnea on CPAP and recent history of L4-L5 fusion surgery on May 16, 2022 was admitted to the hospital due to wound dehiscencePatient had laminectomy and fusion on 05/16/2022. Patient was found to have continued discharge from the wound on follow-up visit to the office. Patient was given antibiotic course with cefadroxil and Bactrim DS but continues to have serous drainage and the skin is getting irritated around the incision. Patient has been afebrile. Patient was admitted to the hospital for I&D. Patient is status post I&D of lumbar wound, admits Excisional debridement of skin and placement of antibiotic beads. Patient tolerated procedure very well. Patient has been tachycardic with heart rate in 120s. Initial EKG showed sinus tachycardia with PACs. Blood sugar was 216.. 06/30/2022 Patient is postoperative day 1. Resting in bed comfortably. Awake alert and oriented x3. Pain is fairly con trolled. Denies any complaints of nausea or vomiting. Heart rate did improve. No nausea vomiting or abdominal pain or diarrhea. No headache or dizziness lightheadedness. Laboratory data showed sodium 138 potassium 4.8 chloride 100 bicarb is 27.2 BUN 18.9 and creatinine 1.0 A1c level is 6.2 TSH 0.212 and free T4 0.740, likely due to sick euthyroid. Recommend follow-up in 6 weeks. Patient is seen and evaluated in follow-up this morning being closely monitored with orthopedics following. Patient is continued on IV antibiotics in the form of cefepime with infectious disease following as well and patient is status post debridement of the recent L3-5 decompression fusion surgery site. Patient reports the drain had fallen out and patient is having increasing pain and swelling noted at the site and plan is for possible repeat I&D with orthopedics in the morning. Patient is also to receive a PICC line although current provider unavailable at this time doing to being out sick and will obtain a PICC line once available. Case management/social work following arranging for o utpatient IV antibiotics. Patient denies chest pain or shortness of breath. Patient is afebrile and denies palpitations. Patient is tolerating diet with no reports of nausea or vomiting noted. Culture showing Klebsiella pneumonia. Recommend repeat cultures if patient is undergoing another debridement. Encouraged increase activity as tolerated with restrictions per orthopedics and will also add incentive spirometer and encourage the patient to use at least 10 times every hour while awake. reCommend repeat labs in a.m. 07/04/2022 Patient is seen today and no further plans for surgical intervention per orthopedics and patient is to receive a PICC line and will have IV abx in the outpatient setting. Patient is continued on IV abx in the form of Ceftriaxone and will continue this in the outpatient setting with home care being arranged. Patient is afebrile and denies chest pain or palpitations. Patient denies nausea or vomiting and is tolerating diet. 07/05/2022 Patient is seen this morning and has received a PICC line and abx have been arranged along with home care and patient is being discharged by orthopedics. Patient instructed to resume his norvasc and also recommended following up with his pcp on discharge. Patient is afebrile and denies chest pain or shortness of breath. Patient is anxious to be discharged. Review of systems: Constitutional: No reports of fatigue, fever, or chills Cardiovascular: No reports of chest pain or palpitations Respiratory: No reports of shortness of breath or cough GI: No reports of nausea, vomiting, or diarrhea : No reports of dysuria or retention Neurovascular: no reports of generalized weakness PHYSICAL EXAMINATION: Patient is lying in the bed comfortably, no acute distress, awake alert and oriented.. HEENT: Normocephalic. Neck is supple. Pupils reactive. Nostrils clear. Oral cavity is moist. Neck reveals no JVD, carotid bruits, or thyromegaly. CHEST EXAMINATION: Trachea is central. Symmetrical expansion. Lung berumen clear to auscultation and percussion. CARDIAC: Normal S1, S2 with no gallops. No murmurs ABDOMEN: Soft. Bowel sounds present. Nontender. No organomegaly. No abdominal bruits. Extremities: reveal no edema. No clubbing or cyanosis Neurologically awake, alert, oriented x3 with well-coordinated movements. No focal deficits noted Skin: No rash or skin lesions. Psychiatric: Cooperative. Non-suicidal, anxious. Musculoskeletal: No joint swelling or deformity. Lumbar surgical wound is bandaged and dry and intact Assessment: Status post I&D of lumbar wound, debridement and antibiotic bead placement. status post picc line placement Sinus tachycardia with PACs. improved History of L3 L5 laminectomy with L4-L5 fusion on 05/16/2022. Obstructive sleep apnea on CPAP at home Hypertension GERD Previous history of smoking DVT prophylaxis SCDs. Full code Plan: Patient will be continued on pain management per orthopedic services. Continue bowel regimen and incentive spirometry. Encouraged increased incentive spirometer use at least 10 times every hour while awake Patient received a PICC line and will be continued on ceftriaxone and social work following and have arranged for IV abx and home care in the outpatient setting Per orthopedics, no plans for I&D again at this time. Patient is medically stable and is to be discharged per ortho and will be later today Encouraged patient to follow up with his primary care provider Dr. Cabezas as well We will continue to follow with orthopedics during this hospitalization. Thank you for this consultation. The impression and plan of care has been dictated by Peggy Salgado, Nurse Practitioner as directed. Dr. Maxine MD I have performed a history and examination and MDM of this patient, discussed the same with the dictator, and agree with the dictator's assessment and plan as written ,documented as a scribe. Based on total visit time, I have performed more than 50% of the visit. Objective - Vital Signs Vital signs: Vital Signs Temp 98.5 F 07/05/22 07:38 Pulse 91 07/05/22 07:38 Resp 16 07/05/22 07:38 BP 130/77 07/05/22 07:38 Pulse Ox 97 07/05/22 07:38 FiO2 Intake & Output 07/05/22 07/05/22 07/06/22 06:59 18:59 06:59 Intake Total 296 Balance 296 Intake: Oral 296 Other: # Voids 6 - Labs CBC & Chem 7: 07/04/22 07:00 07/04/22 07:00 Labs: Microbiology - Last 24 Hours (Table) 06/29/22 09:25 Blood Culture - Final Blood No Growth after 144 hours 06/29/22 09:10 Blood Culture - Final Blood No Growth after 144 hours
== END 2022-07-05 13:26 | disposition home health service (06) | DRG 908 ==
LOC: OR 08:13 → 4SSUR 12:35 → OR 06-30 07:02 → 4SSUR 06-30 07:02 → OBSVTOIN 07-03 08:43
PROVIDERS: ADMIT Orthopaedic Surgery; ATTEND Orthopaedic Surgery
PROC: 0S9000Z Drainage of Lumbar Vertebral Joint with Drainage Device, Open Approach (ICD-10-PCS; 2022-06-29)
PROC: 3E0V329 Introduction of Other Anti-infective into Bones, Percutaneous Approach (ICD-10-PCS; 2022-06-29)
PROC: 0SB00ZZ Excision of Lumbar Vertebral Joint, Open Approach (ICD-10-PCS; principal; 2022-06-29 09:30)
PROC: 02HV33Z Insertion of Infusion Device into Superior Vena Cava, Percutaneous Approach (ICD-10-PCS; 2022-07-04)
DX: M96.842 Postprocedural seroma of a musculoskeletal structure following a musculoskeletal system procedure (principal); I96 Gangrene, not elsewhere classified; T81.31XA Disruption of external operation (surgical) wound, not elsewhere classified, initial encounter; T81.41XA Infection following a procedure, superficial incisional surgical site, initial encounter; Z16.11 Resistance to penicillins; Z16.19 Resistance to other specified beta lactam antibiotics; I10 Essential (primary) hypertension; F11.11 Opioid abuse, in remission; B96.1 Klebsiella pneumoniae [K. pneumoniae] as the cause of diseases classified elsewhere; R73.03 Prediabetes; Y83.8 Other surgical procedures as the cause of abnormal reaction of the patient, or of later complication, without mention of misadventure at the time of the procedure; H91.8X2 Other specified hearing loss, left ear; G89.29 Other chronic pain; G47.33 Obstructive sleep apnea (adult) (pediatric); K21.9 Gastro-esophageal reflux disease without esophagitis; I49.1 Atrial premature depolarization; K44.9 Diaphragmatic hernia without obstruction or gangrene; E07.81 Sick-euthyroid syndrome; Z98.1 Arthrodesis status; Z87.442 Personal history of urinary calculi; Z90.89 Acquired absence of other organs; Z87.891 Personal history of nicotine dependence; Z79.899 Other long term (current) drug therapy; Z82.49 Family history of ischemic heart disease and other diseases of the circulatory system; Z84.1 Family history of disorders of kidney and ureter
CPT/HCPCS: 36573; 80048; 82565; 83036; 84439; 84443; 85025; 87040; 87070; 87075; 87077; 87186; 87205; 93005; 94760

== ENCOUNTER 2022-07-11 07:28 | Inpatient (IN) | payer BC ==
[2022-07-11] MEDS ORDERED: VANCOMYCIN IV PER PHARMACY 1 EACH MISC MISCELLANE PRN (08:11)
[2022-07-11] MEDS ORDERED: KETOROLAC 15 MG/ML 1 ML VIAL IVP STA (08:13)
[2022-07-11] MEDS ORDERED: HYDROmorphone 0.5 MG/0.5 ML SYRINGE IVP STA (08:13)
[2022-07-11] MEDS: SODIUM CHLORIDE 0.9% 500 ML 500 ML IV SCH ×3 (08:30→09:30)
--- NOTE | 2022-07-11 08:52 | ED ---
General Adult HPI - General Chief complaint: Back Pain/Injury Stated complaint: PO back surgery,Infection Time Seen by Provider: 07/11/22 07:35 Source: patient, RN notes reviewed, old records reviewed Mode of arrival: ambulatory Limitations: no limitations - History of Present Illness Initial comments: This is a 51-year-old male who had back surgery by Dr. Montero. Patient states she's had infections back and was sent home on at home antibiotics. Patient states his symptoms are again worsening he's got drainage redness and much more pain. Patient states he is coming in because he cannot tolerate this at home any longer. Patient denies any fever chills. Patient states the Pain running down on his right leg to his foot. Patient denies any abdominal pain patient is chest pain patient denies any difficulty breathing. - Related Data Home Medications Medication Instructions Recorded Confirmed amLODIPine [Norvasc] 10 mg PO DAILY 01/24/21 07/11/22 methocarbamoL [Methocarbamol] 750 mg PO TID 06/26/22 07/11/22 HYDROcodone/APAP 7.5-325MG [[place] 1 tab PO TID PRN 07/11/22 07/11/22 7.5-325] cefTRIAXone [Rocephin] 2,000 mg IVP DAILY 07/11/22 07/11/22 diazePAM [Valium] 10 mg PO BID PRN 07/11/22 07/11/22 Previous Rx's Medication Instructions Recorded Gabapentin [Neurontin] 300 mg PO TID #90 cap 07/05/22 Allergies Allergy/AdvReac Type Severity Reaction Status Date / Time No Known Allergies Allergy Verified 07/11/22 08:42 Review of Systems ROS Statement: Those systems with pertinent positive or pertinent negative responses have been documented in the HPI. ROS Other: All systems not noted in ROS Statement are negative. Past Medical History Past Medical History: GERD/Reflux, Hypertension, Sleep Apnea/CPAP/BIPAP Additional Past Medical History / Comment(s): kidney stones, DEVIATED SEPTUM(HAS SX), USES CPAP MACHINE, HIATAL HERNIA History of Any Multi-Drug Resistant Organisms: None Reported Past Surgical History: Appendectomy, Back Surgery, Tonsillectomy Additional Past Surgical History / Comment(s): 1998 RT HAND INDEX/MIDDLE FINGER TENDON REPAIR, 1992 BACK SX L4-L5, SEPTOPLASY 2011, RT KNEE ARTHROSCOPY, LT MIDDLE EAR SX AGE 10 "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 05-16-22 BACK SX. Past Anesthesia/Blood Transfusion Reactions: No Reported Reaction Past Psychological History: No Psychological Hx Reported Smoking Status: Former smoker Past Alcohol Use History: Rare Past Drug Use History: None Reported - Past Family History Mother Family Medical History: No Reported History Father Family Medical History: Hypertension Additional Family Medical History / Comment(s): KINDNEY REMOVED(BENIGN TUMOR) General Exam - General Exam Comments Initial Comments: GENERAL: Patient is well-developed and well-nourished. Patient is nontoxic and well- hydrated and is in mild distress. ENT: Neck is soft and supple. No significant lymphadenopathy is noted. Oropharynx is clear. Moist mucous membranes. Neck has full range of motion without eliciting any pain. EYES: The sclera were anicteric and conjunctiva were pink and moist. Extraocular movements were intact and pupils were equal round and reactive to light. Eyelids were unremarkable. PULMONARY: Unlabored respirations. Good breath sounds bilaterally. No audible rales rhonchi or wheezing was noted. CARDIOVASCULAR: There is a regular rate and rhythm without any murmurs gallops or rubs. ABDOMEN: Soft and nontender with normal bowel sounds. SKIN: Skin is clear with no lesions or rashes and otherwise unremarkable. NEUROLOGIC: Patient is alert and oriented x3. Cranial nerves II through XII are grossly intact. Motor and sensory are also intact. Normal speech, volume and content. Symmetrical smile. MUSCULOSKELETAL: Normal extremities with adequate strength and full range of motion. Patient's incision appears inflamed at the bottom portion of the incision extremely tender and is draining LYMPHATICS: No significant lymphadenopathy is noted PSYCHIATRIC: Normal psychiatric evaluation. Limitations: no limitations Course Vital Signs 07/11/22 07:33 Temperature 97.7 F Pulse Rate 96 Respiratory 18 Rate Blood Pressure 126/81 O2 Sat by Pulse 98 Oximetry Medical Decision Making - Medical Decision Making EKG showed sinus rhythm at 84 bpm patient had an occasional irregularity. Patient's NM interval is 134 QRS is 88 QT interval 370 QTC is 410. I spoke with Dr. Montero's office and they agreed patient needed to be admitted. I spoke with the hospice they wanted admitted the patient I consulted [facility] and infectious disease. - Lab Data Result diagrams: 07/11/22 08:39 07/11/22 08:39 Lab Results 07/11/22 07/11/22 07/11/22 Range/Units 08:39 08:39 08:39 WBC 5.0 (3.8-10.6) k/uL RBC 3.80 L (4.30-5.90) m/uL Hgb 9.5 L (13.0-17.5) gm/dL Hct 30.8 L (39.0-53.0) % MCV 81.1 (80.0-100.0) fL MCH 25.0 (25.0-35.0) pg MCHC 30.8 L (31.0-37.0) g/dL RDW 15.5 (11.5-15.5) % Plt Count 355 (150-450) k/uL MPV 6.9 Neutrophils % 64 % Lymphocytes % 23 % Monocytes % 7 % Eosinophils % 4 % Basophils % 0 % Neutrophils # 3.2 (1.3-7.7) k/uL Lymphocytes # 1.1 (1.0-4.8) k/uL Monocytes # 0.4 (0-1.0) k/uL Eosinophils # 0.2 (0-0.7) k/uL Basophils # 0.0 (0-0.2) k/uL Hypochromasia Moderate Poikilocytosis Moderate PT 10.2 (9.0-12.0) sec INR 0.9 (<1.2) APTT 22.6 (22.0-30.0) sec Sodium 139 (137-145) mmol/L Potassium 4.1 (3.5-5.1) mmol/L Chloride 104 (98-107) mmol/L Carbon Dioxide 25 (22-30) mmol/L Anion Gap 10 mmol/L BUN 15 (9-20) mg/dL Creatinine 0.72 (0.66-1.25) mg/dL Est GFR (CKD-EPI)AfAm >90 (>60 ml/min/1.73 sqM) Est GFR (CKD-EPI)NonAf >90 (>60 ml/min/1.73 sqM) Glucose 148 H (74-99) mg/dL Plasma Lactic Acid Phillip (0.7-2.0) mmol/L Calcium 8.7 (8.4-10.2) mg/dL Total Bilirubin 0.2 (0.2-1.3) mg/dL AST 17 (17-59) U/L ALT 13 (4-49) U/L Alkaline Phosphatase 71 (38-126) U/L Total Protein 6.5 (6.3-8.2) g/dL Albumin 3.6 (3.5-5.0) g/dL 07/11/22 Range/Units 08:39 WBC (3.8-10.6) k/uL RBC (4.30-5.90) m/uL Hgb (13.0-17.5) gm/dL Hct (39.0-53.0) % MCV (80.0-100.0) fL MCH (25.0-35.0) pg MCHC (31.0-37.0) g/dL RDW (11.5-15.5) % Plt Count (150-450) k/uL MPV Neutrophils % % Lymphocytes % % Monocytes % % Eosinophils % % Basophils % % Neutrophils # (1.3-7.7) k/uL Lymphocytes # (1.0-4.8) k/uL Monocytes # (0-1.0) k/uL Eosinophils # (0-0.7) k/uL Basophils # (0-0.2) k/uL Hypochromasia Poikilocytosis PT (9.0-12.0) sec INR (<1.2) APTT (22.0-30.0) sec Sodium (137-145) mmol/L Potassium (3.5-5.1) mmol/L Chloride (98-107) mmol/L Carbon Dioxide (22-30) mmol/L Anion Gap mmol/L BUN (9-20) mg/dL Creatinine (0.66-1.25) mg/dL Est GFR (CKD-EPI)AfAm (>60 ml/min/1.73 sqM) Est GFR (CKD-EPI)NonAf (>60 ml/min/1.73 sqM) Glucose (74-99) mg/dL Plasma Lactic Acid Phillip 1.3 (0.7-2.0) mmol/L Calcium (8.4-10.2) mg/dL Total Bilirubin (0.2-1.3) mg/dL AST (17-59) U/L ALT (4-49) U/L Alkaline Phosphatase (38-126) U/L Total Protein (6.3-8.2) g/dL Albumin (3.5-5.0) g/dL Disposition Clinical Impression: Postoperative infection Disposition: ADMITTED IP TO THIS HOSP Referrals: Luis Armando Cabezas MD [Primary Care Provider] - 1-2 days Time of Disposition: 10:09
[2022-07-11] MEDS ORDERED: VANCOMYCIN 1,750 MG in SODIUM CHLORIDE 0.9% 500 ML 500 ML IVPB ONE (09:00)
[2022-07-11 09:14] LABS: Basophils % (A) 0 %; Eosinophils # (A) 0.2 k/uL (0-0.7); Eosinophils % (A) 4 %; HCT 30.8 % (39.0-53.0); HGB 9.5 gm/dL (13.0-17.5); Hypochromasia Moderate; Lymphocytes # (A) 1.1 k/uL (1.0-4.8); Lymphocytes % (A) 23 %; MCHC 30.8 g/dL (31.0-37.0); MCV 81.1 fL (80.0-100.0); Mean Platelet Volume 6.9; Monocytes # (A) 0.4 k/uL (0-1.0); Monocytes % (A) 7 %; Neutrophils # (A) 3.2 k/uL (1.3-7.7); Neutrophils % (A) 64 %; Platelet Count 355 k/uL (150-450); Poikilocytosis Moderate; RDW 15.5 % (11.5-15.5)
[2022-07-11 09:20] LABS: INR 0.9 (<1.2); Partial Thromboplastin Time 22.6 sec (22.0-30.0); Prothrombin Time 10.2 sec (9.0-12.0)
[2022-07-11 09:22] LABS: ALT 13 U/L (4-49); AST 17 U/L (17-59); African American GFR (CKD) >90 (>60 ml/min/1.73 sqM); Albumin 3.6 g/dL (3.5-5.0); Alkaline Phosphatase 71 U/L (38-126); Anion Gap 10 mmol/L; Blood Urea Nitrogen 15 mg/dL (9-20); Calcium 8.7 mg/dL (8.4-10.2); Carbon Dioxide 25 mmol/L (22-30); Chloride 104 mmol/L (98-107); Glucose 148 mg/dL (74-99); Non-African American GFR(CKD) >90 (>60 ml/min/1.73 sqM); Potassium 4.1 mmol/L (3.5-5.1); Sodium 139 mmol/L (137-145); Total Bilirubin 0.2 mg/dL (0.2-1.3); Total Protein 6.5 g/dL (6.3-8.2)
[2022-07-11] MEDS ORDERED: SODIUM CHLORIDE 0.9% 1,000 ML IV ONE (10:10)
--- NOTE | 2022-07-11 13:15 | P.CNOR ---
History of Present Illness - HPI Consult date: 07/11/22 History of present illness: 51-year-old male who underwent decompression and fusion followed by deep infection with washout and closure presents today again for continued drainage of the lower back portion of the incision. The upper portion is healed fairly well he states that he is very uncomfortable he has leg pain and he states that the low back is draining now. He denies any manipulation of the wound this time states no bowel or bladder issues but does have some leg numbness and tingling. He denies any perineal numbness or tingling or any other symptoms at this time no fevers or chills recently. Complains of serosanguineous drainage from his back Review of Systems 14 points review of systems completed and as stated in HPI, all other systems reviewed are negative. Past Medical History Past Medical History: GERD/Reflux, Hypertension, Sleep Apnea/CPAP/BIPAP Additional Past Medical History / Comment(s): kidney stones, DEVIATED SEPTUM(HAS SX), USES CPAP MACHINE, HIATAL HERNIA History of Any Multi-Drug Resistant Organisms: None Reported Past Surgical History: Appendectomy, Back Surgery, Tonsillectomy Additional Past Surgical History / Comment(s): 1998 RT HAND INDEX/MIDDLE FINGER TENDON REPAIR, 1992 BACK SX L4-L5, SEPTOPLASY 2011, RT KNEE ARTHROSCOPY, LT MIDDLE EAR SX AGE 10 "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 05-16-22 BACK SX. Past Anesthesia/Blood Transfusion Reactions: No Reported Reaction Past Psychological History: No Psychological Hx Reported Smoking Status: Former smoker Past Alcohol Use History: Rare Past Drug Use History: None Reported - Past Family History Mother Family Medical History: No Reported History Father Family Medical History: Hypertension Additional Family Medical History / Comment(s): MICHELLE REMOVED(BENIGN TUMOR) Medications and Allergies Home Medications Medication Instructions Recorded Confirmed Type amLODIPine [Norvasc] 10 mg PO DAILY 01/24/21 07/11/22 History methocarbamoL [Methocarbamol] 750 mg PO TID 06/26/22 07/11/22 History Gabapentin [Neurontin] 300 mg PO TID #90 cap 07/05/22 07/11/22 Rx HYDROcodone/APAP 7.5-325MG [[place] 1 tab PO TID PRN 07/11/22 07/11/22 History 7.5-325] cefTRIAXone [Rocephin] 2,000 mg IVP DAILY 07/11/22 07/11/22 History diazePAM [Valium] 10 mg PO BID PRN 07/11/22 07/11/22 History Allergies Allergy/AdvReac Type Severity Reaction Status Date / Time No Known Allergies Allergy Verified 07/11/22 08:42 Physical Examination Osteopathic Statement: *. No significant issues noted on an osteopathic structural exam other than those noted in the History and Physical/Consult. PHYSICAL EXAMINATION: Vitals: VS General: Awake, alert, appropriate for age, in no acute distress. HEENT: No unusual neck masses around region of lateral neck triangle, thyroid, supraclavicular groove. Heart: Regular rate and rhythm, normal S1, S2 and no murmur/gallop. Lungs: Clear to auscultation bilaterally with no use of accessory muscles. Extremities: Skin warm and dry without no acute lesions, coloration, temperature, skin intact, no tenderness or erythema. Integument: Hairy patches: Absent Dorsal skin dimples: Absent Cafe au lait spots: Absent Surgical incisions: Posterior midline incision is now well healed on the superior portion but the distal one third has a area of maceration around the skin that is not healing very well with very minimal drainage from this area at this time. It is somewhat erythematous but not warm to the touch. No purulence can be seen. Sutures are still in place from previous surgery and there is actually good skin healing around this bad area. Palpation: Please see Pain drawing on Intake sheet for further detail. (Tenderness = T, Nontender = NT, Swelling = S, Ecchymosis = E) Findings on Midline and paraspinal palpation and percussion: Cervical: NT Thoracic: NT Lumbar: NT Sacral: NT Special findings: None POSTURAL and MUSCULO-SKELETAL EVALUATION: Neck ROM: Unrestricted in six directions Lumbar ROM: Unrestricted in six directions Shoulder ROM: Symmetric in abduction, ER/IR Hip ROM: Symmetric in abduction, adduction, ER/IR Knee ROM: Symmetric and intact in Flexion / extension Hands: Normal appearing structure L and R Feet: Normal appearing structure L and R VASCULAR STATUS : Wrist Pulses: 2/4 bilateral radial and ulnar Pedal Pulses: 2/4 bilateral DP and PT Color: Normal Edema: None NEUROLOGIC EXAMINATION: Mental Status: Awake and alert, fully oriented, with normal attention, concentration and memory, and fluent, appropriate speech. Cranial Nerves: I: Olfactory not tested. II: Visual acuity normal, no visual field deficit noted with confrontation. III,IV: Normal pupillary reflexes & intact extraocular movements without nystagmus. V,: Intact symmetrical facial sensation. VII: Intact symmetrical facial motor movement VIII: Hearing intact. IX,X: Intact gag, swallow, & normal voice. XI: Sternocleidomastoid, trapezius function intact. XII: Tongue midline with normal movements. Special Tests: L'hermitte's Sign: Absent Spurling'Sign: Absent Bilateral Cubital percussion test: Absent Bilateral Hermila-Tinel sign - Carpal region: Absent Bilateral Straight Leg Raising: Absent Bilateral Motor Exam (0-5/5, N/T) STRENGTH UPPER EXTREMITY Shoulder Abd (Not part of DELVIS Motor score): RIGHT 5 LEFT 5 Elbow Flexors: RIGHT 5 LEFT 5 Elbow Extensor: RIGHT 5 LEFT 5 Wrrist Dorsiflexors: RIGHT 5 LEFT 5 Finger Abductor: RIGHT 5 LEFT 5 Child Care Aide: RIGHT 5 LEFT 5 LOWER EXTREMITY Hip Flexor (Not part of DELVIS Motor Score): RIGHT 5 LEFT 5 Knee Flexor: RIGHT 5 LEFT 5 Knee Extensor: RIGHT 5 LEFT 5 Ankle Dorsiflexion: RIGHT 5 LEFT 5 Ankle Plantarflexion: RIGHT 5 LEFT 5 EHL: RIGHT 5 LEFT 5 FHL: RIGHT 5 LEFT 5 DELVIS Motor Score: RIGHT 50/50 LEFT 50/50 REFLEXES Biecp: RIGHT 2 LEFT 2 Tricep: RIGHT 2 LEFT 2 Brachioradialis: RIGHT 2 LEFT 2 Patellar: RIGHT 2 LEFT 2 Achilles: RIGHT 2 LEFT 2 Pathological Reflexes Montiel's: RIGHT Absent LEFT Absent Babinski: RIGHT Absent LEFT Absent Clonus: RIGHT None LEFT None SENSORY Joint Position: Intact bilaterally Vibration Intact bilaterally Pain and LT sense Intact C5-T1 and L2-S1 Dermatomal deficit None Gait and Functional Evaluation: Ambulatory aids: Romberg's test: Intact bilaterally. Toe walk/ heel walk / heel-toe walk intact while maintaining satisfactory balance. Squatting and straightening out without assistance to a minimum of 60 degrees knee flexion Single leg stance: intact/ Trendelenburg sign negative bilaterally Hand and finger dexterity intact bilaterally. Disdiadochokinesis examination negative bilaterally. Results CT pending - Labs Labs: Abnormal Lab Results - Last 24 Hours (Table) 07/11/22 07/11/22 Range/Units 08:39 08:39 RBC 3.80 L (4.30-5.90) m/uL Hgb 9.5 L (13.0-17.5) gm/dL Hct 30.8 L (39.0-53.0) % MCHC 30.8 L (31.0-37.0) g/dL Glucose 148 H (74-99) mg/dL H & H 07/11/22 Range/Units 08:39 Hgb 9.5 L (13.0-17.5) gm/dL Hct 30.8 L (39.0-53.0) % Coagulation 07/11/22 Range/Units 08:39 INR 0.9 (<1.2) Result Diagrams: 07/11/22 08:39 07/11/22 08:39 Assessment and Plan Assessment: 51-year-old male status post L3 to L5 decompression with L4 5 fusion and subsequent deep infection status post washout with continued drainage Plan: -Appreciate loss prevention consultant and team management. -Continued IV antibiotics per ID -Activity: Ambulate QID, OOB all meals, up and about, limit lifting bending twisting to less than 5 lbs. Use walker or cane if needed for stability. -Daily PT/OT, increase ambulation strength and balance. -Pain control: Adequate at this time -Meds: reviewed -GI ppx: senna, Miralax -DVT PPX: Early ambulation -Hygiene: Shower daily. Maintain dressing clean and dry. Change dressing to 3 times daily to keep clean Meticulous cleaning after BMs away from incision site -Encourage IS 10x/hr -Computed tomography scan with and without a lumbar spine -Dispo: Discussed different options with the patient. It is draining somewhat from this wound however he did have antibiotic beads placed deep and he pulled his drain out day postoperative day one previously which is not ideal but he was doing okay. The MRI to beads can increase some of the drainage as well as some of the fluid buildup. He has been on IV antibiotics now for the Klebsiella infection that he was found to have previously. If he continues to have draining wound however over the next day we would plan on a secondary washout on 07/13/2022.
--- NOTE | 2022-07-11 14:38 | CT ---
EXAMINATION TYPE: CT lumbar spine wo/w con CT DLP: 3691.6 mGycm, Automated exposure control for dose reduction was used. DATE OF EXAM: 07/11/2022 2:17 PM COMPARISON: CT lumbar spine 05/17/2022, lumbar spine radiograph 05/30/2022, MRI lumbar spine 06/22/2022. CLINICAL INDICATION:Male, 51 years old with history of drainage, pain; PHH, Post op drainage and low back pain. TECHNIQUE: Multiple axial images were obtained from the midportion of T11 through the sacroiliac michael nts before and after the uneventful administration of 100 cc of Isovue-300 intravenously. Soft tissu e and bone windows in coronal and sagittal planes were obtained and reviewed. FINDINGS: Alignment/bones: There are 5 lumbar type vertebral bodies within normal alignment. No evidence of fra cture is identified. Postsurgical changes with bilateral pedicular screws and rods involving L4-L5 wi th disc spacer. Hardware appears intact without surrounding lucency. Associated posterior decompressi on of the spinal canal from L3 down to L5. Evaluation is limited due to artifact from the hardware. N ew subtle erosive changes suggested involving the inferior endplate of the L4 vertebral body (series 5 image 33 and series 201, image 72). Interval removal of the catheter. Rim-enhancing fluid and gas demonstrated within the surgical site extending into the paravertebral mu sculature and subcutaneous tissues. This extends from L1 through S1. This measures grossly 6.6 x 4.3 x 18.5 cm in AP, TV, and CC dimensions. There is a tract to the skin surface identified (series 302, 77). Multiple punctate calcifications are demonstrated within this collection inferiorly. Discs: T12-L1: No spinal canal or neural foraminal stenosis is identified. L1-L2: No spinal canal or neural foraminal stenosis is identified. L2-L3: Broad-based disc bulge with mild spinal canal stenosis. Mild bilateral neural foraminal stenos is. L3-L4: Small central disc protrusion suggested without significant spinal canal stenosis. Mild bilate ral neural foraminal stenosis. L4-L5: Artifacts due to adjacent prosthesis was suboptimal assessment for spinal canal or neural for aminal stenosis. L5-S1: Artifacts due to metallic prosthesis with broad-based disc bulge and mild spinal canal stenosi s. Mild bilateral neural foraminal stenosis. Other: Punctate nonobstructive bilateral renal calculi. Subcentimeter bilateral renal cysts. IMPRESSION: 1. Large posterior enhancing fluid and gas collection predominantly at the surgical site extending fr om L1 through S5 with tract extending to the skin. This is concerning for abscess. 2. New erosive changes of the inferior endplate of the L4 vertebral body when compared to prior CT an d MR exam. Findings concerning for osteomyelitis discitis. 3.Postsurgical changes of the lumbar spine redemonstrated. Hardware appears intact. 4. Degenerative disc disease and small disc protrusion at L3-L4 as described above.
[2022-07-11] MEDS ORDERED: VANCOMYCIN 1,750 MG in SODIUM CHLORIDE 0.9% 500 ML 500 ML IVPB SCH (16:00)
[2022-07-11] MEDS: HYDROcodone/APAP 5-325MG 1 EACH TAB PO PRN (16:23)
[2022-07-11] MEDS: HYDROmorphone 0.5 MG/0.5 ML SYRINGE IVP PRN ×2 (18:05→22:46)
[2022-07-11] MEDS: diazePAM 5 MG TAB PO PRN (20:04)
[2022-07-11] MEDS: methocarbamoL 750 MG TAB PO SCH (21:51)
[2022-07-11] MEDS: GABAPENTIN 300 MG CAP PO SCH (21:51)
[2022-07-11] MEDS: VANCOMYCIN 1,750 MG in SODIUM CHLORIDE 0.9% 500 ML 500 ML IVPB SCH (22:50)
--- NOTE | 2022-07-11 23:17 | P.CONS ---
History of Present Illness - Reason for Consult Consult date: 07/11/22 Postop back infection Requesting physician: Lowell Rojo - Chief Complaint Increasing pain and drainage from the lower back incision x few days - History of Present Illness Patient is 51-year-old male with a past medical history significant for lumbar decompression and fusion subsequently admitted to hospital with a deep infection in this patient was status post washout and closure patient did have a drainage catheter unfortunately did develop very quickly post his surgery the patient local culture grew Klebsiella pneumonia and the patient was discharged home on IV Rocephin 2 g daily which the patient was receiving at home patient now presenting back to the hospital concerning for increasing pain to his lower part of the lumbar incision describing it to be sharp and burning almost 7-8 out of 10 no radiation patient denies any bowel or bladder problem patient has been brought back to the hospital with planned surgery for patient was started on vancomycin infectious disease was consulted for further management of antibiotic therapy patient did have a CT of the lumbosacral spine which showed large posterior enhancing fluid and gas collection predominantly at the surgical site extending from L1-L5 new erosive changes of the inferior en dplate of the L4 vertebral body patient however did not have any fever on presentation to the hospital and did have a normal white count kidney function has been normal Review of Systems Positive point has been mentioned in the HPI rest of the systems are negative Past Medical History Past Medical History: GERD/Reflux, Hypertension, Sleep Apnea/CPAP/BIPAP Additional Past Medical History / Comment(s): kidney stones, DEVIATED SEPTUM(HAS SX), USES CPAP MACHINE, HIATAL HERNIA History of Any Multi-Drug Resistant Organisms: None Reported Past Surgical History: Appendectomy, Back Surgery, Tonsillectomy Additional Past Surgical History / Comment(s): 1998 RT HAND INDEX/MIDDLE FINGER TENDON REPAIR, 1992 BACK SX L4-L5, SEPTOPLASY 2011, RT KNEE ARTHROSCOPY, LT MIDDLE EAR SX AGE 10 "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 05-16-22 BACK SX. Past Anesthesia/Blood Transfusion Reactions: No Reported Reaction Past Psychological History: No Psychological Hx Reported Smoking Status: Former smoker Past Alcohol Use History: Rare Past Drug Use History: None Reported - Past Family History Mother Family Medical History: No Reported History Father Family Medical History: Hypertension Additional Family Medical History / Comment(s): KINDNEY REMOVED(BENIGN TUMOR) Medications and Allergies Home Medications Medication Instructions Recorded Confirmed Type amLODIPine [Norvasc] 10 mg PO DAILY 01/24/21 07/11/22 History methocarbamoL [Methocarbamol] 750 mg PO TID 06/26/22 07/11/22 History Gabapentin [Neurontin] 300 mg PO TID #90 cap 07/05/22 07/11/22 Rx HYDROcodone/APAP 7.5-325MG [[place] 1 tab PO TID PRN 07/11/22 07/11/22 History 7.5-325] cefTRIAXone [Rocephin] 2,000 mg IVP DAILY 07/11/22 07/11/22 History diazePAM [Valium] 10 mg PO BID PRN 07/11/22 07/11/22 History Allergies Allergy/AdvReac Type Severity Reaction Status Date / Time No Known Allergies Allergy Verified 07/13/22 11:46 Physical Exam Vitals: Vital Signs Temp Pulse Resp BP Pulse Ox 07/11/22 10:20 91 18 108/84 97 07/11/22 07:33 97.7 F 96 18 126/81 98 Intake and Output 07/10/22 07/11/22 07/11/22 22:59 06:59 14:59 Other: Weight 108.862 kg GENERAL DESCRIPTION: Middle-aged male lying in bed, no distress. No tachypnea or accessory muscle of respiration use. HEENT: Shows Pallor , no scleral icterus. Oral mucous membrane is dry. No pharyn geal erythema or thrush NECK: Trachea central, no thyromegaly. LUNGS: Unlabored breathing. Clear to auscultation anteriorly. No wheeze or crackle. HEART: S1, S2, regular rate and rhythm. No loud murmur ABDOMEN: Soft, no tenderness , guarding or rigidity, no organomegaly EXTREMITIES: No edema of feet. SKIN: No rash, no masses palpable. Significant drainage from the lower end of the incision with some swelling NEUROLOGICAL: The patient is awake, alert, oriented x3, mood and affect normal. Results CBC & Chem 7: 07/12/22 05:03 07/13/22 06:29 Labs: Abnormal Lab Results - Last 24 Hours (Table) 07/11/22 07/11/22 Range/Units 08:39 08:39 RBC 3.80 L (4.30-5.90) m/uL Hgb 9.5 L (13.0-17.5) gm/dL Hct 30.8 L (39.0-53.0) % MCHC 30.8 L (31.0-37.0) g/dL Glucose 148 H (74-99) mg/dL Assessment and Plan (1) Postoperative infection Current Visit: Yes Status: Acute Code(s): T81.40XA - INFECTION FOLLOWING A PROCEDURE, UNSPECIFIED, INIT SNOMED Code(s): 11670221 (2) Surgical site infection Current Visit: No Status: Acute Code(s): T81.49XA - INFECTION FOLLOWING A PROCEDURE, OTHER SURGICAL SITE, INIT SNOMED Code(s): 82355497 Plan: 1-Patient with a lumbar surgical site infection in this patient who is status post laminectomy and fusion with recent I&D and culture positive for Klebsiella now presenting back to the hospital with worsening pain in this patient did have a abnormal CT concerning for possible abscess and the patient is scheduled for I&D this along with a deep culture 2-patient to continue vancomycin started by ER we will add cefepime to cover for the gram-negative 1 waiting for the repeat cultures to be finalized. We will follow on clinical condition and cultures to further adjust medication if needed Thank you for this consultation will follow this patient along with you Time with Patient: Greater than 30
[2022-07-12] MEDS: CEFEPIME 2 GM in SODIUM CHLORIDE 0.9% 100 ML IVPB SCH ×4 (00:24→23:08)
--- NOTE | 2022-07-12 03:36 | HP ---
HISTORY AND PHYSICAL CHIEF COMPLAINTS: Pain and swelling of the lumbar surgery wound. HISTORY OF PRESENT ILLNESS: This 51-year-old gentleman with a past medical history of hypertension and multiple medical issues, had recent lumbar surgery infection and the patient has been doing IV antibiotics as outpatient through PICC line. Because of increasing pain and swelling, the patient came to [facility] and was admitted for evaluation and treatment. I and D is being planned in a couple of days. There is no history of any fever, rigors, or chills. PAST MEDICAL HISTORY: Reviewed, include hypertension, and sleep apnea. HOME MEDICATIONS: Also reviewed include methocarbamol, dose and rest of the medications reviewed. ALLERGIES: None. FAMILY HISTORY: Kidney removal history. SOCIAL HISTORY: Previous smoker. REVIEW OF SYSTEMS: A 14-point review of systems negative as mentioned earlier. PHYSICAL EXAMINATION: VITAL SIGNS: Pulse is 97, blood pressure 100/60, respirations 16. HEENT: Conjunctivae normal. NECK: No JVD. CARDIOVASCULAR: S1, S2 muffled. RESPIRATIONS: Breath sounds diminished at the bases. No rhonchi. No crackles. ABDOMEN: Soft, nontender. LEGS: No edema. NERVOUS SYSTEMS: No focal deficits. SKIN: Examination of the back status post lumbar surgery as well as some incision and drainage. JOINTS: No active deforming arthropathy. LABS: Reviewed include hemoglobin 9.5. The rest of the labs are reviewed. ASSESSMENT: 1. Wound infection, status post back surgery. 2. History of L3-L5 decompression with L4-L5 fusion. 3. Hypertension. 4. Gastroesophageal reflux disease. 5. Sleep apnea. RECOMMENDATIONS AND DISCUSSION: This 51-year-old gentleman presented with multiple complex medical issues. At this time, I recommend to continue the current management and continue the broad- spectrum IV antibiotics. Orthopedic and Infectious Disease evaluation. We will continue to monitor. Obtain cultures and further recommendations to follow. Home medications will be continued. MMODL / IJN: [id number] / MTDMaurizio
[2022-07-12 06:52] LABS: ALT 14 U/L (4-49); AST 18 U/L (17-59); African American GFR (CKD) >90 (>60 ml/min/1.73 sqM); Albumin 3.5 g/dL (3.5-5.0); Albumin/Globulin Ratio 1.3; Alkaline Phosphatase 80 U/L (38-126); Anion Gap 10 mmol/L; Blood Urea Nitrogen 11 mg/dL (9-20); Calcium 8.5 mg/dL (8.4-10.2); Carbon Dioxide 25 mmol/L (22-30); Chloride 105 mmol/L (98-107); Globulin 2.8 g/dL; Glucose 112 mg/dL (74-99); Non-African American GFR(CKD) >90 (>60 ml/min/1.73 sqM); Potassium 3.9 mmol/L (3.5-5.1); Sodium 140 mmol/L (137-145); Total Bilirubin 0.1 mg/dL (0.2-1.3); Total Protein 6.3 g/dL (6.3-8.2)
[2022-07-12] MEDS: VANCOMYCIN 1,750 MG in SODIUM CHLORIDE 0.9% 500 ML 500 ML IVPB SCH ×3 (08:19→23:07)
[2022-07-12] MEDS: diazePAM 5 MG TAB PO PRN (08:31)
[2022-07-12] MEDS: HYDROcodone/APAP 5-325MG 1 EACH TAB PO PRN (08:32)
[2022-07-12] MEDS: amLODIPine 10 MG TAB PO SCH (08:32)
[2022-07-12] MEDS: GABAPENTIN 300 MG CAP PO SCH ×3 (08:32→21:37)
[2022-07-12] MEDS: methocarbamoL 750 MG TAB PO SCH ×3 (08:33→21:38)
[2022-07-12 09:10] LABS: Basophils # (A) 0.02 X 10*3/uL (0.00-0.10); Basophils % (A) 0.3 %; Eosinophils # (A) 0.28 X 10*3/uL (0.04-0.35); Eosinophils % (A) 4.7 %; HCT 31.1 % (39.6-50.0); HGB 9.6 g/dL (13.0-17.0); Immature Grans, Automated 0.3 %; Lymphocytes # (A) 1.49 X 10*3/uL (0.90-5.00); Lymphocytes % (A) 25.1 %; MCH 24.7 pg (27.0-32.0); MCHC 30.9 g/dL (32.0-37.0); MCV 79.9 fL (80.0-97.0); Mean Platelet Volume 8.6 fL (9.5-12.2); Monocytes % (A) 8.4 %; NRBC Per 100 WBC 0 /100 WBCS (0.0-0.0); Neutrophils # (A) 3.62 X 10*3/uL (1.80-7.70); Neutrophils % (A) 61.2 %; Platelet Count 300 X 10*3/uL (140-440); RBC 3.89 X 10*6/uL (4.40-5.60); RDW 14.6 % (11.5-14.5); WBC 5.93 X 10*3/uL (4.50-10.00)
[2022-07-12] MEDS: HYDROmorphone 0.5 MG/0.5 ML SYRINGE IVP PRN ×4 (10:23→23:14)
--- NOTE | 2022-07-12 11:33 | P.PN ---
Subjective Progress Note Date: 07/12/22 Principal diagnosis: status post L3 to L5 decompression with L4 5 fusion and subsequent deep infection status post washout with continued drainage Patient seen and examined, patient was ambulating within room, stating that the bed is uncomfortable. Patient has complaint of lower back pain radiating into bilateral lower extremities with numbness and tingling. Incision is draining serosanguineous output, educated that dressing needs to be maintained clean and dry. Patient verbalizes understanding. He denies any weakness to bilateral lower extremities. Mr. Espinosa denies nausea/vomiting, fever/chills, or chest pain. Objective - Vital Signs Vital signs: Vital Signs Temp 97.5 F L 07/12/22 04:51 Pulse 80 07/12/22 04:51 Resp 16 07/12/22 04:51 BP 123/81 07/12/22 04:51 Pulse Ox 98 07/12/22 04:51 FiO2 Intake & Output 07/11/22 07/12/22 07/12/22 18:59 06:59 18:59 Intake Total 1760 Output Total 1300 550 Balance -1300 1210 Weight 112 kg Intake: IV 600 Cefepime 100 vancomycin 500 Oral 1160 Output: Urine 1300 550 Other: Voiding Method Toilet Toilet # Voids 2 - Exam Physical Examination General: The patient is awake and alert, in no acute distress Skin: Skin is warm and dry with no obvious rashes or lesions. Hairy patches absent, no dorsal skin dimples, no cafe au lait spots. Surgical incision to lumbar region, draining serosanguineous output, one third of the lower portion of the incision is macerated, with erythema noted. Eye: Pupils are equal, round and reactive to light, extra-ocular movements are intact; there is normal conjunctiva bilaterally. Neck: The neck is supple, there is no tenderness and ROM intact. Cardiovascular: There is a regular rate and rhythm. No murmur, rub or gallop is appreciated. Respiratory: Lungs are clear to auscultation, respirations are non-labored, breath sounds are equal. Gastrointestinal: Soft, non-distended, non-tender abdomen . Back: There is tenderness to palpation in the paralumbar region. There is no obvious deformity . Musculoskeletal: ROM limited secondary to pain and stiffness from surgical procedure. Shoulder abduction 5/5, elbow flexors 5/5, wrist dorsiflexors 5/5. finger abductor 5/5, pebble mill operator 5/5, hip flexor 4/5, knee flexor 4/5, ankle do rsiflexor 4/5, ankle plantarflexion 4/5 and extensor hallucis 4/5. Neurological: CN 2-12 intact. There are no obvious motor or sensory deficits. Movement and coordination equal and intact. Sensory exam to light touch intact C5-T1 and intact from L2-S1. Reflexes 2/4 in bilateral upper and lower ex tremities. Negative Hoffmans, babinski, and clonus signs. Psychiatric: Cooperative, appropriate mood & affect, normal judgment. - Labs CBC & Chem 7: 07/12/22 05:03 07/12/22 05:03 Labs: Abnormal Lab Results - Last 24 Hours (Table) 07/12/22 07/12/22 Range/Units 05:03 05:03 RBC 3.89 L (4.40-5.60) X 10*6/uL Hgb 9.6 L (13.0-17.0) g/dL Hct 31.1 L (39.6-50.0) % MCV 79.9 L (80.0-97.0) fL MCH 24.7 L (27.0-32.0) pg MCHC 30.9 L (32.0-37.0) g/dL RDW 14.6 H (11.5-14.5) % MPV 8.6 L (9.5-12.2) fL Glucose 112 H (74-99) mg/dL Total Bilirubin 0.1 L (0.2-1.3) mg/dL Microbiology - Last 24 Hours (Table) 07/11/22 08:39 Blood Culture - Preliminary Blood No Growth after 24 hours 07/11/22 08:39 Gram Stain - Preliminary Back Wound Culture - Preliminary Assessment and Plan Assessment: status post L3-L5 decompression with L4-5 fusion and subsequent deep infection status post washout with continued drainage Plan: Plan: -Appreciate commercial sales consultant and team management. -Activity: Ambulate QID, OOB all meals, up and about, limit lifting bending twisting to less than 5 lbs. Use walker or cane if needed for stability. -Daily PT/OT, increase ambulation strength and balance. -Brace when up and about, not needed in bed or chair -Pain control: Adequate at this time -Meds: reviewed -GI ppx: senna, Miralax -DVT PPX: refer to medicine -Hygiene: Shower today. Maintain dressing clean and dry. Meticulous cleaning after BMs away from the incision site -Encourage IS 10x/hr -Dispo: I&D of lumbar incisional wound scheduled for 07/13/22 *I reviewed and discussed this case with my attending Dr. Montero, whom has reviewed this chart and films and is in agreement with assessment and plan of c are as outlined above. I have personally seen and examined the patient, performed the documentation and the assessment and plan as written. Number of minutes spent on the visit: 20m.
[2022-07-12] MEDS: HYDROcodone/APAP 10-325MG 1 EACH TAB PO SCH ×2 (14:03→21:38)
[2022-07-13] MEDS: HYDROcodone/APAP 10-325MG 1 EACH TAB PO SCH ×4 (02:18→20:37)
[2022-07-13] MEDS: HYDROmorphone 0.5 MG/0.5 ML SYRINGE IVP PRN ×4 (04:03→17:05)
[2022-07-13] MEDS ORDERED: VANCOMYCIN TROUGH DUE 1 EACH MISC MISCELLANE ONE (06:00)
--- NOTE | 2022-07-13 07:31 | P.PN ---
Progress Note - Text Progress Note Date: 07/13/22 Spine Surgery Risk Review Trae Espinosa is a 51-year-old male presenting for evaluation of continued drainage lumbar wound. It was my pleasure to have seen and examined Trae Espinosa. In our visit today we have had a chance to go over subjective complaints, physical examination findings and treatments including the natural course history without intervention and various interventional options. The patients imaging demonstrates rim-enhancing fluid collection in the lumbar area with track superficially. On physical exam, Trae Espinosa demonstrates draining sinus wound no purulence wound maceration. I have explained to the patient that as their condition progresses it will cause further neurological deficits and eventual paralysis. Based on the patients imaging, physical exam, and the rapid progression and disabling nature of their symptoms, at this time I recommend surgery in the form or a: Irrigation and debridement lumbar wound with possible hardware exchange. I discussed the risk and benefits of this procedure at length with Trae Espinosa. The patient and his agreed to considered pursuing the procedure abovementioned. Prior to surgery, she should follow up with her PCP (Cardio, ID, IM etc) for clearance. Questions were invited and answered, and the patient wishes to proceed as outlined below. Currently, I am recommendin. Irrigation debridement lumbar wound with possible hardware exchange 2. Follow up with PCP for surgical clearance 3. Review of surgical risks and benefits as well as an educational packet on the proposed surgical procedure. Risks: All surgical procedures come with inherent risks, including those related to positioning, anesthesia, intraoperative findings, and postoperative complications. It is important to understand that surgery does not come with any guarantee of a successful outcome as complications and adverse events are always possible. The patient was given a handout in office today discussing the surgical procedure and risks associated with the intervention, both of which were discussed with the patient. These risks include but are not limited to the following: * Experiencing same, different or even worse symptoms in back, neck, arms, or legs compared to before surgery. * Requiring further surgery or other forms of treatment presently or at some time in the future at same or other levels of the intended spine surgery. * On an extreme but fortunately relatively rare basis severe complication such as blindness, stroke, heart attack, temporary and/or permanent nerve injury, paralysis, coma, or may occur, sometimes without known explanation. * Surgical complications may include but are not limited to risk of infection, fluid accumulation in the surgical dissection site, including a seroma or hematoma, that requires additional surgery, wound drainage, bleeding, new numbness or weakness, vision changes/loss, spinal fluid leakage, non-healing and/or infected incision, headaches, difficulty or inability to swallow, hoarseness, hemopneumothorax, pneumothorax, impotence, retrograde ejaculation, vaginal dryness; injury to nerves, spinal cord, blood vessels, lymphatics or other vital organs (i.e., bowel injury, injury to the great vessels); heterotopic bone formation; complications related to the hardware such as screws, rods, cages including misplaced hardware, device failure, instrumentation at the wrong spine level, hardware fracture/breakage, or hardware loosening; vertebral failure of the spinal column above or below the newly placed hardware; retained surgical instrumentations or devices and the need for further surgery. * Medical risks of the planned spine surgery include but are not limited to generalized Infections to the whole body or local areas outside of the surgical site (sepsis), heart attack, bleeding, anaphylaxis, meningitis, seizure, epilepsy, hearing loss, burn ceja, laceration of the head or other areas of the body, bruising, hypersensitivity of the skin, bladder over distension; allergic reaction; shoulder injury related to positioning; fat, blood and air clots to other areas of the body like heart, lungs, brain; fa ilure of internal organs such as lungs, kidneys, liver and excessive bleeding. If blood transfusions are necessary, note that transfusions may cause intolerance reactions such as anaphylaxis or other complex reactions. * Despite best efforts, the results of spine surgery might not heal in terms of bone, soft tissues such as skin, fascia, ligaments, and joints. Additionally, in order to achieve best possible results, spine surgery may be carried out beyond the initially planned levels and involve decompression, fusion including insertion of hardware at levels other than the original intended ar ea of surgical interest change some portions of the procedure in order to ensure the best possible outcomes. * With spine surgery and spinal fusion, there are different off label uses of instrumentation (devices, implants and hardware) as well as biological substances (bone morphogenic proteins, demineralized bone matrix) as well as using extra bone from allograft sources (i.e. cadaver bone) or autograft (iliac crest bone, ribs, or the spine itself). The patient has been given information about these practices and their inherent risks and benefits. The patient has had a chance to review all the listed information, has been given print outs detailing this information, and has had all his/her questions answered to their satisfaction. It was my pleasure to have seen and examined Trae Espinosa. In our visit today we have had a chance to go over my understanding of our patient's current condition, the natural course history without intervention and various inte rventional options. Questions were invited and answered, and the patient wishes to proceed as outlined above. I have seen and examined the patient for 25 minutes and we have spent more than 50% of the time in repeat and detailed counseling about the patient's condition, its natural course history with out and as much as can be predicted with surgery and re-review of various surgical treatment options. In conclusion, Trae Espinosa and his requested we proceed with the above suggested surgery and are willing to accept risks and limitations of the suggested surgery as nature of the disease process and our best attempts at treatment for the condition. Thank you again for allowing us to be part of your patient's care. Please don't hesitate to contact me if you have any further questions. Signed and authenticated by: Aron [facility]s [facility] [address] [place], [address] [address]
[2022-07-13 07:43] LABS: African American GFR (CKD) >90 (>60 ml/min/1.73 sqM); Anion Gap 10 mmol/L; Blood Urea Nitrogen 9 mg/dL (9-20); Calcium 8.8 mg/dL (8.4-10.2); Carbon Dioxide 26 mmol/L (22-30); Chloride 104 mmol/L (98-107); Glucose 115 mg/dL (74-99); Non-African American GFR(CKD) >90 (>60 ml/min/1.73 sqM); Sodium 140 mmol/L (137-145)
[2022-07-13] MEDS: amLODIPine 10 MG TAB PO SCH (07:50)
[2022-07-13] MEDS: GABAPENTIN 300 MG CAP PO SCH ×3 (07:50→20:40)
--- NOTE | 2022-07-13 07:50 | P.PN ---
Subjective Progress Note Date: 07/12/22 Principal diagnosis: Lumbar abscess and cellulitis Patient is a 51-year-old male who recently did have a lumbar laminectomy and decompression subsequently admitted to the hospital with lumbar abscess status post drainage culture positive for Klebsiella subsequently pres ented back to the hospital with worsening pain and abnormal CT suggestive of abscess and some bony destruction. On today's evaluation that is 07/12/2022, the patient denies having any fever or any chills, the patient lower back pain is currently controlled the pain medication patient denies having any chest pain no shortness of breath or cough no nausea no vomiting, pain or diarrhea Objective - Vital Signs Vital signs: Vital Signs Temp 97.5 F L 07/12/22 04:51 Pulse 80 07/12/22 04:51 Resp 16 07/12/22 04:51 BP 123/81 07/12/22 04:51 Pulse Ox 98 07/12/22 04:51 FiO2 Intake & Output 07/11/22 07/12/22 07/12/22 18:59 06:59 18:59 Intake Total 1760 Output Total 1300 550 Balance -1300 1210 Weight 112 kg Intake: IV 600 Cefepime 100 vancomycin 500 Oral 1160 Output: Urine 1300 550 Other: Voiding Method Toilet Toilet # Voids 2 - Exam GENERAL DESCRIPTION: Middle-aged male lying in bed in no distress RESPIRATORY SYSTEM: Unlabored breathing , decreased breath sounds at bases HEART: S1 S2 regular rate and rhythm , ABDOMEN: Soft , no tenderness EXTREMITIES: No edema feet - Labs CBC & Chem 7: 07/12/22 05:03 07/12/22 05:03 Labs: Abnormal Lab Results - Last 24 Hours (Table) 07/12/22 07/12/22 07/12/22 Range/Units 05:03 05:03 05:03 RBC 3.89 L (4.40-5.60) X 10*6/uL Hgb 9.6 L (13.0-17.0) g/dL Hct 31.1 L (39.6-50.0) % MCV 79.9 L (80.0-97.0) fL MCH 24.7 L (27.0-32.0) pg MCHC 30.9 L (32.0-37.0) g/dL RDW 14.6 H (11.5-14.5) % MPV 8.6 L (9.5-12.2) fL Glucose 112 H (74-99) mg/dL Total Bilirubin 0.1 L (0.2-1.3) mg/dL C-Reactive Protein 3.6 H (<1.0) mg/dL Microbiology - Last 24 Hours (Table) 07/11/22 08:39 Blood Culture - Preliminary Blood No Growth after 24 hours 07/11/22 08:39 Gram Stain - Preliminary Back Wound Culture - Preliminary Assessment and Plan (1) Postoperative infection Current Visit: Yes Status: Acute Code(s): T81.40XA - INFECTION FOLLOWING A PROCEDURE, UNSPECIFIED, INIT SNOMED Code(s): 88916141 Plan: 1-Patient with a lumbar surgical site infection in this patient who is status post laminectomy and fusion with recent I&D and culture positive for Klebsiella now presenting back to the hospital with worsening pain in this patient did have a abnormal CT concerning for possible abscess and the patient is scheduled for I&D this along with a deep culture 2-patient to continue vancomycin and cefepime while waiting for the repeat cultures to be finalized. Time with Patient: Less than 30
[2022-07-13] MEDS: VANCOMYCIN 1,750 MG in SODIUM CHLORIDE 0.9% 500 ML 500 ML IVPB SCH ×3 (07:51→23:01)
[2022-07-13] MEDS: methocarbamoL 750 MG TAB PO SCH ×3 (07:52→20:40)
[2022-07-13] MEDS: CEFEPIME 2 GM in SODIUM CHLORIDE 0.9% 100 ML IVPB SCH ×2 (07:52→16:56)
[2022-07-13 07:58] LABS: Potassium 4.2 mmol/L (3.5-5.1)
--- NOTE | 2022-07-13 09:53 | PN ---
PROGRESS NOTE This 51-year-old gentleman admitted with back surgery and wound infection, is being closely monitored. Incision and drainage being planned tomorrow. No chest pain. No palpitation. PHYSICAL EXAMINATION: VITAL SIGNS: Pulse is 104, blood pressure ntd, respirations 18. HEENT: Conjunctivae normal. NECK: No JVD. CARDIOVASCULAR: S1, S2 muffled. RESPIRATIONS: n ABDOMEN: Soft. LEGS: No edema. No cyanosis. NERVOUS SYSTEM: No focal deficits. SKIN: Examination of the back, status post surgery, status post wound infection. LABS: Hemoglobin 9.2. Other labs are noted. Cultures are pending. ASSESSMENT: 1. Wound infection, status post back surgery. 2. History of L3-L5 decompression with L4-L5 fusion. 3. Hypertension. 4. Gastroesophageal reflux disease. 5. Sleep apnea. RECOMMENDATIONS AND DISCUSSION: I recommend to continue current medications and continue with broad-spectrum IV antibiotics. Follow the cultures. Closely follow with multiple consultants. Orthopedic Surgery evaluation and debridement per Ortho. Further recommendations to follow. MMODL / IJN: [id number] / MTDMaurizio
[2022-07-13] MEDS ORDERED: LACTATED RINGERS 1,000 ML IV ONE ×2 (11:47→14:52)
[2022-07-13] MEDS ORDERED: LIDOCAINE 1% (10MG/ML) FOR IV START INTRADERMA PRN (11:48)
[2022-07-13] MEDS ORDERED: DEXAMETHASONE SOD PHOSPHATE 4 MG/ML 1 ML VIAL IV ONE (11:48)
[2022-07-13] MEDS ORDERED: ONDANSETRON 4 MG/2 ML VIAL IVP ONE (11:48)
[2022-07-13] MEDS ORDERED: METOCLOPRAMIDE 5 MG/ML 2 ML VIAL IVP PRN (11:48)
[2022-07-13] MEDS ORDERED: GENTAMICIN PF 20 MG/2 ML VIAL IVPB ONE (12:14)
[2022-07-13] MEDS ORDERED: HYDROmorphone (PF) 1 MG/ML ONE (12:19)
[2022-07-13] MEDS ORDERED: PROPOFOL 10 MG/ML 20 ML VIAL IV ONE (12:19)
[2022-07-13] MEDS ORDERED: LIDOCAINE 2% INJ 20 MG/ML (2 ML VIAL) ONE (12:19)
[2022-07-13] MEDS ORDERED: NEOSTIGMINE 1 MG/ML 10 ML VIAL ONE (12:19)
[2022-07-13] MEDS ORDERED: SUCCINYLCHOLINE CHLORIDE 200 MG/10 ML VIAL IV ONE (12:19)
[2022-07-13] MEDS ORDERED: GLYCOPYRROLATE 0.2 MG/ML 2 ML VIAL ONE (12:19)
[2022-07-13] MEDS ORDERED: ceFAZolin 1,000 MG VIAL IVPB ONE (12:19)
[2022-07-13] MEDS ORDERED: PHENYLEPHRINE-0.9% NACL SYG 1,000 MCG/10 ML SYRINGE ONE (12:19)
[2022-07-13] MEDS ORDERED: ROCURONIUM 10 MG/ML (5 ML VIAL) IV ONE (12:19)
[2022-07-13] MEDS ORDERED: MIDAZOLAM 2 MG/2 ML VIAL ONE (12:19)
[2022-07-13] MEDS ORDERED: fentaNYL (PF) 50 MCG/ML 2 ML AMP ONE (12:19)
[2022-07-13] MEDS ORDERED: GENTAMICIN 40 MG/ML 2 ML VIAL IRRIGATION ONE (13:20)
--- NOTE | 2022-07-13 15:28 | FL ---
EXAMINATION TYPE: FL guidance operating room, XR lumbar spine 2 or 3V DATE OF EXAM: 07/13/2022 CLINICAL HISTORY: Low back pain. TECHNIQUE: Fluoroscopy. Intraoperative 2 views lumbar spine. COMPARISON: Intraoperative lumbar spine x-ray May 16, 2022. FINDINGS: Fluoroscopic guidance was provided during intraoperative hardware removal with cementing a nd antibiotic irrigation procedure performed by spine surgeon. A total of 52 seconds of fluoroscopic time was utilized during the procedure and 2 spot intraoperative images are acquired. Images redemon strate posterior fusion hardware and metallic disc material at L4-L5 level. IMPRESSION: As Above.
[2022-07-13] MEDS ORDERED: HYDROmorphone 0.5 MG/0.5 ML SYRINGE IVP PRN (16:13)
[2022-07-13] MEDS: LACTATED RINGERS 1,000 ML IV SCH (16:56)
[2022-07-13] MEDS: HYDROmorphone 1 MG/ML 1 ML SYRINGE IVP PRN ×2 (19:32→22:58)
[2022-07-13] MEDS: diazePAM 5 MG TAB PO PRN (19:40)
[2022-07-14] MEDS: CEFEPIME 2 GM in SODIUM CHLORIDE 0.9% 100 ML IVPB SCH ×3 (00:40→15:27)
[2022-07-14] MEDS: HYDROcodone/APAP 10-325MG 1 EACH TAB PO SCH ×3 (02:35→15:27)
[2022-07-14] MEDS: HYDROmorphone 1 MG/ML 1 ML SYRINGE IVP PRN ×5 (03:23→21:03)
--- NOTE | 2022-07-14 09:02 | P.PN ---
Subjective Progress Note Date: 07/14/22 Principal diagnosis: status post L3 to L5 decompression with L4 5 fusion and subsequent deep infection status post washout with continued drainage Patient seen and examined at bedside. Patient states he woke up uncomfortable. RN was at bedside with pain medication. He reports laying on his side is where he finds most relief. Patient has c/o burning sensation and discomfort with stein catheter, informed patient and RN that this can be discontinued. Hemovac drains are intact and patent. Prevena is present over lumbar incision. Patient reports numbness to LLE that was present prior to procedure. He denies any weakness to bilateral lower extremities. Mr. Espinosa denies nausea/vomiting, fever/chills, or chest pain. Objective - Vital Signs Vital signs: Vital Signs Temp 99.4 F 07/14/22 04:03 Pulse 94 07/14/22 04:03 Resp 17 07/14/22 04:03 BP 109/67 07/14/22 04:03 Pulse Ox 96 07/14/22 04:03 FiO2 Intake & Output 07/13/22 07/14/22 07/14/22 18:59 06:59 18:59 Intake Total 2420 Output Total 530 1600 Balance 1890 -1600 Intake: IV 2420 Cefepime 100 vancomycin 500 Output: Urine 280 1600 Estimated Blood Loss 250 Other: Voiding Method Toilet Toilet # Voids 2 - Exam Physical Examination General: The patient is awake and alert, in no acute distress Skin: Skin is warm and dry with no obvious rashes or lesions. Hairy patches absent, no dorsal skin dimples, no cafe au lait spots. Surgical incision to lumbar region, x2 Hemovac drains present, Prevena plus present. Eye: Pupils are equal, round and reactive to light, extra-ocular movements are intact; there is normal conjunctiva bilaterally. Neck: The neck is supple, there is no tenderness and ROM intact. Cardiovascular: There is a regular rate and rhythm. No murmur, rub or gallop is appreciated. Respiratory: Lungs are clear to auscultation, respirations are non-labored, breath sounds are equal. Gastrointestinal: Soft, non-distended, non-tender abdomen . Back: There is tenderness to palpation in the paralumbar region. There is no obvious deformity . Musculoskeletal: ROM limited secondary to pain and stiffness from surgical procedure. Shoulder abduction 5/5, elbow flexors 5/5, wrist dorsiflexors 5/5. finger abductor 5/5, mold presser 5/5, hip flexor 4/5, knee flexor 4/5, ankle dorsiflexor 4/5, ankle plantarflexion 4/5 and extensor hallucis 4/5. Neurological: CN 2-12 intact. There are no obvious motor or sensory deficits. Movement and coordination equal and intact. Sensory exam to light touch intact C5-T1 and intact from L2-S1. Reflexes 2/4 in bilateral upper and lower extremities. Negative Hoffmans, babinski, and clonus signs. Psychiatric: Cooperative, appropriate mood & affect, normal judgment. - Labs CBC & Chem 7: 07/12/22 05:03 07/13/22 06:29 Labs: Microbiology - Last 24 Hours (Table) 07/13/22 13:02 Wound Culture - Preliminary Back 07/13/22 13:04 Anaerobic Culture - Preliminary Blood 07/13/22 13:02 Anaerobic Culture - Preliminary Back 07/13/22 13:03 Wound Culture - Preliminary Back 07/13/22 13:02 Wound Culture - Preliminary Back 07/13/22 13:03 Anaerobic Culture - Preliminary Back 07/13/22 13:02 Anaerobic Culture - Preliminary Blood 07/13/22 13:04 Wound Culture - Preliminary Back 07/11/22 09:35 Blood Culture - Preliminary Blood No Growth after 48 hours 07/11/22 08:39 Blood Culture - Preliminary Blood No Growth after 48 hours 07/11/22 08:39 Gram Stain - Final Back Wound Culture - Final Assessment and Plan Assessment: s/p post-op day 1 Irrigation and debridement of lumbar spine with hardware exchange L4-L5. status post L3-L5 decompression with L4-5 fusion and subsequent deep infection status post washout with continued drainage Plan: Plan: -Appreciate beauty consultant and team management. -Activity: Ambulate QID, OOB all meals, up and about, limit lifting bending twisting to less than 5 lbs. Use walker or cane if needed for stability. -Daily PT/OT, increase ambulation strength and balance. -Brace when up and about, not needed in bed or chair -Pain control: Adequate at this time -Meds: reviewed -GI ppx: senna, Miralax -DVT PPX: refer to medicine -Hygiene: Shower today. Maintain dressing clean and dry. Meticulous cleaning after BMs away from the incision site -Encourage IS 10x/hr -Stein Catheter: discontinue today -Drains: Maintain today, monitor and record output. -Dispo: Anticipate discharge 48-72 hrs *I reviewed and discussed this case with my attending Dr. Montero, whom has reviewed this chart and films and is in agreement with assessment and plan of care as outlined above. I have personally seen and examined the patient, performed the documentation and the assessment and plan as written. Number of minutes spent on the visit: 20m.
[2022-07-14] MEDS: amLODIPine 10 MG TAB PO SCH (09:30)
[2022-07-14] MEDS: GABAPENTIN 300 MG CAP PO SCH ×3 (09:30→21:05)
[2022-07-14] MEDS: methocarbamoL 750 MG TAB PO SCH ×3 (09:30→21:05)
[2022-07-14] MEDS: VANCOMYCIN 1,750 MG in SODIUM CHLORIDE 0.9% 500 ML 500 ML IVPB SCH ×3 (09:38→22:24)
--- NOTE | 2022-07-14 16:50 | P.PN ---
Subjective Progress Note Date: 07/13/22 Principal diagnosis: Lumbar abscess and cellulitis Patient is a 51-year-old male who recently did have a lumbar laminectomy and decompression subsequently admitted to the hospital with lumbar abscess status post drainage culture positive for Klebsiella subsequently pres ented back to the hospital with worsening pain and abnormal CT suggestive of abscess and some bony destruction. On today's evaluation that is 07/13/2022, the patient remains to be afebrile, the patient lower back pain is somewhat controlled with the current pain medication patient, the patient denies having any chest pain no shortness of breath or cough no nausea no vomiting, pain or diarrhea Objective - Vital Signs Vital signs: Vital Signs Temp 97.2 F L 07/13/22 11:48 Pulse 91 07/13/22 11:48 Resp 16 07/13/22 11:48 BP 147/92 07/13/22 11:48 Pulse Ox 98 07/13/22 11:48 FiO2 Intake & Output 07/12/22 07/13/22 07/13/22 18:59 06:59 18:59 Intake Total 1400 0 100 Balance 1400 0 100 Intake: IV 100 Intake, IV Titration 1400 Amount Cefepime 2 gm In Sodium 100 Chloride 0.9% 100 ml @ 25 mls/hr IVPB Q8HR [facility] Rx# :[id number] Sodium Chloride 0.9% 1, 300 000 ml @ 75 mls/hr IV . [id number] ONE Rx#:[id number] Vancomycin 1,750 mg In 1000 Sodium Chloride 0.9% 500 ml 500 ml @ 167 mls/hr IVPB Q8H [facility] Rx#: [id number] Oral 0 Other: Voiding Method Toilet Toilet Toilet # Voids 2 - Exam GENERAL DESCRIPTION: Middle-aged male lying in bed in no distress RESPIRATORY SYSTEM: Unlabored breathing , decreased breath sounds at bases HEART: S1 S2 regular rate and rhythm , ABDOMEN: Soft , no tenderness EXTREMITIES: No edema feet - Labs CBC & Chem 7: 07/12/22 05:03 07/13/22 06:29 Labs: Abnormal Lab Results - Last 24 Hours (Table) 07/12/22 07/13/22 Range/Units 05:03 06:29 ESR 51 H (0-20) mm/Hr Glucose 115 H (74-99) mg/dL Microbiology - Last 24 Hours (Table) 07/11/22 09:35 Blood Culture - Preliminary Blood No Growth after 48 hours 07/11/22 08:39 Blood Culture - Preliminary Blood No Growth after 48 hours 07/11/22 08:39 Gram Stain - Final Back Wound Culture - Final Assessment and Plan (1) Postoperative infection Current Visit: Yes Status: Acute Code(s): T81.40XA - INFECTION FOLLOWING A PROCEDURE, UNSPECIFIED, INIT SNOMED Code(s): 35194492 Plan: 1-Patient with a lumbar surgical site infection in this patient who is status post laminectomy and fusion with recent I&D and culture positive for Klebsiella now presenting back to the hospital with worsening pain in this patient did have a abnormal CT concerning for possible abscess and the patient is scheduled for I&D this afternoon along with a deep culture 2-patient to continue with the current antibiotic treatment of vancomycin and cefepime and monitor clinical course closely Time with Patient: Less than 30
--- NOTE | 2022-07-14 16:52 | P.PN ---
Subjective Progress Note Date: 07/14/22 Principal diagnosis: Lumbar abscess and cellulitis Patient is a 51-year-old male who recently did have a lumbar laminectomy and decompression subsequently admitted to the hospital with lumbar abscess status post drainage culture positive for Klebsiella subsequently pres ented back to the hospital with worsening pain and abnormal CT suggestive of abscess and some bony destruction. The patient is status post I&D of the lumbar spine with hardware exchange L4-5 completed on 07/13/2022 On today's evaluation that is 07/14/2022, the patient continues to be afebrile, the patient still complaining of lower back pain with some improvement with the current pain medication patient, the patient denies having any chest pain no shortness of breath or cough no nausea no vomiting, pain or diarrhea Objective - Vital Signs Vital signs: Vital Signs Temp 98.3 F 07/14/22 12:45 Pulse 82 07/14/22 12:45 Resp 16 07/14/22 12:45 BP 105/66 07/14/22 12:45 Pulse Ox 94 L 07/14/22 12:45 FiO2 Intake & Output 07/13/22 07/14/22 07/14/22 18:59 06:59 18:59 Intake Total 2420 Output Total 530 1600 1000 Balance 1890 -1600 -1000 Intake: IV 2420 Cefepime 100 vancomycin 500 Output: Drainage 250 Left 100 Right 150 Urine 280 1600 750 Estimated Blood Loss 250 Other: Voiding Method Toilet Toilet Toilet # Voids 2 - Exam GENERAL DESCRIPTION: Middle-aged male lying in bed in no distress RESPIRATORY SYSTEM: Unlabored breathing , decreased breath sounds at bases HEART: S1 S2 regular rate and rhythm , ABDOMEN: Soft , no tenderness EXTREMITIES: No edema feet - Labs CBC & Chem 7: 07/12/22 05:03 07/13/22 06:29 Labs: Microbiology - Last 24 Hours (Table) 07/11/22 09:35 Blood Culture - Preliminary Blood No Growth after 72 hours 07/11/22 08:39 Blood Culture - Preliminary Blood No Growth after 72 hours 07/13/22 13:02 Wound Culture - Preliminary Back 07/13/22 13:04 Anaerobic Culture - Preliminary Blood 07/13/22 13:02 Anaerobic Culture - Preliminary Back 07/13/22 13:03 Wound Culture - Preliminary Back 07/13/22 13:02 Wound Culture - Preliminary Back 07/13/22 13:03 Anaerobic Culture - Preliminary Back 07/13/22 13:02 Anaerobic Culture - Preliminary Blood 07/13/22 13:04 Wound Culture - Preliminary Back 07/11/22 08:39 Gram Stain - Final Back Wound Culture - Final Assessment and Plan (1) Postoperative infection Current Visit: Yes Status: Acute Code(s): T81.40XA - INFECTION FOLLOWING A PROCEDURE, UNSPECIFIED, INIT SNOMED Code(s): 86747865 Plan: 1-Patient with a lumbar surgical site infection in this patient who is status post laminectomy and fusion with recent I&D and culture positive for Klebsiella now presenting back to the hospital with worsening pain in this patient did have a abnormal CT concerning for possible abscess and the patient is status post I&D of the lumbar spine with hardware exchange L4-L5 completed on 07/13/2022 along with a deep cultures which are currently pending 2-patient to continue with the current antibiotic treatment of vancomycin and cefepime while waiting for repeat culture to be finalize Time with Patient: Less than 30
[2022-07-14] MEDS: LACTATED RINGERS 1,000 ML IV SCH (17:03)
--- NOTE | 2022-07-14 17:28 | PN ---
PROGRESS NOTE SUBJECTIVE: This is a 51-year-old gentleman, who was admitted with significant infection, and the wound infection had incision and drainage today. No chest pain. No palpitations. No fever. Final cultures are pending at this time. PHYSICAL EXAMINATION: VITAL SIGNS: Pulse 88, blood pressure 115/55, respirations 16. HEENT: Conjunctivae are normal. NECK: No jugular venous distention. CARDIOVASCULAR: S1 and S2 muffled. RESPIRATORY: Breath sounds diminished at the bases. ABDOMEN: Soft. BACK: Status post infection. Some drainage also present. LABORATORY DATA: Reviewed. Vancomycin level is okay. Cultures are negative so far. ASSESSMENT: 1. Wound infection status post back surgery, status post incision, drainage, and debridement. 2. History of L3-L5 decompression with L4-L5 fusion. 3. Hypertension. 4. Gastroesophageal reflux disease. 5. Sleep apnea. RECOMMENDATIONS: Recommend to continue current . Await final culture report. Continue the antibiotics. Closely follow with Orthopedic Surgery and Infectious Disease. Further recommendations to follow. MMODL / IJN: [id number] / TINO
[2022-07-15] MEDS: HYDROmorphone 1 MG/ML 1 ML SYRINGE IVP PRN ×6 (00:47→20:52)
[2022-07-15] MEDS: CEFEPIME 2 GM in SODIUM CHLORIDE 0.9% 100 ML IVPB SCH ×4 (00:54→23:49)
[2022-07-15] MEDS: HYDROcodone/APAP 10-325MG 1 EACH TAB PO SCH ×5 (01:00→22:34)
[2022-07-15 05:41] LABS: African American GFR (CKD) >90 (>60 ml/min/1.73 sqM); Non-African American GFR(CKD) >90 (>60 ml/min/1.73 sqM)
--- NOTE | 2022-07-15 06:34 | PN ---
PROGRESS NOTE SUBJECTIVE: This is a 51-year-old gentleman who was admitted with wound infection, back surgery, he is being closely monitored. The patient had surgery. Cultures are negative so far. PHYSICAL EXAMINATION: VITAL SIGNS: Pulse is 80, blood pressure isNTD, and respirations 16. HEENT: Conjunctivae normal. NECK: No jugular venous distention. CARDIOVASCULAR: S1, S2 muffled. RESPIRATIONS: Decreased. ABDOMEN: Soft. BACK: Status post surgery. LEGS: No edema, no cyanosis. NERVOUS SYSTEM: No focal deficits. LABS: Hemoglobin 9.6, rest of the labs are noted. ASSESSMENT: 1. Wound infection, status post back surgery and incision and drainage. 2. Status post L3-L5 decompression, L4-L5 fusion. 3. Hypertension. 4. History of gastroesophageal reflux disease. 5. Sleep apnea. DISCUSSION AND RECOMMENDATIONS: Continue current management. Await final ID. Continue IV antibiotics. Closely follow with Orthopedic surgery, Infectious Disease. Further recommendations to follow. MMODL / SUSANAN: [id number] / MTDMaurizio
--- NOTE | 2022-07-15 07:38 | P.PN ---
Subjective Progress Note Date: 07/15/22 Principal diagnosis: status post L3 to L5 decompression with L4 5 fusion and subsequent deep infection status post washout with continued drainage Patient seen and examined at bedside. Upon entering room patient was asleep. Patient states he did have a rough night due to pain in the right side of his lower back. Patient states he worked with physical therapy yesterday and was ambulated in hallway, tolerating well. He states he has been ambulating to restroom. Hemovac drains are intact and patent. Prevena is present over lumbar incision. Patient reports numbness to LLE that was present prior to procedure. He denies any weakness to bilateral lower extremities. Mr. Espinosa denies nausea/vomiting, fever/chills, or chest pain. Objective - Vital Signs Vital signs: Vital Signs Temp 99.2 F 07/15/22 04:26 Pulse 106 H 07/15/22 04:26 Resp 16 07/15/22 04:26 BP 124/73 07/15/22 04:26 Pulse Ox 95 07/15/22 07:18 FiO2 Intake & Output 07/14/22 07/15/22 07/15/22 18:59 06:59 18:59 Intake Total 1850 2090 Output Total 2500 Balance -650 2090 Intake: IV 1850 Cefepime 100 vancomycin 1750 Intake, IV Titration 1500 Amount Cefepime 2 gm In Sodium 100 Chloride 0.9% 100 ml @ 25 mls/hr IVPB Q8HR [facility] Rx# :[id number] Lactated Ringers 1,000 ml 900 @ 20 mls/hr IV .Q24H [facility] Rx#:[id number] Vancomycin 1,750 mg In 500 Sodium Chloride 0.9% 500 ml 500 ml @ 167 mls/hr IVPB Q8H [facility] Rx#: [id number] Oral 590 Output: Drainage 250 Left 100 Right 150 Urine 2250 Other: Voiding Method Toilet Toilet - Exam Physical Examination General: The patient is awake and alert, in no acute distress Skin: Skin is warm and dry with no obvious rashes or lesions. Hairy patches absent, no dorsal skin dimples, no cafe au lait spots. Surgical incision to lumbar region, x2 Hemovac drains present, Prevena plus present. Eye: Pupils are equal, round and reactive to light, extra-ocular movements are intact; there is normal conjunctiva bilaterally. Neck: The neck is supple, there is no tenderness and ROM intact. Cardiovascular: There is a regular rate and rhythm. No murmur, rub or gallop is appreciated. Respiratory: Lungs are clear to auscultation, respirations are non-labored, breath sounds are equal. Gastrointestinal: Soft, non-distended, non-tender abdomen . Back: There is tenderness to palpation in the paralumbar region. There is no obvious deformity . Musculoskeletal: ROM limited secondary to pain and stiffness from surgical procedure. Shoulder abduction 5/5, elbow flexors 5/5, wrist dorsiflexors 5/5. finger abductor 5/5, water systems designer 5/5, hip flexor 4/5, knee flexor 4/5, ankle dorsiflexor 4/5, ankle plantarflexion 4/5 and extensor hallucis 4/5. Neurological: CN 2-12 intact. There are no obvious motor or sensory deficits. Movement and coordination equal and intact. Sensory exam to light touch intact C5-T1 and intact from L2-S1. Reflexes 2/4 in bilateral upper and lower extremities. Negative Hoffmans, babinski, and clonus signs. Psychiatric: Cooperative, appropriate mood & affect, normal judgment. - Labs CBC & Chem 7: 07/12/22 05:03 07/15/22 05:18 Labs: Microbiology - Last 24 Hours (Table) 07/13/22 13:02 Wound Culture - Preliminary Back 07/13/22 13:04 Wound Culture - Preliminary Back 07/13/22 13:03 Wound Culture - Preliminary Back 07/13/22 13:02 Wound Culture - Preliminary Back 07/11/22 09:35 Blood Culture - Preliminary Blood No Growth after 72 hours 07/11/22 08:39 Blood Culture - Preliminary Blood No Growth after 72 hours Assessment and Plan Assessment: s/p post-op day 2 Irrigation and debridement of lumbar spine with hardware exchange L4-L5. status post L3-L5 decompression with L4-5 fusion and subsequent deep infection status post washout with continued drainage Plan: Plan: -Appreciate senior consumer insights consultant and team management. -Activity: Ambulate QID, OOB all meals, up and about, limit lifting bending twisting to less than 5 lbs. Use walker or cane if needed for stability. -Daily PT/OT, increase ambulation strength and balance. -Brace when up and about, not needed in bed or chair -Pain control: Adequate at this time -Meds: reviewed -GI ppx: senna, Miralax -DVT PPX: refer to medicine -Hygiene: Shower today. Maintain dressing clean and dry. Meticulous cleaning after BMs away from the incision site -Encourage IS 10x/hr -Drains: Maintain today, monitor and record output. -Dispo: Anticipate discharge 48-72 hrs *I reviewed and discussed this case with my attending Dr. Montero, whom has reviewed this chart and films and is in agreement with assessment and plan of care as outlined above. I have personally seen and examined the patient, performed the documentation and the assessment and plan as written. Number of minutes spent on the visit: 20m.
[2022-07-15] MEDS: VANCOMYCIN 1,750 MG in SODIUM CHLORIDE 0.9% 500 ML 500 ML IVPB SCH ×3 (07:44→23:49)
[2022-07-15] MEDS: methocarbamoL 750 MG TAB PO SCH ×3 (07:45→20:52)
[2022-07-15] MEDS: amLODIPine 10 MG TAB PO SCH (07:45)
[2022-07-15] MEDS: GABAPENTIN 300 MG CAP PO SCH ×3 (07:45→20:51)
[2022-07-15 09:20] LABS: Basophils # (A) 0.02 X 10*3/uL (0.00-0.10); Basophils % (A) 0.3 %; Eosinophils # (A) 0.33 X 10*3/uL (0.04-0.35); Eosinophils % (A) 4.4 %; HCT 24.8 % (39.6-50.0); HGB 7.6 g/dL (13.0-17.0); Immature Grans, Automated 0.4 %; Lymphocytes # (A) 1.38 X 10*3/uL (0.90-5.00); Lymphocytes % (A) 18.4 %; MCH 24.7 pg (27.0-32.0); MCHC 30.6 g/dL (32.0-37.0); MCV 80.5 fL (80.0-97.0); Monocytes # (A) 0.78 X 10*3/uL (0.20-1.00); Monocytes % (A) 10.4 %; NRBC Per 100 WBC 0 /100 WBCS (0.0-0.0); Neutrophils # (A) 4.97 X 10*3/uL (1.80-7.70); Neutrophils % (A) 66.1 %; Platelet Count 256 X 10*3/uL (140-440); RBC 3.08 X 10*6/uL (4.40-5.60); RDW 14.7 % (11.5-14.5); WBC 7.51 X 10*3/uL (4.50-10.00)
[2022-07-15] MEDS: diazePAM 5 MG TAB PO PRN ×2 (10:20→22:35)
[2022-07-15] MEDS: LACTATED RINGERS 1,000 ML IV SCH (12:35)
--- NOTE | 2022-07-15 23:41 | P.PN ---
Subjective Progress Note Date: 07/15/22 Principal diagnosis: Lumbar abscess and cellulitis Patient is a 51-year-old male who recently did have a lumbar laminectomy and decompression subsequently admitted to the hospital with lumbar abscess status post drainage culture positive for Klebsiella subsequently pres ented back to the hospital with worsening pain and abnormal CT suggestive of abscess and some bony destruction. The patient is status post I&D of the lumbar spine with hardware exchange L4-5 completed on 07/13/2022 On today's evaluation that is 07/15/2022, the patient remains to be afebrile, the patient did have some improvement in lower back pain, the patient denies having any chest pain no shortness of breath or cough no nausea no vomiting, denies abdominal pain or diarrhea Objective - Vital Signs Vital signs: Vital Signs Temp 98.4 F 07/15/22 11:32 Pulse 111 H 07/15/22 11:32 Resp 18 07/15/22 11:32 BP 116/71 07/15/22 11:32 Pulse Ox 98 07/15/22 11:32 FiO2 Intake & Output 07/14/22 07/15/22 07/15/22 18:59 06:59 18:59 Intake Total 1850 2090 180 Output Total 2500 1550 Balance -650 2090 -1370 Intake: IV 1850 Cefepime 100 vancomycin 1750 Intake, IV Titration 1500 Amount Cefepime 2 gm In Sodium 100 Chloride 0.9% 100 ml @ 25 mls/hr IVPB Q8HR [facility] Rx# :[id number] Lactated Ringers 1,000 ml 900 @ 20 mls/hr IV .Q24H [facility] Rx#:[id number] Vancomycin 1,750 mg In 500 Sodium Chloride 0.9% 500 ml 500 ml @ 167 mls/hr IVPB Q8H [facility] Rx#: [id number] Oral 590 180 Output: Drainage 250 50 Left 100 10 Right 150 40 Urine 2250 1500 Other: Voiding Method Toilet Toilet # Voids 2 - Exam GENERAL DESCRIPTION: Middle-aged male lying in bed in no distress RESPIRATORY SYSTEM: Unlabored breathing , decreased breath sounds at bases HEART: S1 S2 regular rate and rhythm , ABDOMEN: Soft , no tenderness EXTREMITIES: No edema feet - Labs CBC & Chem 7: 07/15/22 05:18 07/15/22 05:18 Labs: Abnormal Lab Results - Last 24 Hours (Table) 07/15/22 Range/Units 05:18 RBC 3.08 L (4.40-5.60) X 10*6/uL Hgb 7.6 L (13.0-17.0) g/dL Hct 24.8 L (39.6-50.0) % MCH 24.7 L (27.0-32.0) pg MCHC 30.6 L (32.0-37.0) g/dL RDW 14.7 H (11.5-14.5) % MPV 9.0 L (9.5-12.2) fL Microbiology - Last 24 Hours (Table) 07/11/22 09:35 Blood Culture - Preliminary Blood No Growth after 96 hours 07/11/22 08:39 Blood Culture - Preliminary Blood No Growth after 96 hours 07/13/22 13:04 Gram Stain - Preliminary Back Wound Culture - Preliminary 07/13/22 13:02 Gram Stain - Preliminary Back Wound Culture - Preliminary 07/13/22 13:03 Gram Stain - Preliminary Back Wound Culture - Preliminary 07/13/22 13:02 Gram Stain - Preliminary Back Wound Culture - Preliminary Assessment and Plan (1) Postoperative infection Current Visit: Yes Status: Acute Code(s): T81.40XA - INFECTION FOLLOWING A PROCEDURE, UNSPECIFIED, INIT SNOMED Code(s): 74975858 (2) Surgical site infection Current Visit: No Status: Acute Code(s): T81.49XA - INFECTION FOLLOWING A PROCEDURE, OTHER SURGICAL SITE, INIT SNOMED Code(s): 63290397 Plan: 1-Patient with a lumbar surgical site infection in this patient who is status post laminectomy and fusion with recent I&D and culture positive for Klebsiella now presenting back to the hospital with worsening pain in this patient did have a abnormal CT concerning for possible abscess and the patient is status post I&D of the lumbar spine with hardware exchange L4-L5 completed on 07/13/2022 along with a deep cultures which are so far negative 2-patient to continue with the current antibiotic treatment of vancomycin and cefepime while waiting for repeat culture to be finalize to determine his discharge antibiotics Time with Patient: Less than 30
[2022-07-16] MEDS: HYDROmorphone 1 MG/ML 1 ML SYRINGE IVP PRN ×6 (01:37→20:57)
--- NOTE | 2022-07-16 02:17 | PN ---
PROGRESS NOTE SUBJECTIVE: This is a 51-year-old gentleman, who was admitted with significant cellulitis after had incision and debridement. The patient is on broad-spectrum antibiotics. The patient is on significant pain medication as well. The cultures are negative so far. PHYSICAL EXAMINATION: VITAL SIGNS: Pulse is 111, blood pressure 116/71, respirations 18. HEENT: Conjunctivae normal. NECK: No JVD. CARDIOVASCULAR: S1, S2 muffled. RESPIRATIONS: Breath sounds diminished at the bases. No rhonchi. No crackles. ABDOMEN: Soft, diffuse distention. BACK: Status post surgery. NERVOUS SYSTEM: No focal deficits. LABS: WBC 7.9, hemoglobin 7.6. ASSESSMENT: 1. Wound infection, status post back surgery and incision and drainage. 2. Status post L3-L5 decompression with L4-L5 fusion. 3. Hypertension. 4. History of gastroesophageal reflux disease. 5. Sleep apnea. 6. Multiple medical issues. RECOMMENDATIONS AND DISCUSSION: I recommend to continue current medications, symptomatic treatment. Otherwise, I would recommend repeat labs. Continue with antibiotics. Closely monitor. Guarded prognosis. Further recommendations to follow. See orders for details. We will await final culture report. MMODL / IJN: [id number] /
[2022-07-16] MEDS: HYDROcodone/APAP 10-325MG 1 EACH TAB PO SCH ×5 (03:31→19:44)
[2022-07-16] MEDS ORDERED: VANCOMYCIN TROUGH DUE 1 EACH MISC MISCELLANE ONE (06:00)
[2022-07-16] MEDS: GABAPENTIN 300 MG CAP PO SCH ×3 (07:39→22:35)
[2022-07-16] MEDS: methocarbamoL 750 MG TAB PO SCH ×3 (07:39→22:35)
[2022-07-16] MEDS: amLODIPine 10 MG TAB PO SCH (07:40)
[2022-07-16] MEDS: CEFEPIME 2 GM in SODIUM CHLORIDE 0.9% 100 ML IVPB SCH ×2 (07:41→15:26)
[2022-07-16] MEDS: VANCOMYCIN 1,750 MG in SODIUM CHLORIDE 0.9% 500 ML 500 ML IVPB SCH (07:49)
[2022-07-16 09:37] LABS: Basophils # (A) 0.03 X 10*3/uL (0.00-0.10); Basophils % (A) 0.5 %; Eosinophils # (A) 0.36 X 10*3/uL (0.04-0.35); Eosinophils % (A) 5.5 %; HCT 24.6 % (39.6-50.0); HGB 7.8 g/dL (13.0-17.0); Immature Grans, Automated 0.3 %; Lymphocytes # (A) 1.21 X 10*3/uL (0.90-5.00); Lymphocytes % (A) 18.3 %; MCH 24.9 pg (27.0-32.0); MCHC 31.7 g/dL (32.0-37.0); MCV 78.6 fL (80.0-97.0); Mean Platelet Volume 9.5 fL (9.5-12.2); Monocytes # (A) 0.64 X 10*3/uL (0.20-1.00); Monocytes % (A) 9.7 %; NRBC Per 100 WBC 0 /100 WBCS (0.0-0.0); Neutrophils # (A) 4.34 X 10*3/uL (1.80-7.70); Neutrophils % (A) 65.7 %; Platelet Count 288 X 10*3/uL (140-440); RBC 3.13 X 10*6/uL (4.40-5.60); RDW 14.6 % (11.5-14.5)
--- NOTE | 2022-07-16 09:51 | P.PN ---
Subjective Progress Note Date: 07/16/22 Principal diagnosis: status post L3 to L5 decompression with L4 5 fusion and subsequent deep infection status post washout with continued drainage Patient seen and examined at bedside. Mr. Espinosa is resting in bed. Patient stills has complaint of pain in the right side of his lower back. Pain management discussed with patient, he verbalizes understanding. Patient states he worked with physical therapy yesterday and was ambulated in hallway, tolerating well. He states he has been ambulating to restroom. Hemovac drains are intact and patent. Prevena has been removed, surgical site cleaned with soap, water, and rubbing alcohol. Clean and dry dressings applied. Instructed patient when laying in bed to either lay on his side or stomach to prevent pulling of his tubes, keeping incision dry, and preventing pressure on surgical site. Educated him on the importance of being up in a chair, ambulating in hallway, ad within room. Patient continues to report numbness to LLE that was present prior to procedure. He denies any weakness to bilateral lower extremities. Mr. Espinosa denies nausea/vomiting, fever/chills, or chest pain. Objective - Vital Signs Vital signs: Vital Signs Temp 98.4 F 07/16/22 04:41 Pulse 95 07/16/22 04:41 Resp 16 07/16/22 04:41 BP 123/61 07/16/22 04:41 Pulse Ox 95 07/15/22 18:43 FiO2 Intake & Output 07/15/22 07/16/22 07/16/22 18:59 06:59 18:59 Intake Total 840 1310 360 Output Total 2800 Balance -1960 1310 360 Intake: Intake, IV Titration 720 Amount Cefepime 2 gm In Sodium 100 Chloride 0.9% 100 ml @ 25 mls/hr IVPB Q8HR [facility] Rx# :[id number] Lactated Ringers 1,000 ml 120 @ 20 mls/hr IV .Q24H [facility] Rx#:[id number] Vancomycin 1,750 mg In 500 Sodium Chloride 0.9% 500 ml 500 ml @ 167 mls/hr IVPB Q8H [facility] Rx#: [id number] Oral 840 590 360 Blood Product 0 Output: Drainage 100 Left 20 Right 80 Urine 2700 Other: # Voids 2 - Exam Physical Examination General: The patient is awake and alert, in no acute distress Skin: Skin is warm and dry with no obvious rashes or lesions. Hairy patches absent, no dorsal skin dimples, no cafe au lait spots. Surgical incision to lumbar region, x2 Hemovac drains present. Eye: Pupils are equal, round and reactive to light, extra-ocular movements are intact; there is normal conjunctiva bilaterally. Neck: The neck is supple, there is no tenderness and ROM intact. Cardiovascular: There is a regular rate and rhythm. No murmur, rub or gallop is appreciated. Respiratory: Lungs are clear to auscultation, respirations are non-labored, breath sounds are equal. Gastrointestinal: Soft, non-distended, non-tender abdomen . Back: There is tenderness to palpation in the paralumbar region. There is no obvious deformity . Musculoskeletal: ROM limited secondary to pain and stiffness from surgical procedure. Shoulder abduction 5/5, elbow flexors 5/5, wrist dorsiflexors 5/5. finger abductor 5/5, financial agent 5/5, hip flexor 4/5, knee flexor 4/5, ankle dorsif lexor 4/5, ankle plantarflexion 4/5 and extensor hallucis 4/5. Neurological: CN 2-12 intact. There are no obvious motor or sensory deficits. Movement and coordination equal and intact. Sensory exam to light touch intact C5-T1 and intact from L2-S1. Reflexes 2/4 in bilateral upper and lower extrem ities. Negative Hoffmans, babinski, and clonus signs. Psychiatric: Cooperative, appropriate mood & affect, normal judgment. - Labs CBC & Chem 7: 07/16/22 05:49 07/15/22 05:18 Labs: Abnormal Lab Results - Last 24 Hours (Table) 07/16/22 Range/Units 05:49 RBC 3.13 L (4.40-5.60) X 10*6/uL Hgb 7.8 L (13.0-17.0) g/dL Hct 24.6 L (39.6-50.0) % MCV 78.6 L (80.0-97.0) fL MCH 24.9 L (27.0-32.0) pg MCHC 31.7 L (32.0-37.0) g/dL RDW 14.6 H (11.5-14.5) % Eosinophils # 0.36 H (0.04-0.35) X 10*3/uL Microbiology - Last 24 Hours (Table) 07/13/22 13:02 Anaerobic Culture - Preliminary Back 07/13/22 13:03 Anaerobic Culture - Preliminary Back 07/13/22 13:04 Anaerobic Culture - Preliminary Blood 07/13/22 13:02 Anaerobic Culture - Preliminary Blood 07/13/22 13:02 Gram Stain - Final Back Wound Culture - Final 07/13/22 13:04 Gram Stain - Final Back Wound Culture - Final 07/13/22 13:03 Gram Stain - Final Back Wound Culture - Final 07/13/22 13:02 Gram Stain - Final Back Wound Culture - Final 07/11/22 09:35 Blood Culture - Preliminary Blood No Growth after 96 hours 07/11/22 08:39 Blood Culture - Preliminary Blood No Growth after 96 hours Assessment and Plan Assessment: s/p post-op day 3 Irrigation and debridement of lumbar spine with hardware exchange L4-L5. status post L3-L5 decompression with L4-5 fusion and subsequent deep infection status post washout with continued drainage Plan: Plan: -Appreciate agricultural consultant and team management. -Activity: Ambulate QID, OOB all meals, up and about, limit lifting bending twisting to less than 5 lbs. Use walker or cane if needed for stability. -Daily PT/OT, increase ambulation strength and balance. -Brace when up and about, not needed in bed or chair -Pain control: Adequate at this time -Meds: reviewed -GI ppx: senna, Miralax -DVT PPX: refer to medicine -Hygiene: Shower today. Maintain dressing clean and dry. Meticulous cleaning after BMs away from the incision site -Encourage IS 10x/hr -Drains: Maintain today, monitor and record output. -Dispo: Anticipate discharge 48-72 hrs *I reviewed and discussed this case with my attending Dr. Montero, whom has reviewed this chart and films and is in agreement with assessment and plan of care as outlined above. I have personally seen and examined the patient, performed the documentation and the assessment and plan as written. Number of minutes spent on the visit: 20m.
[2022-07-16] MEDS ORDERED: MAG HYDROX/AL HYDROX/SIMETH 30 ML CUP PO PRN (12:06)
[2022-07-16] MEDS: PANTOPRAZOLE 40 MG TABLET PO SCH (12:30)
--- NOTE | 2022-07-16 15:15 | P.PN ---
Subjective Progress Note Date: 07/16/22 Principal diagnosis: Lumbar abscess and cellulitis Patient is a 51-year-old male who recently did have a lumbar laminectomy and decompression subsequently admitted to the hospital with lumbar abscess status post drainage culture positive for Klebsiella subsequently pres ented back to the hospital with worsening pain and abnormal CT suggestive of abscess and some bony destruction. The patient is status post I&D of the lumbar spine with hardware exchange L4-5 completed on 07/13/2022 On today's evaluation that is 07/16/2022, the patient denies any fever and chills, the patient said complain of significant lower back pain, the patient denies having any chest pain no shortness of breath or cough , the patient denies nausea no vomiting, denies abdominal pain or diarrhea Objective - Vital Signs Vital signs: Vital Signs Temp 97.7 F 07/16/22 11:15 Pulse 96 07/16/22 11:15 Resp 18 07/16/22 11:15 BP 125/77 07/16/22 11:15 Pulse Ox 96 07/16/22 11:15 FiO2 Intake & Output 07/15/22 07/16/22 07/16/22 18:59 06:59 18:59 Intake Total 840 1310 360 Output Total 2800 Balance -1960 1310 360 Intake: Intake, IV Titration 720 Amount Cefepime 2 gm In Sodium 100 Chloride 0.9% 100 ml @ 25 mls/hr IVPB Q8HR PAUL Rx# :[id number] Lactated Ringers 1,000 ml 120 @ 20 mls/hr IV .Q24H PAUL Rx#:[id number] Vancomycin 1,750 mg In 500 Sodium Chloride 0.9% 500 ml 500 ml @ 167 mls/hr IVPB Q8H PAUL Rx#: [id number] Oral 840 590 360 Blood Product 0 Output: Drainage 100 Left 20 Right 80 Urine 2700 Other: # Voids 2 - Exam GENERAL DESCRIPTION: Middle-aged male lying in bed in no distress RESPIRATORY SYSTEM: Unlabored breathing , decreased breath sounds at bases HEART: S1 S2 regular rate and rhythm , ABDOMEN: Soft , no tenderness EXTREMITIES: No edema feet - Labs CBC & Chem 7: 07/16/22 05:49 07/15/22 05:18 Labs: Abnormal Lab Results - Last 24 Hours (Table) 07/16/22 Range/Units 05:49 RBC 3.13 L (4.40-5.60) X 10*6/uL Hgb 7.8 L (13.0-17.0) g/dL Hct 24.6 L (39.6-50.0) % MCV 78.6 L (80.0-97.0) fL MCH 24.9 L (27.0-32.0) pg MCHC 31.7 L (32.0-37.0) g/dL RDW 14.6 H (11.5-14.5) % Eosinophils # 0.36 H (0.04-0.35) X 10*3/uL Microbiology - Last 24 Hours (Table) 07/11/22 09:35 Blood Culture - Preliminary Blood No Growth after 120 hours 07/11/22 08:39 Blood Culture - Preliminary Blood No Growth after 120 hours 07/13/22 13:02 Anaerobic Culture - Preliminary Back 07/13/22 13:03 Anaerobic Culture - Preliminary Back 07/13/22 13:04 Anaerobic Culture - Preliminary Blood 07/13/22 13:02 Anaerobic Culture - Preliminary Blood 07/13/22 13:02 Gram Stain - Final Back Wound Culture - Final 07/13/22 13:04 Gram Stain - Final Back Wound Culture - Final 07/13/22 13:03 Gram Stain - Final Back Wound Culture - Final 07/13/22 13:02 Gram Stain - Final Back Wound Culture - Final Assessment and Plan (1) Postoperative infection Current Visit: Yes Status: Acute Code(s): T81.40XA - INFECTION FOLLOWING A PROCEDURE, UNSPECIFIED, INIT SNOMED Code(s): 71036812 (2) Surgical site infection Current Visit: No Status: Acute Code(s): T81.49XA - INFECTION FOLLOWING A PROCEDURE, OTHER SURGICAL SITE, INIT SNOMED Code(s): 08537993 Plan: 1-Patient with a lumbar surgical site infection in this patient who is status post laminectomy and fusion with recent I&D and culture positive for Klebsiella now presenting back to the hospital with worsening pain in this patient did have a abnormal CT concerning for possible abscess and the patient is status post I&D of the lumbar spine with hardware exchange L4-L5 completed on 07/13/2022 along with a deep cultures which are so far negative 2-patient will continue with the cefepime however we'll discontinue the vancomycin as no MRSA has been grown in the culture Time with Patient: Less than 30
[2022-07-16] MEDS: diazePAM 5 MG TAB PO PRN (15:22)
[2022-07-16] MEDS ORDERED: VANCOMYCIN 1,750 MG in SODIUM CHLORIDE 0.9% 500 ML 500 ML IVPB SCH (20:00)
[2022-07-17] MEDS: CEFEPIME 2 GM in SODIUM CHLORIDE 0.9% 100 ML IVPB SCH ×3 (00:49→16:37)
[2022-07-17] MEDS: HYDROmorphone 1 MG/ML 1 ML SYRINGE IVP PRN ×7 (01:55→20:21)
[2022-07-17] MEDS: HYDROcodone/APAP 10-325MG 1 EACH TAB PO SCH ×4 (04:00→20:22)
[2022-07-17 06:21] LABS: African American GFR (CKD) >90 (>60 ml/min/1.73 sqM); Anion Gap 11 mmol/L; Blood Urea Nitrogen 8 mg/dL (9-20); C Reactive Protein 7.2 mg/dL (<1.0); Calcium 8.6 mg/dL (8.4-10.2); Carbon Dioxide 25 mmol/L (22-30); Chloride 102 mmol/L (98-107); Glucose 129 mg/dL (74-99); Non-African American GFR(CKD) >90 (>60 ml/min/1.73 sqM); Potassium 3.8 mmol/L (3.5-5.1); Sodium 138 mmol/L (137-145)
[2022-07-17] MEDS: PANTOPRAZOLE 40 MG TABLET PO SCH (07:21)
[2022-07-17] MEDS: GABAPENTIN 300 MG CAP PO SCH ×3 (07:35→22:10)
[2022-07-17] MEDS: amLODIPine 10 MG TAB PO SCH (07:35)
[2022-07-17] MEDS: methocarbamoL 750 MG TAB PO SCH ×3 (07:39→22:10)
--- NOTE | 2022-07-17 08:05 | P.PN ---
Subjective Progress Note Date: 07/17/22 Principal diagnosis: status post L3 to L5 decompression with L4 5 fusion and subsequent deep infection status post washout with continued drainage Patient seen and examined at bedside. Mr. Espinosa is resting in bed. Pain is managed on current regimen. He states he has been ambulating to restroom. Hemovac drains are intact and patent. Dressing to be changed by nursing to Surgical Optifoam once the dressing arrives to the floor. Patient continues to report numbness to LLE that was present prior to procedure. He denies any weakness to bilateral lower extremities. Mr. Espinosa denies nausea/vomiting, fever/chills, or chest pain. Objective - Vital Signs Vital signs: Vital Signs Temp 98.2 F 07/17/22 05:00 Pulse 74 07/17/22 05:00 Resp 16 07/17/22 05:00 BP 113/63 07/17/22 05:00 Pulse Ox 96 07/17/22 05:00 FiO2 Intake & Output 07/16/22 07/17/22 07/17/22 18:59 06:59 18:59 Intake Total 360 640 Output Total 700 60 Balance -340 580 Intake: IV 100 Cefepime 100 Oral 360 540 Output: Drainage 100 60 Left 10 20 Right 90 40 Urine 600 Other: Voiding Method Toilet # Voids 2 - Exam Physical Examination General: The patient is awake and alert, in no acute distress Skin: Skin is warm and dry with no obvious rashes or lesions. Hairy patches absent, no dorsal skin dimples, no cafe au lait spots. Surgical incision to stuart mbar region, x2 Hemovac drains present. Eye: Pupils are equal, round and reactive to light, extra-ocular movements are intact; there is normal conjunctiva bilaterally. Neck: The neck is supple, there is no tenderness and ROM intact. Cardiovascular: There is a regular rate and rhythm. No murmur, rub or gallop is appreciated. Respiratory: Lungs are clear to auscultation, respirations are non-labored, breath sounds are equal. Gastrointestinal: Soft, non-distended, non-tender abdomen . Back: There is tenderness to palpation in the paralumbar region. There is no obvious deformity . Musculoskeletal: ROM limited secondary to pain and stiffness from surgical procedure. Shoulder abduction 5/5, elbow flexors 5/5, wrist dorsiflexors 5/5. finger abductor 5/5, clinic nurse 5/5, hip flexor 4/5, knee flexor 4/5, ankle dorsiflexor 4/5, ankle plantarflexion 4/5 and extensor hallucis 4/5. Neurological: CN 2-12 intact. There are no obvious motor or sensory deficits. Movement and coordination equal and intact. Sensory exam to light touch intact C5-T1 and intact from L2-S1. Reflexes 2/4 in bilateral upper and lower extremities. Negative Hoffmans, babinski, and clonus signs. Psychiatric: Cooperative, appropriate mood & affect, normal judgment. - Labs CBC & Chem 7: 07/16/22 05:49 07/17/22 05:35 Labs: Abnormal Lab Results - Last 24 Hours (Table) 07/16/22 07/17/22 Range/Units 05:49 05:35 RBC 3.13 L (4.40-5.60) X 10*6/uL Hgb 7.8 L (13.0-17.0) g/dL Hct 24.6 L (39.6-50.0) % MCV 78.6 L (80.0-97.0) fL MCH 24.9 L (27.0-32.0) pg MCHC 31.7 L (32.0-37.0) g/dL RDW 14.6 H (11.5-14.5) % Eosinophils # 0.36 H (0.04-0.35) X 10*3/uL BUN 8 L (9-20) mg/dL Creatinine 0.57 L (0.66-1.25) mg/dL Glucose 129 H (74-99) mg/dL C-Reactive Protein 7.2 H (<1.0) mg/dL Microbiology - Last 24 Hours (Table) 07/11/22 09:35 Blood Culture - Preliminary Blood No Growth after 120 hours 07/11/22 08:39 Blood Culture - Preliminary Blood No Growth after 120 hours Assessment and Plan Assessment: s/p post-op day 4 Irrigation and debridement of lumbar spine with hardware exchange L4-L5. status post L3-L5 decompression with L4-5 fusion and subsequent deep infection status post washout with continued drainage Plan: Plan: -Appreciate business info consultant and team management. -Activity: Ambulate QID, OOB all meals, up and about, limit lifting bending twisting to less than 5 lbs. Use walker or cane if needed for stability. -Daily PT/OT, increase ambulation strength and balance. -Brace when up and about, not needed in bed or chair -Pain control: Adequate at this time -Meds: reviewed -GI ppx: senna, Miralax -DVT PPX: refer to medicine -Hygiene: Shower today. Maintain dressing clean and dry. Meticulous cleaning after BMs away from the incision site -Encourage IS 10x/hr -Drains: Maintain today, monitor and record output. -Dispo: Anticipate discharge 48-72 hrs *I reviewed and discussed this case with my attending Dr. Montero, whom has reviewed this chart and films and is in agreement with assessment and plan of care as outlined above. I have personally seen and examined the patient, performed the documentation and the assessment and plan as written. Number of minutes spent on the visit: 20m.
--- NOTE | 2022-07-17 08:09 | PN ---
PROGRESS NOTE SUBJECTIVE: This is a 51-year-old gentleman, who was admitted with significant back wound infection. He is on IV antibiotics. The patient had surgery. The recent cultures are negative so far. The patient complained of severe pain. PHYSICAL EXAMINATION: VITAL SIGNS: Pulse 96, blood pressure 125/77, respirations 16. CHEST: Clear to auscultation. CARDIOVASCULAR: S1 and S2. ABDOMEN: Soft. BACK: Status post surgery. LABORATORY DATA: Hemoglobin 7.8. ASSESSMENT: 1. Wound infection, status post back surgery, incision and drainage. 2. Status post L3-5 decompression and L4-5 fusion. 3. Hypertension. 4. History of gastroesophageal reflux disease. 5. Sleep apnea. 6. Multiple medical issues. RECOMMENDATIONS: I recommend to continue current medications, symptomatic treatment. Otherwise, I would repeat labs. Guarded prognosis. Further recommendations to follow. See orders for details. MMODL / IJN: [id number] /
[2022-07-17 08:53] LABS: Basophils # (A) 0.03 X 10*3/uL (0.00-0.10); Basophils % (A) 0.6 %; Eosinophils # (A) 0.34 X 10*3/uL (0.04-0.35); Eosinophils % (A) 7.2 %; HGB 7.9 g/dL (13.0-17.0); Immature Grans, Automated 0.2 %; Lymphocytes # (A) 1.22 X 10*3/uL (0.90-5.00); Lymphocytes % (A) 25.8 %; MCH 24.6 pg (27.0-32.0); MCHC 31.6 g/dL (32.0-37.0); MCV 77.9 fL (80.0-97.0); Mean Platelet Volume 9.1 fL (9.5-12.2); Monocytes # (A) 0.42 X 10*3/uL (0.20-1.00); Monocytes % (A) 8.9 %; NRBC Per 100 WBC 0 /100 WBCS (0.0-0.0); Neutrophils % (A) 57.3 %; Platelet Count 316 X 10*3/uL (140-440); RBC 3.21 X 10*6/uL (4.40-5.60); RDW 14.4 % (11.5-14.5); WBC 4.72 X 10*3/uL (4.50-10.00)
[2022-07-17] MEDS ORDERED: bisacodyL 10 MG SUPP RECTAL STA (09:43)
[2022-07-17] MEDS: SENNOSIDES 8.6 MG TAB PO SCH ×2 (10:30→20:21)
[2022-07-17] MEDS ORDERED: bisacodyL 10 MG SUPP RECTAL PRN (10:33)
[2022-07-17] MEDS: diazePAM 5 MG TAB PO PRN (12:00)
[2022-07-17 12:03] LABS: Erythrocyte Sedimentation Rate 56 mm/Hr (0-20)
[2022-07-17] MEDS: HEPARIN SODIUM,PORCINE/PF 5,000 UNIT/0.5 ML SYRINGE SQ SCH ×2 (13:26→20:21)
[2022-07-17] MEDS: HYDROcodone/APAP 5-325MG 1 EACH TAB PO PRN (22:19)
[2022-07-18] MEDS: CEFEPIME 2 GM in SODIUM CHLORIDE 0.9% 100 ML IVPB SCH ×4 (00:17→23:07)
[2022-07-18] MEDS: HYDROmorphone 1 MG/ML 1 ML SYRINGE IVP PRN ×7 (00:17→21:41)
--- NOTE | 2022-07-18 03:52 | PN ---
PROGRESS NOTE SUBJECTIVE: This is a 51-year-old gentleman, who was admitted with significant back infection and debridement. No chest pain. No palpitations. No fever. PHYSICAL EXAMINATION: VITAL SIGNS: Pulse is 86, blood pressure 114/69, respirations 17. HEENT: Conjunctivae normal. CARDIOVASCULAR: S1 and S2 muffled. RESPIRATION: Clear to auscultation. ABDOMEN: Soft. BACK: Status post drainage. LABORATORY DATA: Hemoglobin 7.9. Other labs are noted. ASSESSMENT: 1. Wound infection, status post back surgery and incision and drainage. 2. Status post L3-L5 decompression and L4-L5 fusion. 3. Hypertension. 4. History of gastroesophageal reflux disease. 5. Sleep apnea. 6. Multiple medical issues. RECOMMENDATIONS: I recommend to continue current management and symptomatic treatment. Otherwise, at this time, I would recommend continue the antibiotics. Continue the pain medications. Closely follow with Orthopedic Surgery. DVT prophylaxis. Further recommendations to follow. MMDHIRAJ / SUSANAN: [id number] /
[2022-07-18] MEDS: HYDROcodone/APAP 10-325MG 1 EACH TAB PO SCH ×4 (04:12→20:28)
[2022-07-18] MEDS: HEPARIN SODIUM,PORCINE/PF 5,000 UNIT/0.5 ML SYRINGE SQ SCH ×2 (07:39→20:28)
[2022-07-18] MEDS: GABAPENTIN 300 MG CAP PO SCH ×3 (07:39→21:41)
[2022-07-18] MEDS: amLODIPine 10 MG TAB PO SCH (07:39)
[2022-07-18] MEDS: PANTOPRAZOLE 40 MG TABLET PO SCH (07:40)
[2022-07-18] MEDS: methocarbamoL 750 MG TAB PO SCH ×3 (07:40→21:42)
[2022-07-18] MEDS: SENNOSIDES 8.6 MG TAB PO SCH ×2 (07:41→20:28)
[2022-07-18 08:50] LABS: Basophils # (A) 0.03 X 10*3/uL (0.00-0.10); Basophils % (A) 0.8 %; Eosinophils # (A) 0.28 X 10*3/uL (0.04-0.35); Eosinophils % (A) 7.1 %; HCT 24.4 % (39.6-50.0); HGB 7.6 g/dL (13.0-17.0); Immature Grans, Automated 0.5 %; Lymphocytes # (A) 1.28 X 10*3/uL (0.90-5.00); Lymphocytes % (A) 32.2 %; MCH 24.7 pg (27.0-32.0); MCHC 31.1 g/dL (32.0-37.0); MCV 79.2 fL (80.0-97.0); Mean Platelet Volume 9.2 fL (9.5-12.2); Monocytes # (A) 0.38 X 10*3/uL (0.20-1.00); Monocytes % (A) 9.6 %; NRBC Per 100 WBC 0 /100 WBCS (0.0-0.0); Neutrophils # (A) 1.98 X 10*3/uL (1.80-7.70); Neutrophils % (A) 49.8 %; Platelet Count 324 X 10*3/uL (140-440); RBC 3.08 X 10*6/uL (4.40-5.60); RDW 14.4 % (11.5-14.5); WBC 3.97 X 10*3/uL (4.50-10.00)
--- NOTE | 2022-07-18 09:13 | P.PN ---
Subjective Progress Note Date: 07/18/22 Principal diagnosis: status post L3 to L5 decompression with L4 5 fusion and subsequent deep infection status post washout with continued drainage Patient seen and examined at bedside. Mr. Espinosa is sitting up in chair. Pain is managed on current regimen. He states he has been ambulating to restroom and in hallways multiple times yesterday and last night. Hemovac drains are intact and patent. He denies any weakness to bilateral lower extremities. Surgical dressing is CDI. Mr. Espinosa denies nausea/vomiting, fever/chills, or chest pain. Objective - Vital Signs Vital signs: Vital Signs Temp 98.1 F 07/18/22 05:00 Pulse 73 07/18/22 05:00 Resp 18 07/18/22 05:00 BP 127/72 07/18/22 05:00 Pulse Ox 93 L 07/18/22 05:00 FiO2 21 07/17/22 20:24 Intake & Output 07/17/22 07/18/22 07/18/22 18:59 06:59 18:59 Intake Total 640 Output Total 40 40 Balance -40 600 Intake: IV 100 Cefepime 100 Oral 540 Output: Drainage 40 40 Left 20 20 Right 20 20 Other: Voiding Method Toilet Toilet Toilet # Voids 3 2 - Exam Physical Examination General: The patient is awake and alert, in no acute distress Skin: Skin is warm and dry with no obvious rashes or lesions. Hairy patches absent, no dorsal skin dimples, no cafe au lait spots. Surgical incision to lumbar region, x2 Hemovac drains present. Eye: Pupils are equal, round and reactive to light, extra-ocular movements are intact; there is normal conjunctiva bilaterally. Neck: The neck is supple, there is no tenderness and ROM intact. Cardiovascular: There is a regular rate and rhythm. No murmur, rub or gallop is appreciated. Respiratory: Lungs are clear to auscultation, respirations are non-labored, breath sounds are equal. Gastrointestinal: Soft, non-distended, non-tender abdomen . Back: There is tenderness to palpation in the paralumbar region. There is no obvious deformity . Musculoskeletal: ROM limited secondary to pain and stiffness from surgical procedure. Shoulder abduction 5/5, elbow flexors 5/5, wrist dorsiflexors 5/5. finger abductor 5/5, supervisor rod placing 5/5, hip flexor 4/5, knee flexor 4/5, ankle dorsiflexor 4/5, ankle plantarflexion 4/5 and extensor hallucis 4/5. Neurological: CN 2-12 intact. There are no obvious motor or sensory deficits. Movement and coordination equal and intact. Sensory exam to light touch intact C5-T1 and intact from L2-S1. Reflexes 2/4 in bilateral upper and lower extremities. Negative Hoffmans, babinski, and clonus signs. Psychiatric: Cooperative, appropriate mood & affect, normal judgment. - Labs CBC & Chem 7: 07/18/22 06:06 07/17/22 05:35 Labs: Abnormal Lab Results - Last 24 Hours (Table) 07/17/22 07/18/22 Range/Units 05:35 06:06 WBC 3.97 L (4.50-10.00) X 10*3/uL RBC 3.08 L (4.40-5.60) X 10*6/uL Hgb 7.6 L (13.0-17.0) g/dL Hct 24.4 L (39.6-50.0) % MCV 79.2 L (80.0-97.0) fL MCH 24.7 L (27.0-32.0) pg MCHC 31.1 L (32.0-37.0) g/dL MPV 9.2 L (9.5-12.2) fL ESR 56 H (0-20) mm/Hr Microbiology - Last 24 Hours (Table) 07/13/22 13:02 Anaerobic Culture - Final Back 07/13/22 13:03 Anaerobic Culture - Final Back 07/13/22 13:04 Anaerobic Culture - Final Blood 07/13/22 13:02 Anaerobic Culture - Final Blood 07/11/22 09:35 Blood Culture - Final Blood No Growth after 144 hours 07/11/22 08:39 Blood Culture - Final Blood No Growth after 144 hours Assessment and Plan Assessment: s/p post-op day 5 Irrigation and debridement of lumbar spine with hardware exchange L4-L5. status post L3-L5 decompression with L4-5 fusion and subsequent deep infection status post washout with continued drainage Plan: Plan: -Appreciate sap portal consultant and team management. -Activity: Ambulate QID, OOB all meals, up and about, limit lifting bending twisting to less than 5 lbs. Use walker or cane if needed for stability. -Daily PT/OT, increase ambulation strength and balance. -Brace when up and about, not needed in bed or chair -Pain control: Adequate at this time -Meds: reviewed -GI ppx: senna, Miralax -DVT PPX: refer to medicine -Hygiene: Shower today. Maintain dressing clean and dry. Meticulous cleaning after BMs away from the incision site -Encourage IS 10x/hr -Drains: Maintain today, monitor and record output. -Dispo: Anticipate discharge 48hrs *I reviewed and discussed this case with my attending Dr. Montero, whom has reviewed this chart and films and is in agreement with assessment and plan of care as outlined above. I have personally seen and examined the patient, performed the documentation and the assessment and plan as written. Number of minutes spent on the visit: 20m.
[2022-07-18 10:59] LABS: African American GFR (CKD) 126.6 (60.0-200.0); BUN/Creat Ratio 12.14 Ratio (12.00-20.00); Blood Urea Nitrogen 8.5 mg/dL (9.0-27.0); Calcium 8.6 mg/dL (8.7-10.3); Non-African American GFR(CKD) 109.3 (60.0-200.0); Potassium 4.1 mmol/L (3.5-5.5)
[2022-07-18] MEDS: diazePAM 5 MG TAB PO PRN (11:39)
[2022-07-18 12:02] VITALS: BMI 35.4
[2022-07-18] MEDS: FERROUS SULFATE 325 MG TAB PO SCH ×2 (14:23→14:29)
[2022-07-18] MEDS: LACTULOSE 20 GM/30 ML CUP PO SCH ×2 (14:24→20:30)
--- NOTE | 2022-07-18 23:14 | P.PN ---
Subjective Progress Note Date: 07/17/22 Principal diagnosis: Lumbar abscess and cellulitis Patient is a 51-year-old male who recently did have a lumbar laminectomy and decompression subsequently admitted to the hospital with lumbar abscess status post drainage culture positive for Klebsiella subsequently pres ented back to the hospital with worsening pain and abnormal CT suggestive of abscess and some bony destruction. The patient is status post I&D of the lumbar spine with hardware exchange L4-5 completed on 07/13/2022 On today's evaluation that is 07/17/2022, the patient remains to be afebrile, the patient lower back pain is currently controlled, the patient denies having any chest pain no shortness of breath or cough , the patient denies nausea no vomiting, denies abdominal pain or diarrhea Objective - Vital Signs Vital signs: Vital Signs Temp 98.2 F 07/17/22 05:00 Pulse 74 07/17/22 05:00 Resp 16 07/17/22 05:00 BP 113/63 07/17/22 05:00 Pulse Ox 96 07/17/22 05:00 FiO2 Intake & Output 07/16/22 07/17/22 07/17/22 18:59 06:59 18:59 Intake Total 360 640 Output Total 700 60 Balance -340 580 Intake: IV 100 Cefepime 100 Oral 360 540 Output: Drainage 100 60 Left 10 20 Right 90 40 Urine 600 Other: Voiding Method Toilet # Voids 2 - Exam GENERAL DESCRIPTION: Middle-aged male lying in bed in no distress RESPIRATORY SYSTEM: Unlabored breathing , decreased breath sounds at bases HEART: S1 S2 regular rate and rhythm , ABDOMEN: Soft , no tenderness EXTREMITIES: No edema feet - Labs CBC & Chem 7: 07/18/22 06:06 07/18/22 06:06 Labs: Abnormal Lab Results - Last 24 Hours (Table) 07/17/22 07/17/22 Range/Units 05:35 05:35 RBC 3.21 L (4.40-5.60) X 10*6/uL Hgb 7.9 L (13.0-17.0) g/dL Hct 25.0 L (39.6-50.0) % MCV 77.9 L (80.0-97.0) fL MCH 24.6 L (27.0-32.0) pg MCHC 31.6 L (32.0-37.0) g/dL MPV 9.1 L (9.5-12.2) fL BUN 8 L (9-20) mg/dL Creatinine 0.57 L (0.66-1.25) mg/dL Glucose 129 H (74-99) mg/dL C-Reactive Protein 7.2 H (<1.0) mg/dL Microbiology - Last 24 Hours (Table) 07/11/22 09:35 Blood Culture - Preliminary Blood No Growth after 120 hours 07/11/22 08:39 Blood Culture - Preliminary Blood No Growth after 120 hours Assessment and Plan (1) Postoperative infection Current Visit: Yes Status: Acute Code(s): T81.40XA - INFECTION FOLLOWING A PROCEDURE, UNSPECIFIED, INIT SNOMED Code(s): 57139838 (2) Surgical site infection Current Visit: No Status: Acute Code(s): T81.49XA - INFECTION FOLLOWING A PROCEDURE, OTHER SURGICAL SITE, INIT SNOMED Code(s): 25881921 Plan: 1-Patient with a lumbar surgical site infection in this patient who is status post laminectomy and fusion with recent I&D and culture positive for Klebsiella now presenting back to the hospital with worsening pain in this patient did have a abnormal CT concerning for possible abscess and the patient is status post I&D of the lumbar spine with hardware exchange L4-L5 completed on 07/13/2022 along with a deep cultures has been negative this admission 2-patient will continue with the cefepime and monitor clinical course closely Time with Patient: Less than 30
--- NOTE | 2022-07-18 23:15 | P.PN ---
Subjective Progress Note Date: 07/18/22 Principal diagnosis: Lumbar abscess and cellulitis Patient is a 51-year-old male who recently did have a lumbar laminectomy and decompression subsequently admitted to the hospital with lumbar abscess status post drainage culture positive for Klebsiella subsequently pres ented back to the hospital with worsening pain and abnormal CT suggestive of abscess and some bony destruction. The patient is status post I&D of the lumbar spine with hardware exchange L4-5 completed on 07/13/2022 On today's evaluation that is 07/18/2022, the patient denies any fever or chills, patient lower back pain is currently controlled patient denies having any chest pain or shortness of breath or cough and no diarrhea Objective - Vital Signs Vital signs: Vital Signs Temp 98.1 F 07/18/22 05:00 Pulse 73 07/18/22 05:00 Resp 18 07/18/22 05:00 BP 127/72 07/18/22 05:00 Pulse Ox 93 L 07/18/22 05:00 FiO2 21 07/17/22 20:24 Intake & Output 07/17/22 07/18/22 07/18/22 18:59 06:59 18:59 Intake Total 640 Output Total 40 40 Balance -40 600 Intake: IV 100 Cefepime 100 Oral 540 Output: Drainage 40 40 Left 20 20 Right 20 20 Other: Voiding Method Toilet Toilet Toilet # Voids 3 2 - Exam GENERAL DESCRIPTION: Middle-aged male lying in bed in no distress RESPIRATORY SYSTEM: Unlabored breathing , decreased breath sounds at bases HEART: S1 S2 regular rate and rhythm , ABDOMEN: Soft , no tenderness EXTREMITIES: No edema feet - Labs CBC & Chem 7: 07/18/22 06:06 07/18/22 06:06 Labs: Abnormal Lab Results - Last 24 Hours (Table) 07/17/22 07/18/22 Range/Units 05:35 06:06 WBC 3.97 L (4.50-10.00) X 10*3/uL RBC 3.08 L (4.40-5.60) X 10*6/uL Hgb 7.6 L (13.0-17.0) g/dL Hct 24.4 L (39.6-50.0) % MCV 79.2 L (80.0-97.0) fL MCH 24.7 L (27.0-32.0) pg MCHC 31.1 L (32.0-37.0) g/dL MPV 9.2 L (9.5-12.2) fL ESR 56 H (0-20) mm/Hr Microbiology - Last 24 Hours (Table) 07/13/22 13:02 Anaerobic Culture - Final Back 07/13/22 13:03 Anaerobic Culture - Final Back 07/13/22 13:04 Anaerobic Culture - Final Blood 07/13/22 13:02 Anaerobic Culture - Final Blood 07/11/22 09:35 Blood Culture - Final Blood No Growth after 144 hours 07/11/22 08:39 Blood Culture - Final Blood No Growth after 144 hours Assessment and Plan (1) Postoperative infection Current Visit: Yes Status: Acute Code(s): T81.40XA - INFECTION FOLLOWING A PROCEDURE, UNSPECIFIED, INIT SNOMED Code(s): 40429658 (2) Surgical site infection Current Visit: No Status: Acute Code(s): T81.49XA - INFECTION FOLLOWING A PROCEDURE, OTHER SURGICAL SITE, INIT SNOMED Code(s): 49631475 Plan: 1-Patient with a lumbar surgical site infection in this patient who is status post laminectomy and fusion with recent I&D and culture positive for Klebsiella now presenting back to the hospital with worsening pain in this patient did have a abnormal CT concerning for possible abscess and the patient is status post I&D of the lumbar spine with hardware exchange L4-L5 completed on 07/13/2022 along with a deep cultures has been negative this admission 2-patient will continue with the cefepime to finish a 6 week course of therapy with weekly monitoring of CBC sed rate and CRP Time with Patient: Less than 30
[2022-07-19] MEDS: HYDROcodone/APAP 10-325MG 1 EACH TAB PO SCH ×3 (02:30→13:14)
--- NOTE | 2022-07-19 05:38 | PN ---
PROGRESS NOTE SUBJECTIVE: This 51-year-old gentleman admitted with back surgery infection, is being closely monitored. The patient is on IV antibiotics. Pain is controlled at this time. No chest pain. No palpitation. OBJECTIVE: VITAL SIGNS: Pulse is 73, blood pressure 127/72, and respirations 18. HEENT: Conjunctivae normal. RESPIRATIONS: ntd no rhonchi, no crackles. ABDOMEN: Soft. NERVOUS SYSTEM: No focal deficits. LABORATORY DATA: Hemoglobin 7.6. ASSESSMENT: 1. Wound infection, status post back surgery and drainage. 2. Status post L3-L5 decompression and L4-L5. 3. Hypertension. 4. History of gastroesophageal reflux disease. 5. Sleep apnea. 6. Multiple medical issues. RECOMMENDATIONS: I recommend to continue current management . Continue DVT prophylaxis. Continue incentive spirometry. I also recommend to add iron to the current regimen. Monitor CBC. Closely follow with Orthopedic Surgery, further recommendations to follow MMODL / IJN: [id number] / MTDD
[2022-07-19 05:39] VITALS: RESP 16
--- NOTE | 2022-07-19 09:03 | P.PN ---
Subjective Progress Note Date: 07/19/22 Principal diagnosis: status post L3 to L5 decompression with L4 5 fusion and subsequent deep infection status post washout with continued drainage Patient seen and examined at bedside. Mr. Espinosa is sitting up in chair. Pain is managed on current regimen. Hemovac drains were discontinued yesterday afternoon. Surgical dressing is clean dry and intact. Dressing will be changed prior to discharge. He denies any weakness to bilateral lower extremities. Mr. Espinosa denies nausea/vomiting, fever/chills, or chest pain. Objective - Vital Signs Vital signs: Vital Signs Temp 98.0 F 07/19/22 07:38 Pulse 95 07/19/22 07:38 Resp 16 07/19/22 07:38 BP 136/69 07/19/22 07:38 Pulse Ox 95 07/19/22 05:00 FiO2 21 07/17/22 20:24 Intake & Output 07/18/22 07/19/22 07/19/22 18:59 06:59 18:59 Intake Total 700 Output Total 600 Balance 100 Weight 112 kg Intake: Intake, IV Titration 100 Amount Cefepime 2 gm In Sodium 100 Chloride 0.9% 100 ml @ 25 mls/hr IVPB Q8HR [facility] Rx# :[id number] Oral 600 Output: Urine 600 Other: Voiding Method Toilet Toilet # Voids 2 3 - Exam Physical Examination General: The patient is awake and alert, in no acute distress Skin: Skin is warm and dry with no obvious rashes or lesions. Hairy patches absent, no dorsal skin dimples, no cafe au lait spots. Surgical incision to lumbar region. Eye: Pupils are equal, round and reactive to light, extra-ocular movements are intact; there is normal conjunctiva bilaterally. Neck: The neck is supple, there is no tenderness and ROM intact. Cardiovascular: There is a regular rate and rhythm. No murmur, rub or gallop is appreciated. Respiratory: Lungs are clear to auscultation, respirations are non-labored, breath sounds are equal. Gastrointestinal: Soft, non-distended, non-tender abdomen . Back: There is tenderness to palpation in the paralumbar region. There is no obvious deformity . Musculoskeletal: ROM limited secondary to pain and stiffness from surgical procedure. Shoulder abduction 5/5, elbow flexors 5/5, wrist dorsiflexors 5/5. finger abductor 5/5, management liaison 5/5, hip flexor 4/5, knee flexor 4/5, ankle dorsiflexor 4/5, ankle plantarflexion 4/5 and extensor hallucis 4/5. Neurological: CN 2-12 intact. There are no obvious motor or sensory deficits. Movement and coordination equal and intact. Sensory exam to light touch intact C5-T1 and intact from L2-S1. Reflexes 2/4 in bilateral upper and lower extremities. Negative Hoffmans, babinski, and clonus signs. Psychiatric: Cooperative, appropriate mood & affect, normal judgment. - Labs CBC & Chem 7: 07/18/22 06:06 07/18/22 06:06 Labs: Abnormal Lab Results - Last 24 Hours (Table) 07/18/22 Range/Units 06:06 Carbon Dioxide 28.0 H (20.0-27.5) mmol/L Anion Gap 9.00 L (10.00-18.00) mmol/L BUN 8.5 L (9.0-27.0) mg/dL Glucose 117 H (70-110) mg/dL Calcium 8.6 L (8.7-10.3) mg/dL Assessment and Plan Assessment: s/p post-op day 6 Irrigation and debridement of lumbar spine with hardware exchange L4-L5. status post L3-L5 decompression with L4-5 fusion and subsequent deep infection status post washout with continued drainage Plan: Plan: -Appreciate independent crop consultant and team management. -Activity: Ambulate QID, OOB all meals, up and about, limit lifting bending twisting to less than 5 lbs. Use walker or cane if needed for stability. -Daily PT/OT, increase ambulation strength and balance. -Brace when up and about, not needed in bed or chair -Pain control: Adequate at this time -Meds: reviewed -GI ppx: senna, Miralax -DVT PPX: refer to medicine -Hygiene: Shower today. Maintain dressing clean and dry. Meticulous cleaning after BMs away from the incision site -Encourage IS 10x/hr -Dispo: Anticipate discharge home today with homecare. *I reviewed and discussed this case with my attending Dr. Montero, whom has reviewed this chart and films and is in agreement with assessment and plan of care as outlined above. I have personally seen and examined the patient, performed the documentation and the assessment and plan as written. Number of minutes spent on the visit: 20m.
[2022-07-19] MEDS: HEPARIN SODIUM,PORCINE/PF 5,000 UNIT/0.5 ML SYRINGE SQ SCH (09:05)
[2022-07-19] MEDS: PANTOPRAZOLE 40 MG TABLET PO SCH (09:05)
[2022-07-19] MEDS: methocarbamoL 750 MG TAB PO SCH (09:05)
[2022-07-19] MEDS: SENNOSIDES 8.6 MG TAB PO SCH (09:05)
[2022-07-19] MEDS: GABAPENTIN 300 MG CAP PO SCH (09:06)
[2022-07-19] MEDS: amLODIPine 10 MG TAB PO SCH (09:06)
[2022-07-19] MEDS: LACTULOSE 20 GM/30 ML CUP PO SCH (09:07)
[2022-07-19] MEDS: CEFEPIME 2 GM in SODIUM CHLORIDE 0.9% 100 ML IVPB SCH (09:09)
[2022-07-19 09:14] LABS: Basophils # (A) 0.03 X 10*3/uL (0.00-0.10); Basophils % (A) 0.6 %; Eosinophils % (A) 6.3 %; HCT 25.4 % (39.6-50.0); Immature Grans, Automated 0.6 %; Lymphocytes # (A) 1.05 X 10*3/uL (0.90-5.00); Lymphocytes % (A) 22.1 %; MCH 24.7 pg (27.0-32.0); MCHC 31.5 g/dL (32.0-37.0); MCV 78.4 fL (80.0-97.0); Mean Platelet Volume 9.1 fL (9.5-12.2); Monocytes # (A) 0.39 X 10*3/uL (0.20-1.00); Monocytes % (A) 8.2 %; NRBC Per 100 WBC 0 /100 WBCS (0.0-0.0); Neutrophils # (A) 2.96 X 10*3/uL (1.80-7.70); Neutrophils % (A) 62.2 %; Platelet Count 354 X 10*3/uL (140-440); RBC 3.24 X 10*6/uL (4.40-5.60); RDW 14.4 % (11.5-14.5); WBC 4.76 X 10*3/uL (4.50-10.00)
[2022-07-19 11:56] VITALS: BP 116/68; PULSE 103; TEMP 98.6
[2022-07-19] MEDS: FERROUS SULFATE 325 MG TAB PO SCH (13:14)
--- NOTE | 2022-07-20 09:34 | P.OP ---
Date of Procedure: 07/13/22 Preoperative Diagnosis: 1. Continued wound drainage lumbar spine s/p I&D with abx bead placement 2. Post operative fluid collection 3. Low back pain Postoperative Diagnosis: 1. Continued wound drainage lumbar spine s/p I&D with abx bead placement 2. Post operative fluid collection 3. Low back pain Procedure(s) Performed: 1. Irrigation and debridment lumbar spine skin, soft tissue and bone [id number] cm using the following: -Skin knife used to remove necrotic skin -Curette used to remove scar tissue, necrotic fat and muscle -Rongure used to remove necrotic bone and soft tissue. 2. Removal with replacement of hardware L4-5 screws, rods, crosslink 3. Placement of interbody antibiotic spacer L4-5 4. Placement of antibiotic beads deep wound 5. Complex closure lumbar spine [id number] cm Implants: -Globus Screws and alayna system exchange Anesthesia: KHARI Surgeon: Aron Montero Manufacturing Engineer #1: Kristi Oquendo (Was present and assisted in all aspects of the case. ) Estimated Blood Loss (ml): 200 IV fluids (ml): 2,000 Urine output (ml): 300 Pathology: other (x2 superficial back, x2 deep back) Condition: stable Disposition: PACU Indications for Procedure: 51 yo male presented with c/o of continued drainage from his wound as well as pain at the surgical site. Pt underwent I&D 1 week prior for deep infection of lumbar wound. He did well form this and was started on PICC abx due to Klebsiella infection. He denies any f/c/sob/cp at this time. He states after he got out of the hospital for his last surgery that he did go on about a 4 [address] ride and was being more active at home. He states the inferior portion of his incision now is having issues healing and there is drianage that is serous. No bowel or bladder issues. No other new sx. We discussed revision I&D with hardware exchange as the next step and he agreed. Description of Procedure: The patient was seen and examined in the preoperative area. All preoperative protocols were followed. Informed consent was obtained risks and benefits of the procedure were discussed at length. Risks including bleeding infection damage to the surrounding tissue and risk of reoperation were discussed with the patient. Risk of anesthesia up to and including was a discussed with the patient. These are outlined in the risk review. They were willing to accept these risks and all of the risks of surgery. The patient was given a weight- based dose of antibiotics in the form of continued PICC abx of cefipime. Added WBD of gentimycin as well as Ancef for extra coverage for procedure. The patient was seen and evaluated by the anesthesia team who deemed them fit for surgery. The site was marked, the patient was willing to proceed with the procedure. The patient was transferred to the operative suite by the Department of anesthesia. They were then drifted off to sleep by the department anesthesia and GETA was performed. The patient tolerated this well. [Kinney catheter was placed by nursing staff, atraumatically]. Once confirmation of lines and ventilation the patient was transferred to a [prone Rahul table very carefully]. All bony prominences including wrists, elbows, axilla, chest, hips, and thighs, and feet were padded very well. Special attention was paid to the genitalia and these were padded accordingly. SCDs were placed on bilateral lower extremities and were connected. Arms were well padded and placed [on arm boards up and out in the 90/90 position]. Once in position, again we confirmed good ventilation capabilities and that lines were running appropriately. The patient's Lumbar spine was then exposed and old sutures removed. 1010s were placed outlining the incision site. Standard alcohol was used to clean the incision site and allowed to dry. C-arm was used to biomark the patient and confirm level for incision which was marked with a skin marker. Operative briefing was performed with all teams and everyone in agreement to proceed. The patient was then prepped and draped in a normal sterile fashion. Timeout was then performed and all parties were in agreement with the procedure to be performed. Midline skin incision was made over the previous incised area and sharp dissection taken down to the facia which was identified. Sutures were removed from the area. Facia was then split and sutures removed. There was a small fluid collection deep around this area that was healing type and there was likely increased fluid due to the abx beads. This was evacuated. We then continued dissection and removed necrotic scar tissue with bovi and curette as well as rongure. Set screws, rods and crosslink were then removed and heads of the screws were removed. We then debrided the postiolateral gutters completely using rongure and EC. We debrided soft tissue and bone using curette as well as rongure. Bone was debrided of any scar tissue or suspect tissue. Superficial and deep cultures were sent as well as tissue from deep right and left sides. We decorticated TP once again and achieved [place] naive tissue in the wound bed for healing on all sides. We then replaced the screws using lateral imaging. B efore replacement we debrided tract with curette and flushed with gentamycin irrigation. Once replaced they were confirmed in good position. We then turned to the interbody region and gained access through the left hand foramen which had been decompressed previously. we protected neural elements. We debrided the disc space with curette, kerrison rongure and pituitary using lateral imaging as guidance. We then irrigated the wound with 3L gentimycin irrigation and debrided tissues. We then mixed up stimulan with gentamycin, tobramycin and vacomycin until it was a runny paste consistency. Through the foramen we placed a small cannula into the disc space under lateral flouro. We then irrigated the disc space with abx irrigation 3L. Once in good position we checked AP and it was centered. We then injected Stimulan mix into the disc space until it was filled with the abx mix. We ensured that it was not extravasating into the epidural space and it was contained within the disc space under AP and lateral imaging. We then fabricated stimulan beads and stimulan torpedoes. The torpedoes were placed with new allograft into the posteriolateral gutters to facilitate fusion as well as abx delivery. We then replaced heads on the modular screws as well as rods and set screws and final tightened. New crosslink placed as well and torqued. The wound was then irrigated with 3L betadine irrigation followed by Irricept x2 followed by 3 L abx irrigation followed by 6L of NSS until the irrigant run off was clean of any tissue. We then placed stimulan beads within the bed of the wound and placed two deep drains. We then performed layered complex closure first in the facia with #1 PDS followed by 0 PDS. 0PDS was placed in the deep SQ tissue and 2-0 PDS in the superficial SQ tissue. We freshened the skin edges with a skin knife and then irrigated superficially with NSS. We then closed the skin with 2-0 nylon in a simple fashion, the edges approximated well. We secured the drains with a stitch. The wound was cleaned and dressed with a Prevena incisional vac, 4x4 and tegaderms for drains. The patient was transferred back to their hospital bed atraumatically. Drain c ontinued to hold suction and were in good position. Patient was then awakened and extubated by the department of anesthesia having tolerated the procedure very well with no complications. They were transferred to the postoperative care unit in stable condition.
== END 2022-07-19 15:44 | disposition home health service (06) | DRG 857 ==
LOC: EC 07:28 → 4SSUR 10:10 → 5NMEDONC 16:51
PROVIDERS: ADMIT Internal Medicine; ATTEND Internal Medicine
PROC: 0SP004Z Removal of Internal Fixation Device from Lumbar Vertebral Joint, Open Approach (ICD-10-PCS; principal; 2022-07-13 14:45)
PROC: 0QB00ZZ Excision of Lumbar Vertebra, Open Approach (ICD-10-PCS; principal; 2022-07-13 14:45)
PROC: 0SG00K1 Fusion of Lumbar Vertebral Joint with Nonautologous Tissue Substitute, Posterior Approach, Posterior Column, Open Approach (ICD-10-PCS; principal; 2022-07-13 14:45)
DX: T81.42XA Infection following a procedure, deep incisional surgical site, initial encounter (principal); I96 Gangrene, not elsewhere classified; B96.1 Klebsiella pneumoniae [K. pneumoniae] as the cause of diseases classified elsewhere; I10 Essential (primary) hypertension; M54.50 Low back pain, unspecified; G47.30 Sleep apnea, unspecified; H91.90 Unspecified hearing loss, unspecified ear; K21.9 Gastro-esophageal reflux disease without esophagitis; K44.9 Diaphragmatic hernia without obstruction or gangrene; Z79.899 Other long term (current) drug therapy; Z87.891 Personal history of nicotine dependence; Z98.1 Arthrodesis status
CPT/HCPCS: 36415; 72100; 72133; 80048; 80053; 80202; 82565; 83605; 85025; 85610; 85652; 85730; 86140; 87040; 87070; 87075; 87205; 93005; 94760; 96365; 96366; 99284

== ENCOUNTER 2022-11-06 05:42 | Inpatient (IN) | payer BC ==
[2022-11-06] MEDS ORDERED: KETOROLAC 15 MG/ML 1 ML VIAL IVP STA (06:22)
[2022-11-06] MEDS ORDERED: ONDANSETRON 4 MG/2 ML VIAL IVP STA (06:22)
[2022-11-06] MEDS ORDERED: TAMSULOSIN 0.4 MG CAP.ER.24H PO STA (06:22)
[2022-11-06] MEDS ORDERED: HYDROmorphone 0.5 MG/0.5 ML SYRINGE IVP STA (06:22)
[2022-11-06 06:35] LABS: Appearance,Urine Clear (Clear); Bilirubin,Urine Negative (Negative); Blood,Urine Large (Negative); Color,Urine Yellow; Glucose,Urine (UA) 1+ (Negative); Ketones,Urine Negative (Negative); Leukocyte Esterase,Urine Negative (Negative); Mucus,Urine Rare /hpf; Nitrite,Urine Negative (Negative); PH, Urine 5.5 (5.0-8.0); Protein,Urine 1+ (Negative); RBC,Urine >182 /hpf (0-5); Specific Gravity,Urine 1.023 (1.001-1.035); Squamous Epithelial Cell,Urine <1 /hpf (0-4); Urobilinogen,Urine <2.0 mg/dL (<2.0); WBC,Urine 4 /hpf (0-5)
--- NOTE | 2022-11-06 06:42 | ED ---
Back Pain HPI - General Chief Complaint: Back Pain/Injury Stated Complaint: LT flank pain Time Seen by Provider: 11/06/22 06:00 Source: patient, RN notes reviewed Limitations: no limitations - History of Present Illness Initial Comments: This a 52-year-old male presents emergency Department chief complaint of left flank pain. Patient states that this started primarily this morning. He does admit that he's had blood in his urine for one month and which she saw his PCP for the scheduled cystoscopy, CT. Patient does have a history of stones but no pain prior to this causing his blood. Patient denies any fevers or chills he does have some dysuria. Patient denies upper abdominal pain states pain is on his left flank nothing makes it feel better or worse. Denies any chest pain shortness of breath no other associated complaints. - Related Data Home Medications Medication Instructions Recorded Confirmed amLODIPine [Norvasc] 10 mg PO DAILY 01/24/21 07/11/22 methocarbamoL [Methocarbamol] 750 mg PO TID 06/26/22 07/11/22 diazePAM [Valium] 10 mg PO BID PRN 07/11/22 07/11/22 Previous Rx's Medication Instructions Recorded Gabapentin [Neurontin] 300 mg PO TID #90 cap 07/05/22 Cefepime [Maxipime] 2 gm IVPB Q8H #126 each 07/19/22 Ferrous Sulfate [Iron (65 MG 325 mg PO W/LUNCH 30 Days #30 tab 07/19/22 Elemental)] HYDROcodone/APAP 10-325MG [[place] 1 each PO Q6H #9 tab 07/19/22 10-325] Sennosides [Senokot] 8.6 mg PO BID 30 Days #60 tab 07/19/22 Allergies Allergy/AdvReac Type Severity Reaction Status Date / Time No Known Allergies Allergy Verified 11/06/22 05:49 Review of Systems ROS Statement: Those systems with pertinent positive or pertinent negative responses have been documented in the HPI. ROS Other: All systems not noted in ROS Statement are negative. Past Medical History Past Medical History: GERD/Reflux, Hypertension, Sleep Apnea/CPAP/BIPAP Additional Past Medical History / Comment(s): kidney stones, DEVIATED SEPTUM(HAS SX), USES CPAP MACHINE, HIATAL HERNIA History of Any Multi-Drug Resistant Organisms: None Reported Past Surgical History: Appendectomy, Back Surgery, Tonsillectomy Additional Past Surgical History / Comment(s): 1998 RT HAND INDEX/MIDDLE FINGER TENDON REPAIR, 1992 BACK SX L4-L5, SEPTOPLASY 2011, RT KNEE ARTHROSCOPY, LT MIDDLE EAR SX AGE 10 "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 05-16-22 BACK SX. Past Anesthesia/Blood Transfusion Reactions: No Reported Reaction Past Psychological History: No Psychological Hx Reported Smoking Status: Current every day smoker Past Alcohol Use History: Rare Past Drug Use History: None Reported - Past Family History Mother Family Medical History: No Reported History Father Family Medical History: Hypertension Additional Family Medical History / Comment(s): KINDNEY REMOVED(BENIGN TUMOR) General Exam Limitations: no limitations General appearance: alert, in no apparent distress Head exam: Present: atraumatic, normocephalic, normal inspection ENT exam: Present: normal exam, normal oropharynx, mucous membranes moist Neck exam: Present: normal inspection, full ROM. Absent: tenderness, meningismu s, lymphadenopathy Respiratory exam: Present: normal lung sounds bilaterally. Absent: respiratory distress, wheezes, rales, rhonchi, stridor Cardiovascular Exam: Present: normal rhythm, tachycardia, normal heart sounds. Absent: systolic murmur, diastolic murmur, rubs, gallop, clicks GI/Abdominal exam: Present: soft, normal bowel sounds. Absent: distended, tenderness, guarding, rebound, rigid Back exam: Present: CVA tenderness (L). Absent: CVA tenderness (R) Neurological exam: Present: alert Skin exam: Present: warm, dry, intact, normal color. Absent: rash Course Vital Signs 11/06/22 05:47 Temperature 97.8 F Pulse Rate 114 H Respiratory 20 Rate Blood Pressure 180/96 O2 Sat by Pulse 100 Oximetry Medical Decision Making - Medical Decision Making 52-year-old presented for flank pain and hematuria. Patient has bilateral ureteral colic with hydronephrosis. I did discuss case with urology Dr. Mercer in which patient will be admitted. - Lab Data Result diagrams: 11/06/22 06:36 11/06/22 06:36 Lab Results 11/06/22 11/06/22 11/06/22 Range/Units 06:11 06:36 06:36 WBC 4.8 (3.8-10.6) k/uL RBC 5.20 (4.30-5.90) m/uL Hgb 13.6 (13.0-17.5) gm/dL Hct 39.4 (39.0-53.0) % MCV 75.7 L (80.0-100.0) fL MCH 26.1 (25.0-35.0) pg MCHC 34.4 (31.0-37.0) g/dL RDW 15.6 H (11.5-15.5) % Plt Count 177 (150-450) k/uL MPV 6.9 Neutrophils % 58 % Lymphocytes % 30 % Monocytes % 7 % Eosinophils % 4 % Basophils % 1 % Neutrophils # 2.8 (1.3-7.7) k/uL Lymphocytes # 1.4 (1.0-4.8) k/uL Monocytes # 0.3 (0-1.0) k/uL Eosinophils # 0.2 (0-0.7) k/uL Basophils # 0.0 (0-0.2) k/uL Microcytosis Slight Sodium 138 (137-145) mmol/L Potassium 4.6 (3.5-5.1) mmol/L Chloride 107 (98-107) mmol/L Carbon Dioxide 26 (22-30) mmol/L Anion Gap 5 mmol/L BUN 18 (9-20) mg/dL Creatinine 0.65 L (0.66-1.25) mg/dL Est GFR (CKD-EPI)AfAm >90 (>60 ml/min/1.73 sqM) Est GFR (CKD-EPI)NonAf >90 (>60 ml/min/1.73 sqM) Glucose 155 H (74-99) mg/dL Calcium 8.4 (8.4-10.2) mg/dL Total Bilirubin 0.7 (0.2-1.3) mg/dL AST 35 (17-59) U/L ALT 39 (4-49) U/L Alkaline Phosphatase 68 (38-126) U/L Total Protein 6.9 (6.3-8.2) g/dL Albumin 4.1 (3.5-5.0) g/dL Urine Color Yellow Urine Appearance Clear (Clear) Urine pH 5.5 (5.0-8.0) Ur Specific [place] 1.023 (1.001-1.035) Urine Protein 1+ H (Negative) Urine Glucose (UA) 1+ H (Negative) Urine Ketones Negative (Negative) Urine Blood Large H (Negative) Urine Nitrite Negative (Negative) Urine Bilirubin Negative (Negative) Urine Urobilinogen <2.0 (<2.0) mg/dL Ur Leukocyte Esterase Negative (Negative) Urine RBC >182 H (0-5) /hpf Urine WBC 4 (0-5) /hpf Ur Squamous Epith Cells <1 (0-4) /hpf Urine Mucus Rare H (None) /hpf Disposition Clinical Impression: Bilateral ureteral calculi, Bilateral hydronephrosis Disposition: ADMITTED IP TO THIS HOSP Condition: Fair Referrals: Luis Armando Cabezas MD [Primary Care Provider] - 1-2 days Time of Disposition: 08:32
[2022-11-06 06:46] LABS: Basophils % (A) 1 %; Eosinophils # (A) 0.2 k/uL (0-0.7); Eosinophils % (A) 4 %; HCT 39.4 % (39.0-53.0); HGB 13.6 gm/dL (13.0-17.5); Lymphocytes # (A) 1.4 k/uL (1.0-4.8); Lymphocytes % (A) 30 %; MCH 26.1 pg (25.0-35.0); MCHC 34.4 g/dL (31.0-37.0); MCV 75.7 fL (80.0-100.0); Mean Platelet Volume 6.9; Microcytosis Slight; Monocytes # (A) 0.3 k/uL (0-1.0); Monocytes % (A) 7 %; Neutrophils # (A) 2.8 k/uL (1.3-7.7); Neutrophils % (A) 58 %; Platelet Count 177 k/uL (150-450); RDW 15.6 % (11.5-15.5); WBC 4.8 k/uL (3.8-10.6)
[2022-11-06 06:55] LABS: ALT 39 U/L (4-49); AST 35 U/L (17-59); African American GFR (CKD) >90 (>60 ml/min/1.73 sqM); Albumin 4.1 g/dL (3.5-5.0); Alkaline Phosphatase 68 U/L (38-126); Anion Gap 5 mmol/L; Blood Urea Nitrogen 18 mg/dL (9-20); Calcium 8.4 mg/dL (8.4-10.2); Carbon Dioxide 26 mmol/L (22-30); Chloride 107 mmol/L (98-107); Glucose 155 mg/dL (74-99); Non-African American GFR(CKD) >90 (>60 ml/min/1.73 sqM); Sodium 138 mmol/L (137-145); Total Bilirubin 0.7 mg/dL (0.2-1.3); Total Protein 6.9 g/dL (6.3-8.2)
[2022-11-06 06:58] LABS: Potassium 4.6 mmol/L (3.5-5.1)
--- NOTE | 2022-11-06 07:00 | CT ---
EXAMINATION TYPE: CT abdomen pelvis wo con DATE OF EXAM: 11/06/2022 HISTORY: Lt flank pain, history of stones CT DLP: 1431.7 mGycm. Automated Exposure Control for Dose Reduction was Utilized. TECHNIQUE: CT scan of the abdomen and pelvis is performed without oral or IV contrast. COMPARISON: CT abdomen and pelvis January 28, 2022 and older CTs FINDINGS: Within the limitations of a non-contrast study, the following observations are made. LUNG BASES: No significant abnormality is appreciated. LUNG BASES: Mild lateral left basilar linear scarring and/or atelectasis redemonstrated. LIVER/GB: Visualized liver heterogeneously hypodense consistent with diffuse fatty infiltration simil ar to priors. PANCREAS: No significant abnormality is seen. SPLEEN: No significant abnormality is seen. ADRENALS: No significant abnormality is seen. KIDNEYS: Persistent roughly 4 tiny calculi scattered throughout the left kidney on current study. Cur rent study has 2 mm calculus distal left ureter axial image 128 and slightly larger 4mm calculus just past this causing mild left-sided hydronephrosis on current study. Single 2 mm calculus right kidney midpole level coronal image 70. There is mild right-sided hydronephrosis due to a single calculus or adjacent group of calculi in the distal right ureter measuring 8 mm in length coronal image 76. No intraluminal calculi in the urinary bladder on current study. BOWEL: No significant abnormality is seen. GENITAL ORGANS: Some central calcifications seen in normal size prostate. LYMPH NODES: No greater than 1cm abdominal or pelvic lymph nodes are appreciated. OSSEOUS STRUCTURES: Interval surgery with posterior interpedicular rods and screws at L4-L5 level and artificial disc material. OTHER: No significant additional abnormality is seen. IMPRESSION: Current study has bilateral mild hydronephrosis due to 2 distal ureter calculi on the lef t up to 4 mm in size and single calcification or more likely adjacent grouped calcifications measurin g total of 8 mm in length within the distal right ureter.
[2022-11-06] MEDS ORDERED: NALOXONE 0.4 MG/ML 1 ML VIAL IV PRN (08:33)
[2022-11-06] MEDS ORDERED: ONDANSETRON 4 MG/2 ML VIAL IVP PRN (08:33)
[2022-11-06] MEDS: HYDROmorphone 0.5 MG/0.5 ML SYRINGE IVP PRN ×2 (09:42→16:28)
[2022-11-06] MEDS: SODIUM CHLORIDE 0.9% 1,000 ML IV SCH ×2 (09:45→21:29)
--- NOTE | 2022-11-06 11:22 | P.GSHP ---
History of Present Illness H&P Date: 11/06/22 Chief Complaint: Left flank pain The patient is a 52-year-old white male with a history of urolithiasis, none of which have required surgery. He has recently experienced hematuria, and he presents with acute onset of left flank pain. He reports mild dysuria. CT scan shows bilateral mild hydronephrosis due to an 8 mm right distal ureteral calculus, and 2 left distal ureteral calculi (2 mm and 4 mm). Patient was offered the options of medical expulsion therapy versus ureteroscopic removal of the calculi. The pros and cons of each were discussed, and he has elected to undergo ureteroscopic removal of the calculi later today. - Constitutional Constitutional: Denies chills, Denies fever - Gastrointestinal Gastrointestinal: Denies nausea, Denies vomiting Past Medical History Past Medical History: GERD/Reflux, Hypertension, Sleep Apnea/CPAP/BIPAP Additional Past Medical History / Comment(s): kidney stones, DEVIATED SEPTUM(HAS SX), USES CPAP MACHINE, HIATAL HERNIA History of Any Multi-Drug Resistant Organisms: None Reported Past Surgical History: Appendectomy, Back Surgery, Tonsillectomy Additional Past Surgical History / Comment(s): 1998 RT HAND INDEX/MIDDLE FINGER TENDON REPAIR, 1992 BACK SX L4-L5, SEPTOPLASY 2011, RT KNEE ARTHROSCOPY, LT MIDDLE EAR SX AGE 10 "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 05-16-22 BACK SX, VASECTOMY. Past Anesthesia/Blood Transfusion Reactions: No Reported Reaction Past Psychological History: No Psychological Hx Reported Smoking Status: Current every day smoker Past Alcohol Use History: Rare Past Drug Use History: None Reported - Past Family History Mother Family Medical History: No Reported History Father Family Medical History: Hypertension Additional Family Medical History / Comment(s): KIDNEY REMOVED (BENIGN TUMOR) Medications and Allergies Home Medications Medication Instructions Recorded Confirmed Type amLODIPine [Norvasc] 10 mg PO DAILY 01/24/21 11/06/22 History Gabapentin [Neurontin] 300 mg PO TID #90 cap 07/05/22 11/06/22 Rx Dextroamphetamine/Amphetamine 10 mg PO AC-BID 11/06/22 11/06/22 History [Adderall] Meloxicam [Mobic] 15 mg PO DAILY 11/06/22 11/06/22 History Allergies Allergy/AdvReac Type Severity Reaction Status Date / Time No Known Allergies Allergy Verified 11/06/22 09:30 Surgical - Exam Vital Signs Temp Pulse Resp BP Pulse Ox 97.8 F 114 H 20 180/96 100 11/06/22 05:47 11/06/22 05:47 11/06/22 05:47 11/06/22 05:47 11/06/22 05:47 - General well developed, well nourished, moderate pain - Neck no masses, trachea midline - Respiratory normal respiratory effort - Abdomen Abdomen: soft, non tender, no guarding, no rigid, no rebound - Genitourinary normal penis with no external lesions, testicles non-tender - Psychiatric oriented to time, oriented to person, oriented to place, speech is normal, memory intact Results - Labs 11/06/22 06:36 11/06/22 06:36 Abnormal Lab Results - Last 24 Hours (Table) 11/06/22 11/06/22 11/06/22 Range/Units 06:11 06:36 06:36 MCV 75.7 L (80.0-100.0) fL RDW 15.6 H (11.5-15.5) % Creatinine 0.65 L (0.66-1.25) mg/dL Glucose 155 H (74-99) mg/dL Urine Protein 1+ H (Negative) Urine Glucose (UA) 1+ H (Negative) Urine Blood Large H (Negative) Urine RBC >182 H (0-5) /hpf Urine Mucus Rare H (None) /hpf Diabetes panel 11/06/22 Range/Units 06:36 Sodium 138 (137-145) mmol/L Potassium 4.6 (3.5-5.1) mmol/L Chloride 107 (98-107) mmol/L Carbon Dioxide 26 (22-30) mmol/L BUN 18 (9-20) mg/dL Creatinine 0.65 L (0.66-1.25) mg/dL Glucose 155 H (74-99) mg/dL Calcium 8.4 (8.4-10.2) mg/dL AST 35 (17-59) U/L ALT 39 (4-49) U/L Alkaline Phosphatase 68 (38-126) U/L Total Protein 6.9 (6.3-8.2) g/dL Albumin 4.1 (3.5-5.0) g/dL Calcium panel 11/06/22 Range/Units 06:36 Calcium 8.4 (8.4-10.2) mg/dL Albumin 4.1 (3.5-5.0) g/dL Pituitary panel 11/06/22 Range/Units 06:36 Sodium 138 (137-145) mmol/L Potassium 4.6 (3.5-5.1) mmol/L Chloride 107 (98-107) mmol/L Carbon Dioxide 26 (22-30) mmol/L BUN 18 (9-20) mg/dL Creatinine 0.65 L (0.66-1.25) mg/dL Glucose 155 H (74-99) mg/dL Calcium 8.4 (8.4-10.2) mg/dL Adrenal panel 11/06/22 Range/Units 06:36 Sodium 138 (137-145) mmol/L Potassium 4.6 (3.5-5.1) mmol/L Chloride 107 (98-107) mmol/L Carbon Dioxide 26 (22-30) mmol/L BUN 18 (9-20) mg/dL Creatinine 0.65 L (0.66-1.25) mg/dL Glucose 155 H (74-99) mg/dL Calcium 8.4 (8.4-10.2) mg/dL Total Bilirubin 0.7 (0.2-1.3) mg/dL AST 35 (17-59) U/L ALT 39 (4-49) U/L Alkaline Phosphatase 68 (38-126) U/L Total Protein 6.9 (6.3-8.2) g/dL Albumin 4.1 (3.5-5.0) g/dL - Imaging CT scan - abdomen: report reviewed, image reviewed Assessment and Plan (1) Calculus of ureter Current Visit: Yes Status: Acute Code(s): N20.1 - CALCULUS OF URETER SNOMED Code(s): 43247134 (2) Hydronephrosis with renal and ureteral calculous obstruction Current Visit: Yes Status: Acute Code(s): N13.2 - HYDRONEPHROSIS WITH RENAL AND URETERAL CALCULOUS OBSTRUCTION SNOMED Code(s): 059289321 Plan: Cystoscopy, bilateral retrograde pyelograms, bilateral ureteroscopy with Holmium laser lithotripsy and stone basketing, bilateral ureteral stent insertion. This will be performed later today. The procedures been reviewed in detail with the patient. He has been made aware of potential risks, which include anesthesia, bleeding, infection, inability to successfully remove the calculi, and ureteral injury. He is aware of the possible need for secondary treatment. Time with Patient: Greater than 30
[2022-11-06] MEDS: HYDROmorphone 1 MG/ML 1 ML SYRINGE IVP PRN (14:25)
[2022-11-06] MEDS ORDERED: ONDANSETRON 4 MG/2 ML VIAL IVP ONE ×2 (16:50→16:55)
[2022-11-06] MEDS ORDERED: IV FLUID CONTINUATION 150 ML IV ONE ×2 (17:22)
[2022-11-06] MEDS ORDERED: PROPOFOL 10 MG/ML 20 ML VIAL IV ONE (17:47)
[2022-11-06] MEDS ORDERED: LIDOCAINE 4% LTA KIT (4 ML) TOPICAL ONE (17:47)
[2022-11-06] MEDS ORDERED: SUCCINYLCHOLINE CHLORIDE 200 MG/10 ML VIAL IV ONE (17:47)
[2022-11-06] MEDS ORDERED: MIDAZOLAM 2 MG/2 ML VIAL ONE (17:47)
[2022-11-06] MEDS ORDERED: fentaNYL (PF) 50 MCG/ML 2 ML AMP ONE (17:47)
[2022-11-06] MEDS ORDERED: LIDOCAINE 2% INJ 20 MG/ML (2 ML VIAL) ONE (17:47)
[2022-11-06] MEDS ORDERED: SODIUM CHLORIDE 0.9% 100 ML with ceFAZolin 2,000 MG IV ONE ×2 (17:52)
[2022-11-06] MEDS ORDERED: IOPAMIDOL-370 50ML BTL IRRIGATION ONE (18:15)
[2022-11-06] MEDS ORDERED: LACTATED RINGERS 1,000 ML IV ONE (18:21)
[2022-11-06] MEDS ORDERED: KETOROLAC 15 MG/ML 1 ML VIAL IVP ONE (19:29)
[2022-11-06] MEDS ORDERED: HYDROmorphone 0.5 MG/0.5 ML SYRINGE IVP ONE ×2 (19:32→20:12)
--- NOTE | 2022-11-06 20:27 | P.OP ---
Date of Procedure: 11/06/22 Preoperative Diagnosis: Bilateral Ureteral Calculi Postoperative Diagnosis: Same Procedure(s) Performed: Cystoscopy, bilateral retrograde pyelograms, left ureteral balloon dilation, bilateral ureteroscopy with Holmium laser lithotripsy and stone basketing, bilateral ureteral stent insertion Anesthesia: ANAA Surgeon: Edenilson Gerardo Estimated Blood Loss (ml): 5 IV fluids (ml): 500 Pathology: other Condition: stable Disposition: PACU Indications for Procedure: The patient is a 52-year-old white male with a history of urolithiasis, none of which have required surgery. He has recently experienced hematuria, and he presents with acute onset of left flank pain. He reports mild dysuria. CT scan shows bilateral mild hydronephrosis due to an 8 mm right distal ureteral calculus, and 2 left distal ureteral calculi (2 mm and 4 mm). Patient was offered the options of medical expulsion therapy versus ureteroscopic removal of the calculi. The pros and cons of each were discussed, and he has elected to undergo ureteroscopic removal of the calculi. Operative Findings: Bilateral distal ureteral calculi, fragmented and removed completely. Description of Procedure: The patient was taken to the operating room and placed in the dorsolithotomy position, with legs supported in Kris stirrups. The external genitalia was prepped and draped sterilely. The 30 lens was used to introduce the 21-[place] Rosa cystoscopic sheath through the urethra and into the bladder under direct vision. The prostatic urethra showed evidence of mild lateral lobe enlargement. The bladder was examined in its entirety. Both ureteral orifices were normal anatomic location and configuration. No tumors or foreign bodies were seen. Using a 10-[place] cone-tipped catheter, bilateral retrograde pyelograms were performed. The right ureteral calculus was seen as a filling defect. The left ureteral calculus was not seen with certainty. The distal ureter appeared narrowed. The Rosa semirigid ureteroscope was advanced into the bladder, and the right ureteral orifice was cannulated. The ureteroscope was slowly advanced up to the calculus. The 365 Holmium laser probe was passed through the ureteroscope, and lithotripsy was performed. After fragmenting the calculus, calculus fragments were removed using a 1.9-[place] nitinol basket. Once all calculus fragments had been removed, the ureter was inspected and there was no evidence of ureteral trauma. Left ureteroscopy was performed next, but the caliber of the ureter would not accommodate the semirigid ureteroscope. Therefore, a 0.035 inch Glidewire was passed through the ureteroscope and up to the left renal pelvis. The ureteroscope was removed, and a 15-[place], 4 cm balloon dilating catheter was advanced over the wire. After dilating the distal ureter, ureteroscopy was repeated and a 4 mm calculus was identified. The 365 holmium laser probe was passed through the ureteroscope, and lithotripsy was performed. After fragmenting the calculus, calculus fragments were removed using a 1.9-[place] nitinol basket. No additional calculi were seen. There was no evidence of ureteral trauma. The Glidewire was passed up to the left renal pelvis, and the ureteroscope was removed. The Glidewire was backloaded into the cystoscope, which was passed into the bladder. A 26 cm, 4.8-[place] double-J ureteral stent was placed over the wire. Proper stent positioning was verified fluoroscopically and endoscopically. A right ureteral stent was then placed in an identical fashion. The bladder was emptied and all calculus fragments were removed from the bladder. The cystoscope was then removed. The patient tolerated the procedure well and was taken to the recovery room in stable condition. [facility] Report: Procedure Acuity: Urgent Stone Size and Location: 8 mm, right distal ureter. 4 mm, left distal ureter. Ureteral Dilation: Balloon Dilation Ureteral Access Sheath Used: No Stone Sent for Analysis: Yes All Stones/Fragments Were Removed with a Basket: Yes Complications: No Preoperative Antibiotics Given: Yes Stent Placed: Yes If Stent Placed, Was String Left Attached: No If Stent Placed, When is it to be Removed: 1 week Discharge Medications: Toradol, tamsulosin
--- NOTE | 2022-11-06 20:43 | FL ---
Intraoperative/procedural fluoroscopic services were provided. Total fluoroscopy time is 1 minute 25 seconds with a total of 1 submitted images to PACS. Please see the operative/procedural note for furt her details.
[2022-11-06] MEDS ORDERED: HYDROcodone/APAP 5-325MG 1 EACH TAB PO PRN ×2 (20:52)
[2022-11-06] MEDS ORDERED: KETOROLAC 15 MG/ML 1 ML VIAL IVP PRN (20:52)
[2022-11-07] MEDS: HYDROmorphone 1 MG/ML 1 ML SYRINGE IVP PRN (00:30)
[2022-11-07 07:33] VITALS: BP 157/100; PULSE 89; RESP 16; TEMP 98.8
--- NOTE | 2022-11-07 08:36 | P.DS ---
Providers Date of admission: 11/06/22 09:18 Expected date of discharge: 11/07/22 Attending physician: Mango Mercer Primary care physician: Luis Armando Cabezas [facility] Course: The patient is a 52-year-old white male with a history of urolithiasis, none of which have required surgery. He has recently experienced hematuria, and he presented to the emergency department on 11/06/22 with acute onset of left flank pain. He reports mild dysuria. CT scan shows bilateral mild hydronephrosis due to an 8 mm right distal ureteral calculus, and 2 left distal ureteral calculi (2 mm and 4 mm). He underwent a cystoscopy, bilateral retrograde pyelograms, left ureteral balloon dilation, bilateral ureteroscopy with Holmium laser lithotripsy and stone basketing, bilateral ureteral stent insertion with Dr. Gerardo later that evening. The patient tolerated the procedure well and was taken to the recovery room in stable condition. POD #1 the patient is afebrile and vitals are stable. He is able to tolerate a regular diet. Pain is well controlled. He reports burning with urination and hemturia which are both expected. He will follow up in the office with Dr. Gerardo in one week for stent removal. Prescriptions for Flomax and Toradol were sent to his pharmacy. Patient Condition at Discharge: Good Plan - Discharge Summary Discharge Rx Participant: No New Discharge Prescriptions: New Tamsulosin [Flomax] 0.4 mg PO DAILY #14 cap Ketorolac [Toradol] 10 mg PO Q6HR PRN #10 tab PRN Reason: Pain No Action amLODIPine [Norvasc] 10 mg PO DAILY Gabapentin [Neurontin] 300 mg PO TID #90 cap Dextroamphetamine/Amphetamine [Adderall] 10 mg PO AC-BID Meloxicam [Mobic] 15 mg PO DAILY Discharge Medication List amLODIPine [Norvasc] 10 mg PO DAILY 01/24/21 [History] Gabapentin [Neurontin] 300 mg PO TID #90 cap 07/05/22 [Rx] Dextroamphetamine/Amphetamine [Adderall] 10 mg PO AC-BID 11/06/22 [History] Ketorolac [Toradol] 10 mg PO Q6HR PRN #10 tab 11/06/22 [Rx] Meloxicam [Mobic] 15 mg PO DAILY 11/06/22 [History] Tamsulosin [Flomax] 0.4 mg PO DAILY #14 cap 11/06/22 [Rx] Follow up Appointment(s)/Referral(s): Luis Armando Cabezas MD [Primary Care Provider] - 1-2 days Edenilson Gerardo MD [STAFF PHYSICIAN] - 1 Week Activity/Diet/Wound Care/Special Instructions: - Activity and diet as tolerated - Take pain medication as prescribed for discomfort - You may shower, no tub baths - It is normal to have blood in your urine - Increase your fluid intake - Follow up with Dr. Gerardo in the office for stent removal in one week Discharge Disposition: HOME SELF-CARE
== END 2022-11-07 10:18 | disposition home or self-care (01) | DRG 661 ==
LOC: EC 05:42 → 4SSUR 09:18
PROVIDERS: ADMIT Urology; ATTEND Urology
PROC: 0T9B30Z Drainage of Bladder with Drainage Device, Percutaneous Approach (ICD-10-PCS; 2022-11-06)
PROC: 0T788DZ Dilation of Bilateral Ureters with Intraluminal Device, Via Natural or Artificial Opening Endoscopic (ICD-10-PCS; principal; 2022-11-06 13:00)
PROC: BT141ZZ Fluoroscopy of Kidneys, Ureters and Bladder using Low Osmolar Contrast (ICD-10-PCS; 2022-11-06 13:00)
PROC: 0TC78ZZ Extirpation of Matter from Left Ureter, Via Natural or Artificial Opening Endoscopic (ICD-10-PCS; 2022-11-06 13:00)
DX: N13.2 Hydronephrosis with renal and ureteral calculous obstruction (principal); F17.210 Nicotine dependence, cigarettes, uncomplicated; G47.30 Sleep apnea, unspecified; K21.9 Gastro-esophageal reflux disease without esophagitis; H91.90 Unspecified hearing loss, unspecified ear; I10 Essential (primary) hypertension; Z79.1 Long term (current) use of non-steroidal anti-inflammatories (NSAID); Z79.899 Other long term (current) drug therapy; Z87.442 Personal history of urinary calculi; Z87.19 Personal history of other diseases of the digestive system
CPT/HCPCS: 36415; 74176; 74420; 80053; 81001; 82365; 85025; 96374; 96375; 96376; 99285

== ENCOUNTER 2022-11-10 20:55 | Emergency (ER) | payer BC ==
[2022-11-10 21:05] VITALS: TEMP 98.1
[2022-11-10] MEDS ORDERED: HYDROmorphone 1 MG/ML 1 ML SYRINGE IVP STA (21:29)
[2022-11-10 21:49] LABS: Basophils % (A) 1 %; Eosinophils # (A) 0.2 k/uL (0-0.7); Eosinophils % (A) 4 %; HCT 40.1 % (39.0-53.0); HGB 14.1 gm/dL (13.0-17.5); Lymphocytes # (A) 1.6 k/uL (1.0-4.8); Lymphocytes % (A) 25 %; MCH 26.1 pg (25.0-35.0); MCV 74.7 fL (80.0-100.0); Microcytosis Slight; Monocytes # (A) 0.6 k/uL (0-1.0); Monocytes % (A) 9 %; Neutrophils # (A) 3.8 k/uL (1.3-7.7); Neutrophils % (A) 60 %; Platelet Count 198 k/uL (150-450); RBC 5.38 m/uL (4.30-5.90); RDW 15.7 % (11.5-15.5); WBC 6.4 k/uL (3.8-10.6)
[2022-11-10 21:56] LABS: ALT 41 U/L (4-49); AST 31 U/L (17-59); African American GFR (CKD) >90 (>60 ml/min/1.73 sqM); Alkaline Phosphatase 93 U/L (38-126); Anion Gap 4 mmol/L; Blood Urea Nitrogen 19 mg/dL (9-20); Calcium 8.9 mg/dL (8.4-10.2); Carbon Dioxide 26 mmol/L (22-30); Chloride 108 mmol/L (98-107); Glucose 151 mg/dL (74-99); Lipase 49 U/L (23-300); Non-African American GFR(CKD) >90 (>60 ml/min/1.73 sqM); Potassium 3.9 mmol/L (3.5-5.1); Sodium 138 mmol/L (137-145); Total Bilirubin 0.4 mg/dL (0.2-1.3); Total Protein 6.6 g/dL (6.3-8.2)
--- NOTE | 2022-11-10 21:58 | ED ---
Male Urogenital HPI - General Chief complaint: Urogenital Stated complaint: post surgery/pain in back Time Seen by Provider: 11/10/22 21:15 Source: patient Mode of arrival: ambulatory Limitations: no limitations - History of Present Illness Initial comments: 52-year-old male with past history of nephrolithiasis, hypertension who presents to the emergency department reporting dysuria and hematuria. He had bilateral ureterolithiasis with hydronephrosis. On the the patient had cystoscopy, bilateral retrograde pyelogram, left ureteral balloon dilation, bilateral ureteroscopy with laser lithotripsy, bilateral stent insertion. The patient had some dysuria hematuria after the procedure which she was told was normal. He states that his symptoms did improve however today the pain became more significant. He reports to right-sided flank pain with hematuria. He denies fevers. No nausea vomiting. No anterior abdominal pain. No diarrhea, con stipation, black or bloody stools. No other alleviating, precipitating or modifying factors - Related Data Home Medications Medication Instructions Recorded Confirmed amLODIPine [Norvasc] 10 mg PO DAILY 01/24/21 11/10/22 Dextroamphetamine/Amphetamine 10 mg PO AC-BID 11/06/22 11/10/22 [Adderall] Meloxicam [Mobic] 15 mg PO DAILY 11/06/22 11/10/22 Cyclobenzaprine [Flexeril] 5 mg PO BID PRN 11/10/22 11/10/22 Previous Rx's Medication Instructions Recorded Gabapentin [Neurontin] 300 mg PO TID #90 cap 07/05/22 Ketorolac [Toradol] 10 mg PO Q6HR PRN #10 tab 11/06/22 Tamsulosin [Flomax] 0.4 mg PO DAILY #14 cap 11/06/22 HYDROcodone/APAP 10-325MG [[place] 1 tab PO Q6H PRN #12 tab 11/10/22 10-325] Allergies Allergy/AdvReac Type Severity Reaction Status Date / Time No Known Allergies Allergy Verified 11/10/22 20:59 Review of Systems ROS Statement: Those systems with pertinent positive or pertinent negative responses have been documented in the HPI. ROS Other: All systems not noted in ROS Statement are negative. Past Medical History Past Medical History: GERD/Reflux, Hypertension, Sleep Apnea/CPAP/BIPAP Additional Past Medical History / Comment(s): kidney stones, DEVIATED SEPTUM(HAS SX), USES CPAP MACHINE, HIATAL HERNIA History of Any Multi-Drug Resistant Organisms: None Reported Past Surgical History: Appendectomy, Back Surgery, Tonsillectomy Additional Past Surgical History / Comment(s): 1998 RT HAND INDEX/MIDDLE FINGER TENDON REPAIR, 1992 BACK SX L4-L5, SEPTOPLASY 2011, RT KNEE ARTHROSCOPY, LT MIDDLE EAR SX AGE 10 "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 05-16-22 BACK SX, VASECTOMY. Past Anesthesia/Blood Transfusion Reactions: No Reported Reaction Past Psychological History: No Psychological Hx Reported Smoking Status: Current every day smoker Past Alcohol Use History: Rare Past Drug Use History: None Reported - Past Family History Mother Family Medical History: No Reported History Father Family Medical History: Hypertension Additional Family Medical History / Comment(s): KIDNEY REMOVED (BENIGN TUMOR) General Exam Limitations: no limitations General appearance: alert, in no apparent distress Head exam: Present: atraumatic, normocephalic, normal inspection Eye exam: Present: normal appearance, PERRL, EOMI. Absent: scleral icterus, conjunctival injection, periorbital swelling ENT exam: Present: normal exam, mucous membranes moist Neck exam: Present: normal inspection. Absent: tenderness, meningismus, lymphadenopathy Respiratory exam: Present: normal lung sounds bilaterally. Absent: respiratory distress, wheezes, rales, rhonchi, stridor Cardiovascular Exam: Present: tachycardia, normal heart sounds. Absent: systolic murmur, diastolic murmur, rubs, gallop, clicks GI/Abdominal exam: Present: soft, normal bowel sounds. Absent: distended, tenderness, guarding, rebound, rigid Extremities exam: Present: normal inspection, full ROM, normal capillary refill. Absent: tenderness, pedal edema, joint swelling, calf tenderness Back exam: Present: CVA tenderness (R) Neurological exam: Present: alert, oriented X3, CN II-XII intact Psychiatric exam: Present: normal affect, normal mood Skin exam: Present: warm, dry, intact, normal color. Absent: rash Course Vital Signs 11/10/22 20:59 Temperature 98.1 F Pulse Rate 110 H Respiratory 16 Rate Blood Pressure 184/93 O2 Sat by Pulse 98 Oximetry Medical Decision Making - Medical Decision Making Upon arrival the patient is placed into room 20. A thorough history and physical exam was performed. IV access was established. Patient was given 1 mg of Dilaudid for pain control. Laboratory studies are conducted and reviewed. Urinalysis demonstrates moderate leukocyte esterase, greater than 182 red blood cells, 40 white blood cells. Abdomen and pelvis CT is performed and dem onstrates bilateral ureteral stents in good position. No hydronephrosis. No acute abnormality. Results are discussed with the patient. He is resting completely at this time. I did discuss diagnosis, differential and treatment options. Patient will be discharged home and given a prescription for [place]. His stents come out on Sunday. Instructed to return should he have fevers or decrease in his urination. Patient agreeable to treatment plan is discharge home stable condition - Lab Data Result diagrams: 11/10/22 21:41 11/10/22 21:41 Lab Results 11/10/22 11/10/22 11/10/22 Range/Units 21:41 21:41 21:41 WBC 6.4 (3.8-10.6) k/uL RBC 5.38 (4.30-5.90) m/uL Hgb 14.1 (13.0-17.5) gm/dL Hct 40.1 (39.0-53.0) % MCV 74.7 L (80.0-100.0) fL MCH 26.1 (25.0-35.0) pg MCHC 35.0 (31.0-37.0) g/dL RDW 15.7 H (11.5-15.5) % Plt Count 198 (150-450) k/uL MPV 7.0 Neutrophils % 60 % Lymphocytes % 25 % Monocytes % 9 % Eosinophils % 4 % Basophils % 1 % Neutrophils # 3.8 (1.3-7.7) k/uL Lymphocytes # 1.6 (1.0-4.8) k/uL Monocytes # 0.6 (0-1.0) k/uL Eosinophils # 0.2 (0-0.7) k/uL Basophils # 0.0 (0-0.2) k/uL Microcytosis Slight Sodium 138 (137-145) mmol/L Potassium 3.9 (3.5-5.1) mmol/L Chloride 108 H (98-107) mmol/L Carbon Dioxide 26 (22-30) mmol/L Anion Gap 4 mmol/L BUN 19 (9-20) mg/dL Creatinine 0.78 (0.66-1.25) mg/dL Est GFR (CKD-EPI)AfAm >90 (>60 ml/min/1.73 sqM) Est GFR (CKD-EPI)NonAf >90 (>60 ml/min/1.73 sqM) Glucose 151 H (74-99) mg/dL Calcium 8.9 (8.4-10.2) mg/dL Total Bilirubin 0.4 (0.2-1.3) mg/dL AST 31 (17-59) U/L ALT 41 (4-49) U/L Alkaline Phosphatase 93 (38-126) U/L Total Protein 6.6 (6.3-8.2) g/dL Albumin 4.0 (3.5-5.0) g/dL Lipase 49 (23-300) U/L Urine Color Red Urine Appearance Cloudy (Clear) Urine pH 6.0 (5.0-8.0) Ur Specific Carbon 1.023 (1.001-1.035) Urine Protein 2+ H (Negative) Urine Glucose (UA) Negative (Negative) Urine Ketones Negative (Negative) Urine Blood Large H (Negative) Urine Nitrite Negative (Negative) Urine Bilirubin Negative (Negative) Urine Urobilinogen <2.0 (<2.0) mg/dL Ur Leukocyte Esterase Moderate H (Negative) Urine RBC >182 H (0-5) /hpf Urine WBC 40 H (0-5) /hpf Ur Squamous Epith Cells 1 (0-4) /hpf Urine Mucus Few H (None) /hpf Disposition Clinical Impression: Ureteral stent present, Dysuria Disposition: HOME SELF-CARE Condition: Stable Instructions (If sedation given, give patient instructions): Ureteral Stent Placement (DC) Additional Instructions: Take the pain medication as directed. Follow up on Sunday. Return for any new or worsening symptoms. Prescriptions: HYDROcodone/APAP 10-325MG [[place] 10-325] 1 tab PO Q6H PRN #12 tab PRN Reason: pain Is patient prescribed a controlled substance at d/c from ED?: Yes When asked, does pt state using other controlled substances?: No If prescribed controlled substance>3 days was MAPS reviewed?: Prescribed <3 Days Referrals: Luis Armando Cabezas MD [Primary Care Provider] - 1-2 days Edenilson Gerardo MD [STAFF PHYSICIAN] - 1-2 days Time of Disposition: 23:13
[2022-11-10 22:00] LABS: Appearance,Urine Cloudy (Clear); Bilirubin,Urine Negative (Negative); Blood,Urine Large (Negative); Color,Urine Red; Glucose,Urine (UA) Negative (Negative); Ketones,Urine Negative (Negative); Leukocyte Esterase,Urine Moderate (Negative); Mucus,Urine Few /hpf; Nitrite,Urine Negative (Negative); Protein,Urine 2+ (Negative); RBC,Urine >182 /hpf (0-5); Specific Gravity,Urine 1.023 (1.001-1.035); Squamous Epithelial Cell,Urine 1 /hpf (0-4); Urobilinogen,Urine <2.0 mg/dL (<2.0); WBC,Urine 40 /hpf (0-5)
--- NOTE | 2022-11-10 22:59 | CT ---
EXAMINATION TYPE: CT abdomen pelvis wo con DATE OF EXAM: 11/10/2022 COMPARISON: 11/06/2022 HISTORY: Bilateral stents put in on Sunday. Pt is now having rt side flank pain and burning while uri nating. CT DLP: 1277.4 mGycm Automated exposure control for dose reduction was used. Images obtained from the diaphragm to the floor the pelvis with no contrast. Lung bases are clear of infiltrate. No pleural effusion. Heart size is normal. No pericardial effusio n. Liver spleen and stomach pancreas and gallbladder appear intact. The bile duct are not dilated. There is no adrenal mass. Kidneys have normal size. No hydronephrosis. There are bilateral ureteral s tents. Stents appear in good position. Ureters are not dilated. No retroperitoneal adenopathy. Bladde r distends smoothly. There is mild prostate calcification. No inguinal hernia. No free fluid in the p luis. Appendix not seen. No sign of thickened appendix. There is no mesenteric edema. No ascites or free air. No sign of a bowel obstruction. The lumbar vert ebrae have normal alignment. There is posterior fusion surgery at L4-5 with rods and screws. The bony pelvis is intact. The hip joints are intact. IMPRESSION: Bilateral ureteral stents are in good position. No hydronephrosis. No sign of acute abnormality in th e abdomen and pelvis. No adverse change compared to preoperative exam of 11/06/2022. Left and right r enal pelvis are decreased in size compared to the old exam.
[2022-11-10] MEDS ORDERED: ACET/COD 300 MG/30 MG STARTER PACK 6 TAB BTL PO STA (23:10)
[2022-11-10 23:21] VITALS: BP 169/114; PULSE 105; RESP 18
== END 2022-11-10 23:21 | disposition home or self-care (01) ==
LOC: EC 20:55
DX: T83.192A Other mechanical complication of indwelling ureteral stent, initial encounter (principal); R30.0 Dysuria; I10 Essential (primary) hypertension; F17.200 Nicotine dependence, unspecified, uncomplicated; Z79.899 Other long term (current) drug therapy
CPT/HCPCS: 36415; 80053; 83690; 85025; 81001; 87086; 74176; 99284; 96374; J1170